=== PATIENT | male | born 1955 | race Caucasian/White ===

== ENCOUNTER 2019-03-20 10:14 | Outpatient (CLI) | payer OTHER, SELFPAY ==
--- NOTE | ~2019-03-20 | NM_ITS ---
EXAMINATION: NM tyler stress w perfusion EXAM DATE: 03/20/2019 14:59 INDICATION: Abnormal EKG. TECHNIQUE: Rest images were obtained following intravenous administration of 10.1 mCi Tc99m tetrofosm in (Myoview). The patient was infused intravenously with Lexiscan (regadenoson). Then, 28.4 mCi Tc99m tetrofosmin (Myoview) was administered intravenously, and stress images were obtained. Data was jose nstructed into short axis and horizontal and vertical long axis SPECT images. Gated SPECT images were also obtained. There is no prior study for comparison. FINDINGS: There is no definite reversible or fixed perfusion abnormality to suggest ischemia or infar ction. There is normal left ventricular wall motion. End diastolic volume: 105 mL. End-systolic volume: 19 mL. Left ventricular ejection fraction: 82%. IMPRESSION: 1. Normal myocardial perfusion at rest and during stress. 2. Left ventricular ejection fraction measuring 82%. Reviewed, dictated and finalized at location A. CTOR OF PARTNERSHIPS
--- NOTE | 2019-03-20 10:35 | EST_ITS ---
Patient Info Name: Juan Daugherty Age: 64 years : 1955 Gender: Male Ht: 75 in Wt: 230 lbs BSA: 2.37 m2 Exam Date: 03/20/2019 12:34 PM Exam Location: [facility] Stress Patient Status: Outpatient Admit Date: 03/20/2019 Staff Ordering Physician: Poncho Vital MD Attending Provider: Meredith Foreman ANP Exercise Technologist: Brett Mckay RDCS, RT Exam Type: CA stress tyler w NM Study Info A regadenoson stress test was performed. Summary 1. Normal sinus rhythm - normal ECG. 2. No abnormal ST/T wave changes with exercise. 3. Nuclear perfusion imaging to be reported by radiology. Protocol: Lexiscan Stress ECG Details Stage: REST Duration (min): 0 min : 33 sec HR (bpm): 71 SBP (mmHg): --- DBP (mmHg): --- Stage: REST Duration (min): 4 min : 52 sec HR (bpm): 70 SBP (mmHg): 124 DBP (mmHg): 81 Stage: STAGE 1 Duration (min): 1 min : 0 sec HR (bpm): 74 SBP (mmHg): 122 DBP (mmHg): 78 Stage: RECOVERY Duration (min): 1 min : 0 sec HR (bpm): 77 SBP (mmHg): 122 DBP (mmHg): 78 Stage: RECOVERY Duration (min): 2 min : 0 sec HR (bpm): 75 SBP (mmHg): 122 DBP (mmHg): 78 Stage: RECOVERY Duration (min): 3 min : 0 sec HR (bpm): 75 SBP (mmHg): 123 DBP (mmHg): 79 Stage: RECOVERY Duration (min): 4 min : 0 sec HR (bpm): 73 SBP (mmHg): 123 DBP (mmHg): 79 Stage: RECOVERY Duration (min): 5 min : 0 sec HR (bpm): 75 SBP (mmHg): 130 DBP (mmHg): 80 Stage: RECOVERY Duration (min): 5 min : 16 sec HR (bpm): 73 SBP (mmHg): 130 DBP (mmHg): 80 Rest HR: 70 bpm Peak HR: 80 bpm Rest Sys BP: 124 mmHg Peak Sys BP: 130 mmHg Max Pred HR: 154 bpm % Max Pred HR: 52 % Target HR: 131 bpm Max RPP: 10,400 bpm*mmHg BP Response: Normal blood pressure response Termination Reason: Completed protocol Cardiac Symptoms: None Total Time: 1 min : 0 sec Rest Polanco BP: 81 mmHg Peak Polanco BP: 80 mmHg Total Dose: 0.4 mg Resting ECG Normal sinus rhythm - normal ECG. Stress ECG No abnormal ST/T wave changes with exercise. Report Signatures
== END 2019-03-20 10:15 | disposition home or self-care (01) ==
PROVIDERS: PCP Internal Medicine; Visit Provider Internal Medicine
DX: R94.31 Abnormal electrocardiogram [ECG] [EKG] (principal)
CPT/HCPCS: 78452; 93017; A9502; J2785

== ENCOUNTER 2019-08-14 10:33 | Outpatient (CLI) | payer OTHER, SELFPAY ==
[2019-08-14 11:53] LABS: Alanine Aminotransferase 32 U/L (4-50); Albumin Level 4.6 g/dL (3.5-5.1); Alkaline Phosphatase 72 U/L (38-126); Aspartate Amino Transferase 36 U/L (17-59); Bilirubin,Total 0.4 mg/dL (0.2-1.3); Blood Urea Nitrogen 15 mg/dL (9-20); Calcium 9.5 mg/dL (8.4-10.2); Carbon Dioxide 25 mmol/L (22-30); Chloride 103 mmol/L (98-107); Cholesterol 162 mg/dL (0-200); Estimated Glomerular Filt Rate > 60; Glucose 118 mg/dL (75-110); HDL Direct 26 mg/dL; Potassium 4.1 mmol/L (3.4-5.0); Sodium 139 mmol/L (137-145); Triglycerides 215 mg/dL (<150)
[2019-08-14 12:04] LABS: LDL Cholesterol Direct 94 mg/dL
== END 2019-08-14 10:34 | disposition home or self-care (01) ==
PROVIDERS: PCP Internal Medicine; Visit Provider Internal Medicine
DX: E78.5 Hyperlipidemia, unspecified (principal)
CPT/HCPCS: 36415; 80053; 80061

== ENCOUNTER 2019-09-29 16:02 | Outpatient (CLI) | payer OTHER, SELFPAY ==
[2019-09-29 16:25] LABS: Basophils Absolute Auto 0.1 K/mm3 (0.0-0.1); Basophils Percent Auto 0.9 % (0.2-1.2); Eosinophils Absolute Auto 0.4 K/mm3 (0-0.3); Eosinophils Percent Auto 6.5 % (0-4.4); Hematocrit 44.6 % (42.0-52.0); Hemoglobin 15.4 g/dL (14.0-18.0); Immature Granulocyte Absolute 0.01 K/mm3 (0.00-0.031); Immature Granulocyte Percent A 0.2 % (0-0.5); Lymphocytes Absolute Auto 2.52 K/mm3 (0.9-3.2); Lymphocytes Percent Auto 38.3 % (18.3-44.2); Mean Corpuscular HGB Conc 34.5 g/dl (32-36); Mean Corpuscular Hemoglobin 29.7 pg (26-34); Mean Corpuscular Volume 86.1 fl (80-100); Mean Platelet Volume 8.6 fl (7.4-10.4); Monocytes Absolute Auto 0.5 K/mm3 (0.1-0.6); Monocytes Percent Auto 7.8 % (2.6-8.5); Neutrophils Absolute Auto 3.1 K/mm3 (1.3-6.7); Neutrophils Percent Auto 46.3 % (45.5-73.1); Platelet Count Result 169 k/mm3 (150-375); Red Blood Count 5.18 M/mm3 (4.6-6.20); Red Cell Distribution Width 12.9 % (11.5-14.5); White Blood Count 6.6 K/mm3 (4.5-10.0)
== END 2019-09-29 16:03 | disposition home or self-care (01) ==
PROVIDERS: PCP Internal Medicine; Visit Provider Internal Medicine
DX: E78.5 Hyperlipidemia, unspecified (principal)
CPT/HCPCS: 36415; 85025

== ENCOUNTER 2020-04-30 13:10 | Outpatient (CLI) | payer OTHER, SELFPAY ==
[2020-04-30 13:38] LABS: Basophils Percent Auto 0.4 % (0.2-1.2); Eosinophils Absolute Auto 0.3 K/mm3 (0-0.3); Hematocrit 39.9 % (42.0-52.0); Hemoglobin 14.1 g/dL (14.0-18.0); Immature Granulocyte Absolute 0.02 K/mm3 (0.00-0.031); Immature Granulocyte Percent A 0.3 % (0-0.5); Lymphocytes Absolute Auto 2.43 K/mm3 (0.9-3.2); Lymphocytes Percent Auto 34.5 % (18.3-44.2); Mean Corpuscular HGB Conc 35.3 g/dl (32-36); Mean Corpuscular Hemoglobin 29.7 pg (26-34); Monocytes Absolute Auto 0.7 K/mm3 (0.1-0.6); Monocytes Percent Auto 9.5 % (2.6-8.5); Neutrophils Absolute Auto 3.6 K/mm3 (1.3-6.7); Neutrophils Percent Auto 51.3 % (45.5-73.1); Platelet Count Result 178 k/mm3 (150-375); Red Blood Count 4.75 M/mm3 (4.6-6.20)
[2020-04-30 13:41] LABS: Hemoglobin A1C 5.4 % (<5.7)
[2020-04-30 13:48] LABS: Alanine Aminotransferase 42 U/L (4-50); Albumin Level 4.3 g/dL (3.5-5.1); Alkaline Phosphatase 69 U/L (38-126); Anion Gap 4 mmol/L (8-16); Aspartate Amino Transferase 39 U/L (17-59); Bilirubin,Total 0.5 mg/dL (0.2-1.3); Blood Urea Nitrogen 14 mg/dL (9-20); Calcium 9.7 mg/dL (8.4-10.2); Carbon Dioxide 30 mmol/L (22-30); Chloride 107 mmol/L (98-107); Cholesterol 141 mg/dL (0-200); Estimated Glomerular Filt Rate > 60; Glucose 134 mg/dL (75-110); HDL Direct 24 mg/dL; Potassium 4.4 mmol/L (3.4-5.0); Sodium 141 mmol/L (137-145); Triglycerides 204 mg/dL (<150)
[2020-04-30 13:59] LABS: LDL Cholesterol Direct 74 mg/dL
[2020-04-30 14:17] LABS: Prostate Specific Antigen 0.8 ng/mL (< OR = 4.0)
[2020-04-30 14:28] LABS: Creatinine Urine 101.6 mg/dL
[2020-04-30 14:59] LABS: MALB Creatinine Ratio < 5.9 mg/g (0-30); Microalbumin Urine Random < 6.0 mg/L (0-16.7)
== END 2020-04-30 13:11 | disposition home or self-care (01) ==
PROVIDERS: PCP Internal Medicine; Visit Provider Internal Medicine
DX: R73.01 Impaired fasting glucose (principal); F31.9 Bipolar disorder, unspecified; I10 Essential (primary) hypertension
CPT/HCPCS: 36415; 80053; 80061; 82043; 83036; 84153; 85025

== ENCOUNTER 2020-05-08 13:18 | Outpatient (CLI) | payer OTHER, MEDICARE, SELFPAY | END 2020-05-08 13:19 | disposition home or self-care (01) | LOC: ANHCOVIDVC 13:18 | PROVIDERS: PCP Internal Medicine | DX: Z23 Encounter for immunization (principal) | CPT/HCPCS: 0001A; 91300 ==

== ENCOUNTER 2020-05-21 13:26 | Outpatient (CLI) | payer OTHER, SELFPAY ==
--- NOTE | ~2020-05-21 | MM_ITS ---
EXAMINATION: MM diagnostic mammo BI HISTORY: Bilateral breast swelling and pain. Patient reports improvement over the last two months aft er trazodone cessation. TECHNIQUE: Full field digital craniocaudal and mediolateral oblique views of both breasts were obtain ed. CAD analysis was submitted and interpreted. COMPARISON: None BREAST PARENCHYMAL COMPOSITION: The breasts are heterogeneously dense, which may obscure small masses . FINDINGS: There is no evidence of suspicious mass, calcification, or architectural distortion to sug gest malignancy. Distribution of breast tissue is consistent with bilateral gynecomastia. IMPRESSION: 1. Mammographic findings consistent with bilateral gynecomastia. No mammographic evidence of malignan cy. Further evaluation at this time should be based on clinical assessment. Continued follow-up physi rachelle examination is recommended. BI-RADS Category 2: Benign finding(s). Reviewed, dictated and finalized at location A. IMPRESSION: 1. Mammographic findings consistent with bilateral gynecomastia. No mammographi c evidence of malignancy. Further evaluation at this time should be based on cl inical assessment. Continued follow-up physical examination is recommended. BI-RADS Category 2: Benign finding(s).
== END 2020-05-21 13:27 | disposition home or self-care (01) ==
LOC: ANHIMG 13:28
PROVIDERS: PCP Internal Medicine; Visit Provider Internal Medicine
DX: N64.4 Mastodynia (principal)
CPT/HCPCS: 77066

== ENCOUNTER 2020-05-29 13:21 | Outpatient (CLI) | payer OTHER, MEDICARE, SELFPAY | END 2020-05-29 13:22 | disposition home or self-care (01) | LOC: ANHCOVIDVC 13:21 | PROVIDERS: PCP Internal Medicine | DX: Z23 Encounter for immunization (principal) | CPT/HCPCS: 0002A; 91300 ==

== ENCOUNTER 2021-01-22 11:17 | Outpatient (CLI) | payer OTHER, SELFPAY ==
--- NOTE | ~2021-01-22 | CT_ITS ---
EXAMINATION: CT lung screening DATE: 01/22/2021 11:54 INDICATION: Personal history of nicotine dependence TECHNIQUE: Computed tomography (CT) of the chest was performed without intravenous contrast. The dose -length product was 212.13 mGy-cm. Automated exposure control and iterative reconstruction technique were employed. COMPARISON: CT dated 01/10/2019 FINDINGS: No significant pleural or pericardial effusion. The upper abdomen is unremarkable. Small hi atal hernia. No thoracic lymphadenopathy. There is mild emphysema. Stable 5 mm left lower lobe nodule , image 108. There are calcified granulomas in the left upper lobe. Stable 5 mm fissural nodule on th e left. Stable 3 mm lingular nodule. Stable groundglass opacities of the superior segment of the righ t lower lobe. No new or enlarging pulmonary nodules. Mild thoracic spondylosis with accentuated kypho sis. No acute osseous abnormality. IMPRESSION: 1. Lung-RADS category 2: Benign appearance or behavior. Continue annual screening with noncontrast lo w-dose chest CT in 12 months. Reviewed, dictated and finalized at location A. TS CENTRE MANAGER IMPRESSION: 1. Lung-RADS category 2: Benign appearance or behavior. Continue annual screeni ng with noncontrast low-dose chest CT in 12 months.
== END 2021-01-22 11:18 | disposition home or self-care (01) ==
PROVIDERS: PCP Internal Medicine; Visit Provider Internal Medicine
DX: Z87.891 Personal history of nicotine dependence (principal)
CPT/HCPCS: 71271

== ENCOUNTER 2021-08-02 10:15 | Outpatient (CLI) | payer OTHER, SELFPAY ==
[2021-08-02 11:11] LABS: Basophils Absolute Auto 0.1 K/mm3 (0.0-0.1); Basophils Percent Auto 0.7 % (0.2-1.2); Eosinophils Absolute Auto 0.4 K/mm3 (0-0.3); Eosinophils Percent Auto 5.2 % (0-4.4); Hematocrit 40.9 % (42.0-52.0); Hemoglobin 14.5 g/dL (14.0-18.0); Immature Granulocyte Absolute 0.05 K/mm3 (0.00-0.031); Immature Granulocyte Percent A 0.7 % (0-0.5); Lymphocytes Absolute Auto 2.35 K/mm3 (0.9-3.2); Lymphocytes Percent Auto 33.1 % (18.3-44.2); Mean Corpuscular HGB Conc 35.5 g/dl (32-36); Mean Corpuscular Hemoglobin 30.6 pg (26-34); Mean Corpuscular Volume 86.3 fl (80-100); Mean Platelet Volume 8.8 fl (7.4-10.4); Monocytes Absolute Auto 0.6 K/mm3 (0.1-0.6); Neutrophils Absolute Auto 3.6 K/mm3 (1.3-6.7); Neutrophils Percent Auto 51.3 % (45.5-73.1); Platelet Count Result 169 k/mm3 (150-375); Red Blood Count 4.74 M/mm3 (4.6-6.20); Red Cell Distribution Width 12.7 % (11.5-14.5); White Blood Count 7.1 K/mm3 (4.5-10.0)
[2021-08-02 11:22] LABS: Alanine Aminotransferase 34 U/L (6-50); Albumin Level 4.7 g/dL (3.5-5.1); Alkaline Phosphatase 66 U/L (38-126); Anion Gap 9 mmol/L (8-16); Aspartate Amino Transferase 40 U/L (17-59); Bilirubin,Total 0.6 mg/dL (0.2-1.3); Blood Urea Nitrogen 16 mg/dL (9-20); Calcium 9.2 mg/dL (8.4-10.2); Carbon Dioxide 24 mmol/L (22-30); Chloride 106 mmol/L (98-107); Cholesterol 167 mg/dL (0-200); Estimated Glomerular Filt Rate > 60; Glucose 117 mg/dL (65-110); HDL Direct 30 mg/dL; Potassium 4.3 mmol/L (3.4-5.0); Sodium 139 mmol/L (137-145); Triglycerides 192 mg/dL (<150)
[2021-08-02 11:29] LABS: Creatinine Urine 96.9 mg/dL
[2021-08-02 11:33] LABS: LDL Cholesterol Direct 89 mg/dL
[2021-08-02 11:34] LABS: MALB Creatinine Ratio 7.9 mg/g (0-30); Microalbumin Urine Random 7.7 mg/L (0-16.7)
[2021-08-02 11:44] LABS: Vitamin D 25 Hydroxy 44.8 ng/mL
[2021-08-02 11:53] LABS: Prostate Specific Antigen 0.7 ng/mL (< OR = 4.0)
== END 2021-08-02 10:16 | disposition home or self-care (01) ==
PROVIDERS: PCP Internal Medicine; Visit Provider Internal Medicine
DX: Z12.5 Encounter for screening for malignant neoplasm of prostate (principal); M17.0 Bilateral primary osteoarthritis of knee; I72.2 Aneurysm of renal artery; F31.9 Bipolar disorder, unspecified; E55.9 Vitamin D deficiency, unspecified; E78.2 Mixed hyperlipidemia; E78.5 Hyperlipidemia, unspecified
CPT/HCPCS: 36415; 80053; 80061; 82043; 82306; 84153; 84443; 85025; G0103

== ENCOUNTER 2021-08-04 11:51 | Outpatient (CLI) | payer OTHER, SELFPAY ==
--- NOTE | ~2021-08-04 | XR_ITS ---
XR knee RT 3V 08/04/2021 12:21 Indication: Chronic knee pain Procedure: 3 views of the right knee Comparison: 09/10/2016 Findings: There is been progression of moderate tricompartment osteoarthritis of the right knee most advanced in the patellofemoral compartment. No acute fracture. No significant joint effusion. No fore ign bodies. Impression: 1: Progression of moderate tricompartment osteoarthritis of the right knee compared with prior study. Reviewed, dictated and finalized at location B. Impression: 1: Progression of moderate tricompartment osteoarthritis of the right knee comp ared with prior study.
--- NOTE | ~2021-08-04 | XR_ITS ---
XR knee LT 3V DATE: 08/04/2021 12:21 INDICATION: Chronic bilateral anterior knee pain TECHNIQUE: Park and standing AP and lateral views COMPARISON: 09/10/2016 left knee FINDINGS: There is prepatellar and infrapatellar soft tissue thickening since 09/10/2016. Small suprapatellar knee joint effusion is suggested. There is mild periarticular spurring at the patellofemoral joint consistent with mild osteoarthritis. Medial lateral compartment joint spaces are relatively well preserved. No fracture or dislocation, radiopaque intra-articular loose body or chondrocalcinosis is detected. No periosteal reaction or bone destruction IMPRESSION: Mild patellofemoral osteoarthritis Small suprapatellar knee joint effusion Nonspecific prepatellar and infrapatellar soft tissue thickening Reviewed, dictated and finalized at location A.
== END 2021-08-04 11:52 | disposition home or self-care (01) ==
LOC: ANHIMG 11:55
PROVIDERS: PCP Internal Medicine; Visit Provider Internal Medicine
DX: M17.0 Bilateral primary osteoarthritis of knee (principal); M25.462 Effusion, left knee
CPT/HCPCS: 73562

== ENCOUNTER 2022-01-13 15:59 | Emergency (ER) | payer OTHER, SELFPAY ==
--- NOTE | ~2022-01-13 | CT_ITS ---
EXAMINATION: CT brain wo con INDICATION: Head injury COMPARISON: None TECHNIQUE: Standard unenhanced head CT. The dose-length product (DLP) was 681.00 mGy-cm. The mA was a djusted according to patient size. Iterative reconstruction technique was employed. FINDINGS: There is a left periorbital hematoma. There is acute subarachnoid hemorrhage in the left fr ontal lobe. The ventricles are normal. There is no abnormal mass effect or midline shift. The yousif-wh ite matter differentiation is normal. The basal cisterns are patent. The orbits are normal. The paran marivel sinuses, mastoids and calvarium are normal. IMPRESSION: 1. Acute subarachnoid hemorrhage in the left frontal lobe. Reviewed, dictated and finalized at location F. E FINISHER
--- NOTE | ~2022-01-13 | CT_ITS ---
EXAMINATION: CT facial & cervical spine wo DATE: 01/13/2022 18:01 INDICATION: Head injury TECHNIQUE: Computed tomography (CT) of the maxillofacial region and cervical spine was performed with out intravenous contrast. The dose-length product (DLP) was 625.85 mGy-cm. Automated exposure control and iterative reconstruction technique were employed. COMPARISON: None FINDINGS: MAXILLOFACIAL CT: There is a left periorbital hematoma. No facial fracture is identified. The paranasal sinuses are wel l aerated. The globes are intact. CERVICAL SPINE CT: There are 2 mm of retrolisthesis of C3 on C4 and C5 on C6. There is moderate to severe loss of interv ertebral disc space height at C5-6. There is moderate loss of intervertebral disc space height at C6- 7. The vertebral body heights are normal. There is no fracture. The odontoid is intact. There is mode rate facet and uncovertebral joint osteoarthritis at C5-6. The prevertebral soft tissues are normal. There are minimal airspace opacities of the visualized lung apices, consistent with atelectasis versu s pneumonia IMPRESSION: 1. Left periorbital soft tissue hematoma without acute facial fracture. 2. Moderate cervical spondylosis without acute osseous abnormality. Reviewed, dictated and finalized at location F. NG INSTRUCTOR
[2022-01-13 16:07] VITALS: BP 145/100; PULSE 83; RESP 15; TEMP 36.6; O2SAT 95
--- NOTE | 2022-01-13 17:12 | ED.FALL ---
HPI - Fall General Chief Complaint: Fall Stated Complaint: fall dizziness Time Seen by Provider: 01/13/22 16:53 History of Present Illness HPI Narrative: 66-year-old male history of anxiety, depression, dyslipidemia presents to the emergency room for evaluation of head injury status post fall. Patient states that he was at [employer], believes that he was walking too fast when he lost his footing, tripped and landed on the left side of his face. Patient denies loss of consciousness altered mental status, confusion, headache, dizziness, nausea vomiting. Patient denies being on anticoagulant therapy. Patient reports pain to his left brow and left cheek. Denies visual or hearing changes. Related Data Home Medications Medication Instructions Recorded Confirmed sertraline 100 mg tablet 100 mg PO DAILY 12/21/18 08/04/21 clobetasol 0.05 % topical ointment 1 applic topical BID PRN Itching 01/18/19 08/04/21 multivit with minerals-iron 18 1 tablet PO DAILY 01/18/19 08/04/21 mg-folic ac 400 mcg-vit K 25 mcg tablet (Adults Multivitamin) alprazolam 0.25 mg tablet 0.25 mg PO BID Anxiety 06/03/20 08/04/21 quetiapine 100 mg tablet 400 mg PO HS 06/03/20 08/04/21 haloperidol 10 mg tablet 10 mg PO HS 01/14/21 08/04/21 temazepam 15 mg capsule 10 mg PO QHS 01/14/21 08/04/21 Allergies Allergy/AdvReac Type Severity Reaction Status Date / Time pollen extracts Allergy Unknown sinus Verified 01/13/22 16:17 drainage Review of Systems Review of Systems: CONSTITUTIONAL: Denies fever, chills, or sweats. EYES: Denies visual changes, redness, or discharge. ENT: Denies rhinorrhea, congestion, sore throat, or otalgia. CARDIOVASCULAR: Denies chest pain, palpitations, or edema. RESPIRATORY: Denies cough or dyspnea. GASTROINTESTINAL: Denies abdominal pain, nausea, vomiting, or diarrhea. GENITOURINARY: Denies dysuria or hematuria. SKIN: Denies rash or itching. MUSCULOSKELETAL: Reports head injury NEUROLOGIC: Denies headache, numbness, dizziness, or weakness. PSYCHIATRIC: Denies anxiety or depression. [facility] Past Medical History Medical History Aortic aneurysm 4.4 cm Infrarenal AAA on CT scan. Dr. Elias Follows him. Bipolar 1 disorder Depression GERD (gastroesophageal reflux disease) Gonorrhea Hepatitis A in 1975 High cholesterol History of nicotine use will need low dose CT scan in Jan 2019 Hyperlipidemia Seizure Surgical History Surgical History H/O wisdom tooth extraction History of appendectomy Hx of tonsillectomy Family History Family History Father Seizure Mother Cancer Sibling COPD (chronic obstructive pulmonary disease) Cancer Social History Social History Smoking packs per day: 1 Smoking cigarettes per day: 20.0 Years smoked: 20 Smoking pack-years: 20.00 Smoking status: Former smoker Tobacco type: cigarettes Second hand tobacco smoke exposure: Yes Smoking end date: 03/01/18 Alcohol intake: never Substance use: never Substance use type: does not use Gender identity (if verbalized by the patient): Male Exam Narrative: GENERAL: Well-appearing, well-nourished, no physical limitations, and in no acute distress. HEAD: Normocephalic, +TTP and periorbital hematoma to the left brow/left zygoma EYES: Conjunctivae normal, PERRLA and EOMI. ENT: External nose normal, Nares clear, no rhinorrhea or epistaxis. Mucous membranes moist. Oropharynx without tonsillar hypertrophy exudate or other lesions. External ears normal, bilateral TMs normal bilaterally NECK: Supple. No meningeal signs. No adenopathy or masses. No carotid bruits or JVD CHEST: Clear to auscultation. No respiratory distress. No wheezes rales or rhonchi. No tenderness. HEART: Regular rate and rhythm. No murmur he
[2022-01-13 18:21] VITALS: BP 160/96; PULSE 77; RESP 14; O2SAT 97
[2022-01-13 18:23] LABS: Basophils Percent Auto 0.4 % (0.2-1.2); Eosinophils Absolute Auto 0.2 K/mm3 (0-0.3); Eosinophils Percent Auto 1.6 % (0-4.4); Hematocrit 43.6 % (42.0-52.0); Hemoglobin 15.4 g/dL (14.0-18.0); Immature Granulocyte Absolute 0.05 K/mm3 (0.00-0.031); Immature Granulocyte Percent A 0.5 % (0-0.5); Lymphocytes Absolute Auto 1.61 K/mm3 (0.9-3.2); Lymphocytes Percent Auto 15.7 % (18.3-44.2); Mean Corpuscular HGB Conc 35.3 g/dl (32-36); Mean Corpuscular Hemoglobin 30.9 pg (26-34); Mean Corpuscular Volume 87.6 fl (80-100); Mean Platelet Volume 8.4 fl (7.4-10.4); Monocytes Absolute Auto 0.7 K/mm3 (0.1-0.6); Monocytes Percent Auto 6.6 % (2.6-8.5); Neutrophils Absolute Auto 7.7 K/mm3 (1.3-6.7); Neutrophils Percent Auto 75.2 % (45.5-73.1); Platelet Count Result 186 k/mm3 (150-375); Red Blood Count 4.98 M/mm3 (4.6-6.20); Red Cell Distribution Width 13.2 % (11.5-14.5); White Blood Count 10.3 K/mm3 (4.5-10.0)
[2022-01-13 18:35] LABS: Alanine Aminotransferase 40 U/L (6-50); Alkaline Phosphatase 79 U/L (38-126); Anion Gap 14 mmol/L (8-16); Aspartate Amino Transferase 53 U/L (17-59); Bilirubin,Total 0.7 mg/dL (0.2-1.3); Blood Urea Nitrogen 12 mg/dL (9-20); Calcium 9.8 mg/dL (8.4-10.2); Carbon Dioxide 27 mmol/L (22-30); Chloride 101 mmol/L (98-107); Estimated CRCL calculation 68 ml/min; Estimated Glomerular Filt Rate > 60; Glucose 110 mg/dL (65-110); Potassium 4.5 mmol/L (3.4-5.0); Sodium 142 mmol/L (137-145)
[2022-01-13 18:53] VITALS: BP 157/98; PULSE 82; RESP 17; O2SAT 97
[2022-01-13 19:00] LABS: SARS-CoV-2 RNA PCR Negative
[2022-01-13 19:06] LABS: INR 1.1
[2022-01-13 19:07] LABS: Partial Thromboplastin Time 31.2 SECONDS (22.3-36.8)
== END 2022-01-13 18:56 | disposition short-term general hospital (02) ==
PROVIDERS: Emergency Provider Nurse Practitioner Family; PCP Internal Medicine
DX: S06.6X0A Traumatic subarachnoid hemorrhage without loss of consciousness, initial encounter (principal); Z20.822 Contact with and (suspected) exposure to COVID-19; E78.5 Hyperlipidemia, unspecified; K21.9 Gastro-esophageal reflux disease without esophagitis; F41.9 Anxiety disorder, unspecified; F31.9 Bipolar disorder, unspecified; Z87.891 Personal history of nicotine dependence; M47.812 Spondylosis without myelopathy or radiculopathy, cervical region; W01.0XXA Fall on same level from slipping, tripping and stumbling without subsequent striking against object, initial encounter
CPT/HCPCS: 36415; 70450; 70486; 72125; 80053; 85025; 85610; 85730; 99285; U0003; U0005

== ENCOUNTER 2022-02-24 12:11 | Outpatient (CLI) | payer OTHER, SELFPAY ==
[2022-02-24 12:33] LABS: Hematocrit 41.7 % (42.0-52.0); Hemoglobin 14.7 g/dL (14.0-18.0); Mean Corpuscular HGB Conc 35.3 g/dl (32-36); Mean Corpuscular Hemoglobin 30.6 pg (26-34); Mean Corpuscular Volume 86.7 fl (80-100); Mean Platelet Volume 8.2 fl (7.4-10.4); Platelet Count Result 189 k/mm3 (150-375); Red Blood Count 4.81 M/mm3 (4.6-6.20); Red Cell Distribution Width 12.7 % (11.5-14.5); White Blood Count 6.8 K/mm3 (4.5-10.0)
[2022-02-24 12:47] LABS: Cholesterol 156 mg/dL (0-200); HDL Direct 30 mg/dL; Triglycerides 190 mg/dL (<150)
[2022-02-24 12:51] LABS: Hemoglobin A1C 5.4 % (<5.7)
[2022-02-24 12:58] LABS: LDL Cholesterol Direct 83 mg/dL
[2022-02-24 13:17] LABS: Prostate Specific Antigen 0.9 ng/mL (< OR = 4.0)
[2022-02-27 12:58] LABS: Vitamin D 1,25 (OH)2 Total 27 pg/mL (18-72); Vitamin D2 1,25 (OH)2 <8 pg/mL; Vitamin D3 1,25 (OH)2 27 pg/mL
== END 2022-02-24 12:12 | disposition home or self-care (01) ==
PROVIDERS: PCP Internal Medicine; Visit Provider Internal Medicine
DX: F31.9 Bipolar disorder, unspecified (principal); R53.1 Weakness; E78.5 Hyperlipidemia, unspecified; R73.01 Impaired fasting glucose; E55.9 Vitamin D deficiency, unspecified; Z12.5 Encounter for screening for malignant neoplasm of prostate
CPT/HCPCS: 36415; 80061; 82607; 82652; 83036; 84153; 84443; 85027; G0103

== ENCOUNTER 2022-03-06 13:36 | Outpatient (CLI) | payer OTHER, SELFPAY ==
--- NOTE | ~2022-03-06 | CT_ITS ---
EXAMINATION: CT diagnostic chest wo con DATE: 03/06/2022 14:01 INDICATION: Lung nodule seen on prior CT. TECHNIQUE: Computed tomography (CT) of the chest was performed without intravenous contrast. The dose -length product was 278.77 mGy-cm. Automated exposure control and iterative reconstruction technique were employed. COMPARISON: CT dated 01/22/2021 and 01/10/2019 FINDINGS: Stable left lower lobe nodules, largest measuring 5 mm, image 100. There are calcified gran ulomas of the left upper lobe unchanged. There is emphysema. No endobronchial lesions. Groundglass op acities are identified in the superior segment of the right lower lobe which appear chronic and stabl e 4 mm lingular nodule, coronal image 32. No new pulmonary nodules. There is mild mediastinal lymphad enopathy in the precarinal location, unchanged from prior examinations, likely reactive. There is a h ealed right sixth rib fracture. Mild thoracic spondylosis. IMPRESSION: 1. Stable pulmonary nodules lying for differences of technique, likely benign. Recommend follow-up lo w dose CT chest in 12 months. Reviewed, dictated and finalized at location A. ITY ASSURANCE TEST PROGRAM MANAGER IMPRESSION: 1. Stable pulmonary nodules lying for differences of technique, likely benign. Recommend follow-up low dose CT chest in 12 months.
== END 2022-03-06 13:37 | disposition home or self-care (01) ==
PROVIDERS: PCP Internal Medicine; Visit Provider Internal Medicine
DX: R91.8 Other nonspecific abnormal finding of lung field (principal)
CPT/HCPCS: 71250

== ENCOUNTER 2022-08-19 10:25 | Emergency (ER) | payer OTHER, SELFPAY ==
--- NOTE | ~2022-08-19 | XR_ITS ---
XR lumbar spine 2-3V 08/19/2022 11:17 Indication: Low back pain after fall Procedure: 3 views lumbar spine Comparison: No prior studies for comparison. Findings: There is disc narrowing at all lumbar levels most advanced at L5-S1. There is facet hypertr ophy at L3-4 through L5-S1. No fracture or traumatic malalignment. No evidence for spondylolysis or s pondylolisthesis. Impression: 1: No acute abnormality of the lumbar spine. 2: Moderate lumbar spondylosis. Reviewed, dictated and finalized at location [] Impression: 1: No acute abnormality of the lumbar spine. 2: Moderate lumbar spondylosis.
[2022-08-19 10:22] VITALS: BP 135/91; PULSE 86; RESP 19; TEMP 36.7
[2022-08-19] MEDS: KETOROLAC 15 MG/ML VIAL (*BKC) IV PUSH (10:51)
[2022-08-19 10:54] VITALS: BP 153/95; PULSE 84; RESP 20; O2SAT 92
[2022-08-19] MEDS: HYDROcodone/acetaminophen (*CRX) 5-325 MG TABLET 1 TAB PO (11:28)
[2022-08-19 11:29] VITALS: BP 142/90; PULSE 80; RESP 14; O2SAT 96
[2022-08-19 11:31] VITALS: BP 143/89; PULSE 84; RESP 14; O2SAT 96
--- NOTE | 2022-08-19 12:39 | ED.FALL ---
HPI - Fall General Chief Complaint: Fall Stated Complaint: fell off clip on sunglasses inspector Time Seen by Provider: 08/19/22 10:29 History of Present Illness HPI Narrative: Patient is a 67-year-old male with history of subarachnoid hemorrhage with resultant balance issues who presents ER after flipping over his riding lawnmower. He actually drove it up against a fence and it rolled over. He was not crushed or entrapped. He did not strike his head or lose consciousness. He did land on his left back and has had some pain since then. He has not tried to ambulate. Related Data Home Medications Medication Instructions Recorded Confirmed multivit with minerals-iron 18 1 tablet PO DAILY 01/18/19 08/07/22 mg-folic ac 400 mcg-vit K 25 mcg tablet (Adults Multivitamin) alprazolam 0.25 mg tablet 0.25 mg PO BID Anxiety 06/03/20 08/07/22 sertraline 100 mg tablet 50 mg PO DAILY 01/20/22 08/07/22 quetiapine 100 mg tablet 300 mg PO HS 04/24/22 08/07/22 lurasidone 20 mg tablet 20 mg PO QPM 08/07/22 08/07/22 Allergies Allergy/AdvReac Type Severity Reaction Status Date / Time pollen extracts Allergy Unknown sinus Verified 08/19/22 10:35 drainage Review of Systems Review of Systems: All systems reviewed & are unremarkable except as noted in HPI and below Musculoskeletal: Musculoskeletal: Reports back pain, Denies arthralgias and Denies joint swelling Integumentary/Breasts: Skin/Breast: Denies erythema and Denies rash Neurologic: Denies syncope, Denies headache(s), Denies focal weakness and Denies numbness [facility] Past Medical History Medical History (Updated 08/19/22 @ 12:44 by Ru Romo MD) Aortic aneurysm 4.4 cm Infrarenal AAA on CT scan. Dr. Elias Follows him. Bipolar 1 disorder Depression GERD (gastroesophageal reflux disease) Gonorrhea Hepatitis A in 1975 High cholesterol History of nicotine use will need low dose CT scan in Jan 2019 Hyperlipidemia Seizure Surgical History Surgical History H/O wisdom tooth extraction History of appendectomy Hx of tonsillectomy Family History Family History Father Seizure Mother Cancer Sibling COPD (chronic obstructive pulmonary disease) Cancer Social History Social History Smoking packs per day: 1 Smoking cigarettes per day: 20.0 Years smoked: 20 Smoking pack-years: 20.00 Smoking status: Former smoker Tobacco type: cigarettes Second hand tobacco smoke exposure: Yes Smoking end date: 03/01/18 Alcohol intake: never Substance use: never Substance use type: does not use Lack of Transportation: No Lack of Food: Sometimes True Current Housing: I Have Housing Concerned About Future Housing: No Difficulty Paying Gas/Electric Bills: No Difficulty Paying for Meds: YES Currently Unemployed: No Education: Master's Degree or Higher Difficulty w/ Childcare or Family Care: No Occupation/Education: retired Gender identity (if verbalized by the patient): Male Exam Narrative: GENERAL: Well-appearing, well-nourished, and in no acute distress. HEAD: Normocephalic, atraumatic. ENT: Mucous membranes moist. CHEST: Clear to auscultation. No respiratory distress. HEART: Regular rate and rhythm. Normal peripheral pulses. ABDOMEN: Soft, nontender, nondistended. Back: No midline or paraspinal muscle point tenderness of the T/L spine. No abrasions/bruising. EXTREMITIES: Normal range of motion. No edema. SKIN: Warm, dry, no rash. NEURO: Alert and oriented x3. PSYCH: Normal mood and affect. Course Course Emergency Course: Patient resting comfortably. Informed of results. Discharge home. Vital Signs Vital signs: Vital Signs Temperature 98.1 F 08/19/22 10:22 Pulse Rate 86 08/19/22 10:22 Respiratory Rate 19 08/19/22 10:22 Blood Pressure 135/91 H
[2022-08-19 12:45] VITALS: BP 138/92; PULSE 75; RESP 16; O2SAT 98
== END 2022-08-19 12:46 | disposition home or self-care (01) ==
PROVIDERS: Emergency Provider Emergency Medicine; PCP Family Medicine
DX: S39.92XA Unspecified injury of lower back, initial encounter (principal); E78.00 Pure hypercholesterolemia, unspecified; I71.43 Infrarenal abdominal aortic aneurysm, without rupture; K21.9 Gastro-esophageal reflux disease without esophagitis; F31.9 Bipolar disorder, unspecified; Z87.891 Personal history of nicotine dependence; M47.816 Spondylosis without myelopathy or radiculopathy, lumbar region; W28.XXXA Contact with powered lawn mower, initial encounter
CPT/HCPCS: 72100; 96374; 99284; A9270; J1885

== ENCOUNTER 2022-09-29 15:00 | Outpatient (RCR) | payer OTHER, SELFPAY ==
--- NOTE | 2022-09-22 14:40 | PTOPEVAL1 ---
Assessment and note entered by Bebeto Hinojosa, PT Evaluation Information Assessment Status Evaluation Diagnosis Dorsalgia, Unsteadiness Onset 12/30/21 Subjective Information Reports that majority of his falls are from dizziness which he attributes to medication. His back has been hurting him for the last few weeks since he rolled his lawnmower over on himself. X- rays were negative for fracture so they attributed it to swelling. Feels he is weaker on his right side. He has been using a cane for the last couple of weeks and it is helping. Reported Pain Level Pain Score 4: Self Report Assessment PT Clinical Summary Patient presents with signs and symptoms consistent with lumbar stenosis and decreased R hip mobility. These findings are reflected in joint mobility measures and strength measures. His static and dynamic balance scores are adequate but his gait cycle is significantly affected at this time. Will benefit from skilled therapy to address these deficits to reduce fall risk and improve overall functional activity. Plan of Care Interventions Gait Training,Manual Therapy,Neuro Re-education, Therapeutic Activities,Therapeutic Exercise PT Services Indicated Yes These treatments will address the objective and functional deficits as defined above. The patient will be advanced safely and appropriately in order for the patient to progress towards his/her prior level of function. Additional exercises will be introduced and as well as a comprehensive home exercise program upon discharge, if needed, ?to ensure carryover of functional gains achieved in the clinic. This treatment plan has been reviewed and agreement upon by the patient.
--- NOTE | 2022-09-22 14:40 | OPREHPOC ---
Outpatient Therapy Plan of Care This is a Multidisciplinary Plan of Care that may contain components documented by all disciplines (PT, OT, and ST.) PT Problem 1 PT Problem #1 Knowledge Deficit PT Goal 1 Goal Independent with home hip mobility program Target Visit 8 PT Problem 2 PT Problem #2 Pain PT Goal 1 Goal Report pain no greater than 1/10 with supine to sit transfer Target Visit 8 PT Problem 3 PT Problem #3 Impaired Flexibility PT Goal 1 Goal Demonstrate mild restriction bilaterally in piriformis to reduce asymmetrical pelvic pull Target Visit 8 PT Goal 2 Goal Improve mary HS 90/90 ROM to -25 degrees mary for reduced posterior pelvic pull with ADLs Target Visit 8 PT Problem 4 PT Problem #4 Impaired Strength PT Goal 1 Goal Improve mary hip flexion strength to 4+/5 to improve foot clearence Target Visit 8 PT Problem 5 PT Problem #5 Impaired Gait PT Goal 1 Goal Ambulate with even stride length bilaterally with full R foot clearence Target Visit 8
--- NOTE | 2022-10-13 09:31 | PCPTNOTE ---
Patient called & cancelled scheduled appointment this date due to having surgery and not being able to complete PT at this time.
--- NOTE | 2022-10-16 11:04 | PTOPDC ---
Assessment and note entered by Bebeto Hinojosa, PT Evaluation Information Assessment Status Discharge - Pt Not Present Diagnosis Dorsalgia, Unsteadiness Onset 12/30/21 Subjective Information Patient contacted clinic reporting that he had imaging identifying a previously unidentified lumbar fracture. Requests a self discharge at this time to follow up with MD. Assessment PT Clinical Summary Patient cancelled remaining appointments. Based on subjective request patient will be discharged from current episode of therapy for MD follow up. Please refer to last treatment note for discharge status. Plan of Care PT Services Indicated Yes
== END 2022-10-16 12:47 | disposition home or self-care (01) ==
LOC: ANHGOSHPT 15:00
PROVIDERS: PCP Family Medicine; Visit Provider Family Medicine
DX: M54.9 Dorsalgia, unspecified (principal); R26.81 Unsteadiness on feet
CPT/HCPCS: 97110; 97112; 97140; 97161; 97530

== ENCOUNTER 2022-12-31 15:38 | Emergency (ER) | payer OTHER, SELFPAY ==
--- NOTE | 2022-12-31 15:41 | ED.SKABFB ---
HPI - Skin/Abscess/Foreign Bdy General Chief complaint: Skin/Abscess/Foreign Body Stated complaint: Rash all over Source: patient and RN notes reviewed Mode of arrival: ambulatory Limitations: no limitations History of Present Illness HPI narrative: Patient is a 67-year-old male who presents to the [facility] with complaints of itchy rash to his entire body. Patient states that he has had the rash for approximately 10-12 days. Patient states that the rash is itchy. He states that the rash is reddened and dry on his hands and near his right collarbone. He states that he has been applying lotion without relief of the itching. Related Data Home Medications Medication Instructions Recorded Confirmed multivit with minerals-iron 18 1 tablet PO DAILY 01/18/19 12/22/22 mg-folic ac 400 mcg-vit K 25 mcg tablet (Adults Multivitamin) alprazolam 0.25 mg tablet 0.25 mg PO BID Anxiety 06/03/20 12/22/22 sertraline 100 mg tablet 50 mg PO DAILY 01/20/22 12/22/22 quetiapine 100 mg tablet 300 mg PO HS 04/24/22 12/22/22 lurasidone 20 mg tablet 20 mg PO QPM 08/07/22 12/22/22 Allergies Allergy/AdvReac Type Severity Reaction Status Date / Time pollen extracts Allergy Unknown sinus Verified 12/22/22 16:10 drainage Review of Systems Review of Systems: CONSTITUTIONAL: Denies fever, chills, or sweats. EYES: Denies visual changes, redness, or discharge. ENT: Denies otalgia and sore throat CARDIOVASCULAR: Denies chest pain, palpitations, or edema. RESPIRATORY: Denies cough or dyspnea. GASTROINTESTINAL: Denies abdominal pain, nausea, vomiting, or diarrhea. GENITOURINARY: Denies dysuria or hematuria. SKIN: Reports generalized rash and itching. MUSCULOSKELETAL: Denies back pain, joint pain, or myalgia. NEUROLOGIC: Denies headache, numbness, or weakness. Pertinent positives per HPI. [facility] Past Medical History Medical History Aortic aneurysm 4.4 cm Infrarenal AAA on CT scan. Dr. Elias Follows him. Bipolar 1 disorder Depression GERD (gastroesophageal reflux disease) Gonorrhea Hepatitis A in 1975 High cholesterol History of nicotine use will need low dose CT scan in Jan 2019 Hyperlipidemia Seizure Surgical History Surgical History H/O wisdom tooth extraction History of appendectomy Hx of tonsillectomy Family History Family History Father Seizure Mother Cancer Sibling COPD (chronic obstructive pulmonary disease) Cancer Social History Social History Smoking packs per day: 1 Smoking cigarettes per day: 20.0 Years smoked: 20 Smoking pack-years: 20.00 Smoking status: Former smoker Tobacco type: cigarettes Second hand tobacco smoke exposure: Yes Smoking end date: 03/01/18 Alcohol intake: never Substance use: never Substance use type: does not use Lack of Transportation: No Lack of Food: Sometimes True Current Housing: I Have Housing Concerned About Future Housing: No Difficulty Paying Gas/Electric Bills: No Difficulty Paying for Meds: YES Currently Unemployed: No Education: Master's Degree or Higher Difficulty w/ Childcare or Family Care: No Occupation/Education: retired Gender identity (if verbalized by the patient): Male Comments At the time of my signature, I reviewed and agree with the nursing past medical, surgical, social, and family history. There is no relevant family history pertinent to the patient complaint. Exam Narrative: GENERAL: This is a well-nourished, well-developed patient, in no apparent distress. HEAD: normocephalic, atraumatic. EYES: Sclera clear/white. Vision is grossly intact. EARS: External ears normal. Hearing grossly intact. NOSE: External nose normal with no obvious nasal discharge, nares without red
[2022-12-31 15:49] VITALS: BP 114/85; PULSE 97; RESP 16; TEMP 36.6; O2SAT 99
== END 2022-12-31 16:14 | disposition home or self-care (01) ==
PROVIDERS: Emergency Provider Nurse Practitioner; PCP Family Medicine
DX: L30.9 Dermatitis, unspecified (principal); E78.5 Hyperlipidemia, unspecified; Z87.891 Personal history of nicotine dependence
CPT/HCPCS: 99213; G0463

== ENCOUNTER 2023-03-08 09:06 | Outpatient (CLI) | payer OTHER, SELFPAY ==
[2023-03-08 13:34] LABS: Alanine Aminotransferase 17 U/L (6-50); Albumin Level 4.1 g/dL (3.5-5.1); Alkaline Phosphatase 96 U/L (38-126); Anion Gap 10 mmol/L (8-16); Aspartate Amino Transferase 29 U/L (17-59); Bilirubin,Total 0.8 mg/dL (0.2-1.3); Blood Urea Nitrogen 15 mg/dL (9-20); Calcium 9.6 mg/dL (8.4-10.2); Carbon Dioxide 27 mmol/L (22-30); Chloride 105 mmol/L (98-107); Estimated Glomerular Filt Rate > 60; Glucose 102 mg/dL (65-110); Sodium 142 mmol/L (137-145)
[2023-03-08 13:53] LABS: Prostate Specific Antigen 1.2 ng/mL (< OR = 4.0)
== END 2023-03-08 09:07 | disposition home or self-care (01) ==
PROVIDERS: PCP Family Medicine; Visit Provider Family Medicine
DX: Z12.5 Encounter for screening for malignant neoplasm of prostate (principal); Z13.228 Encounter for screening for other metabolic disorders; Z13.220 Encounter for screening for lipoid disorders; E78.5 Hyperlipidemia, unspecified
CPT/HCPCS: 36415; 80053; 84153; G0103

== ENCOUNTER 2023-08-06 15:42 | Outpatient (CLI) | payer OTHER, SELFPAY ==
[2023-08-06 18:52] LABS: Appearance Urine Clear (Clear); Bilirubin Urine Negative (Negative); Blood Urine Negative (Negative); Color Urine Yellow (Yellow); Glucose Urine UA Negative (Negative); Ketones Urine Negative (Negative); Leukocyte Esterase Ur Negative LEU/UL (Negative); Nitrate Urine Negative (Negative); Protein Urine Negative (Negative); Specific Grav Ur 1.016 (1.001-1.035); Urobilinogen Urine 0.2 mg/dL (<2.0)
[2023-08-06 18:54] LABS: Add Urine Microscopic? NO
[2023-08-06 19:22] LABS: Alanine Aminotransferase 26 U/L (6-50); Albumin Level 4.8 g/dL (3.5-5.1); Alkaline Phosphatase 91 U/L (38-126); Anion Gap 9 mmol/L (4-12); Aspartate Amino Transferase 40 U/L (17-59); Bilirubin,Total 0.6 mg/dL (0.2-1.3); Blood Urea Nitrogen 15 mg/dL (9-20); Calcium 9.7 mg/dL (8.4-10.2); Carbon Dioxide 29 mmol/L (22-30); Chloride 99 mmol/L (98-107); Estimated Glomerular Filt Rate > 60; Glucose 111 mg/dL (65-110); Potassium 4.6 mmol/L (3.4-5.0); Sodium 137 mmol/L (137-145)
[2023-08-06 19:39] LABS: Basophils Percent Auto 0.5 % (0.2-1.2); Eosinophils Absolute Auto 0.2 K/mm3 (0-0.3); Eosinophils Percent Auto 2.8 % (0-4.4); Hematocrit 40.4 % (42.0-52.0); Hemoglobin 14.4 g/dL (14.0-18.0); Immature Granulocyte Absolute 0.03 K/mm3 (0.00-0.031); Immature Granulocyte Percent A 0.4 % (0-0.5); Lymphocytes Percent Auto 30.1 % (18.3-44.2); Mean Corpuscular HGB Conc 35.6 g/dl (32-36); Mean Corpuscular Hemoglobin 31.6 pg (26-34); Mean Corpuscular Volume 88.8 fl (80-100); Mean Platelet Volume 8.9 fl (7.4-10.4); Monocytes Absolute Auto 0.7 K/mm3 (0.1-0.6); Monocytes Percent Auto 9.3 % (2.6-8.5); Neutrophils Absolute Auto 4.3 K/mm3 (1.3-6.7); Neutrophils Percent Auto 56.9 % (45.5-73.1); Platelet Count Result 274 k/mm3 (150-375); Red Blood Count 4.55 M/mm3 (4.6-6.20); Red Cell Distribution Width 12.9 % (11.5-14.5); White Blood Count 7.6 K/mm3 (4.5-10.0)
[2023-08-06 19:54] LABS: Hemoglobin A1C 5.1 % (<5.7)
[2023-08-06 20:21] LABS: Folic Acid 16.3 ng/mL (2.76->20)
== END 2023-08-06 15:43 | disposition home or self-care (01) ==
PROVIDERS: PCP Family Medicine; Visit Provider Family Medicine
DX: R41.82 Altered mental status, unspecified (principal); Z13.228 Encounter for screening for other metabolic disorders; E11.9 Type 2 diabetes mellitus without complications; Z13.29 Encounter for screening for other suspected endocrine disorder; R53.83 Other fatigue
CPT/HCPCS: 36415; 80053; 81003; 82607; 82746; 83036; 84443; 85025

== ENCOUNTER 2023-09-11 00:38 | Observation (INO) | payer OTHER, SELFPAY ==
[2023-09-11] VITALS (12 sets, daily range): BP systolic 137–170; BP diastolic 76–90; PULSE 72–113; RESP 14–20; TEMP 36.2–37; O2SAT 95–100; BMI 25.0
--- NOTE | ~2023-09-11 | MR_ITS ---
EXAMINATION: MR brain/brain stem wo/w con DATE: 09/11/2023 10:00 INDICATION: Altered mental status. Transient ischemic attack. TECHNIQUE: Magnetic resonance imaging (MRI) of the brain and brainstem was performed without and with 17 mL Multihance intravenous contrast. Sequences included sagittal and axial T1-weighted SE, axial d iffusion-weighted FS SE, axial T2*-weighted GRE, axial T2-weighted FLAIR, and axial T2-weighted FSE. Postcontrast axial and coronal T1-weighted SE was obtained. Apparent diffusion coefficient (ADC) maps were created. COMPARISON: None. FINDINGS: There are no areas of restricted diffusion to suggest acute infarction. No intracranial hemorrhage or abnormal intracranial mass lesion. There are minimal scattered areas of nonspecific increased T2-aryan ghted signal intensity in the cerebral white matter, predominantly involving the deep and periventric ular white matter. There are no intraparenchymal signal abnormalities seen on the other pulse sequenc es. The ventricles are symmetric and normal in size. There are no abnormal extra-axial fluid collecti ons. Flow voids are seen in the cerebral arteries on the T2-weighted sequences consistent with their expected patency. Visualized orbits and soft tissues are unremarkable. There are no areas of abnormal enhancement on the post contrast images. IMPRESSION: 1. Normal for age brain MRI. No acute intracranial process. Reviewed, dictated and finalized at location A.
--- NOTE | ~2023-09-11 | CT_ITS ---
EXAMINATION: CTA BRAIN/CAROTID DATE: 09/11/2023 01:23 INDICATION: Altered mental status with slurred speech TECHNIQUE: Computed tomographic angiography (CTA) of the head and neck was performed with 100 mL Omni paque-350 intravenous contrast. Multiplanar reconstructions and maximum intensity projection 3D-recon structions of the carotid arteries and of the intracranial arteries were created by the technologist on a separate workstation. Precontrast CT of the head was also obtained. Automated exposure control and iterative reconstruction technique were employed.The dose-length product was 1234.21 mGy-cm. COMPARISON: None. FINDINGS: Carotid arteries: Visualized aortic arch ventricles arising from the arch are normal in caliber with small amount of no nhemodynamically significant atherosclerotic plaque and no dissection. There is atherosclerotic plaqu e with 0% stenosis of the right and left carotid bulbs relative to normal distal artery lumen diamete r (NASCET criteria). There is % stenosis of the left carotid bulb relative to normal distal artery cristhian men diameter. Head: No acute intracranial hemorrhage, acute infarction or abnormal extra axial fluid collection. Ventricl es are normal and symmetric. No mass/mass effect. No abnormally enhancing brain lesions on postcontra st imaging. The orbits, paranasal sinuses and mastoid air cells are normal. Intracranial arteries Left vertebral artery is mildly dominant. Small amount of atherosclerotic plaque at the left and mini mal at the right carotid bulbs without hemodynamically since and stenosis. There is no hemodynamicall y significant stenosis in the vertebral, basilar and internal carotid arteries. There are no aneurysm s identified. Both A1 and P1 segments are patent. There is a patent small anterior communicating art jose. The right A2 segment is diminutive with a larger caliber left A2 segment supplying the right per icallosal artery. Cerebral arterial arborization appears symmetric. IMPRESSION: 1. Small amount of atherosclerotic plaque with 0% stenosis of the right and left carotid bulbs relati ve to normal distal artery lumen diameter (NASCET criteria). 2. No acute intracranial process. 3. Unremarkable cerebral CT angiogram with no thrombosis, hemodynamically significant stenosis or ane urysm along the cerebral arteries. Reviewed, dictated and finalized at location A. IMPRESSION: 1. Small amount of atherosclerotic plaque with 0% stenosis of the right and lef t carotid bulbs relative to normal distal artery lumen diameter (NASCET criteri a). 2. No acute intracranial process. 3. Unremarkable cerebral CT angiogram with no thrombosis, hemodynamically signi ficant stenosis or aneurysm along the cerebral arteries.
--- NOTE | 2023-09-11 00:50 | ECG_ITS ---
Test Date: 2023-09-11 01:16:39 Measurements Intervals Douglas Rate: 99 P: 30 MI: 174 QRS: 32 QRSD: 140 T: 22 QT: 377 QTc: 486 Interpretive Statements SINUS RHYTHM RIGHT BUNDLE BRANCH BLOCK BASELINE ARTIFACT- I, II, III ABNORMAL ECG No previous ECG available for comparison Electronically Signed On 09-11-2023 07:14:39 CDT by Fantasma Marquez D.O.
[2023-09-11 00:51] LABS: Glucose Point of Care 197 mg/dl (65-105)
--- NOTE | 2023-09-11 00:54 | ED.GENADULT ---
HPI - General Adult General Chief complaint: Unspecified Stated complaint: possible overdose Time Seen by Provider: 09/11/23 00:50 History of Present Illness HPI narrative: 68-year-old male presents to the emergency department for evaluation for the sensation of ?feeling drugged . Patient did take his nighttime medications tonight. Patient states that he started having some hallucinations and felt that the house was still dirty after it was just cleaned. also states the patient did have some slurred speech but states that is currently improving. also from the patient is bipolar and has been more manic lately. Related Data Home Medications Medication Instructions Recorded Confirmed multivit with minerals-iron 18 1 tablet PO DAILY 01/18/19 08/06/23 mg-folic ac 400 mcg-vit K 25 mcg tablet (Adults Multivitamin) alprazolam 0.25 mg tablet 0.25 mg PO BID Anxiety 06/03/20 08/06/23 sertraline 100 mg tablet 50 mg PO DAILY 01/20/22 08/06/23 quetiapine 100 mg tablet 300 mg PO HS 04/24/22 08/06/23 lurasidone 40 mg tablet 40 mg PO DAILY 04/06/23 08/06/23 temazepam 30 mg capsule 30 mg PO QHS 04/06/23 08/06/23 Allergies Allergy/AdvReac Type Severity Reaction Status Date / Time pollen extracts Allergy Unknown sinus Verified 09/11/23 01:22 drainage Review of Systems Review of Systems: All systems reviewed & are unremarkable except as noted in HPI and below PMFSH Past Medical History Medical History Aortic aneurysm 4.4 cm Infrarenal AAA on CT scan. Dr. Elias Follows him. Bipolar 1 disorder Depression GERD (gastroesophageal reflux disease) Gonorrhea Hepatitis A in 1975 High cholesterol History of nicotine use will need low dose CT scan in Jan 2019 Hyperlipidemia Seizure Surgical History Surgical History H/O wisdom tooth extraction History of appendectomy Hx of tonsillectomy Family History Family History Father Seizure Mother Cancer Sibling COPD (chronic obstructive pulmonary disease) Cancer Social History Social History Smoking packs per day: 1 Smoking cigarettes per day: 20.0 Years smoked: 20 Smoking pack-years: 20.00 Smoking status: Former smoker Second hand tobacco smoke exposure: Yes Additional smoking assessment comments: pt states he quit when he was 26 Alcohol intake: never Substance use: never Substance use type: does not use Do You Feel Safe in your Home?: No Lack of Transportation: No Lack of Food: Sometimes True Current Housing: I Have Housing Concerned About Future Housing: No Difficulty Paying Gas/Electric Bills: No Difficulty Paying for Meds: YES Currently Unemployed: No Education: Master's Degree or Higher Difficulty w/ Childcare or Family Care: No Occupation/Education: retired Gender identity (if verbalized by the patient): Male Spiritual care concerns: No Exam Narrative: APPEARANCE: Well appearing, no pain, no distress, well-nourished. HEAD: normocephalic, atraumatic. EYES: PERRLA/EOMI, conjunctivae clear. NOSE: Normal no drainage EARS:TMS clear with good light reflex. THROAT: Pharynx clear, no exudate. NECK: Supple. No adenopathy, no masses. RESPIRATORY: Airway patent, respirations nonlabored. Clear to auscultation bilaterally, no rales, rhonchi, wheezing. CARDIOVASCULAR: Regular rate and rhythm without murmurs rubs or gallops. ABDOMINAL: Soft, nontender, nondistended, normal bowel sounds MUSCULOSKELETAL: Moves all extremities. Strength/ROM intact, No edema, No calf tenderness. NEURO: Alert. Cranial nerves II through XII intact. Some slurred speech but no focal deficit SKIN: Warm, dry. Normal Color PSYCHIATRIC: Normal affect/mood. Course Course Emergency Course: 5-year-old male presents emergenc
[2023-09-11 01:03] LABS: Basophils Percent Auto 0.5 % (0.2-1.2); Eosinophils Absolute Auto 0.2 K/mm3 (0-0.3); Eosinophils Percent Auto 2.7 % (0-4.4); Hematocrit 39.4 % (42.0-52.0); Hemoglobin 13.6 g/dL (14.0-18.0); Immature Granulocyte Absolute 0.02 K/mm3 (0.00-0.031); Immature Granulocyte Percent A 0.3 % (0-0.5); Lymphocytes Absolute Auto 2.46 K/mm3 (0.9-3.2); Lymphocytes Percent Auto 42.2 % (18.3-44.2); Mean Corpuscular HGB Conc 34.5 g/dl (32-36); Mean Corpuscular Hemoglobin 30.7 pg (26-34); Mean Corpuscular Volume 88.9 fl (80-100); Mean Platelet Volume 8.4 fl (7.4-10.4); Monocytes Absolute Auto 0.5 K/mm3 (0.1-0.6); Monocytes Percent Auto 9.3 % (2.6-8.5); Neutrophils Absolute Auto 2.6 K/mm3 (1.3-6.7); Platelet Count Result 159 k/mm3 (150-375); Red Blood Count 4.43 M/mm3 (4.6-6.20); Red Cell Distribution Width 12.9 % (11.5-14.5); White Blood Count 5.8 K/mm3 (4.5-10.0)
[2023-09-11 01:12] LABS: Partial Thromboplastin Time 29.2 Seconds (22.3-36.8); Prothrombin Time 13.2 Seconds (11.1-14.7)
[2023-09-11 01:16] LABS: Ethanol < 10 mg/dL (<10)
[2023-09-11 01:17] LABS: Alanine Aminotransferase 21 U/L (6-50); Albumin Level 4.5 g/dL (3.5-5.1); Alkaline Phosphatase 90 U/L (38-126); Anion Gap 10 mmol/L (4-12); Aspartate Amino Transferase 26 U/L (17-59); Bilirubin,Total 0.5 mg/dL (0.2-1.3); Blood Urea Nitrogen 21 mg/dL (9-20); Calcium 9.4 mg/dL (8.4-10.2); Carbon Dioxide 29 mmol/L (22-30); Chloride 101 mmol/L (98-107); Estimated CRCL calculation 57 ml/min; Estimated Glomerular Filt Rate 55; Glucose 151 mg/dL (65-110); Potassium 4.1 mmol/L (3.4-5.0); Sodium 140 mmol/L (137-145)
[2023-09-11 01:18] LABS: Lactic Acid Reflex 1.5 mmol/L (0.7-2.0)
[2023-09-11 01:28] LABS: Troponin I < 0.012 ng/mL (0.000-0.034)
[2023-09-11 01:29] LABS: Estimated CRCL calculation 57 ml/min; Estimated Glomerular Filt Rate 55
[2023-09-11 01:44] LABS: Appearance Urine Clear (Clear); Bilirubin Urine Negative (Negative); Blood Urine Negative (Negative); Color Urine Yellow (Yellow); Glucose Urine UA Negative (Negative); Ketones Urine Negative (Negative); Leukocyte Esterase Ur Negative LEU/UL (Negative); Nitrate Urine Negative (Negative); Protein Urine Negative (Negative); Specific Grav Ur 1.017 (1.001-1.035); Urobilinogen Urine 0.2 mg/dL (<2.0)
[2023-09-11 01:50] LABS: Add Urine Microscopic? NO
[2023-09-11 01:59] LABS: Amphetamine Screen Urine Negative (Negative); Barbiturate Screen Urine Negative (Negative); Benzodiazepines Screen Urine Negative (Negative); Cannabinoid Screen Urine Negative (Negative); Cocaine Screen Urine Negative (Negative); Methadone Screen Urine Negative (Negative); Opiate Screen Urine Negative (Negative); Phencyclidine Screen Urine Negative (Negative)
[2023-09-11 02:03] LABS: Influenza A QL RT-PCR Negative (Negative); Influenza B QL RT-PCR Negative (Negative); RSV RNA, RT-PCR Negative (Negative); SARS-CoV-2 RNA PCR Negative (Negative)
--- NOTE | 2023-09-11 07:38 | PM.IMHP ---
H&P: HPI History of Present Illness Date/Time: 09/11/23 07:38 Chief Complaint: Possible TIA vs overdose vs bipolar episode Narrative: 68 year old male with past medical history of bipolar, depression, aortic aneurysm (Dr. Elias follows), GERD, hyperlipidemia, and seizures presents to the hospital for hallucinations, confusion and slurred speech with concern for TIA vs overdose/polypharmacy vs bipolar episode. Patient states that last night he was having a normal day when his noticed a sink hole forming in their neighborhood due to a broken water pipe. The [employer] was coming to fix this pipe and turned the patients power off which lead Ameren to come to their house. Patient states he became increasingly anxious with having so many people around his house. He then wanted to take a nicotine lozenge but his and daughter would not let him. and daughter state patient has been taking multiple lozenges a day. He states this is what caused him to have the slurred speech. He denies feelings of confusion, but rather states he was only anxious. Patient then started having active hallucinations of his house being dirty. He states everywhere he looked there was a huge mess though his had just cleaned. This prompted him to come to the hospital. On arrival to the hospital the patient was no longer hallucinating and the slurred speech had resolved. Per patients PCP, Dr. Flores's note on 08/06/23 there was concern for delirium due to polypharmacy and he recommended follow up with patients psychiatrist. Patient last saw his psychiatrist, Dr. Braulio Roach approximately 3 months ago. Patient states Dr. Roach adjusted his medications at that time but he is unsure what changes were made. According to chart review patient has been having cognition issues since June. Patients daughter Tracy states that she first noticed a decline in his cognition when he started burning all of his meals and attempting to put plastic wrapped food on the grill. Patients and daughter both note that patient has had difficulty sleeping. Though the patient states he sleeps about 6 hours a night. Patients notes that he has been buying random things including multiple cell phones. Patient becomes a bit defensive at this time and states every cell phone he got was broken and she wont let him return them. Patient denies current visual/auditory hallucinations and suicidal/homicidal ideations. He denies being more elated, having more energy, and talking rapidly. ED work up: CBC and chemistry was unremarkable. LFTs WNL. Urine nonconcerning for infection. UDS negative. Covid/flu/RSV negative. Head/neck CTA small atherosclerotic plaque with 0% stenosis of bilateral carotid bulbs, no acute intracranial process. Review of Systems Review of Systems: All systems reviewed & are unremarkable except as noted in HPI and below PMFSH Past Medical History Medical History Aortic aneurysm 4.4 cm Infrarenal AAA on CT scan. Dr. Elias Follows him. Bipolar 1 disorder Depression GERD (gastroesophageal reflux disease) Gonorrhea Hepatitis A in 1975 High cholesterol History of nicotine use will need low dose CT scan in Jan 2019 Hyperlipidemia Seizure Surgical History Surgical History H/O wisdom tooth extraction History of appendectomy Hx of tonsillectomy Family History Family History Father Seizure Mother Cancer Sibling COPD (chronic obstructive pulmonary disease) Cancer Social History Social History Social History: 1 dog in the home Worked for the [employer] Smoking packs per day: 1 Smoking cigarettes per day: 20.0 Years smoked: 20 Smoking pack-years: 20.00 Smoking status: Former smoker Tobacco type: cigarettes Second hand
[2023-09-11 08:59] LABS: Cholesterol 193 mg/dL (0-200); HDL Direct 40 mg/dL; Triglycerides 87 mg/dL (<150)
[2023-09-11 09:10] LABS: LDL Cholesterol Direct 140 mg/dL
[2023-09-11] MEDS: ASPIRIN 81 MG CHEWABLE TABLET PO (09:14)
[2023-09-11] MEDS: ATORVASTATIN 40 MG TABLET PO (09:14)
[2023-09-11 09:58] LABS: Thyroid Stimulating Hormone Reflex 0.475 uIU/mL (0.465-4.68)
[2023-09-11 10:15] LABS: Hemoglobin A1C 5.5 % (<5.7)
[2023-09-11] MEDS: NICOTINE (*PBKC) 14 MG PATCH 1 PATCH TRANSDERM (15:17)
[2023-09-11] MEDS: MULTIVITAMINS /C LUTEIN (CENTRUM SILVER) TABLET *BKC 1 TAB PO (15:18)
[2023-09-11] MEDS: SERTRALINE HCL 50 MG TABLET PO (15:18)
[2023-09-11] MEDS: ALPRAZolam (*CRX) 0.25 MG TABLET PO (18:10)
[2023-09-11] MEDS: TEMAZEPAM (*CRX) 15 MG CAPSULE 30 MG PO (21:13)
[2023-09-12 05:12] VITALS: BP 150/81; PULSE 69; RESP 18; TEMP 36.3; O2SAT 97
[2023-09-12 07:04] LABS: Basophils Percent Auto 0.7 % (0.2-1.2); Eosinophils Absolute Auto 0.2 K/mm3 (0-0.3); Eosinophils Percent Auto 3.6 % (0-4.4); Hematocrit 39.8 % (42.0-52.0); Hemoglobin 13.9 g/dL (14.0-18.0); Immature Granulocyte Absolute 0.03 K/mm3 (0.00-0.031); Immature Granulocyte Percent A 0.5 % (0-0.5); Lymphocytes Absolute Auto 1.89 K/mm3 (0.9-3.2); Lymphocytes Percent Auto 34.3 % (18.3-44.2); Mean Corpuscular HGB Conc 34.9 g/dl (32-36); Mean Corpuscular Hemoglobin 31.7 pg (26-34); Mean Corpuscular Volume 90.7 fl (80-100); Mean Platelet Volume 8.7 fl (7.4-10.4); Monocytes Absolute Auto 0.6 K/mm3 (0.1-0.6); Monocytes Percent Auto 10.5 % (2.6-8.5); Neutrophils Absolute Auto 2.8 K/mm3 (1.3-6.7); Neutrophils Percent Auto 50.4 % (45.5-73.1); Platelet Count Result 184 k/mm3 (150-375); Red Blood Count 4.39 M/mm3 (4.6-6.20); Red Cell Distribution Width 12.8 % (11.5-14.5); White Blood Count 5.5 K/mm3 (4.5-10.0)
[2023-09-12 07:08] LABS: Alanine Aminotransferase 21 U/L (6-50); Albumin Level 4.2 g/dL (3.5-5.1); Alkaline Phosphatase 83 U/L (38-126); Anion Gap 10 mmol/L (4-12); Aspartate Amino Transferase 27 U/L (17-59); Bilirubin,Total 0.5 mg/dL (0.2-1.3); Blood Urea Nitrogen 13 mg/dL (9-20); Calcium 9.1 mg/dL (8.4-10.2); Carbon Dioxide 27 mmol/L (22-30); Chloride 100 mmol/L (98-107); Estimated CRCL calculation 80 ml/min; Estimated Glomerular Filt Rate > 60; Glucose 108 mg/dL (65-110); Potassium 3.9 mmol/L (3.4-5.0); Sodium 137 mmol/L (137-145)
[2023-09-12] MEDS: MULTIVITAMINS /C LUTEIN (CENTRUM SILVER) TABLET *BKC 1 TAB PO (08:17)
[2023-09-12] MEDS: ATORVASTATIN 40 MG TABLET BY MOUTH (08:17)
[2023-09-12] MEDS: NICOTINE (*PBKC) 14 MG PATCH 1 PATCH TRANSDERM (08:17)
[2023-09-12] MEDS: SERTRALINE HCL 50 MG TABLET PO (08:17)
[2023-09-12] MEDS: ALPRAZolam (*CRX) 0.25 MG TABLET PO (08:17)
[2023-09-12] MEDS: ASPIRIN 81 MG CHEWABLE TABLET PO (08:17)
[2023-09-12] MEDS: ENOXAPARIN 40 MG/0.4 ML SYRINGE SUB-Q (08:18)
[2023-09-12] MEDS: LURASIDONE 40 MG 40 EACH PO (08:50)
--- NOTE | 2023-09-12 09:57 | PM.DS ---
DS: Admitting Diagnosis Discharge Date 09/12/23 Admitting Diagnosis Brain TIA Bipolar depression DS: Discharge Diagnosis Discharge Diagnosis (1) Brain TIA: Code(s): G45.9 - Transient cerebral ischemic attack, unspecified Status: Acute (2) Bipolar depression: Code(s): F31.9 - Bipolar disorder, unspecified Status: Acute DS: Summary Hospital Course Reason for hospitalization: Brain TIA Bipolar depression Hospital Course: 68 year old male with past medical history of bipolar, depression, aortic aneurysm (Dr. Elias follows), GERD, hyperlipidemia, and seizures presents to the hospital for hallucinations, confusion and slurred speech with concern for TIA vs overdose/polypharmacy vs bipolar episode. In the ED CBC and chemistries were unremarkable. UA was nonconcerning for infection. UDS was negative. Patient was worked up for TIA/stroke. He was already on atorvastatin 40 mg daily on arrival. Aspirin 81 mg was started. His head/neck CTA showed small atherosclerotic plaque with 0% stenosis of bilateral carotid bulbs, no acute intracranial process. MRI brain revealed no acute intracranial process. Cholesterol, LDL, HDL and triglycerides WNL. Hemoglobin a1c and TSH were WNL as well. Patients psychiatrist is Dr. Braulio Roach. Last seen approximately 3 months ago when patient states medication adjustments were made. Patient is currently on Xanax, lurasidone, Seroquel, sertraline, and temazepam. All of these medications were restarted on admission. Possible that patients symptoms are related to an episode of hypomania. Prior to discharge patient was alert and oriented x4 (person, place, time, and situation). He denies suicidal/homicidal ideations and auditory/visual hallucinations. Discussed patient with Dr. Lopez prior to discharge. Patient has an appointment with his psychiatrist, Dr. Roach on 09/16. Patient discharged home with family in stable condition. He is to continue his medications as prescribed. He is to follow up with his psychiatrist Dr. Roach on 09/16 as scheduled. Status at Discharge Functional status at discharge: independent ambulation Time Spent with Patient Time attestation: Total time spent providing and/or coordinating discharge services: Time spent: Greater than 30 minutes Exam Narrative: AF HR 69 RR 18 SpO2 97 BP 150/81 General: male in no acute respiratory distress who is nontoxic appearing, sitting up in his chair Chest: Lungs are clear to auscultation bilaterally. No wheezes or crackles. CV: Heart was regular rate and rhythm. S1/S2. No murmurs, gallops, or rubs. Abd: Abdomen was soft. Nontender. Nondistended. Positive bowel sounds. No organomegaly or masses. Neuro: Patient is alert and oriented x4. Cranial nerves 2-12 are intact. Speech is clear. Psych: Normal mood and affect. DS: Data Data Completed and Pending Completed studies during hospitalization: Head/neck CTA Brain MRI Labs on day of discharge: Labs from last 24 hours 09/12/23 09/11/23 06:00 08:22 WBC 5.5 RBC 4.39 L Hgb 13.9 L Hct 39.8 L MCV 90.7 MCH 31.7 MCHC 34.9 RDW 12.8 Plt Count 184 MPV 8.7 Immature Gran % (Auto) 0.5 Neut % (Auto) 50.4 Lymph % (Auto) 34.3 Banks % (Auto) 10.5 H Eos % (Auto) 3.6 Baso % (Auto) 0.7 Lymph # (Auto) 1.89 Banks # (Auto) 0.6 Eos # (Auto) 0.2 Baso # (Auto) 0.0 Abs Immat Gran (auto) 0.03 Absolute Neuts (auto) 2.8 Absolute Nucleated RBC 0.000 Nucleated RBC % 0.0 Sodium 137 Potassium 3.9 Chloride 100 Carbon Dioxide 27 Anion Gap 10 BUN 13 D Creatinine 0.90 Estim Creat Clear Calc 80 Estimated GFR > 60 Glucose 108 Hemoglobin A1c 5.5 Calcium 9.1 Total Bilirubin 0.5 AST 27 ALT 21 Alkaline Phosphatase 83 Total Protein 7.0 Albumin 4.2 TSH (Reflex) 0.475 Discharge Plan Discharge Attending physician on discharge: Edu Lopez Discharging Clinician: Radha Santamaria
== END 2023-09-12 10:55 | disposition home or self-care (01) ==
LOC: ANHED 03:11 → ANH3MEDSUR 03:26
PROVIDERS: Admitting Provider Internal Medicine; Emergency Provider Emergency Medicine; PCP Family Medicine; Visit Provider Student in an Organized Health Care Education/Training Program
DX: G45.9 Transient cerebral ischemic attack, unspecified (principal); F31.9 Bipolar disorder, unspecified; K21.9 Gastro-esophageal reflux disease without esophagitis; E78.5 Hyperlipidemia, unspecified; Z87.891 Personal history of nicotine dependence; Z20.822 Contact with and (suspected) exposure to COVID-19
CPT/HCPCS: 36415; 70496; 70498; 70553; 80053; 80307; 81003; 82465; 82948; 83036; 83605; 83718; 83721; 84443; 84478; 84484; 85025; 85610; 85730; 87637; 93005; 96372; 99285; A9270; A9577; G0378; J1650; Q9967

== ENCOUNTER 2024-03-13 11:39 | Outpatient (CLI) | payer OTHER, SELFPAY ==
--- NOTE | ~2024-03-13 | XR_ITS ---
XR knee LT min 4V Ordering provider: VIDAL Arenas History: . M17.0 - Bilateral primary osteoarthritis of knee . Comparison: None. FINDINGS: BONES: No acute fracture or dislocation. JOINT SPACES: Narrowing of the medial compartment. Narrowing of the patellofemoral joint with margina l osteophytes. SOFT TISSUES: Normal. IMPRESSION: No acute osseous abnormality left knee. Mild osteoarthritic changes. Reviewed, dictated and finalized at location A. ER GRADER
--- NOTE | ~2024-03-13 | XR_ITS ---
XR knee RT min 4V Ordering provider: VIDAL Arenas History: . M17.0 - Bilateral primary osteoarthritis of knee . Comparison: None. FINDINGS: BONES: No acute fracture or dislocation. JOINT SPACES: Marginal osteophytes in the patella with narrowing of the patellofemoral joint. SOFT TISSUES: Normal. IMPRESSION: No acute osseous abnormality right knee. Severe osteoarthritic changes of the patellofemoral joint. Reviewed, dictated and finalized at location A. K [employer]
== END 2024-03-13 11:40 | disposition home or self-care (01) ==
LOC: GOSHIMG 11:41
PROVIDERS: PCP Orthopaedic Surgery; Visit Provider Physician Assistant Surgical
DX: M17.0 Bilateral primary osteoarthritis of knee (principal)
CPT/HCPCS: 73564

== ENCOUNTER 2024-06-19 12:30 | Outpatient (RCR) | payer OTHER, SELFPAY ==
--- NOTE | 2024-03-24 14:34 | OPREHPOC ---
Outpatient Therapy Plan of Care This is a Multidisciplinary Plan of Care that may contain components documented by all disciplines (PT, OT, and ST.) PT Problem 1 PT Problem #1 Knowledge Deficit PT Goal 1 Goal / Goal Update Clark with HEP Target Visit 4 PT Goal 2 Goal / Goal Update Report no pain greater than 2/10 for 2 consecutive weeks Target Visit 8 PT Problem 2 PT Problem #2 Impaired Range of Motion PT Goal 1 Goal / Goal Update 1. Improve mary hip abduction ROM to 40 degrees to improve hip mobility for motion and squatting 2. Demonstrate minimal piriformis restriction mary to reduce hip capsular restriction to gait and mobility Target Visit 8 PT Problem 3 PT Problem #3 Impaired Gait PT Goal 1 Goal / Goal Update Ambulate with even stride length mary with swing through gait pattern PT Problem 4 PT Problem #4 Impaired Functional Mobility PT Goal 1 Goal / Goal Update Improve Oswestry score by 20% Target Visit 8
--- NOTE | 2024-03-24 14:34 | PTOPEVAL1 ---
Assessment and note entered by Bebeto Hinojosa, PT Evaluation Information Assessment Status Evaluation Diagnosis L2 Compression frature ICD-10 Condition Codes (PT) Pain in low back M54.50 Onset 2023 Subjective Information Reports that he fractured his back about a year ago. He rolled his lawnmower over on himself which caused the initial injury. Pain is in his back but he is also getting pain in his knees. He is seeing Dr. Belle for that. Gets a lot of pain with bending over and floor retrieval. He is sleeping okay with medication. He is able to sit for a while without pain, but cannot sit for as long as he needs to and hurts when he gets up. Reported Pain Level Pain Score 1: Self Report Assessment PT Clinical Summary Patient presents with signs and symptoms consistent with lumbar stenosis, hip oa, and limited mobility secondary to bth diagnosis. Hip weakness and loss of ROM noted bilaterally and step to gait pattern with poor hip flexion and foot clearance noted. patient will benefit form skilled therapy to improve core stabilization, gait, and mobility of mary LE to improve gross quality of life. Plan of Care Interventions Gait Training,Manual Therapy,Neuro Re-education, Therapeutic Activities,Therapeutic Exercise PT Services Indicated Yes Treatment Frequency and 2x/week for 8 visits Duration These treatments will address the objective and functional deficits as defined above. The patient will be advanced safely and appropriately in order for the patient to progress towards his/her prior level of function. Additional exercises will be introduced and as well as a comprehensive home exercise program upon discharge, if needed, ?to ensure carryover of functional gains achieved in the clinic. This treatment plan has been reviewed and agreement upon by the patient.
--- NOTE | 2024-04-13 10:42 | PCPTNOTE ---
Patient was cancelled this date due to therapist out with illness.
--- NOTE | 2024-05-05 14:03 | OPREHPOC ---
Outpatient Therapy Plan of Care This is a Multidisciplinary Plan of Care that may contain components documented by all disciplines (PT, OT, and ST.) PT Problem 1 PT Problem #1 Knowledge Deficit PT Goal 1 Goal / Goal Update [place] with HEP Target Visit 4 Progress Met PT Goal 2 Goal / Goal Update Report no pain greater than 2/10 for 2 consecutive weeks Target Visit 18 Progress Partially Met PT Problem 2 PT Problem #2 Impaired Range of Motion PT Goal 1 Goal / Goal Update 1. Improve mary hip abduction ROM to 40 degrees to improve hip mobility for motion and squatting 2. Demonstrate minimal piriformis restriction mary to reduce hip capsular restriction to gait and mobility Target Visit 18 Progress Partially Met PT Problem 3 PT Problem #3 Impaired Gait PT Goal 1 Goal / Goal Update Ambulate with even stride length mary with swing through gait pattern Target Visit 18 Progress Partially Met PT Problem 4 PT Problem #4 Impaired Functional Mobility PT Goal 1 Goal / Goal Update Improve Oswestry score by 20% Target Visit 18 Progress Partially Met
--- NOTE | 2024-05-05 14:04 | PTOPPROG ---
Assessment and note entered by Bebeto Hinojosa, PT Evaluation Information Assessment Status Progress Diagnosis L2 Compression frature ICD-10 Condition Codes (PT) Pain in low back M54.50 Onset 2023 Subjective Information Reports that over the last few weeks he really thinks therapy has helped, especially with his hips. Feels he has more mobility and control of them but he still feels that they are weak, especially when lifting his foot. Sleeping well. Reports that he really been focusing on hip strengthening at home as part of HEP. He has intended to get a 4 wheeled walker and has not gotten around to it yet. Assessment PT Clinical Summary Patient has seen improvement in hip ROM. Gait is improved with reminders and intervention but does not seem to be a consistent carry over at this time and he requires constant reminders. Will continue to benefit form skilled therapy to address hip strength and stability for carry over into functional strength and conditioning. Plan of Care Interventions Gait Training,Manual Therapy,Neuro Re-education, Therapeutic Activities,Therapeutic Exercise PT Services Indicated Yes Treatment Frequency and 2x/week for 10 visits Duration These treatments will address the objective and functional deficits as defined above. The patient will be advanced safely and appropriately in order for the patient to progress towards his/her prior level of function. Additional exercises will be introduced and as well as a comprehensive home exercise program upon discharge, if needed, ?to ensure carryover of functional gains achieved in the clinic. This treatment plan has been reviewed and agreement upon by the patient.
--- NOTE | 2024-05-29 13:06 | PCPTNOTE ---
Patient thought he rescheduled his appointment therefore did not show up when scheduled. Patient was reminded about his next appointment on Wednesday as he was unable to reschedule for any other date this week.
== END 2024-06-22 23:59 | disposition home or self-care (01) ==
LOC: ANHGOSHPT 12:30
PROVIDERS: PCP Internal Medicine
DX: S32.020S Wedge compression fracture of second lumbar vertebra, sequela (principal); M54.50 Low back pain, unspecified
CPT/HCPCS: 97110; 97116; 97140; 97161; 97530

== ENCOUNTER 2024-09-05 13:15 | Outpatient (RCR) | payer OTHER, SELFPAY ==
--- NOTE | 2024-06-23 15:41 | OPREHPOC ---
Outpatient Therapy Plan of Care This is a Multidisciplinary Plan of Care that may contain components documented by all disciplines (PT, OT, and ST.) PT Problem 1 PT Problem #1 Knowledge Deficit PT Goal 1 Goal / Goal Update [place] with HEP Target Visit 4 Progress Met PT Goal 2 Goal / Goal Update Report no pain greater than 2/10 for 2 consecutive weeks Target Visit 26 Progress Partially Met PT Problem 2 PT Problem #2 Impaired Range of Motion PT Goal 1 Goal / Goal Update 1. Improve mary hip abduction ROM to 40 degrees to improve hip mobility for motion and squatting 2. Demonstrate minimal piriformis restriction mary to reduce hip capsular restriction to gait and mobility Target Visit 26 Progress Partially Met PT Problem 3 PT Problem #3 Impaired Gait PT Goal 1 Goal / Goal Update 1. Ambulate with even stride length mary with swing through gait pattern 2. Improve 2 minute walk test to 250 feet to improve gait speed and reduce fall Target Visit 26 Progress Partially Met PT Problem 4 PT Problem #4 Impaired Functional Mobility PT Goal 1 Goal / Goal Update Improve Oswestry score by 20% Target Visit 26 Progress Partially Met
--- NOTE | 2024-06-23 15:42 | PTOPPROG ---
Assessment and note entered by Bebeto Hinojosa, PT Evaluation Information Assessment Status Progress Diagnosis L2 Compression frature ICD-10 Condition Codes (PT) Pain in low back M54.50 Onset 2023 Subjective Information Patient reports that he has been struggling with continued back and knee pain.[ Reports that he feels the therapy is helping overall as he has been more mobile and capable at home. He has consistently using the walker as instructed for improved mobility and fall prevention. Would like to continue therapy to address functional strength , balance, and gait. Assessment PT Clinical Summary Patient continues to be an active participant in therapy at this time. We have seen some improvements in strength and ROM but continues to be very stiff and rigid in hips. Will continue to benefit from skilled therapy to address deficits. We assessed 2 minute walk test today and gait pattern speed is very low increasing his risk of falls. Plan of Care Interventions Gait Training,Manual Therapy,Neuro Re-education, Therapeutic Activities,Therapeutic Exercise PT Services Indicated Yes Treatment Frequency and 2x/week for 8 visits Duration These treatments will address the objective and functional deficits as defined above. The patient will be advanced safely and appropriately in order for the patient to progress towards his/her prior level of function. Additional exercises will be introduced and as well as a comprehensive home exercise program upon discharge, if needed, ?to ensure carryover of functional gains achieved in the clinic. This treatment plan has been reviewed and agreement upon by the patient.
--- NOTE | 2024-07-18 14:06 | PCPTNOTE ---
Patient no showed to appointment this date. Called and spoke with patient who states he thought his appointment was at a different time.
--- NOTE | 2024-08-04 16:31 | OPREHPOC ---
Outpatient Therapy Plan of Care This is a Multidisciplinary Plan of Care that may contain components documented by all disciplines (PT, OT, and ST.) PT Problem 1 PT Problem #1 Knowledge Deficit PT Goal 1 Goal / Goal Update [place] with HEP Target Visit 4 Progress Met PT Goal 2 Goal / Goal Update Report no pain greater than 2/10 for 2 consecutive weeks Target Visit 30 Progress Partially Met PT Problem 2 PT Problem #2 Impaired Range of Motion PT Goal 1 Goal / Goal Update 1. Improve mary hip abduction ROM to 40 degrees to improve hip mobility for motion and squatting 2. Demonstrate minimal piriformis restriction mary to reduce hip capsular restriction to gait and mobility Target Visit 30 Progress Partially Met PT Problem 3 PT Problem #3 Impaired Gait PT Goal 1 Goal / Goal Update 1. Ambulate with even stride length mary with swing through gait pattern 2. Improve 2 minute walk test to 250 feet to improve gait speed and reduce fall Target Visit 30 Progress Partially Met PT Problem 4 PT Problem #4 Impaired Functional Mobility PT Goal 1 Goal / Goal Update Improve Oswestry score by 20% Target Visit 30 Progress Partially Met
--- NOTE | 2024-08-04 16:31 | PTOPPROG ---
Assessment and note entered by Bebeto Hinojosa, PT Evaluation Information Assessment Status Progress Diagnosis L2 Compression fracture ICD-10 Condition Codes (PT) Pain in low back M54.50 Onset 2023 Subjective Information Patient reports that overall he is still really struggling with back pain and it is affecting his gait and mobility. Feels he would like to continue therapy to address his back pain and continued mobility. He has been trying to be more active at home with ambulation. Assessment PT Clinical Summary Patient continues to be an active participant in therapy at this time. We have seen some improvements in strength and ROM but continues to be very stiff and rigid in hips. Will continue to benefit from skilled therapy to address deficits. We assessed 2 minute walk test today and gait pattern speed is very low increasing his risk of falls. Plan of Care Interventions Gait Training,Manual Therapy,Neuro Re-education, Therapeutic Activities,Therapeutic Exercise PT Services Indicated Yes Treatment Frequency and 2x/week for 8 visits Duration These treatments will address the objective and functional deficits as defined above. The patient will be advanced safely and appropriately in order for the patient to progress towards his/her prior level of function. Additional exercises will be introduced and as well as a comprehensive home exercise program upon discharge, if needed, ?to ensure carryover of functional gains achieved in the clinic. This treatment plan has been reviewed and agreement upon by the patient.
--- NOTE | 2024-08-30 13:25 | PCPTNOTE ---
Pt arrived at the wrong appointment time today and requested to be rescheduled at a later date.
--- NOTE | 2024-09-05 16:34 | OPREHPOC ---
Outpatient Therapy Plan of Care This is a Multidisciplinary Plan of Care that may contain components documented by all disciplines (PT, OT, and ST.) PT Problem 1 PT Problem #1 Knowledge Deficit PT Goal 1 Goal / Goal Update [place] with HEP Target Visit 4 Progress Met PT Goal 2 Goal / Goal Update Report no pain greater than 2/10 for 2 consecutive weeks Target Visit 30 Progress Partially Met PT Problem 2 PT Problem #2 Impaired Range of Motion PT Goal 1 Goal / Goal Update 1. Improve mayr hip abduction ROM to 40 degrees to improve hip mobility for motion and squatting 2. Demonstrate minimal piriformis restriction mary to reduce hip capsular restriction to gait and mobility Target Visit 30 Progress Partially Met PT Problem 3 PT Problem #3 Impaired Gait PT Goal 1 Goal / Goal Update 1. Ambulate with even stride length mary with swing through gait pattern 2. Improve 2 minute walk test to 250 feet to improve gait speed and reduce fall Target Visit 30 Progress Not Met PT Problem 4 PT Problem #4 Impaired Functional Mobility PT Goal 1 Goal / Goal Update Improve Oswestry score by 20% Target Visit 30 Progress Not Met
--- NOTE | 2024-09-05 16:34 | PTOPDC ---
Assessment and note entered by Bebeto Hinojosa, PT Evaluation Information Assessment Status Discharge Diagnosis L2 Compression frature ICD-10 Condition Codes (PT) Pain in low back M54.50 Onset 2023 Subjective Information Patient reports that he continues to struggle with mary knee and low back pain. Pain still feels limiting and he has looked into maybe trying injections again as they have helped in the past. Patient plans to continue with HEP independently. Reported Pain Level Pain Score 4,4: Self Report Assessment PT Clinical Summary Patient has demonstrated a plateau in function. He does seem to be improved in his compliance with the wearing of the AFO at this time. Needs to maintain compliance with HEP and we discussed MD follow up to help with pain management of back and knees. Plan of Care PT Services Indicated Yes
== END 2024-09-06 15:02 | disposition home or self-care (01) ==
LOC: ANHGOSHPT 13:15
PROVIDERS: PCP Internal Medicine
DX: S32.020S Wedge compression fracture of second lumbar vertebra, sequela (principal); M54.50 Low back pain, unspecified
CPT/HCPCS: 97014; 97110; 97116; 97140; 97530; G0283

== ENCOUNTER 2024-09-17 16:05 | Inpatient (IN) | payer OTHER, SELFPAY ==
--- NOTE | ~2024-09-17 | CT_ITS ---
EXAM/PROCEDURE: CT hip LT wo con 09/18/2024 9:45 CDT HISTORY: left femoral neck fx COMPARISON: 09/17/2024 TECHNIQUE: Axial CT of the left hip was obtained. Coronal and sagittal reformats were obtained from axial data s et. FINDINGS/ IMPRESSION: Acute displaced fracture of the femoral neck with anterior angulation and posterior displacement of the distal fracture segment. Soft tissue injury overlying the greater trochanter. Joint space narrowing, subchondral sclerosis, subchondral cyst formation and osteophyte formation, co mpatible with moderate osteoarthritis. Reviewed, dictated and finalized at location A.
--- NOTE | ~2024-09-17 | XR_ITS ---
EXAM: XR hip LT 2V w AP pelvis DATE: 09/17/2024 16:40 HISTORY: fall . COMPARISON: 08/07/2016. FINDINGS: Decreased mineralization. Lumbar degenerative disc disease. Nondisplaced transcervical lef t femoral neck fracture. No other fractures detected. No dislocation. No lytic or blastic lesions. IMPRESSION: Nondisplaced transcervical left femoral neck fracture. Reviewed, dictated and finalized at location K.
--- NOTE | ~2024-09-17 | XR_ITS ---
EXAMINATION: XR hip LT min 2V DATE: 09/19/2024 18:23 INDICATION: Postoperative evaluation TECHNIQUE: 2 views of the left hip were performed FINDINGS: There is a left total hip arthroplasty in expected position. Subcutaneous gas with soft ti ssue swelling are consistent with recent surgery. No periprosthetic fracture is appreciated. IMPRESSION: Expected perioperative appearance of a left total hip arthroplasty, as detailed above. Reviewed, dictated and finalized at location A.
--- NOTE | ~2024-09-17 | XR_ITS ---
EXAMINATION: XR chest 1V Exam Date/Time: 09/17/2024 16:30 CDT HISTORY: Fall Comparison: 09/18/2015. RESULT: Lines, tubes, and devices: None. Lungs and pleura: Clear. Cardiomediastinal silhouette: Stable. Calcified nodes. Other: No acute osseous or upper abdominal finding. IMPRESSION: No acute cardiopulmonary process. Reviewed, dictated and finalized at location K.
--- NOTE | 2024-09-17 16:13 | ED_ITS ---
HPI - Fall General Chief Complaint: Fall Stated Complaint: fall-hip pain Source: patient, RN notes reviewed and other (heard EMS report) Mode of arrival: EMS Limitations: no limitations History of Present Illness HPI Narrative: 69-year-old male patient presents with acute left hip pain after falling down 1- 2 steps. He did not lose consciousness or hit his head. No previous surgical intervention or injury to this area, denies any hardware in place. He is experiencing significant pain but denies any paresthesias. Not on any anticoagulation. Last oral intake was a yogurt just before he fell. Denies any tremors at baseline, only shaking at this time due to pain. Related Data Home Medications ?Medication ?Instructions ?Recorded ?Confirmed ?Last Taken ?Type multivit with minerals-iron 18 1 tablet PO DAILY 01/18/19 09/17/24 09/17/24 History mg-folic ac 400 mcg-vit K 25 mcg tablet (Adults Multivitamin) olanzapine 5 mg disintegrating 25 mg PO QPM 01/25/24 09/17/24 09/16/24 History tablet trazodone 100 mg tablet 300 mg PO HS 01/25/24 09/17/24 09/16/24 History atorvastatin 40 mg tablet 40 mg PO HS 09/17/24 09/17/24 09/16/24 History lorazepam 1 mg tablet 1 mg PO HS 09/17/24 09/17/24 09/16/24 History ramelteon 8 mg tablet 8 mg PO HS 09/17/24 09/17/24 09/16/24 History triamcinolone acetonide 0.1 % 1 applic topical BID PRN itching 09/17/24 09/17/24 Unknown History topical cream Allergies Allergy/AdvReac Type Severity Reaction Status Date / Time pollen extracts Allergy Unknown sinus Verified 09/19/24 14:55 drainage [facility] Past Medical History Medical History Osteoarthritis Anxiety BPH associated with nocturia Aortic aneurysm 4.4 cm Infrarenal AAA on CT scan. Dr. Elias Follows him. Bipolar 1 disorder History of nicotine use Depression Seizure Hepatitis A in 1975 Gonorrhea Hyperlipidemia GERD (gastroesophageal reflux disease) Surgical History Surgical History History of AAA (abdominal aortic aneurysm) repair previously 4.4cm infrarenal and followed by Dr Elias H/O wisdom tooth extraction History of appendectomy Hx of tonsillectomy Family History Family History Father Seizure Mother Cancer Sibling COPD (chronic obstructive pulmonary disease) Cancer Social History Social History Social History: 1 dog in the home Worked for the [employer] Smoking packs per day: 1 Smoking cigarettes per day: 20.0 Years smoked: 20 Smoking pack-years: 20.00 Smoking status: Former smoker Second hand tobacco smoke exposure: Yes Additional smoking assessment comments: pt states he quit when he was 26 and again in his 50s Alcohol intake: never Substance use: never Substance use type: does not use Do You Feel Safe in your Home?: Yes Lack of Transportation: No Lack of Food: Never True Current Housing: I Have Housing Concerned About Future Housing: No Difficulty Paying Gas/Electric Bills: No Difficulty Paying for Meds: No Currently Unemployed: No Education: Associate Degree Difficulty w/ Childcare or Family Care: No Living arrangements: with family Additional living arrangements comments: lives with , daughter and his 3 grandchildren Occupation/Education: retired Gender identity (if verbalized by the patient): Male Spiritual care concerns: No Exam 2 Narrative: GENERAL: well-nourished, in mild to moderate acute distress. HEAD: Normocephalic, atraumatic. EYES: Non injected, non icteric ENT: Nares clear, no rhinorrhea or epistaxis. Gross auditory acuity intact. NECK: Supple. No meningismus. CHEST: Speaking in full sentences. No respiratory distress. HEART: Regular rate and rhythm. Strong L foot DP pulse. ABDOMEN: Soft, nondistended. No rigidity or guarding. Not peritoneal. Large well healed surgical scar midline. EXTREMITIES: Normal range of motion. No lower extremity edema. No shortening of either leg but they both appear externally rotated at the time of exam. 5/5 L ankle dorsiflexion/plantarflexion. SKIN: Warm, dry, no rash. NEURO: No focal deficits. Alert and oriented. Answering questions. Following commands. Normal speech without aphasia or dysarthria. Intermittently tremulous. Sensation intact throughout. PSYCH: Normal mood and affect. Course Vital Signs Vital signs: Vital Signs Temperature 97.2 F L 09/17/24 16:17 Pulse Rate 75 09/17/24 16:17 Respiratory Rate 16 09/17/24 16:17 Blood Pressure 165/97 H 09/17/24 16:17 Pulse Oximetry 99 09/17/24 16:17 Temperature 98.2 F 09/22/24 14:00 Pulse Rate 78 09/22/24 14:00 Respiratory Rate 18 09/22/24 14:00 Blood Pressure 122/70 09/22/24 14:00 Pulse Oximetry 99 09/22/24 14:00 Oxygen Delivery Room Air 09/22/24 08:30 Oxygen Flow Rate 2 09/20/24 09:26 MDM - Fall MDM Narrative Medical decision making narrative: 69-year-old male presents with acute left hip pain after he fell/tripped down 1- 2 steps/stairs. In the emergency department he is afebrile vital signs notable for hypertension. Notified patient and his of his fracture. Spoke with on-call general surgeon Dr. Belle (whom patient's knows/sees) who advises admit to medicine, NPO at midnight in anticipation of adding him on for hip to knee surgery tomorrow, 09/18/24. Patient's normocytic anemia stable from previous. Differential Diagnosis Differential diagnosis: Likely other (hip fracture/dislocation/strain/sprain/hematoma) Lab Data Attestation: I reviewed the patient's lab results. 09/22/24 06:20 09/22/24 06:20 Labs: Lab Results 09/17/24 09/17/24 09/18/24 Range/Units 17:45 17:50 05:25 WBC 5.5 8.7 (4.5-10.0) K/mm3 RBC 4.40 L 4.56 L (4.6-6.20) M/mm3 Hgb 13.4 L 14.0 (14.0-18.0) g/dL Hct 38.2 L 40.2 L (42.0-52.0) % MCV 86.8 88.2 (80-100) fl MCH 30.5 30.7 (26-34) pg MCHC 35.1 34.8 (32-36) g/dl RDW 13.1 13.0 (11.5-14.5) % Plt Count 192 178 (150-375) k/mm3 MPV 8.7 8.6 (7.4-10.4) fl Immature Gran % (Auto) 0.7 H 0.3 (0-0.5) % Neut % (Auto) 57.3 67.2 (45.5-73.1) % Lymph % (Auto) 25.3 16.6 L (18.3-44.2) % [place] % (Auto) 10.6 H 11.4 H (2.6-8.5) % Eos % (Auto) 5.4 H 4.0 (0-4.4) % Baso % (Auto) 0.7 0.5 (0.2-1.2) % Lymph # (Auto) 1.40 1.45 (0.9-3.2) K/mm3 [place] # (Auto) 0.6 1.0 H (0.1-0.6) K/mm3 Eos # (Auto) 0.3 0.4 H (0-0.3) K/mm3 Baso # (Auto) 0.0 0.0 (0.0-0.1) K/mm3 Abs Immat Gran (auto) 0.04 H 0.03 (0.00-0.031) K/mm3 Absolute Neuts (auto) 3.2 5.9 (1.3-6.7) K/mm3 Absolute Nucleated RBC 0.000 0.000 (0.0-0.012) K/mm3 Nucleated RBC % 0.0 0.0 (0.0-0.2) % PT 13.6 (11.1-14.7) Seconds INR 1.0 APTT 31.1 (22.3-36.8) Seconds Sodium 134 L 136 L (137-145) mmol/L Potassium 3.8 4.4 (3.4-5.0) mmol/L Chloride 99 100 (98-107) mmol/L Carbon Dioxide 27 28 (22-30) mmol/L Anion Gap 8 8 (4-12) mmol/L BUN 9 7 L (9-20) mg/dL Creatinine 0.81 0.93 (0.7-1.3) mg/dL Estim Creat Clear Calc 87 77 ml/min Estimated GFR > 60 > 60 (59 - ) Glucose 105 128 H (65-110) mg/dL Calcium 9.2 9.2 (8.4-10.2) mg/dL Urine Color Yellow (Yellow) Urine Appearance Clear (Clear) Urine pH 8.0 (5.0-9.0) Ur Specific [place] 1.013 (1.001-1.035) Urine Protein Negative (Negative) mg/dL Urine Glucose (UA) Negative (Negative) mg/dL Urine Ketones Negative (Negative) mg/dL Ur Blood (Man) Negative (Negative) Urine Nitrate Negative (Negative) Urine Bilirubin Negative (Negative) Urine Urobilinogen 1.0 (<2.0) mg/dL Leukocyte Esterase Rfl Negative (Negative) TITO/UL Imaging Data Radiologist's impression: IMPRESSION: No acute cardiopulmonary process. IMPRESSION: Nondisplaced transcervical left femoral neck fracture. ECG Data EKG #1: Attestation: I personally reviewed and interpreted this ECG as follows: ECG completion date: 09/17/24 ECG completion time: 17:35 Interpretation: Normal sinus rhythm at a rate of 79 beats per minute. [place] interval 166. QRS 165. QT/QTC 433/468. R-wave progression across the precordial leads. T-wave inversion in lead V3 which may be due to lead placement. There is also T-wave inversions verses biphasic T-wave in V4. RBBB given QRS greater [id number]; RSR' M-shaped pattern in V1-V3; wide, slurred S wave in lateral leads (I, aVL, V5- 6). Discharge Plan Discharge Clinical Impression: Normocytic anemia Fall Qualifiers: Encounter type: initial encounter Qualified Code(s): W19.XXXA - Unspecified fall, initial encounter Closed fracture of neck of left femur Qualifiers: Encounter type: initial encounter Qualified Code(s): S72.002A - Fracture of unspecified part of neck of left femur, initial encounter for closed fracture Patient Disposition: Still a Patient Condition: Stable
[2024-09-17 16:17] VITALS: BP 165/97; PULSE 75; RESP 16; TEMP 36.2; O2SAT 99
[2024-09-17] MEDS: HYDROmorphone HCL INJ (*CRX) 2 MG/ML VIAL 0.5 MG IV PUSH ×3 (16:23→22:14)
--- OUTSIDE RECORDS SUMMARY | 2024-09-17 16:31 | XMS_ITS | Clinical Summary ---
Author Organization [facility] [employer] Address [address] [place] [address] Care Team Providers Care Dermatologist And Dermatopathologist Name Role Phone Brett Flores Primary Care Provider [phone] Source Comments [facility] [employer],non-owned Affiliates and Associated Physician Practices is amultiple site organization consisting of ambulatory clinics and hospital sitesin [place], [place], [place] and [place]. This disclosure is being madepursuant to the Care Everywhere program and may not contain all information available regarding this patient. Last updated 17.[facility] [employer] Allergies Active Allergy Reactions Criticality Noted Date Comments Pollen Extract Other 05/06/2022 Stuffy nose Medications * This document contains information received from the source organization and may not represent a complete record from that organization. * Be aware that medications may not be up to date on this document. Alwaysverify current medications with the patient. acetaminophen (Tylenol) 325 MG tablet Take 2 (two) tablets by mouth every 6 hours Maximum allowable Acetaminophen amount = 4 Grams (4000 mg) / 24 hours. 2 Active sertraline (Zoloft) 100 MG tablet Take 1 (one) tablet by mouth once daily 2 Active QUEtiapine (SEROquel) 400 MG tablet Take 1 (one) tablet by mouth at bedtime 2 Active haloperidol (Haldol) 10 MG tablet Take 1 (one) tablet by mouth at bedtime 2 Active ALPRAZolam (Xanax) 0.25 MG tablet Take 1 (one) tablet by mouth 2 times daily 2 Active temazepam (Restoril) 7.5 MG capsule Take 1 (one) capsule by mouth at bedtime 2 Active atorvastatin (Lipitor) 40 MG tablet Take 1 (one) tablet by mouth once daily 2 Active Vascepa 1 g capsule Take 2 (two) capsules by mouth 2 times daily 2 Active axdjp-5-wgdm ethyl esters (Lovaza) 1 g capsule Take 1 (one) capsule by mouth 2 times daily 3 Active zaleplon (Sonata) 10 MG capsule TAKE 1 CAPSULE BY MOUTH ONCE DAILY AT NIGHT AT BEDTIME 3 Active Active Problems Problem Noted Date Diagnosed Date Fall, initial encounter 01/13/2022 Facial laceration, initial encounter 01/13/2022 Essential hypertension 01/13/2022 Closed fracture of left orbital floor, initial e ncounter 01/13/2022 Focal hemorrhagic contusion of cerebrum 01/14/20 Infrarenal abdominal aortic aneurysm (AAA) witho ut rupture 01/13/2022 Social History Tobacco Use Types Packs/Day Years Used Date Smoking Tobacco: Never Smokeless Tobacco: Never Tobacco Cessation:Counseling Given: Not Answered Sex and Gender Information Value Date Recorded Sex Assigned at Not on file Legal Sex Male 4:47 PM KNOWLEDGE ANALYST Gender Identity Not on file Sexual Orientation Not on file Last Filed Vital Signs Vital Sign Reading Time Taken Comments Blood Pressure 122/71 05/06/2022 8:25 AM KNOWLEDGE ANALYST Pulse 93 05/06/2022 8:25 AM KNOWLEDGE ANALYST Temperature 36.7 C (98.1 F) 05/06/2022 8:25 AM KNOWLEDGE ANALYST Respiratory Rate 20 01/14/2022 4:38 PM KNOWLEDGE ANALYST Oxygen Saturation 96% 05/06/2022 8:25 AM KNOWLEDGE ANALYST Inhaled Oxygen Concentration - - Weight 105.7 kg (233 lb) 05/06/2022 8:25 AM KNOWLEDGE ANALYST Height 190.5 cm (6' 3) 05/06/2022 8:25 AM KNOWLEDGE ANALYST Body Mass Index 29.12 05/06/2022 8:25 AM KNOWLEDGE ANALYST Plan of Treatment Health Maintenance Due Date Last Done Comments COLOGUARD (AGES 45-75) - COLON CA SCREENING 1953 COLON MONITORING 1953 COLONOSCOPY - COLON CA SCREENING 1953 CT COLONOGRAPHY - COLON CA SCREENING 1953 Colorectal Cancer Screening 1953 FIT - COLON CA SCREENING 1953 FLEX SIG - COLON CA SCREENING 1953 MEDICARE AWV 12 MONTHS 1953 HEPATITIS C SCREENING 01/20/1971 DTAP/TDAP/TD VACCINES (1 - Tdap) 01/25/1972 PNEUMOCOCCAL VACCINE 50+ (1 of 1 - PCV) 2003 ZOSTER VACCINE (1 of 2) 2003 Respiratory Syncytial Virus (RSV) Vaccine Pt: or over 60 yrs (1 - Risk 60-74 years 1-dose series) 2013 COVID-19 VACCINE ( season) 2023 01/20/2021, 05/29/2020, 05/08/2020 DEPRESSION SCREENING 03/01/2024 INFLUENZA VACCINE (#1) 2024 2, 12/16/2020, 12/03/2019, Additional history exists SCREENING FOR DIABETES 01/14/2025 01/14/2022, 2021 HEPATITIS B VACCINE Aged Out No longe r eligible based on patient's age to complete this topic HIB VACCINE Aged Out No longer eligi ble based on patient's age to complete this topic HPV VACCINE Aged Out No longer eligi ble based on patient's age to complete this topic MENINGOCOCCAL (Group B) VACCINE SHARED DECISION-MAKING Aged Out No longer eligible based on patient's age to complete this topic MENINGOCOCCAL GROUPS A/C/Y/W VACCINE Aged Out No longer eligible based on patient's age to complete this topic Procedures Procedure Name Priority Date/Time Associated Diagnosis Comments BASIC METABOLIC PANEL (CALCIUM TOTAL) STAT 01/14/2022 5:38 AM KNOWLEDGE ANALYST from Last 3 Months or Most Recently Relevant to Health Maintenance Results * (ABNORMAL) BASIC METABOLIC PANEL (CALCIUM TOTAL) (01/14/2022 5:38 AM KNOWLEDGE ANALYST) Pathologist [facility] BUN 11 mg/dL 01/14/2022 6:11 AM [facility] Creatinine 0.97 0.71 - 1.16 mg/dL 01/14/2022 6:11 AM [facility] Sodium 140 136 - 145 mmol/L 01/14/2022 6:11 AM [facility] Potassium 3.7 3.5 - 4.5 mmol/L 01/14/2022 6:11 AM [facility] Chloride 107 98 - 107 mmol/L 01/14/2022 6:11 AM [facility] CO2 23 22 - 29 mmol/L 01/14/2022 6:11 AM [facility] Glucose 101 70 - 115 mg/dL 01/14/2022 6:11 AM [facility] Calcium 9.2 8.4 - 10.2 mg/dL 01/14/2022 6:11 AM [facility] Anion Gap 14 8 - 18 01/14/2022 6:11 AM [facility] BUN/Creatinine Ratio 11 7 - 23 01/14/2022 6:11 AM [facility] Osmolality Calculated 290 270 - 300 mOsm/kg 01/14/2022 6:11 AM [facility] eGFR by CKD-EPI 85(L) >=90 mL/min/1.7 3 m2 01/14/2022 6:11 AM [facility] Blood BLOOD SPECIMEN / Unknown Venipuncture / Unknown 01/14/2022 5:38 AM KNOWLEDGE ANALYST 01/14/2022 5:43 AM [facility] us Shahbaz Dumont MD LAB - CHEMISTRY ORDERABLES Fin al Result [facility] [address] [place] [address], [facility] [phone] from Last 3 Months or Most Recently Relevant to Health Maintenance Insurance [facility] MEDICARE [facility] MEDICARE [facility] Care Address: [address] [place] [address] Advance Directives * Full Code (Latest Code Status on File) Date Activated Date Inactivated Comments 01/13/2022 10:08 PM 01/14/2022 8:59 PM Care Teams Dermatologist And Dermatopathologist Relationship Specialty Start Date End Date Brett Flores DO [address] [place] [id number] PCP - General 04/23/22
--- OUTSIDE RECORDS SUMMARY | 2024-09-17 16:32 | XMS_ITS | Clinical Summary ---
Author Organization [facility] Address [address] [place] [address] Care Team Providers Care Mailing Machine Assistant Name Role Phone Pocnho Vital MD Unavailable Mello Lau MD Unavailable [phone] Brett Flores DO Primary Care Provider [phone] Iam June MD Unavailable + [phone] Nadine Kennedy MD Unavailable Allergies Active Allergy Reactions Criticality Noted Date Comments Bee Pollen Unknown 05/06/2022 Stuffy nose Hay Fever And Allergy Relief Rhinitis Low 11/06/2022 Hydrocodone Mental status changes Low 10/08/2022 Medications calcium carbonate (TUMS) 500 mg (200 mg elemental calcium) chewable tabletIndications: Dyspepsia,Heartbur n Take 1 tablet/chew tab (500 mg total) by mouth as needed for indigestion or heartburn Active OLANZapine (ZyPREXA ZYDIS) 5 mg disintegrating tabletIndications: Bipolar Disorder Take 5 tablets (25 mg total) by mouth nightly 150 tablet 11/05/19 24 Active atorvastatin (LIPITOR) 40 mg tabletIndications: hyperlipidemia Take 1 tablet (40 mg total) by mouth nightly 30 tablet 11/05/19 24 Active ramelteon (ROZEREM) 8 mg tabletIndications: Sleep-Onset Insomnia Take 1 tablet (8 mg total) by mouth nightly 30 tablet 11/05/19 Active lurasidone (LATUDA) 80 mg tablet Take 1 tablet (80 mg total) by mouth nightly 01/25/20 Active LORazepam (ATIVAN) 1 mg tablet 02/14/20 Active Active Problems Problem Noted Date Diagnosed Date Dementia with agitation, uns pecified dementia severity, unspecified dementia type 11/14/2023 Assessment & Plan (11/15/2023 6:14 AM CDT): Suspicion for major cognitive impairment based on serial MoCA during recent psychiatric admissions ( on 09/15/23, on 11/05/23.) Brain MRI and CT head with ventriculomegaly which could be seen with NPH, though etiology of dementia remains undifferentiated. Previously evaluated by neurology inpatient with findings of gait instability and possible parkinsonism, with recommendation for outpatient movement disorders clinic evaluation. - delirium precautions - sleep hygiene and medications as for bipolar 1 disorder - keep on elopement precautions - defer 1:1 sitter for now given patient appears to be calm and not agitated - outpatient movement disorders clinic appointment scheduled 11/23/2024 - PT/OT evaluation - ongoing discussion with family and case management regarding need for placement, as anticipate this may be difficult in context of patient's psychiatric history Bipolar 1 disorder 10/30/2023 Assessment & Plan (11/15/2023 5:58 AM CDT): Recent inpatient psychiatric admissions in August 2023 and most recently 5 week stay from 10/04/23 - 11/05/23 for manic symptoms in context of longstanding history of bipolar 1 disorder. Follows with outpatient psychiatrist Dr. Roach. No significant manic symptoms since discharge and currently, no overt psychotic symptoms, or HI/SI. - evaluated by ED psychiatry, no indication for psychiatric admission at this time - continue olanzapine 25 mg QHS, ramelteon 8 mg QHS, trazodone 100 mg QHS - consider inpatient psych eval if symptoms change Dementia 10/06/2023 Assessment & Plan (11/05/2023 8:32 AM CDT): Patient was documented to sleep 5.2 hours last night, and was noted to have had a late evening phone call with his daughter who reported to nursing that he was asking her if his was cheating on him, daughter reflected to nurse that this seemed consistent with sundowning. Clinical staff agree as there is nothing of the sort present on interview this morning and has not been for several days. Neurology previously did not have recommendations for inpatient evaluation or changes in management, and referred the patient to outpatient clinic. PT evaluated the patient and recommends home health PT. Home health order placed and SW is managing the referral process. The pain regimen as recommended by pain management will be continued in the outpatient setting. Plan for discharge today - Trazodone 100mg QHS - Rozerem 8mg QHS - Patient can talke OTC melatonin in the outpatient setting - PT recommends home health PT - Home health order placed, SW working to send referrals to other agencies because the first agency is too busy to be able to - Concern for normal pressure hydrocephalus, neurology consulted - Referred patient to NPH / movement disorder clinic for the outpatient setting - No inpatient intervention or change in management recommended - Refer to memory diagnostic center at [facility] at discharge Assessment & Plan (10/29/2023 2:20 PM CDT): Patient reported sleeping roughly 6 hours but was charted to sleep only 2.8. Will continue to monitor. Neurology previously did not have recommendations for inpatient evaluation or changes in management, referred patients to outpatient clinic. PT evaluated the patient and recommends home health PT. SW confirmed that PT home health services can go where the patient goes, even if it not back to house with and daughter Tracy. We will maintain the current pain medication regimen and continue to monitor. - Trazodone 100mg QHS (10/18/23) - Rozerem 8mg QHS - PT recommends home health PT (10/14/23) - Concern for normal pressure hydrocephalus, neurology consulted - Referred patient to NPH / movement disorder clinic for the outpatient setting - No inpatient intervention or change in management recommended - Refer to memory diagnostic center at [facility] at discharge Bipolar disorder, most recent episode manic 07/2023 Assessment & Plan (11/05/2023 8:28 AM CDT): Patient again slept well over night, over 5 hours. He had no complaints this morning, and there was no evidence of any delusional thought content regarding his or microwave radiation. He reflected on how he is ready to go home. Denied hallucinations, SI / HI and there was no evidence of any on exam. No lability, grandiosity, increased activity, impulsivity, flight of ideas, or increased talkativeness. Plan for discharge today - Zydis 25mg QHS - Olanzapine serum level ordered (drawn on 10/26 at 20:15 before nighttime dose) -- does not appear to have returned yet --> 22, suggesting patient was not adherent to the tablet medication previously Assessment & Plan (10/31/2023 12:08 PM CDT): Patient was charted sleeping 1.7 hours, and refused his night time rozerem and zyprexa. Patient was significantly more agitated on exam today, stating that he would like to leave, that microwave radiation is affecting his thoughts, that his wie should be in here instead. Continued evidence of maniform symptoms including lability, increased talkativeness, being distractible, irritated, and grandiose. We will convert the patient's admission from voluntary to involuntary and file a 96 hour hold. Olanzapine serum dose still pending. [place] level and BMP ordered for Wednesday evening before night time dose. Will continue to evaluate patient for clinical response and side effects - Olanzapine serum level ordered (drawn on 10/26 at 20:15 before nighttime dose) -- does not appear to have returned yet - [place] 300mg BID - Cardiology confirmed no contraindication to starting [place] with this patient in the setting of their EKG findings from 10/24 - Need a serum level and BMP after sufficient number of half lives (roughly 4 days from today, Wednesday evening before night time dose) - Zydis 20mg QHS - File 96 hour hold today 10/30 -- only change is consolidating [place] in HS Dementia 09/20/2023 Assessment & Plan (09/20/2023 2:42 PM CDT): Patient remains confused on the inpatient psychiatric unit with poor memory and cognitive ability. The family reports that he has worsening cognitive status over the past year. PCP reports that patient has scored poorly on previous cognitive assessments. Patient is not currently exhibiting a manic episode. Patients most likely diagnosis is multi-infarct dementia or alzheimer's disease. - MoCA assessment (09/19): 18 - Continue follow-up with primary care physician Tobacco use disorder 09/16/2023 Assessment & Plan (11/15/2023 5:40 AM CDT): Continue nicotine patch/gum while inpatient. Assessment & Plan (11/01/2023 10:15 AM CDT): Patient has a history of tobacco use disorder, will provide nicotine replacement therapy while inpatient. Patient continued to complain, switched to Q1H PRN and to 21mg patch. - Nicoderm patch 21mg every day - Nicorette gum 4mg Q1H PRN as supplement Assessment & Plan (10/26/2023 5:31 PM CDT): Patient has a history of tobacco use disorder, will provide nicotine replacement therapy while inpatient. Patient continued to complain, switched to Q1H PRN and to 21mg patch. - Nicoderm patch 21mg every day - Nicorette gum 4mg Q1H PRN as supplement Assessment & Plan (09/16/2023 3:28 AM CDT): Pt quit smoking. Using NRT at home. - Continue home NRT Hyperlipidemia 09/16/2023 Assessment & Plan (09/16/2023 3:31 AM CDT): - Atorvastatin 40 mg daily Benign prostatic hyperplasia 09/16/2023 Assessment & Plan (11/15/2023 5:37 AM CDT): Continue Flomax Assessment & Plan (11/04/2023 2:04 PM CDT): Patient has a history of BPH, will continue home medication regimen. Cr recheck improved to 1.04 from 1.38 with GFR 77 from 55. Patient had post void residual scan that showed no evidence of urinary retention, patient had no complaints of urinary retention today and none has been noted by staff. Will continue holding as patient has repeatedly refused when offered. - Tamsulosin 0.4mg every day (holding medication due to patient no longer reporting symptoms and consistently refusing medication) - Post void bladder scan yesterday no evidence of retention - If symptomatic can resume medication and can bladder scan - Straight catheter if > 500 mL on bladder scan Assessment & Plan (10/28/2023 2:49 PM CDT): Patient has a history of BPH, will continue home medication regimen. There are no concerns of urinary retention on 10/11. Continues to be no concern as of 10/27, holding the medication per patient continue refusal - Tamsulosin 0.4mg every day (holding medication due to patient no longer reporting symptoms and consistently refusing medication) - If symptomatic can resume medication and can bladder scan - Straight catheter if > 500 mL on bladder scan Assessment & Plan (09/20/2023 2:40 PM CDT): Patient urinating and does not report suprapubic pain. - Continue home tamsulosin 0.4 mg Preoperative cardiovascular examination 03/28/19 24 Closed compression fracture of L2 lumbar vertebr a, sequela 03/26/2023 Assessment & Plan (11/15/2023 5:40 AM CDT): Associated with chronic low back pain. Evaluated by pain management during last psychiatric admission and pain regimen was adjusted. - continue Tylenol 1 g q6h PRN 1st line, methocarbamol 500 mg TID PRN 2nd line, celebrex 100 mg QHS PRN 3rd line - continue lidocaine patch daily Assessment & Plan (11/04/2023 2:05 PM CDT): Patient has history of closed compression fracture of L2 lumbar vertebra, and pain as a result. Patient had no complaint of back pain today. - Pain management consult - Added: - Methocarbamol 500mg TID PRN - Celebrex 100mg QHS PRN - Tylenol 1g TID - Lidocaine patch PRN - Naproxen 250mg BID - discontinued - Diclofenac PRN - discontinued Assessment & Plan (10/30/2023 11:05 AM CDT): Patient has history of closed compression fracture of L2 lumbar vertebra, and pain as a result. Patient complained of back pain this morning but was reassured and had his medication regimen explained again, patient will adhere and feels it is managed well by his tylenol in particular. Will continue to monitor and discuss with patient. - Naproxen 250mg BID - Benefits outweigh the risks in the setting of minimal sleep potentially related to pain - Tylenol 1g TID - Discontinued Ibuprofen 400mg Q4H PRN on 10/29/23 (last required PRN was one dose 10/27, takes much less when adheres to scheduled tylenol) - Secondary to having begun [place] therapy, added diclofenac PRN q6H as it is less systemically absorbed Assessment & Plan (09/16/2023 3:35 AM CDT): - Naproxen 250 mg BID Moderate malnutrition 11/23/2022 Abdominal aortic aneurysm (AAA) without rupture 11/16/2022 Hemorrhagic stroke 10/28/2022 Closed wedge compression fracture of second lumb ar vertebra 10/07/2022 Essential hypertension 01/13/2022 Assessment & Plan (11/15/2023 5:39 AM CDT): Not chronically on any medications. Per patient, previously was on BP medications but led to orthostatic hypotension. CTM. Facial bones, closed fracture 01/13/2022 Facial laceration 01/13/2022 Fall 01/13/2022 Focal hemorrhagic contusion of cerebrum 01/14/20 22 Pure hypercholesterolemia 08/08/2019 Assessment & Plan (11/15/2023 5:39 AM CDT): Continue home atorvastatin Assessment & Plan (11/01/2023 10:15 AM CDT): Patient has a history of hypercholesterolemia, will continue home medication regimen. - Atorvastatin 40mg QHS Assessment & Plan (10/06/2023 12:56 AM CDT): Patient has a history of hypercholesterolemia, will continue home medication regimen. - Atorvastatin 40mg QHS Assessment & Plan (10/22/2022 1:26 PM CDT): Impression: Chronic and stable. Plan: Continue Lipitor. Assessment & Plan (08/08/2019 4:51 PM CDT): Per patient his cholesterol lipid levels are controlled he is tolerating statin therapy. 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 Patient continues to do well. Is walking with a cane or walker at baseline denying any issues. Lower extremities are warm well perfused. Current duplex shows the graft is patent the aneurysms sac has decreased to 4.1 cm from 5.4 initially. Plan: Follow up in 6 months with abdominal pelvic CTA. Assessment & Plan (12/14/2022 3:08 PM CDT): Patient is following up today postoperatively status post an open tube graft repair of a juxtarenal abdominal aortic aneurysm. Incision is healed. [place] removed today. Bilateral femoral pulses are palpable distal pulses are palpable. Patient denies any current concerns. Plan: Follow-up in 1 month with a postoperative baseline abdominal pelvis CTA. Assessment & Plan (10/22/2022 1:26 PM CDT): Impression: Patient has an increasing juxtarenal abdominal aortic aneurysms now measuring 5.3 cm seen on CTA of abdomen pelvis. Patient is not a candidate for endovascular repair. Plan: Recommend aortobifemoral bypass graft for treatment of an enlarging AAA. Risks of the procedure communicate with the patient to include bleeding, infection, injury, further surgery, limb loss, and . Patient voices concern about his back as he is suppose to undergo back surgery for a lumbar fracture. Discussed again with the patient during this visit, he is at high risk of aneurysm rupture. Patient questions on approximate timeframe to undergo back surgery. Discussed with patient minimum recovery time from this procedure and advised patient to wait to undergo back surgery until cleared from the vascular surgeon. Patient voices understanding of these risk and wishes to proceed. - we will send patient to cardiology for cardiac clearance. Assessment & Plan (10/21/2022 3:55 PM CDT): Impression: Telephone visit today discussed patient's CTA of abdomen and pelvis performed on 10/05/2022. Patient has a 5.3 cm juxtarenal abdominal aortic aneurysm that has increased in size since his last visit which measured 5.0cm. He remains asymptomatic. Plan: Advised patient that he would need to follow up in the office to discuss surgical repair options with Dr. Alfonzo Lau. Patient reports that he has low back pain and asked if this visit could wait until he has undergone his surgery for his back that is not scheduled yet. Advised patient his risk of rupture of his aneurysm and do not recommend waiting until his back surgery. Patient voices understanding and will follow up tomorrow. Assessment & Plan (04/17/2022 12:13 PM BOAT HAND): Known juxtarenal aortic aneurysm previously measuring 4.6 cm per CTA on 02/12/2021 now measuring 5 cm x 4.8 cm per CTA on 02/27/2022. He remains asymptomatic. Discussed the patient with Dr. Jackeline Lau. Plan: Return in 6 months with CTA. Assessment & Plan (08/08/2019 4:51 PM CDT): CT angiogram shows stable 4.4 cm infrarenal abdominal aortic aneurysm. No significant growth and at this size does not require surgical intervention. Will follow-up [address] scan. Assessment & Plan (11/30/2018 3:28 PM CDT): Impression: Infrarenal abdominal aortic aneurysm measuring 4.2 cm on recent noncontrast CT performed at outside facility. Our vascular lab recently measured his AAA at 3.8 cm in July of 2018 on duplex surveillance. Plan: No surgical intervention currently needed. Patient follow-up in 6 months for re-evaluation with CTA abdomen and pelvis. Continue current risk factor modifications. Resolved Problems Problem Noted Date Diagnosed Date Resolved Date Psychosis 10/11/2023 10/31/2023 Bipolar affective disorder, current episode hypomanic 10/09/2023 10/31/2023 Bipolar I disorder, current or most recent episode manic, with psychotic features 09/16/2023 0 10/06/2023 Assessment & Plan (09/20/2023 2:41 PM CDT): Patient not exhibiting symptoms associated with a manic episode in bipolar disorder. The patient does report poor sleep that is currently being treated with Tamazepam 30mg qhs. Patient does not exhibit distractibility, irritability, grandiosity, flight of ideas, increased activity, or increased talkativeness. - Continue lurasidone 80mg qhs - Continue Tamazepam 30mg qhs - Acute Agitation - For mild agitation attempt patient redirection - PRNs for severe, non redirectable agitation: - Olanzapine mg PO q6h PRN for severe agitation OR - Olanzapine mg IM q6h PRN for severe agitation not redirectable when patient refuses PO Hallucinations 09/15/2023 10/31/2023 Immunizations Immunization Administration Dates Next Due Influenza, Quadrivalent, Split, Intramuscular Influenza, Quadrivalent, Spl it, Preservative Free, Intramuscular 12/15/2017,12/12/2016 Influenza, Trivalent, IM (MDV) 11/30/2018,2014 Influenza, Trivalent, Preservative Free, Intramu scular 11/25/2015 Pneumococcal Conjugate PCV 13 01/28/2018 Pneumococcal Polysaccharide PPV23 03/09/2019 TD Preservative Free 08/26/2021 Surgical History Surgery Date Site/Laterality Comments TONSILLECTOMY as child APPENDECTOMY COLONOSCOPY AORTIC ANEURYSM REPAIR 11/16/2022 Open tube graft repair of juxtarenal abdominal aqortic aneurysm Medical History Medical History Date Comments Nervous disorder Arthritis Abdominal aortic aneurysm (AAA) Bipolar disorder (HCC) Brain bleed (HCC) from fall Hyperlipidemia GERD (gastroesophageal reflux disease) Headache sometimes Itching finger History of fall 12/2021 had bleeding in his brain, stayed in hospital for observation. Ambulates with cane Uses walker Wears glasses Dental crown present Foot drop, left after fall Fracture back after fall History of COVID-19 Family History Medical History Relation Name Comments No Known Problems Father Bladder Cancer Mother Hypotension Mother Relation Name Status Comments Father Mother Social History Tobacco Use Types Packs/Day Years Used Date Smoking Tobacco: Former Cigarettes Q uit: 2019 Smokeless Tobacco: Never Tobacco Cessation:Counseling Given: Not Answered Comments:quit vaping/ nicotine lozynges used last 11/15/2022 @2200 Alcohol Use Standard Drinks/Week Comments Never 0 (1 standard drink = 0.6 oz pur e alcohol) [facility] Utilities Answer Date Recorded In the past 12 months has [employer] gas, oil, or water [place] threatened to shut off services in your home? No 10/06/2023 Humiliation, Afraid, Rape, and Kick questionnair e Answer Date Recorded Within the last year, have y ou been afraid of your partner or ex-partner? No 10/06/2023 Within the last year, have y ou been humiliated or emotionally abused in other ways by your partner or ex-partner? No Within the last year, have y ou been kicked, hit, slapped, or otherwise physically hurt by your partner or ex-partner? No 10/06/2023 Within the last year, have y ou been raped or forced to have any kind of sexual activity by your partner or ex-partner? No 10/06/2023 Social Connection and Isolat ion Panel [NHANES] Answer Date Recorded In a typical week, how many times do you talk on the phone with family, friends, or neighbors? More than three times a week 10/06/2023 How often do you get togethe r with friends or relatives? More than three times a week 10/06/2023 How often do you attend chur or latter day services? Never 10/06/2023 Do you belong to any clubs o r organizations such as anabaptist groups, unions, fraternal or athletic groups, or school groups? No 10/06/2023 How often do you attend meet ings of the clubs or organizations you belong to? Never 10/06/2023 Are you , , di vorced, , never , or living with a partner? 10/06/2023 AUDIT-C Answer Date Recorded Q1: How often do you have a drink containing alcohol? Never 10/06/2023 Q2: How many drinks containi ng alcohol do you have on a typical day when you are drinking? Patient does not drink Q3: How often do you have si x or more drinks on one occasion? Never 10/06/2023 Overall Financial Resource Strain (CARDIA) Answe r Date Recorded How hard is it for you to pa y for the very basics like food, housing, medical care, and heating? Not hard at all 10/06/2023 PHQ-2 Answer Date Recorded PHQ-2 Total Score 0 09/15/2023 [facility] - Occupational Stress Questionnaire Answer Date Recorded Do you feel stress - tense, restless, nervous, or anxious, or unable to sleep at night because your mind is troubled all the time - these days? Very much 10/06/2023 Exercise Vital Sign Answer Date Recorde d On average, how many days pe r week do you engage in moderate to strenuous exercise (like a brisk walk)? 0 days 10/06/2023 On average, how many minutes do you engage in exercise at this level? 0 min 10/06/2023 Hunger Vital Sign Answer Date Recorded Within the past 12 months, y ou worried that your food would run out before you got the money to buy more. Never true 10/06/19 24 Within the past 12 months, t he food you bought just didn't last and you didn't have money to get more. Never true 10/06/2023 PRAPARE - Transportation Answer Date Re corded In the past 12 months, has l ack of transportation kept you from medical appointments or from getting medications? No 08/2023 In the past 12 months, has l ack of transportation kept you from meetings, work, or from getting things needed for daily living? No 10/06/2023 Housing Stability Vital Sign Answer Jose e Recorded In the last 12 months, was t here a time when you were not able to pay the mortgage or rent on time? No 11/17/2022 In the last 12 months, how many places have you lived? 1 11/17/2022 In the last 12 months, was t here a time when you did not have a steady place to sleep or slept in a longterm (including now)? No 11/17/2022 PHQ-9 Answer Date Recorded PHQ-9 Total Score 3 09/15/2023 Housing Stability Vital Sign Answer Jose e Recorded In the last 12 months, was t here a time when you were not able to pay the mortgage or rent on time? No 10/06/2023 In the past 12 months, how m any times have you moved where you were living? 0 10/06/2023 At any time in the past 12 m [facility], were you homeless or living in a longterm (including now)? No 10/06/2023 Personal Safety Answer Date Recorded Have you ever been in or are you currently in a harmful physical or emotional relationship or is someone making you feel afraid or unsafe? Yes 11/14/2023 Education Answer Date Recorded What is the highest level of school you have completed or the highest degree you have received? Associate degree: occupational, technical, or vocational program 09/16/2023 Sex and Gender Information Value Date Recorded Sex Assigned at Not on file Legal Sex Male 3:07 PM BOAT HAND Gender Identity Male 02/17/2021 4:16 PM BOAT HAND Sexual Orientation Straight 02/17/2021 4: 16 PM BOAT HAND Occupation Industry Job Start Date Job End Date Retired - used to work for the [employer] Not on fi le Not on file Not on file Obstetrics History Last Filed Vital Signs Vital Sign Reading Time Taken Comments Blood Pressure 166/99 11/15/2023 4:40 PM CDT Pulse 82 11/15/2023 4:40 PM CDT Temperature 36.9 C (98.5 F) 11/15/2023 12:14 PM CDT Respiratory Rate 18 11/15/2023 4:40 PM CDT Oxygen Saturation 98% 11/15/2023 4:40 PM CDT Inhaled Oxygen Concentration - - Weight 108.9 kg (240 lb) 02/16/2024 1:51 PM BOAT HAND Height 184.9 cm (6' 0.8) 02/16/2024 1:51 PM BOAT HAND Body Mass Index 31.84 02/16/2024 1:51 PM BOAT HAND Plan of Treatment Health Maintenance Due Date Last Done Comments Colon Cancer Screening-Colonoscopy 1955 Hepatitis C Screening 1955 Hepatitis B Screening 1971 Zoster Vaccine (1 of 2) 2003 Well Visit 65+ 2018 DTaP/Tdap/Td Vaccine (1 - Tdap) 08/27/2021 2 Depression Screening 09/14/2024 09/15/2023, 09/15/19 24 Influenza Vaccine (Season Ended) 2024 11/30/2018, 11/30/2018, 12/15/2017, Additional history exists Fall Risk Assessment 11/04/2024 11/05/2023 Pneumococcal vaccine 65+ Completed 03/09/2019, 01/01 Abdominal Aortic Aneurysm (A AA) Screen Completed 02/03/2023, 02/03/2023, 02/01/2023, Additional history exists Medical Devices Implanted Type Area Chief Guard Device Identifier Shelf Expiration Date Model / Serial / Lot [employer] [id number] Sohan Gordillo 24mm 30cm 2 Velour Straight Tube Knit Thorax - [id number] - [id number] Implanted:Qty: 1 on 11/16/2022 by Mello Lau MD at [facility] Graft N/A: Aorta [employer] 02/28/2027 [id number] / [id number] Procedures Procedure Name Priority Date/Time Associated Diagnosis Comments CTA ABDOMEN PELVIS W WO CONTRAST Schedule Routine, Read Routine (OP Routine) 01/11/2023 1:33 PM BOAT HAND Abdominal aortic aneurysm (AAA) without rupture, unspecified part Aftercare following surgery of the circulatory system from Last 3 Months or Most Recently Relevant to Health Maintenance Results * CTA Abdomen Pelvis (01/11/2023 1:33 PM BOAT HAND) Anatomical Region Laterality Modality Body N/A Computed Tomogra phy 01/11/2023 1:55 PM BOAT HAND Narrative 01/11/2023 2:08 PM BOAT HAND EXAM DESCRIPTION: CTA ABDOMEN PELVIS REASON FOR STUDY: AAA, post repair AAA, s/p repair Oct 2022, now reassessing Surg Hx of appy TECHNIQUE: CTA scan of the abdomen and pelvis performed without and with intravenous and without oral contrast using helical scanning technique with dynamic intravenous contrast injection. Precontrast, arterial, and portal venous phase images of the abdomen and pelvis were acquired. Images reviewed with lung, soft tissue and bone windows. Reconstructed coronal and sagittal MPR images reviewed. All images stored on PACS. 3D MIP images rendered on scanning unit and reviewed at time of interpretation. Automated exposure control was used as a dose optimization technique for this examination. CONTRAST TYPE/DOSE: 100mL of IOVERSOL 350 MG IODINE/ML INTRAVENOUS SYRINGE injected via intravenous COMPARISON: 11/25/2022 REFERENCE: Unless otherwise specified, no follow-up imaging is recommended for incidental renal and adrenal lesions per consensus recommendations based on imaging criteria. Further lab evaluation could be pursued based on clinical findings. Management of the Incidental Renal Mass on CT: A White Paper of the ACR Incidental Findings Committee. J Am Yissel Radiol. 2018 Feb;15(2):264-273. Management of Incidental Adrenal Masses: A White Paper of the ACR Incidental Findings Committee. J Am Yissel Radiol. 2017 Sep;14(8):4462-9668. FINDINGS: VASCULATURE: On the noncontrast sequence, there are scattered atherosclerotic changes of the aorta. On the post-contrast sequence, there is no definite evidence of acute aortic injury or dissection. There is redemonstration of postsurgical changes of abdominal aortic aneurysm repair with mild residual fusiform aneurysmal dilatation of the infrarenal abdominal aorta measuring 3.9 cm in the AP dimension by 4.0 cm in the transverse dimension, which previously measured up to 4.1 cm (axial image 131, coronal image 45, sagittal image 68). There is interval decreased fat stranding and fluid surrounding the abdominal aorta with mild fat stranding and fluid remaining, which is most significant along the proximal and distal aspects of the aneurysm repair. CELIAC TRUNK: There are atherosclerotic changes noted involving the origin of the celiac artery without evidence of hemodynamically significant stenosis or occlusion. 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 SUPERIOR MESENTERIC ARTERY: There are atherosclerotic changes noted involving the proximal superior mesenteric artery without evidence of hemodynamically significant stenosis, occlusion, or aneurysmal dilatation. RIGHT RENAL ARTERY: There is a single right renal artery noted without evidence of hemodynamically significant stenosis, occlusion, or aneurysmal dilatation. LEFT RENAL ARTERY: There is a single left renal artery noted without evidence of hemodynamically significant stenosis, occlusion, or aneurysmal dilatation. INFERIOR MESENTERIC ARTERY: The inferior mesenteric artery is not visualized, and may be occluded. ILIAC ARTERIES: There are scattered atherosclerotic changes bilateral common iliac arteries, bilateral internal iliac arteries, bilateral external iliac arteries, and bilateral common femoral arteries without evidence of hemodynamically significant stenosis, occlusion, or aneurysmal dilatation. LOWER CHEST: The heart size is stable. There is no definite evidence of a pericardial effusion. There is minimal to mild bibasilar subsegmental atelectasis and scarring. There is mild mucosal thickening of the visualized distal esophagus. There is a small hiatal hernia. LIVER: The liver is grossly stable in size and contour without definite evidence of focal hepatic lesion. The hepatic and portal veins are grossly patent. GALLBLADDER: Grossly unremarkable. BILE DUCTS: No intrahepatic or extrahepatic ductal dilatation. SPLEEN: The spleen is grossly stable in size and unremarkable. There are calcified granulomas noted in the spleen. PANCREAS: The pancreas appears grossly stable without definite of pancreatic ductal dilatation, peripancreatic inflammatory changes, or peripancreatic fluid collection. ADRENALS: There is stable mild nodularity of the right adrenal gland. The left adrenal gland is grossly stable and unremarkable. KIDNEYS/URINARY TRACT: The noncontrast sequence, there is no definite evidence of nephrolithiasis. The bilateral kidneys enhance symmetrically. There is a stable cyst in the upper pole of the left kidney measuring 4.5 cm, which does not require follow-up imaging. There is no definite evidence of hydronephrosis or hydroureter. There is mild mucosal thickening of the urinary bladder. The prostate gland measures 5.5 cm. GI: There is no definite evidence of a bowel obstruction. There is a duodenal diverticulum noted. The appendix is surgically absent. There are scattered colonic diverticula without definite evidence of diverticulitis. There is mild mucosal thickening of the sigmoid colon. There are postsurgical changes noted involving the anterior abdominal wall. There is no definite evidence of free air in the abdomen and pelvis. There is no definite evidence of lymphadenopathy in the abdomen and pelvis. PERITONEUM: No ascites or free air. RETROPERITONEUM: No mass or adenopathy. REPRODUCTIVE: No significant abnormality. MUSCULOSKELETAL: There is mild osteopenia. There is a minimal levoscoliotic curvature of the spine with degenerative changes. There is a stable severe compression deformity involving L2. OTHER: No other abnormality. IMPRESSION: Redemonstration of postsurgical changes of abdominal aortic aneurysm repair with mild residual fusiform aneurysmal dilatation of the infrarenal abdominal aorta measuring up to 4.0 cm, which previously measured up to 4.1 cm. No definite evidence of acute aortic injury or dissection. Interval decreased fat stranding and fluid surrounding the abdominal aorta with mild fat stranding and fluid remaining, which is most significant along the proximal and distal aspects of the aneurysm repair, and findings likely represent resolving postsurgical changes. No definite evidence of bowel obstruction. Mild mucosal thickening of the sigmoid colon, which is likely related to underdistention or chronic diverticulosis and less likely mild colitis of infectious or inflammatory etiology. Mild mucosal thickening of the visualized distal esophagus, which may be related to to the small hiatal hernia, underdistention, or esophagitis. The necessity for further evaluation with endoscopy can be determined clinically. Mild mucosal thickening of the urinary bladder, which may be related to underdistention, chronic urinary bladder outlet obstruction secondary to enlarged prostate gland, or cystitis. Clinical correlation with urinary analysis is recommended as clinically indicated. Scattered colonic diverticula without definite evidence of diverticulitis. Enlarged prostate gland. Clinical correlation with physical exam findings and PSA values is recommended as clinically indicated. THIS IS AN ELECTRONICALLY VERIFIED FINAL REPORT 01/11/2023 2:08 PM - Electronically signed by Angel Matt D.O. PS T: Report ID: [id number] Reading Location: [place] [id number] Procedure Note Angel Matt, DO - 01/11/2023 EXAM DESCRIPTION: CTA ABDOMEN PELVIS REASON FOR STUDY: AAA, post repair AAA, s/p repair Oct 2022, now reassessing Surg Hx of appy TECHNIQUE: CTA scan of the abdomen and pelvis performed without and with intravenous and without oral contrast using helical scanning techniquewith dynamic intravenous contrast injection. Precontrast, arterial, and portal venous phase images of the abdomen and pelvis were acquired. Images reviewed with lung, soft tissue and bone windows. Reconstructed coronaland sagittal MPR images reviewed. All images stored on PACS. 3D MIP images rendered on scanning unit and reviewed at time of interpretation.Automated exposure control was used as a dose optimization technique for this examination. CONTRAST TYPE/DOSE: 100mL of IOVERSOL 350 MG IODINE/ML INTRAVENOUSSYRINGE injected via intravenous COMPARISON: 11/25/2022 REFERENCE: Unless otherwise specified, no follow-up imaging is recommendedfor incidental renal and adrenal lesions per consensus recommendations basedon imaging criteria. Further lab evaluation could be pursued based onclinical findings. Management of the Incidental Renal Mass on CT: A White Paper of the ACR Incidental Findings Committee. J Am Yissel Radiol. 2018 Apr;15(2):264-273. Management of Incidental Adrenal Masses: A White Paper of the ACRIncidental Findings Committee. J Am Yissel Radiol. 2017 Sep;14(8):2043-1056. FINDINGS: VASCULATURE: On the noncontrast sequence, there are scattered atherosclerotic changes of the aorta. On the post-contrast sequence,there is no definite evidence of acute aortic injury or dissection. There is redemonstration of postsurgical changes of abdominal aorticaneurysm repair with mild residual fusiform aneurysmal dilatation of the infrarenal abdominal aorta measuring 3.9 cm in the AP dimension by 4.0 cm in the transverse dimension, which previously measured up to 4.1 cm (axial [id number], coronal image 45, sagittal image 68). There is interval decreased fat stranding and fluid surrounding the abdominal aorta with mild fatstranding and fluid remaining, which is most significant along the proximal anddistal aspects of the aneurysm repair. CELIAC TRUNK: There are atherosclerotic changes noted involving theorigin of the celiac artery without evidence of hemodynamically significantstenosis or occlusion. There is redemonstration of fusiform aneurysmal dilatationof the distal celiac artery measuring up to 1.3 cm containing a smalldissection flap, similar to the prior study. SUPERIOR MESENTERIC ARTERY: There are atherosclerotic changes noted involving the proximal superior mesenteric artery without evidence of hemodynamically significant stenosis, occlusion, or aneurysmal dilatation. RIGHT RENAL ARTERY: There is a single right renal artery noted without evidence of hemodynamically significant stenosis, occlusion, or aneurysmal dilatation. LEFT RENAL ARTERY: There is a single left renal artery noted without evidence of hemodynamically significant stenosis, occlusion, or aneurysmal dilatation. INFERIOR MESENTERIC ARTERY: The inferior mesenteric artery is not visualized, and may be occluded. ILIAC ARTERIES: There are scattered atherosclerotic changes bilateralcommon iliac arteries, bilateral internal iliac arteries, bilateral externaliliac arteries, and bilateral common femoral arteries without evidence of hemodynamically significant stenosis, occlusion, or aneurysmal dilatation. LOWER CHEST: The heart size is stable. There is no definite evidence ofa pericardial effusion. There is minimal to mild bibasilar subsegmental atelectasis and scarring. There is mild mucosal thickening of thevisualized distal esophagus. There is a small hiatal hernia. LIVER: The liver is grossly stable in size and contour without definite evidence of focal hepatic lesion. The hepatic and portal veins aregrossly patent. GALLBLADDER: Grossly unremarkable. BILE DUCTS: No intrahepatic or extrahepatic ductal dilatation. SPLEEN: The spleen is grossly stable in size and unremarkable. Thereare calcified granulomas noted in the spleen. PANCREAS: The pancreas appears grossly stable without definite ofpancreatic ductal dilatation, peripancreatic inflammatory changes, or peripancreatic fluid collection. ADRENALS: There is stable mild nodularity of the right adrenal gland.The left adrenal gland is grossly stable and unremarkable. KIDNEYS/URINARY TRACT: The noncontrast sequence, there is no definite evidence of nephrolithiasis. The bilateral kidneys enhance symmetrically. There is a stable cyst in the upper pole of the left kidney measuring 4.5cm, which does not require follow-up imaging. There is no definite evidenceof hydronephrosis or hydroureter. There is mild mucosal thickening of the urinary bladder. The prostate gland measures 5.5 cm. GI: There is no definite evidence of a bowel obstruction. There is a duodenal diverticulum noted. The appendix is surgically absent. Thereare scattered colonic diverticula without definite evidence of diverticulitis. There is mild mucosal thickening of the sigmoid colon. There arepostsurgical changes noted involving the anterior abdominal wall. There is no definite evidence of free air in the abdomen and pelvis. There is no definiteevidence of lymphadenopathy in the abdomen and pelvis. PERITONEUM: No ascites or free air. RETROPERITONEUM: No mass or adenopathy. REPRODUCTIVE: No significant abnormality. MUSCULOSKELETAL: There is mild osteopenia. There is a minimallevoscoliotic curvature of the spine with degenerative changes. There is a stablesevere compression deformity involving L2. OTHER: No other abnormality. IMPRESSION: Redemonstration of postsurgical changes of abdominal aortic aneurysmrepair with mild residual fusiform aneurysmal dilatation of the infrarenalabdominal aorta measuring up to 4.0 cm, which previously measured up to 4.1 cm. No definite evidence of acute aortic injury or dissection. Interval decreased fat stranding and fluid surrounding the abdominalaorta with mild fat stranding and fluid remaining, which is most significantalong the proximal and distal aspects of the aneurysm repair, and findingslikely represent resolving postsurgical changes. No definite evidence of bowel obstruction. Mild mucosal thickening of the sigmoid colon, which is likely related to underdistention or chronic diverticulosis and less likely mild colitis of infectious or inflammatory etiology. Mild mucosal thickening of the visualized distal esophagus, which may be related to to the small hiatal hernia, underdistention, or esophagitis.The necessity for further evaluation with endoscopy can be determinedclinically. Mild mucosal thickening of the urinary bladder, which may be related to underdistention, chronic urinary bladder outlet obstruction secondary to enlarged prostate gland, or cystitis. Clinical correlation with urinary analysis is recommended as clinically indicated. Scattered colonic diverticula without definite evidence ofdiverticulitis. Enlarged prostate gland. Clinical correlation with physical exam findingsand PSA values is recommended as clinically indicated. THIS IS AN ELECTRONICALLY VERIFIED FINAL REPORT 01/11/2023 2:08 PM - Electronically signed by Angel BOSTON T: Report ID: [id number] Reading Location: [id number] Mello Lau MD IMG CT PROCEDURES Final Re sult from Last 3 Months or Most Recently Relevant to Health Maintenance Insurance [facility] Member Subscriber Plan / Payer (Ef fective 2017-Present) Name:Juan Daugherty Relation to Subscriber:Self Name:Juan Daugherty Payer ID:[id number] (NAIC) Type:MEDICARE RISK OTHER Address: [address] [facility] Advance Directives For more information, please contact: [phone] * Full Code (Latest Code Status on File) Date Activated Date Inactivated Comments 11/15/2023 5:06 AM 11/15/2023 8:50 PM * Full Code Date Activated Date Inactivated Comments 10/05/2023 6:22 PM 11/05/2023 8:48 PM * Full Code Date Activated Date Inactivated Comments 09/15/2023 10:16 PM 09/20/2023 9:01 PM * Full Code Date Activated Date Inactivated Comments 11/16/2022 3:11 PM 11/24/2022 6:26 PM Care Teams Mailing Machine Assistant Relationship Specialty Start Date End Date Brett Flores DO [address] [place] [address] PCP - General Family Medicine 04/09/22 Poncho Vital MD [address] [facility] [address] [address] Internal Medicine 08/02/18 Mello Lau MD [address] [facility] [place] [address] [place] [address] Surgeon Vascular Surgery 03/13/22 Iam June MD [address] [place] [address] [address] Consulting Physician Cardiology 11/06/22 Nadine Kennedy MD [address] [facility] [address] Consulting Physician Pain Management 08/23/23
--- OUTSIDE RECORDS SUMMARY | 2024-09-17 16:32 | XMS_ITS | Patient Health Record ---
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 Name Role Phone Vania Arthur Unavailable [phone] Reason For Referral No Information Medications Medication SIG (Take, Route, Frequency, Duration) Notes Start Date End Date Status Haloperidol 10 MG Oral Ac tive QUEtiapine Fumarate 100 MG Oral Active [id number] Ethyl Esters 1 GM Oral Active Erythromycin 5 MG/GM Ophthalmic Active QUEtiapine Fumarate 300 MG Oral Active Cephalexin 500 MG Oral Ac tive Clobetasol Propionate 0.05 % External Active ALPRAZolam 0.25 MG Oral A ctive HYDROcodone-Acetamino phen 5-300 MG Oral Active BinaxNOW COVID-19 Ag Card In Vitro *Reorder from [facility] for eRx and Interaction Alerts* Active QUEtiapine Fumarate 200 MG Oral Active Atorvastatin Calcium 40 MG Oral Active Temazepam 30 MG Oral Acti ve Lurasidone HCl 20 MG Oral Active Sertraline HCl 50 MG Oral Active Haloperidol 5 MG Oral Act lul Sertraline HCl 25 MG Oral Active Zaleplon 10 mg Oral Activ e Vascepa 1 GM Oral Active Myrbetriq 25 MG Oral Acti ve Plan Of Treatment No Information Insurance Providers Payer Name Payer Address Payer Phone Subscriber Number Group Number Insured Name Patient Relationship to Insured Coverage Start Date Coverage End Date [employer] Medicare Replacement/ Advantage - Hmo [address] [place] [phone] [id number] QUAN BRIGHT Self - patient is the insured
--- OUTSIDE RECORDS SUMMARY | 2024-09-17 16:32 | XMS_ITS | Referral Summary ---
Author Organization [facility] Office Center Address [address] [place] [address] Care Team Providers Care Drop Forge Hand Name Role Phone Poncho Vital MD Unavailable Mello Lau MD Unavailable [phone] Brett Flores DO Primary Care Provider [phone] Iam June MD Unavailable [phone] Nadine Kennedy MD Unavailable Allergies Active Allergy [...] - Refer to memory diagnostic center at [facility] at discharge Assessment & Plan (10/29/2023 [...] - Refer to memory diagnostic center at [facility] at discharge Bipolar disorder, most recent [...] hour hold. Olanzapine serum dose still pending. [place] level and BMP ordered for Wednesday evening before night time dose. Will continue to evaluate patient for clinical response and side effects - Olanzapine serum level ordered (drawn on 10/26 at 20:15 before nighttime dose) -- does not appear to have returned yet - Elkmont 300mg BID - Cardiology confirmed no contraindication to starting El[place]ont with this patient in the setting of their EKG findings from 10/24 - Need a serum level and BMP after sufficient number of half lives (roughly 4 days from today, Wednesday evening before night time dose) - Zydis 20mg QHS - File 96 hour hold today 10/30 -- only change is consolidating Elkmont in HS Dementia 09/20/2023 Assessment & Plan [...] scheduled tylenol) - Secondary to having begun [place]ont therapy, added diclofenac PRN q6H as it [...] 05/11/2018 Assessment & Plan (02/03/2023 1:59 PM CORRESPONDENCE SECTION SUPERVISOR): 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 Incision is healed. [place] removed today. Bilateral femoral pulses are palpable [...] tomorrow. Assessment & Plan (04/17/2022 12:13 PM CORRESPONDENCE SECTION SUPERVISOR): Known juxtarenal aortic aneurysm previously measuring 4.6 [...] Polysaccharide PPV23 03/09/2019 TD Preservative Free 08/26/2021 Social History Tobacco Use Types Packs/Day Years Used Date Smoking Tobacco: Former Cigarettes Q uit: 2019 Smokeless Tobacco: Never Tobacco Cessation:Counseling Given: Not Answered Comments:quit vaping/ nicotine lozynges used last 11/15/2022 @2200 Alcohol Use Standard Drinks/Week Comments Never 0 (1 standard drink = 0.6 oz pur e alcohol) [facility] Utilities Answer Date Recorded In the past 12 months has [facility] [employer], oil, or water [employer] threatened to shut off services in your [...] 10/06/2023 How often do you attend chur ch or scientology services? Never 10/06/2023 Do you belong to any clubs o r organizations such as methodist groups, unions, fraternal or athletic groups, or [...] Date Recorded PHQ-2 Total Score 0 09/15/2023 [facility] Questionnaire Answer Date Recorded [...] place to sleep or slept in a mcc (including now)? No 11/17/2022 PHQ-9 Answer Date [...] any time in the past 12 [facility], were you homeless or living in a mcc (including now)? No 10/06/2023 Personal Safety Answer [...] on file Legal Sex Male 3:07 PM CORRESPONDENCE SECTION SUPERVISOR Gender Identity Male 02/17/2021 4:16 PM CORRESPONDENCE SECTION SUPERVISOR Sexual Orientation Straight 02/17/2021 4: 16 PM CORRESPONDENCE SECTION SUPERVISOR Occupation Industry Job Start Date Job End Date Retired - used to work for the [employer] Not on fi le Not on file Not on file Last Filed Vital Signs Vital Sign Reading Time Taken Comments Blood Pressure 166/99 11/15/2023 4:40 PM CDT Pulse 82 11/15/2023 4:40 PM CDT Temperature 36.9 C (98.5 F) 11/15/2023 12:14 PM CDT Respiratory Rate 18 11/15/2023 4:40 PM CDT Oxygen Saturation 98% 11/15/2023 4:40 PM CDT Inhaled Oxygen Concentration - - Weight 108.9 kg (240 lb) 02/16/2024 1:51 PM CORRESPONDENCE SECTION SUPERVISOR Height 184.9 cm (6' 0.8) 02/16/2024 1:51 PM CORRESPONDENCE SECTION SUPERVISOR Body Mass Index 31.84 02/16/2024 1:51 PM CORRESPONDENCE SECTION SUPERVISOR Functional Status * Are you deaf or do you have serious difficulty hearing? Answer Date of Assessment Author No 10/06/2023 4:42 PM CDT Brigida Connell LCSW * Are you blind or do you have serious difficulty seeing, even when wearing glasses? Answer Date of Assessment Author No 10/06/2023 4:42 PM Brigida Real LCSW * Do you have serious difficulty walking or climbing stairs? Answer Date of Assessment Author Yes 10/06/2023 4:42 PM CDT Brigida Connell LCSW * Do you have serious difficulty dressing or bathing? Answer Date of Assessment Author No 10/06/2023 4:42 PM Brigida Real LCSW * Because of a physical, mental, or emotional condition, do you have serious difficulty doing errandsalone such as visiting the doctor? Answer Date of Assessment Author Yes 10/06/2023 4:42 PM CDT Brigida Connell LCSW Mental Status * Because of a physical, mental, or emotional condition, do you have serious difficulty concentrating, remembering, or making decisions? (5 years old or older) Answer Entry Date Author Yes 10/06/2023 4:42 PM Brigida Real LCSW Plan of Treatment Not on file Medical Devices Implanted Type Area Big Data Lead Device Identifier Shelf Expiration Date Model / Serial / Lot [facility]um [facility] [id number] Hemashield Gold 24mm 30cm 2 Velour Straight Tube Knit Thorax - [id number] - [id number] Implanted:Qty: 1 on 11/16/2022 by Mello Lau MD at [facility] Graft N/A: Aorta [employer] 02/28/2027 [id number] / [id number] Procedures Procedure Name Priority Date/Time Associated Diagnosis Comments CTA ABDOMEN PELVIS W WO CONTRAST Schedule Routine, Read Routine (OP Routine) 01/11/2023 1:33 PM CORRESPONDENCE SECTION SUPERVISOR Abdominal aortic aneurysm (AAA) without rupture, unspecified part Aftercare following surgery of the circulatory system from Last 3 Months or Most Recently Relevant to Health Maintenance Results * CTA Abdomen Pelvis (01/11/2023 1:33 PM CORRESPONDENCE SECTION SUPERVISOR) Anatomical Region Laterality Modality Body N/A Computed Tomogra phy 01/11/2023 1:55 PM CORRESPONDENCE SECTION SUPERVISOR Narrative 01/11/2023 2:08 PM CORRESPONDENCE SECTION SUPERVISOR EXAM DESCRIPTION: CTA ABDOMEN PELVIS REASON FOR [...] Findings Committee. J Am Yissel Radiol. 2017 Sep;14(8):4187-7497. FINDINGS: VASCULATURE: On the noncontrast sequence, there [...] signed by Angel BOSTON T: Report ID: [id number] Reading Location: [id number] Procedure Note Vernell Angel Jefry, DO - 01/11/2023 EXAM DESCRIPTION: CTA ABDOMEN [...] Findings Committee. J Am Yissel Radiol. 2017 Sep;14(8):5295-8579. FINDINGS: VASCULATURE: On the noncontrast sequence, there [...] previously measured up to 4.1 cm (axial , coronal image 45, sagittal image 68). There [...] signed by Angel BOSTON T: Report ID: [id number] Reading Location: [place] [address] Mello Lau MD IMG CT PROCEDURES Final Re sult from Last 3 Months or Most Recently Relevant to Health Maintenance Insurance [facility] Member Subscriber Plan / Payer (Ef fective 2017-) Name:Juan Daugherty Relation to Subscriber:Self Name:Juan Daugherty Payer ID:[id number] (NAIC) Type:MEDICARE RISK OTHER Address: [address] [facility] Member Subscriber Plan / Payer (Ef fective 2017-Present) Name:Juan Daugherty Relation to Subscriber:Self Name:Juan Daugherty Payer ID:[id number] (NAIC) Type:MEDICARE RISK OTHER Address: [address] Advance Directives For more information, please contact: [phone] * Full Code (Latest Code Status on File) Date Activated Date Inactivated Comments 11/15/2023 5:06 AM 11/15/2023 8:50 PM * Full Code Date Activated Date Inactivated Comments 10/05/2023 6:22 PM 11/05/2023 8:48 PM * Full Code Date Activated Date Inactivated Comments 09/15/2023 10:16 PM 09/20/2023 9:01 PM * Full Code Date Activated Date Inactivated Comments 11/16/2022 3:11 PM 11/24/2022 6:26 PM Care Teams Drop Forge Hand Relationship Specialty Start Date End Date Brett Flores DO [address] [place] [address] PCP - General Family Medicine 04/09/22 Poncho Vital MD [address] [place] [address] Internal Medicine 08/02/18 Mello Lau MD [address] [facility] [place] [address] [place] [address] [place] [address] Surgeon Vascular Surgery 03/13/22 Iam June MD [address] [address] Consulting Physician Cardiology 11/06/22 Nadine Kennedy MD [address] [facility] [address] Consulting Physician Pain Management 08/23/23
--- OUTSIDE RECORDS SUMMARY | 2024-09-17 16:32 | XMS_ITS | Encounter Summary ---
Author Organization [facility] Address [address] [place] [address] Care Team Providers Care Community Service Representative Name Role Phone Dutch Deluca DO Primary Care Provider [phone] Natalee Paris MD Primary Care Provider [phone] Brett Flores DO Primary Care Provider [phone] Encounter Details Date Type Department Care Team (Late st Contact Info) Description 01/13/2022 Ophth Exam [facility] [address] [place] [address] Abdias Mccarthy MD [address] [facility] [place] [id number] Social History Tobacco Use Types Packs/Day Years Used Date Smoking Tobacco: Never Assessed Sex and Gender Information Value Date Recorded Sex Assigned at Not on file Legal Sex Male 4:47 PM GOLF INSTRUCTOR Gender Identity Not on file Sexual Orientation Not on file documented as of this encounter Plan of Treatment Not on file documented as of this encounter Visit Diagnoses Not on filedocumented in this encounter Care Teams Community Service Representative Relationship Specialty Start Date End Date Dutch Deluca DO [address] [place] [address] PCP - General 11/29/22 1/4/23 Natalee Paris MD [address] [place] [phone] PCP - General 03/05/22 04/22/22 Brett Flores DO [address] [place] [phone] PCP - General 04/23/22 documented as of this encounter
--- OUTSIDE RECORDS SUMMARY | 2024-09-17 16:32 | XMS_ITS | Clinical Summary ---
Author Organization [facility] Address [address] [place] [address] Care Team Providers Care Supervisor Cellars Name Role Phone None, Provider MD Primary Care Provider Unavaila ble Allergies Active Allergy Reactions Criticality Noted Date Comments Bee Pollen Unknown 05/06/2022 Stuffy nose Hydrocodone Other (see comment) Low 10/08/2022 Pollen Extract Other (see comment) 05/06/2022 Stuffy nose Medications cetirizine (ZYRTEC) 10 MG tablet Take 1 tablet (10 mg total) by mouth daily. Active fenofibrate (TRICOR) 145 MG tablet Take 1 tablet (145 mg total) by mouth daily. Active lidocaine 4 % patch Place 1 patch onto the skin. 4 Active OLANZapine (ZYPREXA ZYDIS) 5 MG TABLET DISPERSIBLE disintegrating tablet Take 5 tablets (25 mg total) by mouth. Active methocarbamol (ROBAXIN) 500 MG tablet 4 Active traZODone (DESYREL) 100 MG tablet TAKE 1 TABLET BY MOUTH ONCE DAILY AT NIGHT AT BEDTIME Active triamcinolone (KENALOG) 0.1 % cream APPLY CREAM TOPICALLY TO AFFECTED AREA TWICE DAILY 4 Active ramelteon (ROZEREM) 8 MG tablet Take 1 tablet (8 mg total) by mouth daily. 4 Active atorvastatin (LIPITOR) 40 MG tablet Take 1 tablet (40 mg total) by mouth daily. Active Active Problems Problem Noted Date Diagnosed Date Bipolar disorder, most recen t episode manic ([facility]) 10/05/2023 Dementia 09/20/2023 Benign prostatic hyperplasia 09/16/2023 Hyperlipidemia 09/16/2023 Tobacco use disorder 09/16/2023 Closed compression fracture of L2 lumbar vertebr a, sequela 03/26/2023 Moderate malnutrition ([facility]) 11/23/2022 Hemorrhagic stroke ([facility]) 10/28/2022 Closed wedge compression fra cture of second lumbar vertebra ([facility]) 10/07/2022 Closed fracture of left orbital floor, initial e ncounter 01/13/2022 Essential hypertension 01/13/2022 Facial bones, closed fracture 01/13/2022 Facial laceration 01/13/2022 Fall 01/13/2022 Focal hemorrhagic contusion of cerebrum 01/14/20 Infrarenal abdominal aortic aneurysm (AAA) witho ut rupture 01/13/2022 Pure hypercholesterolemia 08/08/2019 Resolved Problems Problem Noted Date Diagnosed Date Resolved Date Preoperative cardiovascular examination 03/28/2023 04/10/2024 Social History Tobacco Use Types Packs/Day Years Used Date Smoking Tobacco: Never Passive Smoke Exposure: Never Smokeless Tobacco: Never Tobacco Cessation:Counseling Given: No Alcohol Use Standard Drinks/Week Comments Not Currently 0 (1 standard drink = 0.6 oz pur e alcohol) PHQ-2 Answer Date Recorded Patient Health Questionnaire-2 Score 0 04/07/2024 Sex and Gender Information Value Date Recorded Sex Assigned at Not on file Legal Sex Male 1:21 PM CDT Gender Identity Not on file Sexual Orientation Not on file Last Filed Vital Signs Vital Sign Reading Time Taken Comments Blood Pressure 127/79 04/07/2024 12:52 PM CONTROL DIRECTOR Pulse 80 04/07/2024 12:52 PM CONTROL DIRECTOR Temperature 36.3 C (97.4 F) 04/07/2024 12:52 PM CONTROL DIRECTOR Respiratory Rate - - Oxygen Saturation 96% 04/07/2024 12: 52 PM CONTROL DIRECTOR Inhaled Oxygen Concentration - - Weight 109.5 kg (241 lb 6.4 oz) 025 12:52 PM CONTROL DIRECTOR Height 190.5 cm (6' 3) 04/07/2024 12:5 2 PM CONTROL DIRECTOR Body Mass Index 30.17 04/07/2024 12:52 PM CONTROL DIRECTOR Plan of Treatment Health Maintenance Due Date Last Done Comments Colorectal Cancer Screening Colonoscopy (10 Years) 1955 Hepatitis C 1971 Annual Medicare Wellness Visit 2018 DTaP, Tdap and Td Vaccines ( 1 - Tdap) 08/27/2021 08/26/2021 COVID-19 Vaccine (4 - 2023-2 5 season) 2023 01/20/2021, 05/29/2020, 05/08/2020 Pneumococcal Vaccine: 50+ Years Completed 03/09/2019, 01/28/2018 Zoster Vaccines Completed 06/20/2021, 12/16/2020 RSV Immunization or 60+ Years Completed 03/10/2023 PHQ-2 (Physician Ruby) Completed 04/07/2024 Meningococcal B Vaccine Aged Out No l onger eligible based on patient's age to complete this topic Meningococcal Vaccine Aged Out No ashley raheel eligible based on patient's age to complete this topic RSV Immunizations Under 20 Months Aged Out No longer eligible b ased on patient's age to complete this topic Insurance [employer] Care Teams Supervisor Cellars Relationship Specialty Start Date End Date None, Provider, MD PCP - General UNKNOWN PHYSICIAN SPECIALTY 01/05/24
--- OUTSIDE RECORDS SUMMARY | 2024-09-17 16:32 | XMS_ITS | Clinical Summary ---
Author Organization [facility] Address [address], [address] [address] Phone Care Team Providers Care Solar Photovoltaic Systems Engineer Name Role Phone Jc Cazares MD Primary Care Provider [phone] Allergies No known active allergies Medications polyethylene glycol (MIRALAX) Powder Please use entire 255 gram for colonoscopy prep as directed by office. 1 Bottle 8 Active atorvastatin (LIPITOR) 40 MG Tablet Take 40 mg by mouth daily. Active fenofibrate (TRICOR) 145 MG Tablet Take 145 mg by mouth daily. Active sertraline (ZOLOFT) 100 MG Tablet Take 100 mg by mouth daily. Active zolpidem (AMBIEN) 5 MG Tablet Take 5 mg by mouth nightly as needed. Active ALPRAZolam (XANAX) 0.25 MG Tablet Take 0.25 mg by mouth 3 times daily as needed. Active cetirizine (ZYRTEC ALLERGY) 10 MG Tablet Take 10 mg by mouth daily. Active busPIRone (BUSPAR) 10 MG Tablet Take 10 mg by mouth 3 times daily. 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 Gender Identity Not on file Sexual Orientation Not on file Plan of Treatment Health Maintenance Due Date Last Done Comments Hepatitis C Virus (HCV) Screening 1955 TdaP Immunization 1955 Cologuard 2003 Immunochemical Fecal Occult Blood 2003 Pneumococcal Immunization (5 0+ years) (1 of 1 - PCV) 2003 Zoster Immunization (1 of 2) 2003 Colonoscopy 07/22/2022 07/22/2017 Colorectal Cancer Screening 07/22/2022 Influenza Immunization (#1) 2023 SARS-COV-2 Immunization (1 - season) 2023 Respiratory Syncytial Virus (RSV) Immunization (Adult) (1 - 1-dose 75+ series) 01/25/2028 Hepatitis B Immunization Aged Out No longer eligible based on patient's age to complete this topic Meningococcal Immunization (ACWY) Aged Out No longer eligible based on patient's age to complete this topic Rotavirus Immunization Aged Out No lo nger eligible based on patient's age to complete this topic Procedures Procedure Name Priority Date/Time Associated Diagnosis Comments COLONOSCOPY Routine 07/22/2017 from Last 3 Months or Most Recently Relevant to Health Maintenance Results * COLONOSCOPY (07/22/2017) Braulio Barrios DO PROCEDURE/MINOR SURGICAL ORDERA BLES Final Result from Last 3 Months or Most Recently Relevant to Health Maintenance Care Teams Solar Photovoltaic Systems Engineer Relationship Specialty Start Date End Date Jc Cazares MD [address] [place], [place] [id number] PCP - General Family Medicine 04/12/17
[2024-09-17 16:43] VITALS: BP 158/87; PULSE 71; RESP 20; O2SAT 98
--- NOTE | 2024-09-17 17:29 | ECG_ITS ---
Test Date: 2024-09-17 17:35:53 Measurements Intervals [place] Rate: 79 P: 21 NV: 166 QRS: 32 QRSD: 165 T: 42 QT: 433 QTc: 498 Interpretive Statements SINUS RHYTHM RIGHT BUNDLE BRANCH BLOCK [120+ ms QRS DURATION, UPRIGHT V1, 40+ ms S IN I/aVL/V4/V5/V6] Compared to ECG 09/11/2023 01:16:39 No significant changes Electronically Signed On 09-18-2024 10:50:00 CDT by Jack Wiggins M.D.
[2024-09-17 17:50] LABS: Hematocrit 38.2 % (42.0-52.0); Hemoglobin 13.4 g/dL (14.0-18.0); Immature Granulocyte Percent A 0.7 % (0-0.5); Lymphocytes Absolute Auto 1.40 K/mm3 (0.9-3.2); Mean Corpuscular HGB Conc 35.1 g/dl (32-36); Mean Corpuscular Hemoglobin 30.5 pg (26-34); Mean Corpuscular Volume 86.8 fl (80-100); Nucleated Red Blood Cells Absolute Auto 0.000 K/mm3 (0.0-0.012); Nucleated Red Blood Cells Perc 0.0 % (0.0-0.2); Platelet Count Result 192 k/mm3 (150-375); Red Blood Count 4.40 M/mm3 (4.6-6.20); White Blood Count 5.5 K/mm3 (4.5-10.0)
[2024-09-17 17:59] LABS: Add Urine Microscopic? NO; Appearance Urine Clear (Clear); Glucose Urine UA Negative (Negative); Leukocyte Esterase Ur Negative LEU/UL (Negative); Nitrate Urine Negative (Negative); Specific Grav Ur 1.013 (1.001-1.035)
[2024-09-17 18:06] LABS: Anion Gap 8 mmol/L (4-12); Blood Urea Nitrogen 9 mg/dL (9-20); Calcium 9.2 mg/dL (8.4-10.2); Carbon Dioxide 27 mmol/L (22-30); Chloride 99 mmol/L (98-107); Estimated CRCL calculation 87 ml/min; Estimated Glomerular Filt Rate > 60; Glucose 105 mg/dL (65-110); INR 1.0; Potassium 3.8 mmol/L (3.4-5.0); Prothrombin Time 13.6 Seconds (11.1-14.7); Sodium 134 mmol/L (137-145)
[2024-09-17 18:07] LABS: Partial Thromboplastin Time 31.1 Seconds (22.3-36.8)
[2024-09-17 18:14] VITALS: BP 150/81; PULSE 74; RESP 16; O2SAT 96
--- NOTE | 2024-09-17 18:24 | PM.IMHP ---
H&P: HPI History of Present Illness Date/Time: 09/17/24 18:24 Chief Complaint: Fall Narrative: 69 y/o M with PMH of depression, seizures, hepatitis A (1975), bipolar, hyperlipidemia, and GERD presents here with fall and hip pain. The patient presents here from home via EMS for further evaluation of a ground level fall and left hip pain. He reports he fell down 1-2 steps while going outside to check on his who was painting flower pots. He reports he missed a step. He denies head strike or loss of consciousness. Post fall he reports pain to his left hip area. Post fall the patient was nonambulatory due to the pain. He denies anticoagulation. He denies associated numbness or tingling in his lower extremities. Initial VS at presentation: 97.2? F, HR 75, R 16, 165/97, and 99% on RA. ED workup showed: No leukocytosis, hemoglobin 13.4, normal coags, sodium 134, no significant electrolyte derangements, renal function within normal limits, UA unremarkable. CXR showed no acute cardiopulmonary process. Hip/pelvic XR showed a nondisplaced transcervical left femoral neck fracture. Review of Systems Review of Systems: All systems reviewed & are unremarkable except as noted in HPI and below PMFSH Past Medical History Medical History Osteoarthritis Anxiety BPH associated with nocturia Aortic aneurysm 4.4 cm Infrarenal AAA on CT scan. Dr. Elias Follows him. Bipolar 1 disorder History of nicotine use Depression Seizure Hepatitis A in 1975 Gonorrhea Hyperlipidemia GERD (gastroesophageal reflux disease) Surgical History Surgical History History of AAA (abdominal aortic aneurysm) repair previously 4.4cm infrarenal and followed by Dr Elias H/O wisdom tooth extraction History of appendectomy Hx of tonsillectomy Family History Family History Father Seizure Mother Cancer Sibling COPD (chronic obstructive pulmonary disease) Cancer Social History Social History Social History: 1 dog in the home Worked for the [employer] Smoking packs per day: 1 Smoking cigarettes per day: 20.0 Years smoked: 20 Smoking pack-years: 20.00 Smoking status: Former smoker Second hand tobacco smoke exposure: Yes Additional smoking assessment comments: pt states he quit when he was 26 and again in his 50s Alcohol intake: never Substance use: never Substance use type: does not use Do You Feel Safe in your Home?: Yes Lack of Transportation: No Lack of Food: Never True Current Housing: I Have Housing Concerned About Future Housing: No Difficulty Paying Gas/Electric Bills: No Difficulty Paying for Meds: No Currently Unemployed: No Education: Associate Degree Difficulty w/ Childcare or Family Care: No Living arrangements: with family Additional living arrangements comments: lives with , daughter and his 3 grandchildren Occupation/Education: retired Gender identity (if verbalized by the patient): Male Spiritual care concerns: No Meds Home Medications and Allergies Home Medications ?Medication ?Instructions ?Recorded ?Confirmed ?Type multivit with minerals-iron 18 1 tablet PO DAILY 01/18/19 09/17/24 History mg-folic ac 400 mcg-vit K 25 mcg tablet (Adults Multivitamin) olanzapine 5 mg disintegrating 25 mg PO QPM 01/25/24 09/17/24 History tablet trazodone 100 mg tablet 300 mg PO HS 01/25/24 09/17/24 History methocarbamol 500 mg tablet 500 mg PO TID #90 tabs 08/21/24 09/17/24 Rx atorvastatin 40 mg tablet 40 mg PO HS 09/17/24 09/17/24 History lorazepam 1 mg tablet 1 mg PO HS 09/17/24 09/17/24 History ramelteon 8 mg tablet 8 mg PO HS 09/17/24 09/17/24 History triamcinolone acetonide 0.1 % 1 applic topical BID PRN itching 09/17/24 09/17/24 History topical cream Allergies Allergy/AdvReac Type Severity Reaction Status Date / Time pollen extracts Allergy Unknown sinus Verified 09/17/24 16:41 drainage Vital Signs Vital Signs - 24 hr 09/17/24 16:17 09/17/24 16:43 09/17/24 18:14 Temperature 97.2 F L Pulse Rate 75 71 74 Respiratory Rate 16 20 16 Blood Pressure 165/97 H 158/87 H 150/81 H Pulse Oximetry 99 98 96 Exam Const: General: comfortable and no acute distress Other: , male, nontoxic appearance HENMT: Face/Nose/Sinus: Normal nares present Mouth: Yes moist mucous membranes Eyes: General: appearance normal, both eyes and all related structures Sclera: sclerae normal Pupils: Equal, round and reactive pupils present EOM: EOMs intact bilaterally Resp: Effort & Inspection: normal respiratory effort Auscultation: clear to auscultation bilaterally Cardio: Rate: regular rate Rhythm: regular rhythm Other: S1-S2 present without murmur, rub, ectopy GI: Other: Abdomen soft, nondistended, nontender. Normoactive bowel sounds in all quadrants. Skin: General skin exam: normal color and no rashes or lesions noted Wounds: no wounds Neuro: Speech: normal speech Motor exam (neuro): 5/5 motor strength present throughout Sensory Exam: normal sensation Other: A&O x4 Extrem: Other: Tenderness over the left hip. DP pulses intact and 2+ bilaterally. No peripheral edema. Psych: Mental Status: mental status grossly normal Affect: normal affect Other: Good insight and judgment, pleasant H&P: Results Labs Labs: Short CBC 09/17/24 Range/Units 17:45 WBC 5.5 (4.5-10.0) K/mm3 Hgb 13.4 L (14.0-18.0) g/dL Hct 38.2 L (42.0-52.0) % Plt Count 192 (150-375) k/mm3 BMP 09/17/24 17:45 Sodium 134 L Potassium 3.8 Chloride 99 Carbon Dioxide 27 BUN 9 Creatinine 0.81 Glucose 105 Calcium 9.2 Urine 09/17/24 Range/Units 17:50 Urine Color Yellow (Yellow) Urine Appearance Clear (Clear) Urine pH 8.0 (5.0-9.0) Ur Specific [place] 1.013 (1.001-1.035) Urine Protein Negative (Negative) mg/dL Urine Glucose (UA) Negative (Negative) mg/dL Assessment and Plan Assessment and plan (1) Closed fracture of neck of left femur: Qualifiers: Encounter type: initial encounter Qualified Code(s): S72.002A - Fracture of unspecified part of neck of left femur, initial encounter for closed fracture Code(s): S72.002A - Fracture of unspecified part of neck of left femur, initial encounter for closed fracture Status: Acute Assessment and Plan: - CXR: No acute cardiopulmonary process. - hip/pelvic XR: Nondisplaced transcervical left femoral neck fracture. - orthopedist consulted - analgesics prn: Tylenol, [place], Dilaudid - NPO at midnight - bed rest - will need PT/OT eval post-op Plan Diet: Heart healthy, NPO midnight GI Prophylaxis: N/a DVT Prophylaxis: SCDs IV fluids: None Lines/Tubes: Peripheral IV, Vasquez Code Status: Full code Quality VTE Prophylaxis VTE prophylaxis: mechanical ordered Hospitalist [facility] Advance Care Plan I have confirmed that the patient's Advanced Care Plan is present, code status is documented, or surrogate decision maker is listed in patient medical record.: Yes Medication Reconciliation I have utilized all available resources to obtain, update and review the patients current medications (includes all prescriptions, OTC, herbals, cannabis, and nutritional supplements).: Yes
[2024-09-17 19:52] VITALS: BMI 28.8
[2024-09-17 21:19] VITALS: BP 166/92; PULSE 74; RESP 16; TEMP 37.2; O2SAT 95
[2024-09-17] MEDS: LORazepam (*CRX) 1 MG TABLET PO (22:13)
[2024-09-17] MEDS: OLANZapine DISPERTAB 5 MG 25 MG PO (22:13)
[2024-09-18 05:59] VITALS: BP 127/77; PULSE 86; RESP 16; TEMP 36.1; O2SAT 96
[2024-09-18 05:59] LABS: Hematocrit 40.2 % (42.0-52.0); Hemoglobin 14.0 g/dL (14.0-18.0); Immature Granulocyte Percent A 0.3 % (0-0.5); Lymphocytes Absolute Auto 1.45 K/mm3 (0.9-3.2); Mean Corpuscular HGB Conc 34.8 g/dl (32-36); Mean Corpuscular Hemoglobin 30.7 pg (26-34); Mean Corpuscular Volume 88.2 fl (80-100); Nucleated Red Blood Cells Absolute Auto 0.000 K/mm3 (0.0-0.012); Nucleated Red Blood Cells Perc 0.0 % (0.0-0.2); Platelet Count Result 178 k/mm3 (150-375); Red Blood Count 4.56 M/mm3 (4.6-6.20); White Blood Count 8.7 K/mm3 (4.5-10.0)
[2024-09-18 06:11] LABS: Anion Gap 8 mmol/L (4-12); Blood Urea Nitrogen 7 mg/dL (9-20); Calcium 9.2 mg/dL (8.4-10.2); Carbon Dioxide 28 mmol/L (22-30); Chloride 100 mmol/L (98-107); Estimated CRCL calculation 77 ml/min; Estimated Glomerular Filt Rate > 60; Glucose 128 mg/dL (65-110); Potassium 4.4 mmol/L (3.4-5.0); Sodium 136 mmol/L (137-145)
--- NOTE | 2024-09-18 09:43 | PC.NURSE ---
Patient off of unit to CT
[2024-09-18] MEDS: HYDROmorphone HCL INJ (*CRX) 2 MG/ML VIAL 0.5 MG IV PUSH ×3 (10:47→21:02)
[2024-09-18 14:00] VITALS: BP 119/70; PULSE 85; RESP 18; TEMP 36.7; O2SAT 93
--- NOTE | 2024-09-18 16:34 | P.CONOP_ITS ---
Assessment and Plan Assessment and plan (1) Closed fracture of neck of left femur: Qualifiers: Encounter type: initial encounter Qualified Code(s): S72.002A - Fracture of unspecified part of neck of left femur, initial encounter for closed fracture Code(s): S72.002A - Fracture of unspecified part of neck of left femur, initial encounter for closed fracture Status: Acute Plan Displaced femoral neck fracture left hip. Benefit from bipolar hemiarthroplasty. Increased risk due to medical status and frequent falls. Risks, benefits, and alternatives reviewed. Proceed with left hip bipolar hemiarthroplasty. History of Present Illness HPI Consult date: 09/18/24 Chief complaint: L femoral neck fx after fall Narrative: Patient complains of acute hip pain. Fell from standing height. Admitted through the emergency room for definitive management. No previous hip pain. Comfortable at rest. No numbness, tingling, or other associated symptoms. Typically uses a cane. He has have a history of falling. History of bilateral knee arthritis. Review of Systems 2 Review of Systems: Denies loss of consciousness. All systems reviewed & are unremarkable except as noted in HPI and below PMFSH Past Medical History Medical History Osteoarthritis Anxiety BPH associated with nocturia Aortic aneurysm 4.4 cm Infrarenal AAA on CT scan. Dr. Elias Follows him. Bipolar 1 disorder History of nicotine use Depression Seizure Hepatitis A in 1975 Gonorrhea Hyperlipidemia GERD (gastroesophageal reflux disease) Surgical History Surgical History History of AAA (abdominal aortic aneurysm) repair previously 4.4cm infrarenal and followed by Dr Elias H/O wisdom tooth extraction History of appendectomy Hx of tonsillectomy Family History Family History Father Seizure Mother Cancer Sibling COPD (chronic obstructive pulmonary disease) Cancer Social History Social History Social History: 1 dog in the home Worked for the [employer] Smoking packs per day: 1 Smoking cigarettes per day: 20.0 Years smoked: 20 Smoking pack-years: 20.00 Smoking status: Former smoker Second hand tobacco smoke exposure: Yes Additional smoking assessment comments: pt states he quit when he was 26 and again in his 50s Alcohol intake: never Substance use: never Substance use type: does not use Do You Feel Safe in your Home?: Yes Lack of Transportation: No Lack of Food: Never True Current Housing: I Have Housing Concerned About Future Housing: No Difficulty Paying Gas/Electric Bills: No Difficulty Paying for Meds: No Currently Unemployed: No Education: Associate Degree Difficulty w/ Childcare or Family Care: No Living arrangements: with family Additional living arrangements comments: lives with , daughter and his 3 grandchildren Occupation/Education: retired Gender identity (if verbalized by the patient): Male Spiritual care concerns: No Meds Home Medications and Allergies Home Medications ?Medication ?Instructions ?Recorded ?Confirmed ?Type multivit with minerals-iron 18 1 tablet PO DAILY 01/18/19 09/17/24 History mg-folic ac 400 mcg-vit K 25 mcg tablet (Adults Multivitamin) olanzapine 5 mg disintegrating 25 mg PO QPM 01/25/24 09/17/24 History tablet trazodone 100 mg tablet 300 mg PO HS 01/25/24 09/17/24 History methocarbamol 500 mg tablet 500 mg PO TID #90 tabs 08/21/24 09/17/24 Rx atorvastatin 40 mg tablet 40 mg PO HS 09/17/24 09/17/24 History lorazepam 1 mg tablet 1 mg PO HS 09/17/24 09/17/24 History ramelteon 8 mg tablet 8 mg PO HS 09/17/24 09/17/24 History triamcinolone acetonide 0.1 % 1 applic topical BID PRN itching 09/17/24 09/17/24 History topical cream Allergies Allergy/AdvReac Type Severity Reaction Status Date / Time pollen extracts Allergy Unknown sinus Verified 09/17/24 16:41 drainage Vital Signs Vital Signs - 24 hr 09/17/24 16:43 09/17/24 18:14 09/17/24 20:00 Temperature Pulse Rate 71 74 Respiratory Rate 20 16 Blood Pressure 158/87 H 150/81 H Pulse Oximetry 98 96 Oxygen Delivery Room Air 09/17/24 21:19 09/18/24 05:59 09/18/24 10:40 Temperature 37.2 C 36.1 C L Pulse Rate 74 86 Respiratory Rate 16 16 Blood Pressure 166/92 H 127/77 Pulse Oximetry 95 96 Oxygen Delivery Room Air 09/18/24 14:00 Temperature 36.7 C Pulse Rate 85 Respiratory Rate 18 Blood Pressure 119/70 Pulse Oximetry 93 Oxygen Delivery Exam 2 Narrative: Lower extremity shortened and externally rotated. Const: General: no acute distress Eyes: General: appearance normal, both eyes and all related structures Resp: Effort & Inspection: normal respiratory effort GI: GI Palp: Yes Soft to palpation and No Guarding due to palpation present (GI) Urinary Catheter: Urinary Catheter: patent and draining and urine clear Skin: General skin exam: no rashes or lesions noted Neuro: Speech: normal speech Other: Wiggles toes well. Capillary refill brisk. Distal light touch sensation intact. Dorsalis pedis pulse palpable. Extrem: Other: No edema. Psych: Mental Status: mental status grossly normal Results Labs 09/18/24 05:25 09/18/24 05:25 Labs: Abnormal lab results 09/17/24 09/18/24 Range/Units 17:45 05:25 RBC 4.40 L 4.56 L (4.6-6.20) M/mm3 Hgb 13.4 L (14.0-18.0) g/dL Hct 38.2 L 40.2 L (42.0-52.0) % Immature Gran % (Auto) 0.7 H (0-0.5) % Lymph % (Auto) 16.6 L (18.3-44.2) % [place] % (Auto) 10.6 H 11.4 H (2.6-8.5) % Eos % (Auto) 5.4 H (0-4.4) % [place] # (Auto) 1.0 H (0.1-0.6) K/mm3 Eos # (Auto) 0.4 H (0-0.3) K/mm3 Abs Immat Gran (auto) 0.04 H (0.00-0.031) K/mm3 Sodium 134 L 136 L (137-145) mmol/L BUN 7 L (9-20) mg/dL Glucose 128 H (65-110) mg/dL H & H 09/17/24 09/18/24 Range/Units 17:45 05:25 Hgb 13.4 L 14.0 (14.0-18.0) g/dL Hct 38.2 L 40.2 L (42.0-52.0) % Coagulation // Range/Units 17:45 INR 1.0 All other labs normal. Quality VTE Prophylaxis VTE prophylaxis: mechanical ordered
--- NOTE | 2024-09-18 19:53 | PM.IMPN ---
Progress Note: A&P Assessment and Plan (1) Closed fracture of neck of left femur: Qualifiers: Encounter type: initial encounter Qualified Code(s): S72.002A - Fracture of unspecified part of neck of left femur, initial encounter for closed fracture Code(s): S72.002A - Fracture of unspecified part of neck of left femur, initial encounter for closed fracture Status: Acute Assessment and Plan: 09/17 CXR: No acute cardiopulmonary process. 09/17 hip/pelvic XR: Nondisplaced transcervical left femoral neck fracture. - orthopedist consulted - analgesics prn: Tylenol, [place], Dilaudid - S/P - bed rest - will need PT/OT eval post-op Plan Diet: Heart healthy, NPO midnight GI Prophylaxis: PPI on NSAIDs DVT Prophylaxis: SCDs, Lovenox when ok with surgery IV fluids: None Lines/Tubes: Peripheral IV, Vasquez Code Status: Full code Time Spent With Patient Time: 35 minutes Subjective Date/time seen: 09/18/24 19:53 Interval history: Pending OR today. Labs normal Pain moderately controlled with IV & PO meds Review of Systems Review of Systems: All systems reviewed & are unremarkable except as noted in HPI and below Exam Narrative: General - Awake and alert. No acute distress Eyes - PERRLA, EOM intact ENT - No thrush, No erythema Neck - No noticeable or palpable swelling Lymph Nodes - No lymphadenopathy Cardiovascular - RRR no m/r/g, no JVD Lungs: Clear to auscultation, No wheezing, use of accessory muscles Skin - Skin warm and dry, no wounds or rashes Abdomen - Normal bowel sounds, abdomen soft and nontender Extremities - No edema, cyanosis or clubbing Musculoskeletal - 5/5 strength, normal range of motion, no swollen or erythematous joints. Neurological ? Alert and oriented x 3, CN 2-12 grossly intact. Psych: Normal mood and affect Objective Data Vital Signs Vital Signs: Vital Signs - 24 hr 09/17/24 20:00 09/17/24 21:19 09/18/24 05:59 Temperature 99.0 F 97.0 F L Pulse Rate 74 86 Respiratory Rate 16 16 Blood Pressure 166/92 H 127/77 Pulse Oximetry 95 96 Oxygen Delivery Room Air 09/18/24 10:40 09/18/24 14:00 Temperature 98.0 F Pulse Rate 85 Respiratory Rate 18 Blood Pressure 119/70 Pulse Oximetry 93 Oxygen Delivery Room Air Intake/Output Intake/Output: Intake & Output 09/15/24 09/16/24 09/17/24 09/18/24 23:59 23:59 23:59 23:59 Intake Total 1220 Output Total 4100 Balance -2880 Meds/Results Medications: Active Medications Generic Name Dose Route Start Last Admin Trade Name Freq PRN Reason Stop Dose Admin Acetaminophen 650 mg 09/17/24 18:23 Acetaminophen 325 Mg Tablet PO Q4H PRN Mild Pain (1-3) or Fever Hydrocodone Bitart/Acetaminophen 1 tab 09/17/24 18:49 Hydrocodone/Acetaminophen (*Crx) 5-325 Mg Tablet PO Q6H PRN Pain Rated 4-6 Sodium Chloride 37.7 ml/ 0 ml 09/19/24 06:00 Morphine Sulfate 2 mg/ INFILTRATE 09/19/24 06:01 Ropivacaine 200 mg/ Ketorolac ONCE ONE Tromethamine 15 mg/ Epinephrine HCl 0.3 mg Docusate Sodium 100 mg 09/17/24 18:49 Docusate Sodium 100 Mg Capsule PO Q12H PRN Constipation Hydromorphone HCl 0.5 mg 09/17/24 18:23 09/18/24 17:16 Hydromorphone Hcl Inj (*Crx) 2 Mg/Ml Vial IV PUSH 0.5 mg Q4H PRN Administration Pain Rated 7-10 Lorazepam 1 mg 09/17/24 21:30 09/17/24 22:13 Lorazepam (*Crx) 1 Mg Tablet PO 1 mg HS KRIS Administration Olanzapine 25 mg 09/17/24 21:45 09/17/24 22:13 Olanzapine Dispertab 5 Mg PO 25 mg QHS KRIS Administration Ondansetron HCl 4 mg 09/17/24 18:23 Ondansetron Inj 4 Mg/2 Ml Vial IV PUSH Q4H PRN Nausea Trazodone HCl 300 mg 09/17/24 21:45 09/17/24 22:12 Trazodone Hcl 50 Mg Tablet PO 300 mg HS KRIS Administration Triamcinolone Acetonide 1 applic 09/17/24 21:20 Triamcinolone Acet 0.1% Cream 15 Gm Tube TOPICAL BID PRN itching Radiology Results: ITS Impressions Chest X-Ray 09/17/24 16:42 IMPRESSION: No acute cardiopulmonary process. Hip/Pelvis X-Ray 09/17/24 16:48 IMPRESSION: Nondisplaced transcervical left femoral neck fracture. Labs Labs: Laboratory Results - last 24 hr 09/18/24 05:25 WBC 8.7 RBC 4.56 L Hgb 14.0 Hct 40.2 L MCV 88.2 MCH 30.7 MCHC 34.8 RDW 13.0 Plt Count 178 MPV 8.6 Immature Gran % (Auto) 0.3 Neut % (Auto) 67.2 Lymph % (Auto) 16.6 L [place] % (Auto) 11.4 H Eos % (Auto) 4.0 Baso % (Auto) 0.5 Lymph # (Auto) 1.45 [place] # (Auto) 1.0 H Eos # (Auto) 0.4 H Baso # (Auto) 0.0 Abs Immat Gran (auto) 0.03 Absolute Neuts (auto) 5.9 Absolute Nucleated RBC 0.000 Nucleated RBC % 0.0 Sodium 136 L Potassium 4.4 Chloride 100 Carbon Dioxide 28 Anion Gap 8 BUN 7 L Creatinine 0.93 Estim Creat Clear Calc 77 Estimated GFR > 60 Glucose 128 H Calcium 9.2 Quality VTE Prophylaxis VTE prophylaxis: mechanical ordered Hospitalist [facility] Advance Care Plan I have confirmed that the patient's Advanced Care Plan is present, code status is documented, or surrogate decision maker is listed in patient medical record.: Yes Medication Reconciliation I have utilized all available resources to obtain, update and review the patients current medications (includes all prescriptions, OTC, herbals, cannabis, and nutritional supplements).: Yes
[2024-09-18 20:15] VITALS: BP 138/80; PULSE 90; RESP 20; TEMP 36; O2SAT 95
[2024-09-18] MEDS: KETOROLAC 15 MG/ML VIAL (*BKC) IV PUSH (21:02)
[2024-09-18] MEDS: OLANZapine DISPERTAB 5 MG 25 MG PO (21:03)
[2024-09-18] MEDS: LORazepam (*CRX) 1 MG TABLET PO (21:04)
[2024-09-19] VITALS (16 sets, daily range): BP systolic 119–162; BP diastolic 44–120; PULSE 87–111; RESP 12–18; TEMP 35.8–37.1; O2SAT 90–100
[2024-09-19] MEDS: KETOROLAC 15 MG/ML VIAL (*BKC) IV PUSH (01:46)
[2024-09-19 05:51] LABS: Hematocrit 40.0 % (42.0-52.0); Hemoglobin 13.8 g/dL (14.0-18.0); Immature Granulocyte Percent A 0.6 % (0-0.5); Lymphocytes Absolute Auto 1.24 K/mm3 (0.9-3.2); Mean Corpuscular HGB Conc 34.5 g/dl (32-36); Mean Corpuscular Hemoglobin 30.3 pg (26-34); Mean Corpuscular Volume 87.9 fl (80-100); Nucleated Red Blood Cells Absolute Auto 0.000 K/mm3 (0.0-0.012); Nucleated Red Blood Cells Perc 0.0 % (0.0-0.2); Platelet Count Result 158 k/mm3 (150-375); Red Blood Count 4.55 M/mm3 (4.6-6.20); White Blood Count 7.1 K/mm3 (4.5-10.0)
--- NOTE | 2024-09-19 09:50 | WPDHPUPDATE1 ---
History and Physical Update Update Date/Time: 09/19/24 09:50 History and Physical has been reviewed, including an updated exam of the patient. There are NO changes in the patient's condition. Risks, benefits, and alternatives have been discussed and questions answered. Patient agrees to proceed with procedure.
[2024-09-19 11:48] LABS: Hematocrit 39.1 % (42.0-52.0); Hemoglobin 13.6 g/dL (14.0-18.0); Immature Granulocyte Percent A 0.4 % (0-0.5); Lymphocytes Absolute Auto 1.32 K/mm3 (0.9-3.2); Mean Corpuscular HGB Conc 34.8 g/dl (32-36); Mean Corpuscular Hemoglobin 30.1 pg (26-34); Mean Corpuscular Volume 86.5 fl (80-100); Nucleated Red Blood Cells Absolute Auto 0.000 K/mm3 (0.0-0.012); Nucleated Red Blood Cells Perc 0.0 % (0.0-0.2); Platelet Count Result 153 k/mm3 (150-375); Red Blood Count 4.52 M/mm3 (4.6-6.20); White Blood Count 7.8 K/mm3 (4.5-10.0)
[2024-09-19 12:13] LABS: Anion Gap 8 mmol/L (4-12); Blood Urea Nitrogen 15 mg/dL (9-20); Calcium 9.2 mg/dL (8.4-10.2); Carbon Dioxide 27 mmol/L (22-30); Chloride 99 mmol/L (98-107); Estimated CRCL calculation 66 ml/min; Estimated Glomerular Filt Rate > 60; Glucose 132 mg/dL (65-110); Magnesium 2.2 mg/dL (1.6-2.3); Potassium 3.9 mmol/L (3.4-5.0); Sodium 134 mmol/L (137-145)
[2024-09-19] MEDS: HYDROmorphone HCL INJ (*CRX) 2 MG/ML VIAL 0.5 MG IV PUSH ×2 (12:58→21:44)
--- NOTE | 2024-09-19 14:49 | PC.NURSE ---
Patient off of unit to surgery
--- NOTE | 2024-09-19 14:59 | P.PNAN_ITS ---
Anes - Initial Pre Proc Eval Procedure: Operation Date: 09/19/24 15:30 Proposed Procedures p Left Bipolar - Beau Belle MD Date/Time: 09/19/24 14:59 Surgeon: Austin Mi MD Pre Op Diagnosis: L femoral neck fx after fall Patient Data Age: 69 Gender: M Height: 1.91 m Weight: 104.5 kg Last Vital Signs Temp 97.6 F 09/19/24 14:57 Pulse 91 09/19/24 14:57 Resp 14 09/19/24 05:11 BP 124/75 09/19/24 14:57 Pulse Ox 95 09/19/24 14:57 O2 Del Method Room Air 09/19/24 12:40 Allergies Allergy/AdvReac Type Severity Reaction Status Date / Time pollen extracts Allergy Unknown sinus Verified 09/19/24 14:55 drainage Home Medications ?Medication ?Instructions ?Recorded ?Confirmed ?Type multivit with minerals-iron 18 1 tablet PO DAILY 01/18/19 09/17/24 History mg-folic ac 400 mcg-vit K 25 mcg tablet (Adults Multivitamin) olanzapine 5 mg disintegrating 25 mg PO QPM 01/25/24 09/17/24 History tablet trazodone 100 mg tablet 300 mg PO HS 01/25/24 09/17/24 History methocarbamol 500 mg tablet 500 mg PO TID #90 tabs 08/21/24 09/17/24 Rx atorvastatin 40 mg tablet 40 mg PO HS 09/17/24 09/17/24 History lorazepam 1 mg tablet 1 mg PO HS 09/17/24 09/17/24 History ramelteon 8 mg tablet 8 mg PO HS 09/17/24 09/17/24 History triamcinolone acetonide 0.1 % 1 applic topical BID PRN itching 09/17/24 09/17/24 History topical cream Laboratory Tests 09/19/24 09/19/24 09/19/24 05:33 09:59 09:59 WBC 7.1 K/mm3 (4.5-10.0) RBC 4.55 L M/mm3 (4.6-6.20) Hgb 13.8 L g/dL (14.0-18.0) Hct 40.0 L % (42.0-52.0) MCV 87.9 fl (80-100) MCH 30.3 pg (26-34) MCHC 34.5 g/dl (32-36) RDW 13.2 % (11.5-14.5) Plt Count 158 k/mm3 (150-375) MPV 8.7 fl (7.4-10.4) Immature Gran % (Auto) 0.6 H % (0-0.5) Neut % (Auto) 63.1 % (45.5-73.1) Lymph % (Auto) 17.5 L % (18.3-44.2) [place]ley % (Auto) 12.4 H % (2.6-8.5) Eos % (Auto) 6.1 H % (0-4.4) Baso % (Auto) 0.3 % (0.2-1.2) Lymph # (Auto) 1.24 K/mm3 (0.9-3.2) [place]ley # (Auto) 0.9 H K/mm3 (0.1-0.6) Eos # (Auto) 0.4 H K/mm3 (0-0.3) Baso # (Auto) 0.0 K/mm3 (0.0-0.1) Abs Immat Gran (auto) 0.04 H K/mm3 (0.00-0.031) Absolute Neuts (auto) 4.5 K/mm3 (1.3-6.7) Absolute Nucleated RBC 0.000 K/mm3 (0.0-0.012) Nucleated RBC % 0.0 % (0.0-0.2) Sodium 134 L mmol/L (137-145) Potassium 3.9 mmol/L (3.4-5.0) Chloride 99 mmol/L (98-107) Carbon Dioxide 27 mmol/L (22-30) Anion Gap 8 mmol/L (4-12) BUN 15 D mg/dL (9-20) Creatinine 1.09 mg/dL (0.7-1.3) Estim Creat Clear Calc 66 ml/min Estimated GFR > 60 (59 - ) Glucose 132 H mg/dL (65-110) Calcium 9.2 mg/dL (8.4-10.2) Magnesium 2.2 mg/dL Cancelled (1.6-2.3) Blood Type A Positive Antibody Screen Negative 09/19/24 11:43 WBC 7.8 K/mm3 (4.5-10.0) RBC 4.52 L M/mm3 (4.6-6.20) Hgb 13.6 L g/dL (14.0-18.0) Hct 39.1 L % (42.0-52.0) MCV 86.5 fl (80-100) MCH 30.1 pg (26-34) MCHC 34.8 g/dl (32-36) RDW 13.2 % (11.5-14.5) Plt Count 153 k/mm3 (150-375) MPV 8.4 fl (7.4-10.4) Immature Gran % (Auto) 0.4 % (0-0.5) Neut % (Auto) 66.2 % (45.5-73.1) Lymph % (Auto) 17.0 L % (18.3-44.2) Greeley % (Auto) 10.3 H % (2.6-8.5) Eos % (Auto) 5.7 H % (0-4.4) Baso % (Auto) 0.4 % (0.2-1.2) Lymph # (Auto) 1.32 K/mm3 (0.9-3.2) Greeley # (Auto) 0.8 H K/mm3 (0.1-0.6) Eos # (Auto) 0.4 H K/mm3 (0-0.3) Baso # (Auto) 0.0 K/mm3 (0.0-0.1) Abs Immat Gran (auto) 0.03 K/mm3 (0.00-0.031) Absolute Neuts (auto) 5.1 K/mm3 (1.3-6.7) Absolute Nucleated RBC 0.000 K/mm3 (0.0-0.012) Nucleated RBC % 0.0 % (0.0-0.2) Sodium Potassium Chloride Carbon Dioxide Anion Gap BUN Creatinine Estim Creat Clear Calc Estimated GFR Glucose Calcium Magnesium Blood Type Antibody Screen Patient hx anesthesia problems: none Family hx anesthesia problems: none Results Review: All pre-operative results and documents have been reviewed as part of the pre- operative evaluation. [facility] Past Medical History Medical History Osteoarthritis Anxiety BPH associated with nocturia Aortic aneurysm 4.4 cm Infrarenal AAA on CT scan. Dr. Elias Follows him. Bipolar 1 disorder History of nicotine use Depression Seizure Hepatitis A in 1975 Gonorrhea Hyperlipidemia GERD (gastroesophageal reflux disease) Surgical History Surgical History History of AAA (abdominal aortic aneurysm) repair previously 4.4cm infrarenal and followed by Dr Elias H/O wisdom tooth extraction History of appendectomy Hx of tonsillectomy Family History Family History Father Seizure Mother Cancer Sibling COPD (chronic obstructive pulmonary disease) Cancer Social History Social History Social History: 1 dog in the home Worked for the [employer] Smoking packs per day: 1 Smoking cigarettes per day: 20.0 Years smoked: 20 Smoking pack-years: 20.00 Smoking status: Former smoker Second hand tobacco smoke exposure: Yes Additional smoking assessment comments: pt states he quit when he was 26 and again in his 50s Alcohol intake: never Substance use: never Substance use type: does not use Do You Feel Safe in your Home?: Yes Lack of Transportation: No Lack of Food: Never True Current Housing: I Have Housing Concerned About Future Housing: No Difficulty Paying Gas/Electric Bills: No Difficulty Paying for Meds: No Currently Unemployed: No Education: Associate Degree Difficulty w/ Childcare or Family Care: No Living arrangements: with family Additional living arrangements comments: lives with , daughter and his 3 grandchildren Occupation/Education: retired Gender identity (if verbalized by the patient): Male Spiritual care concerns: No Anes - Eval Final PreProcedure Day of Procedure 09/19/24 14:59 Patient weight: overweight Lungs: normal air movement Airway: Mallampati scale class II Neurological: alert and oriented Last oral intake: 6 hours (light breakfast at 8 am.) ASA classification: III Emergent: no Anesthetic plan: proceed Anesthesia type and monitoring: general ETT and standard monitoring Results Review: All pre-operative results and documents have been reviewed as part of the pre- operative evaluation. HTN, hyperlipidemia, AAA repair approx 2019, ex smoker. Pt had cardiac w/u prior to AAA surgery, family unaware of results but think the testing was nml. Informed Consent: The patient's anesthetic plan and its attendant risks and benefits were discussed with the patient/family/POA. Questions were solicited and answers provided to the satisfaction of the patient/family/POA.
[2024-09-19] MEDS: ceFAZolin 2 GM in SODIUM CHLORIDE 0.9% IV 50 ML 100 ML IVPB (16:46)
[2024-09-19] MEDS: SODIUM CHLORIDE 0.9% IV 37.7 ML, MORPHINE SULFATE INJ (*CRX) 2 MG, ROPivacaine HCL 1% 2... INFILTRATE (16:46)
[2024-09-19] MEDS: TRANEXAMIC ACID 1,000 MG/10 ML AMPUL 1000 MG IV PUSH (17:06)
[2024-09-19] MEDS: LACTATED RINGERS 1,000 ML 30 ML IV CONT ×2 (17:52→17:53)
--- NOTE | 2024-09-19 18:09 | P.OP_ITS ---
Procedure Note - Detailed Date of Procedure 09/19/24 Pre-op Diagnosis L femoral neck fx after fall Post-op Diagnosis Same Procedure Performed Bipolar hemiarthroplasty left hip. Surgeon Beau Belle MD Anesthesia General Description of Procedure A general anesthetic was administered. The patient was carefully placed in the lateral decubitus position on the peg board positioner. An axillary roll was placed. The hip was prepped and draped in the usual sterile fashion. A minimally invasive optimized posterior approach to the hip was performed. An L shaped capsulotomy was created along the upper border of the piriformis. The short external rotators were tagged with number 2 high strength suture for later repair. The labrum was preserved. The femoral neck cut was performed. The femoral head was removed and sized. The acetabular floor was cleared of debris and loose tissue. The femur was sequentially broached. Trial was assessed for leg length and stability. The real component was impacted into position, trialed again, and the final head and bipolar component were assembled. The hip was reduced after copious irrigation. The short external rotators and capsule were repaired through drill holes in the posterior trochanter. The wound was closed in layers with 1 vicryl, 2,0, and 2-0 running barbed suture. Adhesive tapes were placed on the skin, followed by a sterile gauze dressing. The patient was extubated and brought to the recovery room. Implants [place] insignia hip stem standard offset, size 7, UHR bipolar component outer diameter size 56, inner metal ball size 28 mm Estimated Blood Loss 300 Drains No Pathology None sent Complications No immediate complications Condition Stable Disposition PACU [facility] Billing Surgery - Charge Forward: Surgery Billing
[2024-09-19] MEDS: fentaNYL CITRATE INJ (*CRX) 100 MCG/2 ML VIAL 25 MCG IV PUSH ×2 (18:18→18:20)
[2024-09-19] MEDS: MEPERIDINE HCL INJ (*CRX) 100 MG/ML AMPUL 12.5 MG IV PUSH (19:12)
[2024-09-19] MEDS: OLANZapine DISPERTAB 5 MG 25 MG PO (21:00)
[2024-09-19] MEDS: LORazepam (*CRX) 1 MG TABLET PO (21:00)
[2024-09-19] MEDS: ceFAZolin 2 GM/D5W 50 ML 2 GM/50 ML BAG IVPB (23:28)
[2024-09-20 01:33] VITALS: BP 153/76; PULSE 100; RESP 18; TEMP 36.7; O2SAT 97
[2024-09-20 05:01] VITALS: BP 145/63; PULSE 100; RESP 17; TEMP 36.6; O2SAT 94
[2024-09-20 05:35] VITALS: BP 145/63; PULSE 100; RESP 17; TEMP 36.6; O2SAT 94
[2024-09-20 05:59] LABS: Hematocrit 36.0 % (42.0-52.0); Hemoglobin 12.3 g/dL (14.0-18.0); Immature Granulocyte Percent A 0.3 % (0-0.5); Lymphocytes Absolute Auto 0.90 K/mm3 (0.9-3.2); Mean Corpuscular HGB Conc 34.2 g/dl (32-36); Mean Corpuscular Hemoglobin 30.7 pg (26-34); Mean Corpuscular Volume 89.8 fl (80-100); Nucleated Red Blood Cells Absolute Auto 0.000 K/mm3 (0.0-0.012); Nucleated Red Blood Cells Perc 0.0 % (0.0-0.2); Platelet Count Result 169 k/mm3 (150-375); Red Blood Count 4.01 M/mm3 (4.6-6.20); White Blood Count 9.1 K/mm3 (4.5-10.0)
[2024-09-20] MEDS: ceFAZolin 2 GM/D5W 50 ML 2 GM/50 ML BAG IVPB ×2 (06:08→15:14)
[2024-09-20 06:30] LABS: Anion Gap 9 mmol/L (4-12); Blood Urea Nitrogen 20 mg/dL (9-20); Calcium 8.6 mg/dL (8.4-10.2); Carbon Dioxide 25 mmol/L (22-30); Chloride 100 mmol/L (98-107); Estimated CRCL calculation 69 ml/min; Estimated Glomerular Filt Rate > 60; Glucose 128 mg/dL (65-110); Potassium 4.7 mmol/L (3.4-5.0); Sodium 134 mmol/L (137-145)
--- OUTSIDE RECORDS SUMMARY | 2024-09-20 09:11 | XMS_ITS | Patient Health Record ---
Author Organization [facility] Address [address] [place] [address] Care Team Providers Care Clinical Education Specialist Name Role Phone Vania Arthur Unavailable [phone] Reason For Referral No Information Medications Medication SIG (Take, Route, Frequency, Duration) Notes Start Date End Date Status Haloperidol 10 MG Oral Ac tive QUEtiapine Fumarate 100 MG Oral Active Jcalx-6-weap Ethyl Esters 1 GM Oral Active Erythromycin 5 MG/GM Ophthalmic Active QUEtiapine Fumarate 300 MG Oral Active Cephalexin 500 MG Oral Ac tive Clobetasol Propionate 0.05 % External Active ALPRAZolam 0.25 MG Oral A ctive HYDROcodone-Acetamino phen 5-300 MG Oral Active BinaxNOW COVID-19 Ag Card In Vitro *Reorder from [employer] for eRx and Interaction Alerts* Active QUEtiapine [...] Medicare Replacement/ Advantage - Hmo [address] [place] [address] [id number] 1 QUAN BRIGHT Self - patient is the insured
--- OUTSIDE RECORDS SUMMARY | 2024-09-20 09:11 | XMS_ITS | Clinical Summary ---
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 Gender Identity Not on file Sexual Orientation Not on file Plan of Treatment Health Maintenance Due Date Last Done Comments Hepatitis C Virus (HCV) Screening 1955 TdaP Immunization 1955 Cologuard 1998 Immunochemical Fecal Occult Blood 1998 Pneumococcal Immunization (5 0+ years) (1 of 1 - PCV) 2003 Zoster Immunization (1 of 2) 2003 Colonoscopy 07/22/2022 07/22/2017 Colorectal Cancer Screening 07/22/2022 SARS-COV-2 Immunization (1 - season) 2023 Influenza Immunization (#1) 2024 Respiratory Syncytial Virus (RSV) Immunization (Adult) (1 - 1-dose 75+ series) 01/25/2028 Hepatitis B Immunization Aged Out No longer eligible based on patient's age to complete this topic Human Papillomavirus (HPV) Immunization Aged Out No longer eligible b ased [...] Recently Relevant to Health Maintenance Care Teams Licensed Marriage And Family Therapist Relationship Specialty Start Date End Date Jc Cazares MD [address] [place] [address] PCP - General Family Medicine 04/12/17
--- OUTSIDE RECORDS SUMMARY | 2024-09-20 09:11 | XMS_ITS | Clinical Summary ---
Author Organization [facility] Address [address] [place] [address] Care Team Providers Care Fishing Worker Name Role Phone Brett Flores Primary Care Provider [phone] Source Comments [facility],non-owned Affiliates and Associated Physician Practices is amultiple site organization consisting of ambulatory clinics and hospital sitesin [place], [place]. This disclosure is being madepursuant to the Care Everywhere program and may not contain all information available regarding this patient. Last updated 17.[facility] Allergies Active Allergy Reactions Criticality Noted Date [...] by mouth 2 times daily 2 Active epejr-5-ejpq ethyl esters (Lovaza) 1 g capsule Take [...] on file Legal Sex Male 4:47 PM SUPERVISOR GLUING Gender Identity Not on file Sexual Orientation Not on file Last Filed Vital Signs Vital Sign Reading Time Taken Comments Blood Pressure 122/71 05/06/2022 8:25 AM SUPERVISOR GLUING Pulse 93 05/06/2022 8:25 AM SUPERVISOR GLUING Temperature 36.7 C (98.1 F) 05/06/2022 8:25 AM SUPERVISOR GLUING Respiratory Rate 20 01/14/2022 4:38 PM SUPERVISOR GLUING Oxygen Saturation 96% 05/06/2022 8:25 AM SUPERVISOR GLUING Inhaled Oxygen Concentration - - Weight 105.7 kg (233 lb) 05/06/2022 8:25 AM SUPERVISOR GLUING Height 190.5 cm (6' 3) 05/06/2022 8:25 AM SUPERVISOR GLUING Body Mass Index 29.12 05/06/2022 8:25 AM SUPERVISOR GLUING Plan of Treatment Health Maintenance Due Date [...] PANEL (CALCIUM TOTAL) STAT 01/14/2022 5:38 AM SUPERVISOR GLUING from Last 3 Months or Most Recently Relevant to Health Maintenance Results * (ABNORMAL) BASIC METABOLIC PANEL (CALCIUM TOTAL) (01/14/2022 5:38 AM SUPERVISOR GLUING) Pathologist [facility] BUN 11 mg/dL 01/14/2022 6:11 AM [facility] Creatinine 0.97 0.71 - 1.16 mg/dL 01/14/2022 6:11 AM [facility] Sodium 140 136 - 145 mmol/L 01/14/2022 6:11 AM [facility] Potassium 3.7 3.5 - 4.5 mmol/L 01/14/2022 6:11 AM [facility] Chloride 107 98 - 107 mmol/L 01/14/2022 6:11 AM [facility] CO2 23 22 - 29 mmol/L 01/14/2022 6:11 AM [facility] Glucose 101 70 - 115 mg/dL 01/14/2022 6:11 AM [facility] Calcium 9.2 8.4 - 10.2 mg/dL 01/14/2022 6:11 AM [facility] Anion Gap 14 8 - 18 01/14/2022 6:11 AM [facility] BUN/Creatinine Ratio 11 7 - 23 01/14/2022 6:11 AM [facility] Osmolality Calculated 290 270 - 300 mOsm/kg 01/14/2022 6:11 AM [facility] eGFR by CKD-EPI 85(L) >=90 mL/min/1.7 3 m2 01/14/2022 6:11 AM [facility] Blood BLOOD SPECIMEN / Unknown Venipuncture / Unknown 01/14/2022 5:38 AM SUPERVISOR GLUING 01/14/2022 5:43 AM [facility] us Shahbaz Dumont MD LAB - CHEMISTRY ORDERABLES Fin al Result [facility] [address] [place] [address], [facility] [phone] from Last 3 Months or Most Recently Relevant to Health Maintenance Insurance [facility] MEDICARE [facility] MEDICARE [facility] Care Address: [address] [place] [address] Advance Directives * Full Code (Latest Code Status on File) Date Activated Date Inactivated Comments 01/13/2022 10:08 PM 01/14/2022 8:59 PM Care Teams Fishing Worker Relationship Specialty Start Date End Date Brett Flores DO [address] [place] [id number] PCP - General 04/23/22
--- OUTSIDE RECORDS SUMMARY | 2024-09-20 09:11 | XMS_ITS | Clinical Summary ---
Author Organization [facility] Address [address] [place] [address] Care Team Providers Care Automation Qa Analyst Name Role Phone Poncho Vital MD Unavailable Mello Lau MD Unavailable [phone] Brett Flores DO Primary Care Provider [phone] Iam June MD Unavailable [phone] Nadine Kennedy MD Unavailable Allergies Active Allergy [...] - Refer to memory diagnostic center at [facility] at discharge Assessment & Plan (10/29/2023 2:20 [...] - Refer to memory diagnostic center at [facility] at discharge Bipolar disorder, most recent episode [...] hour hold. Olanzapine serum dose still pending. [place] level and BMP ordered for Wednesday evening before night time dose. Will continue to evaluate patient for clinical response and side effects - Olanzapine serum level ordered (drawn on 10/26 at 20:15 before nighttime dose) -- does not appear to have returned yet - [place] 300mg BID - Cardiology confirmed no contraindication to starting [place] with this patient in the setting of their EKG findings from 10/24 - Need a serum level and BMP after sufficient number of half lives (roughly 4 days from today, Wednesday evening before night time dose) - Zydis 20mg QHS - File 96 hour hold today 10/30 -- only change is consolidating [place] in HS Dementia 09/20/2023 Assessment & Plan [...] scheduled tylenol) - Secondary to having begun [place] therapy, added diclofenac PRN q6H as it [...] 05/11/2018 Assessment & Plan (02/03/2023 1:59 PM CLOCK SMITH): 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 Incision is healed. [place] removed today. Bilateral femoral pulses are palpable [...] tomorrow. 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 Never 10/06/2023 Do you belong to any clubs o r organizations such as oriental orthodox groups, unions, fraternal or athletic groups, or [...] Date Recorded PHQ-2 Total Score 0 09/15/2023 [facility] - Occupational Stress [...] place to sleep or slept in a half-way (including now)? No 11/17/2022 PHQ-9 Answer Date [...] any time in the past 12 m [facility], were you homeless or living in a half-way (including now)? No 10/06/2023 Personal Safety Answer [...] on file Legal Sex Male 3:07 PM CLOCK SMITH Gender Identity Male 02/17/2021 4:16 PM CLOCK SMITH Sexual Orientation Straight 02/17/2021 4: 16 PM CLOCK SMITH Occupation Industry Job Start Date Job End Date Retired - used to work for the [employer] Not on fi le Not on file [...] 108.9 kg (240 lb) 02/16/2024 1:51 PM CLOCK SMITH Height 184.9 cm (6' 0.8) 02/16/2024 1:51 PM CLOCK SMITH Body Mass Index 31.84 02/16/2024 1:51 PM CLOCK SMITH Plan of Treatment Health Maintenance Due Date Last Done Comments Colon Cancer Screening-Colonoscopy 1955 Hepatitis C Screening 1955 Hepatitis B Screening 1971 Zoster Vaccine (1 of 2) 2003 Well Visit 65+ 2018 DTaP/Tdap/Td Vaccine (1 - Tdap) 08/27/2021 2 Depression Screening 09/14/2024 09/15/2023, 09/15/19 24 Influenza Vaccine (#1) 2024 9, 11/30/2018, 12/15/2017, Additional history exists Fall Risk Assessment 11/04/2024 11/05/2023 Pneumococcal vaccine 65+ Completed 03/09/2019, 01/01 Abdominal Aortic Aneurysm (A AA) Screen Completed 02/03/2023, 02/03/2023, 02/01/2023, Additional history exists Medical Devices Implanted Type Area Floor Layer Helper Device Identifier Shelf Expiration Date Model / Serial / Lot [employer]ink display technologies [id number] Sohan Gordillo 24mm 30cm 2 Velour Straight Tube Knit Thorax - [id number] - [id number] Implanted:Qty: 1 on 11/16/2022 by Mello Lau MD at [facility] Graft N/A: Aorta [employer] 02/28/2027 [id number] / [id number] Procedures Procedure Name Priority Date/Time Associated Diagnosis Comments CTA ABDOMEN PELVIS W WO CONTRAST Schedule Routine, Read Routine (OP Routine) 01/11/2023 1:33 PM CLOCK SMITH Abdominal aortic aneurysm (AAA) without rupture, unspecified part Aftercare following surgery of the circulatory system from Last 3 Months or Most Recently Relevant to Health Maintenance Results * CTA Abdomen Pelvis (01/11/2023 1:33 PM CLOCK SMITH) Anatomical Region Laterality Modality Body N/A Computed Tomogra phy 01/11/2023 1:55 PM CLOCK SMITH Narrative 01/11/2023 2:08 PM CLOCK SMITH EXAM DESCRIPTION: CTA ABDOMEN PELVIS REASON FOR [...] Findings Committee. J Am Yissel Radiol. 2017 Sep;14(8):2085-3521. FINDINGS: VASCULATURE: On the noncontrast sequence, there [...] Angel Matt D.O. PS T: Report ID: [id number] Reading Location: [place] [address] Procedure Note Angel Matt, DO - 01/11/2023 [...] Findings Committee. J Am Yissel Radiol. 2017 Sep;14(8):3199-5315. FINDINGS: VASCULATURE: On the noncontrast sequence, there [...] previously measured up to 4.1 cm (axial [id number], coronal image 45, sagittal image 68). There [...] signed by Angel BOSTON T: Report ID: [id number] Reading Location: [id number] Mello Lau MD IMG CT PROCEDURES Final Re sult from Last 3 Months or Most Recently Relevant to Health Maintenance Insurance [facility] Member Subscriber Plan / Payer (Ef fective 2017-Present) Name:Juan Daugherty Relation to Subscriber:Self Name:Juan Daugherty Payer ID:[id number] (NAIC) Type:MEDICARE RISK OTHER Address: [place] [id number] [address] [facility] Member Subscriber Plan / Payer ( fective 2017-Present) Name:Juan Daugherty Relation to Subscriber:Self Name:Juan Daugherty Payer ID:[id number] (NAIC) Type:MEDICARE RISK OTHER Address: [address] [place] [id number] [facility] Advance Directives For more information, please contact: [phone] * Full Code (Latest Code Status on File) Date Activated Date Inactivated Comments 11/15/2023 5:06 AM 11/15/2023 8:50 PM * Full Code Date Activated Date Inactivated Comments 10/05/2023 6:22 PM 11/05/2023 8:48 PM * Full Code Date Activated Date Inactivated Comments 09/15/2023 10:16 PM 09/20/2023 9:01 PM * Full Code Date Activated Date Inactivated Comments 11/16/2022 3:11 PM 11/24/2022 6:26 PM Care Teams Automation Qa Analyst Relationship Specialty Start Date End Date Brett Flores DO [address] [facility] [address] [facility] [address] [address] [place] [address] PCP - General Family Medicine 04/09/22 Poncho Vital MD [address] [facility] [address] [address] Internal Medicine 08/02/18 Mello Lau MD [address] [facility] [address] [facility] [address] [address] Surgeon Vascular Surgery 03/13/22 Iam June MD [address] [facility] [address] [address] [address] Consulting Physician Cardiology 11/06/22 Nadine Kennedy MD [address] [facility] [address] Consulting Physician Pain Management 08/23/23
--- OUTSIDE RECORDS SUMMARY | 2024-09-20 09:11 | XMS_ITS | Referral Summary ---
Author Organization [facility] Office Center Address [address] [place] [address] Care Team Providers Care Bottom Filler Name Role Phone Poncho Vital MD Unavailable Mello Lau MD Unavailable [phone] Brett Flores DO Primary Care Provider [phone] Iam June MD Unavailable [phone] Nadine Kennedy MD Unavailable Allergies Active Allergy [...] - Refer to [facility] at [facility] at discharge Assessment & Plan (10/29/2023 2:20 [...] - Refer to [facility] center at [facility] at discharge Bipolar disorder, most recent episode [...] hour hold. Olanzapine serum dose still pending. [place] level and BMP ordered for Wednesday evening before night time dose. Will continue to evaluate patient for clinical response and side effects - Olanzapine serum level ordered (drawn on 10/26 at 20:15 before nighttime dose) -- does not appear to have returned yet - [place] 300mg BID - Cardiology confirmed no contraindication to starting [place] with this patient in the setting of their EKG findings from 10/24 - Need a serum level and BMP after sufficient number of half lives (roughly 4 days from today, Wednesday evening before night time dose) - Zydis 20mg QHS - File 96 hour hold today 10/30 -- only change is consolidating [place] in HS Dementia 09/20/2023 Assessment & Plan [...] scheduled tylenol) - Secondary to having begun [place] therapy, added diclofenac PRN q6H as it [...] 05/11/2018 Assessment & Plan (02/03/2023 1:59 PM ENTERPRISE APPLICATIONS MANAGER): 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 Incision is healed. [place] removed today. Bilateral femoral pulses are palpable [...] tomorrow. 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 Never 10/06/2023 Do you belong to any clubs o r organizations such as hinduism groups, unions, fraternal or athletic groups, or [...] Date Recorded PHQ-2 Total Score 0 09/15/2023 [facility] Questionnaire Answer Date [...] place to sleep or slept in a long term (including now)? No 11/17/2022 PHQ-9 Answer Date [...] any time in the past 12 m [facility], were you homeless or living in a long term (including now)? No 10/06/2023 Personal Safety Answer [...] on file Legal Sex Male 3:07 PM ENTERPRISE APPLICATIONS MANAGER Gender Identity Male 02/17/2021 4:16 PM ENTERPRISE APPLICATIONS MANAGER Sexual Orientation Straight 02/17/2021 4: 16 PM ENTERPRISE APPLICATIONS MANAGER Occupation Industry Job Start Date Job End Date Retired - used to work for the [employer] Not on fi le Not on file [...] 108.9 kg (240 lb) 02/16/2024 1:51 PM ENTERPRISE APPLICATIONS MANAGER Height 184.9 cm (6' 0.8) 02/16/2024 1:51 PM ENTERPRISE APPLICATIONS MANAGER Body Mass Index 31.84 02/16/2024 1:51 PM ENTERPRISE APPLICATIONS MANAGER Functional Status * Are you deaf or [...] on file Medical Devices Implanted Type Area Head Of Commission Department Device Identifier Shelf Expiration Date Model / Serial / Lot [employer] [facility] [id number] Hemashield Gold 24mm 30cm 2 Velour Straight Tube Knit Thorax - [id number] - [id number] Implanted:Qty: 1 on 11/16/2022 by Mello Lau MD at [facility] Graft N/A: Aorta [employer] 02/28/2027 [id number] / [id number] Procedures Procedure Name Priority Date/Time Associated Diagnosis Comments CTA ABDOMEN PELVIS W WO CONTRAST Schedule Routine, Read Routine (OP Routine) 01/11/2023 1:33 PM ENTERPRISE APPLICATIONS MANAGER Abdominal aortic aneurysm (AAA) without rupture, unspecified part Aftercare following surgery of the circulatory system from Last 3 Months or Most Recently Relevant to Health Maintenance Results * CTA Abdomen Pelvis (01/11/2023 1:33 PM ENTERPRISE APPLICATIONS MANAGER) Anatomical Region Laterality Modality Body N/A Computed Tomogra phy 01/11/2023 1:55 PM ENTERPRISE APPLICATIONS MANAGER Narrative 01/11/2023 2:08 PM ENTERPRISE APPLICATIONS MANAGER EXAM DESCRIPTION: CTA ABDOMEN PELVIS REASON FOR [...] Findings Committee. J Am Yissel Radiol. 2017 Sep;14(8):1086-7380. FINDINGS: VASCULATURE: On the noncontrast sequence, there [...] signed by Angel BOSTON T: Report ID: [id number] Reading Location: [id number] Procedure Note Vernell Angel Jefry, DO - [...] Findings Committee. J Am Yissel Radiol. 2017 Sep;14(8):0252-1938. FINDINGS: VASCULATURE: On the noncontrast sequence, there [...] previously measured up to 4.1 cm (axial [id number], coronal image 45, sagittal image 68). There [...] signed by Angel BOSTON T: Report ID: [id number] Reading Location: [place] [address] Mello Lau MD IMG CT PROCEDURES Final Re sult from Last 3 Months or Most Recently Relevant to Health Maintenance Insurance [facility] Member Subscriber Plan / Payer (Ef fective 2017-) Name:Juan Daugherty Relation to Subscriber:Self Name:Juan Daugherty Payer ID:[id number] (NAIC) Type:MEDICARE RISK OTHER Address: [address] [facility] Member Subscriber Plan / Payer (Ef fective 2017-Present) Name:Juan Daugherty Relation to Subscriber:Self Name:Juan Daugherty Payer ID:[id number] (NAIC) Type:MEDICARE RISK OTHER Address: [address] Advance Directives For more information, please contact: [phone] * Full Code (Latest Code Status on File) Date Activated Date Inactivated Comments 11/15/2023 5:06 AM 11/15/2023 8:50 PM * Full Code Date Activated Date Inactivated Comments 10/05/2023 6:22 PM 11/05/2023 8:48 PM * Full Code Date Activated Date Inactivated Comments 09/15/2023 10:16 PM 09/20/2023 9:01 PM * Full Code Date Activated Date Inactivated Comments 11/16/2022 3:11 PM 11/24/2022 6:26 PM Care Teams Bottom Filler Relationship Specialty Start Date End Date Brett Flores DO [address] [facility] [address] [place] [address] PCP - General Family Medicine 04/09/22 Poncho Vital MD [address] [place] [address] Internal Medicine 08/02/18 Mello Lau MD [address] [facility] [place] [address] [place] [address] [place] [address] Surgeon Vascular Surgery 03/13/22 Iam June MD [address] [facility] [address] [address] Consulting Physician Cardiology 11/06/22 Nadine Kennedy MD [address] [facility] [address] Consulting Physician Pain Management 08/23/23
--- OUTSIDE RECORDS SUMMARY | 2024-09-20 09:11 | XMS_ITS | Encounter Summary ---
Author Organization [facility] Address [address] [place] [address] Care Team Providers Care Prosthetics Assistant Name Role Phone Dutch Deluca DO Primary Care Provider [phone] Natalee Paris MD Primary Care Provider [phone] Brett Flores DO Primary Care Provider Encounter Details Date Type Department Care Team (Late st Contact Info) Description 01/13/2022 Ophth Exam [facility] [address] [place] [address] Abdias Mccarthy MD [address] [facility] [place] [id number] Social History Tobacco Use Types Packs/Day Years Used Date Smoking Tobacco: Never Assessed Sex and Gender Information Value Date Recorded Sex Assigned at Not on file Legal Sex Male 4:47 PM CLIENT REPRESENTATIVE Gender Identity Not on file Sexual Orientation Not on file documented as of this encounter Plan of Treatment Not on file documented as of this encounter Visit Diagnoses Not on filedocumented in this encounter Care Teams Prosthetics Assistant Relationship Specialty Start Date End Date Dutch Deluca DO [address] [place] [address] PCP - General 11/29/22 1/4/23 Natalee Paris MD [address] [place] [id number] PCP - General 03/05/22 04/22/22 Brett Flores DO [address] [place] [id number] PCP - General 04/23/22 documented as of this encounter
[2024-09-20] MEDS: ACETAMINOPHEN 500 MG TABLET 1000 MG PO ×3 (09:18→20:51)
[2024-09-20] MEDS: PANTOPRAZOLE 40 MG TABLET PO (09:18)
[2024-09-20] MEDS: SENNA/DOCUSATE SODIUM TABLET 2 TAB PO ×2 (09:18→16:41)
[2024-09-20 09:26] VITALS: O2SAT 94
[2024-09-20 14:00] VITALS: BP 97/58; PULSE 91; RESP 16; TEMP 35.9; O2SAT 94
--- NOTE | 2024-09-20 17:01 | PM.IMPN ---
Progress Note: A&P Assessment and Plan (1) Closed fracture of neck of left femur: Qualifiers: Encounter type: initial encounter Qualified Code(s): S72.002A - Fracture of unspecified part of neck of left femur, initial encounter for closed fracture Code(s): S72.002A - Fracture of unspecified part of neck of left femur, initial encounter for closed fracture Status: Acute Assessment and Plan: POD1 S/P Bipolar hemiarthroplasty left hip 09/17 CXR: No acute cardiopulmonary process. 09/17 hip/pelvic XR: Nondisplaced transcervical left femoral neck fracture. - orthopedist consulted - analgesics prn: Tylenol, Oxy, Dilaudid, add toradol --Bowel regimen - up with assist - PT/OT eval Plan Diet: Heart healthy, NPO midnight GI Prophylaxis: PPI on NSAIDs DVT Prophylaxis: SCDs, Lovenox when ok with surgery IV fluids: None Lines/Tubes: Peripheral IV, Vasquez Code Status: Full code Time Spent With Patient Time: 55 minutes Subjective Date/time seen: 09/20/24 11:15 Interval history: s/p Bipolar hemiarthroplasty left femur yesterday. Labs normal Pain moderately controlled with IV & PO meds, mild confusion with opiates. Nursing has to redirect him so he follows hip precautions. Held methocarbamol this morning for confusion Reduced opiate doses, added toradol 15 x3 days Start lovenox for DVT prophylaxis if ok with orthopedic surgery Review of Systems Review of Systems: All systems reviewed & are unremarkable except as noted in HPI and below Exam Narrative: General - Awake and alert. No acute distress Eyes - PERRLA, EOM intact ENT - No thrush, No erythema Neck - No noticeable or palpable swelling Lymph Nodes - No lymphadenopathy Cardiovascular - RRR no m/r/g, no JVD Lungs: Clear to auscultation, No wheezing, use of accessory muscles Skin - Skin warm and dry, no wounds or rashes Abdomen - Normal bowel sounds, abdomen soft and nontender Extremities - No edema, cyanosis or clubbing Musculoskeletal - 5/5 strength, Left hip dressing intact, no bleeding or swelling Neurological ? Alert and oriented x 2, CN 2-12 grossly intact. Mild disorientation Psych: Normal mood and affect Objective Data Vital Signs Vital Signs: Vital Signs - 24 hr 09/19/24 17:52 09/19/24 18:05 09/19/24 18:20 Temperature 98.3 F Pulse Rate 111 H 104 H 96 Respiratory Rate 12 18 18 Blood Pressure 161/99 H 152/77 H 162/86 H Pulse Oximetry 98 100 99 Oxygen Delivery Simple Face Mask Simple Face Mask Simple Face Mask Oxygen Flow Rate 10 10 10 09/19/24 18:35 09/19/24 18:50 09/19/24 19:05 Temperature Pulse Rate 101 H 99 97 Respiratory Rate 16 16 16 Blood Pressure 160/120 H 140/70 129/72 Pulse Oximetry 99 97 96 Oxygen Delivery Simple Face Mask Nasal Cannula Nasal Cannula Oxygen Flow Rate 10 2 2 09/19/24 19:20 09/19/24 19:35 09/19/24 20:00 Temperature Pulse Rate 93 94 Respiratory Rate 18 18 Blood Pressure 125/74 127/72 Pulse Oximetry 97 98 Oxygen Delivery Nasal Cannula Nasal Cannula Room Air Oxygen Flow Rate 2 2 09/19/24 20:15 09/19/24 20:35 09/19/24 21:29 Temperature 97.6 F 98.2 F 98.7 F Pulse Rate 100 102 H 100 Respiratory Rate 17 17 18 Blood Pressure 125/62 124/62 121/44 L Pulse Oximetry 92 90 94 Oxygen Delivery Oxygen Flow Rate 09/19/24 21:50 09/20/24 01:33 09/20/24 05:01 Temperature 98.7 F 98.1 F 97.9 F Pulse Rate 100 100 100 Respiratory Rate 18 18 17 Blood Pressure 121/44 L 153/76 H 145/63 H Pulse Oximetry 94 97 94 Oxygen Delivery Oxygen Flow Rate 09/20/24 05:35 09/20/24 09:26 09/20/24 10:34 Temperature 97.9 F Pulse Rate 100 Respiratory Rate 17 Blood Pressure 145/63 H Pulse Oximetry 94 94 Oxygen Delivery Nasal Cannula Room Air Oxygen Flow Rate 2 09/20/24 10:49 09/20/24 14:00 Temperature 96.7 F L Pulse Rate 91 Respiratory Rate 16 Blood Pressure 97/58 L Pulse Oximetry 94 Oxygen Delivery Room Air Oxygen Flow Rate Intake/Output Intake/Output: Intake & Output 09/17/24 09/18/24 09/19/24 09/20/24 23:59 23:59 23:59 23:59 Intake Total 1220 2350 370 Output Total 4100 1290 50 Balance -2880 1060 320 Meds/Results Medications: Active Medications Generic Name Dose Route Start Last Admin Trade Name Vamshiq PRN Reason Stop Dose Admin Acetaminophen 1,000 mg 09/19/24 09:00 09/20/24 12:27 Acetaminophen 500 Mg Tablet PO 1,000 mg TID KRIS Administration Hydrocodone Bitart/Acetaminophen 1 tab 09/17/24 18:49 Hydrocodone/Acetaminophen (*Crx) 5-325 Mg Tablet PO Q6H PRN Pain Rated 4-6 Docusate Sodium 100 mg 09/17/24 18:49 Docusate Sodium 100 Mg Capsule PO Q12H PRN Constipation Hydromorphone HCl 0.5 mg 09/17/24 18:23 09/19/24 21:44 Hydromorphone Hcl Inj (*Crx) 2 Mg/Ml Vial IV PUSH 0.5 mg Q4H PRN Administration Pain Rated 7-10 Lactated Ringer's 1,000 mls @ 30 mls/hr 09/19/24 09:50 09/19/24 20:58 Lr - Lactated Ringers Iv IV CONT Not Given .Q24H KRIS Lorazepam 1 mg 09/17/24 21:30 09/19/24 21:00 Lorazepam (*Crx) 1 Mg Tablet PO 1 mg HS KRIS Administration Methocarbamol 500 mg 09/18/24 20:05 09/20/24 16:41 Methocarbamol 500 Mg Tablet PO 500 mg TID KRIS Administration Naloxone HCl 0.1 mg 09/19/24 19:50 Naloxone Hcl 0.4 Mg/Ml Vial IV PUSH Q2M PRN Opiate Reversal Olanzapine 25 mg 09/17/24 21:45 09/19/24 21:00 Olanzapine Dispertab 5 Mg PO 25 mg QHS RKIS Administration Ondansetron HCl 4 mg 09/17/24 18:23 Ondansetron Inj 4 Mg/2 Ml Vial IV PUSH Q4H PRN Nausea Ondansetron HCl 4 mg 09/19/24 19:50 Ondansetron Inj 4 Mg/2 Ml Vial IV PUSH Q4H PRN Nausea And Vomiting Oxycodone/Acetaminophen 1 tablet 09/19/24 19:50 Oxycodone/Acetaminophen (*Crx) 5-325 Mg Tablet PO Q4H PRN Pain Rated 4-6 Oxycodone/Acetaminophen 1 tab 09/19/24 19:50 Oxycodone/Acetaminophen (*Crx) 10-325 Mg Tablet PO Q6H PRN Pain Rated 7-10 Pantoprazole Sodium 40 mg 09/20/24 09:00 09/20/24 09:18 Pantoprazole 40 Mg Tablet PO 40 mg QAM KRIS Administration Polyethylene Glycol 17 gm 09/20/24 09:00 09/20/24 09:19 Polyethylene Glycol 3350 17 Gm Powd.Pack PO 17 gm QAM KRIS Administration Senna/Docusate Sodium 2 tab 09/20/24 09:00 09/20/24 16:41 Senna/Docusate Sodium Tablet PO 2 tab BID KRIS Administration Tramadol HCl 50 mg 09/19/24 19:50 Tramadol Hcl (*Crx) 50 Mg Tablet PO Q4H PRN Pain Rated 1-3 Trazodone HCl 300 mg 09/17/24 21:45 09/19/24 20:59 Trazodone Hcl 50 Mg Tablet PO 300 mg HS KRIS Administration Triamcinolone Acetonide 1 applic 09/17/24 21:20 Triamcinolone Acet 0.1% Cream 15 Gm Tube TOPICAL BID PRN itching Radiology Results: ITS Impressions Chest X-Ray 09/17/24 16:42 IMPRESSION: No acute cardiopulmonary process. Hip/Pelvis X-Ray 09/17/24 16:48 IMPRESSION: Nondisplaced transcervical left femoral neck fracture. Hip X-Ray 09/19/24 18:41 IMPRESSION: Expected perioperative appearance of a left total hip arthroplasty, as detailed above. Labs Labs: Laboratory Results - last 24 hr 09/20/24 05:18 WBC 9.1 RBC 4.01 L Hgb 12.3 L Hct 36.0 L MCV 89.8 MCH 30.7 MCHC 34.2 RDW 13.2 Plt Count 169 MPV 9.0 Immature Gran % (Auto) 0.3 Neut % (Auto) 77.1 H Lymph % (Auto) 9.8 L [place] % (Auto) 11.7 H Eos % (Auto) 0.9 Baso % (Auto) 0.2 Lymph # (Auto) 0.90 [place] # (Auto) 1.1 H Eos # (Auto) 0.1 Baso # (Auto) 0.0 Abs Immat Gran (auto) 0.03 Absolute Neuts (auto) 7.0 H Absolute Nucleated RBC 0.000 Nucleated RBC % 0.0 Sodium 134 L Potassium 4.7 Chloride 100 Carbon Dioxide 25 Anion Gap 9 BUN 20 Creatinine 1.04 Estim Creat Clear Calc 69 Estimated GFR > 60 Glucose 128 H Calcium 8.6 Quality VTE Prophylaxis VTE prophylaxis: mechanical ordered Hospitalist [facility] Advance Care Plan I have confirmed that the patient's Advanced Care Plan is present, code status is documented, or surrogate decision maker is listed in patient medical record.: Yes Medication Reconciliation I have utilized all available resources to obtain, update and review the patients current medications (includes all prescriptions, OTC, herbals, cannabis, and nutritional supplements).: Yes
[2024-09-20] MEDS: LORazepam (*CRX) 1 MG TABLET PO (20:49)
[2024-09-20] MEDS: OLANZapine DISPERTAB 5 MG 25 MG PO (20:49)
[2024-09-20 21:35] VITALS: BP 133/72; PULSE 98; RESP 20; TEMP 36.6; O2SAT 94
[2024-09-21] MEDS: KETOROLAC 15 MG/ML VIAL (*BKC) IV PUSH (01:12)
--- NOTE | 2024-09-21 01:42 | PC.NURSE ---
Pt has been getting very confused at night. When I went to round on him he had removed his hip island dressing and was chewing on it.
[2024-09-21 05:32] VITALS: BP 151/83; PULSE 99; RESP 20; TEMP 36.6; O2SAT 97
[2024-09-21] MEDS: ACETAMINOPHEN 500 MG TABLET 1000 MG PO ×3 (06:16→18:01)
[2024-09-21 06:30] LABS: Hematocrit 35.2 % (42.0-52.0); Hemoglobin 12.1 g/dL (14.0-18.0); Immature Granulocyte Percent A 0.5 % (0-0.5); Lymphocytes Absolute Auto 1.12 K/mm3 (0.9-3.2); Mean Corpuscular HGB Conc 34.4 g/dl (32-36); Mean Corpuscular Hemoglobin 30.3 pg (26-34); Mean Corpuscular Volume 88.0 fl (80-100); Nucleated Red Blood Cells Absolute Auto 0.000 K/mm3 (0.0-0.012); Nucleated Red Blood Cells Perc 0.0 % (0.0-0.2); Platelet Count Result 164 k/mm3 (150-375); Red Blood Count 4.00 M/mm3 (4.6-6.20); White Blood Count 7.9 K/mm3 (4.5-10.0)
[2024-09-21 06:58] LABS: Anion Gap 7 mmol/L (4-12); Blood Urea Nitrogen 16 mg/dL (9-20); Calcium 8.5 mg/dL (8.4-10.2); Carbon Dioxide 26 mmol/L (22-30); Chloride 102 mmol/L (98-107); Estimated CRCL calculation 81 ml/min; Estimated Glomerular Filt Rate > 60; Glucose 129 mg/dL (65-110); Potassium 3.7 mmol/L (3.4-5.0); Sodium 135 mmol/L (137-145)
[2024-09-21] MEDS: PANTOPRAZOLE 40 MG TABLET PO (09:01)
[2024-09-21] MEDS: SENNA/DOCUSATE SODIUM TABLET 2 TAB PO ×2 (09:01→18:00)
--- NOTE | 2024-09-21 09:09 | PM.IMPN ---
Progress Note: A&P Assessment and Plan (1) Closed fracture of neck of left femur: Qualifiers: Encounter type: initial encounter Qualified Code(s): S72.002A - Fracture of unspecified part of neck of left femur, initial encounter for closed fracture Code(s): S72.002A - Fracture of unspecified part of neck of left femur, initial encounter for closed fracture Status: Acute Assessment and Plan: POD1 S/P Bipolar hemiarthroplasty left hip 09/17 CXR: No acute cardiopulmonary process. 09/17 hip/pelvic XR: Nondisplaced transcervical left femoral neck fracture. - orthopedic surgery consulted, appreciate assistance - analgesics prn: Tylenol, Oxy, Dilaudid, change toradol to naproxen --Bowel regimen: Add miralax - up with assist, hip precautions. weight bear with a walker - PT/OT eval Plan Diet: Heart healthy, NPO midnight GI Prophylaxis: PPI on NSAIDs DVT Prophylaxis: SCDs, Lovenox IV fluids: None Lines/Tubes: Peripheral IV, Vasquez Code Status: Full code Time Spent With Patient Time: 56 minutes Subjective Date/time seen: 09/21/24 09:09 Interval history: s/p Bipolar hemiarthroplasty left femur yesterday. Labs normal Pain moderately controlled with IV & PO meds, mild confusion with opiates. Nursing has to redirect him so he follows hip precautions. Held methocarbamol this morning for confusion Reduced opiate doses, added toradol but lost IV access so changed to IM prn Started lovenox for DVT prophylaxis since blood count stable Review of Systems Review of Systems: All systems reviewed & are unremarkable except as noted in HPI and below Exam Narrative: General - Awake and alert. No acute distress Eyes - PERRLA, EOM intact ENT - No thrush, No erythema Neck - No noticeable or palpable swelling Lymph Nodes - No lymphadenopathy Cardiovascular - RRR no m/r/g, no JVD Lungs: Clear to auscultation, No wheezing, use of accessory muscles Skin - Skin warm and dry, or rashes, dressing left hip clean and dry, no hematoma Abdomen - Normal bowel sounds, abdomen soft and nontender Extremities - No edema, cyanosis or clubbing Musculoskeletal - 5/5 strength, Left hip dressing intact, no bleeding or swelling Neurological ? Alert and oriented x 2, CN 2-12 grossly intact. Mild disorientation Psych: Normal mood and affect Objective Data Vital Signs Vital Signs: Vital Signs - 24 hr 09/20/24 09:26 09/20/24 10:34 09/20/24 10:49 Temperature Pulse Rate Respiratory Rate Blood Pressure Pulse Oximetry 94 Oxygen Delivery Nasal Cannula Room Air Room Air Oxygen Flow Rate 2 09/20/24 14:00 09/20/24 20:00 09/20/24 21:35 Temperature 96.7 F L 98 F Pulse Rate 91 98 Respiratory Rate 16 20 Blood Pressure 97/58 L 133/72 Pulse Oximetry 94 94 Oxygen Delivery Room Air Oxygen Flow Rate 09/21/24 05:32 Temperature 97.9 F Pulse Rate 99 Respiratory Rate 20 Blood Pressure 151/83 H Pulse Oximetry 97 Oxygen Delivery Oxygen Flow Rate Intake/Output Intake/Output: Intake & Output 09/18/24 09/19/24 09/20/24 09/21/24 23:59 23:59 23:59 23:59 Intake Total 1220 2350 1516 200 Output Total 4100 1290 425 500 Balance -2880 1060 1091 -300 Meds/Results Medications: Active Medications Generic Name Dose Route Start Last Admin Trade Name Freq PRN Reason Stop Dose Admin Acetaminophen 1,000 mg 09/20/24 18:00 09/21/24 06:16 Acetaminophen 500 Mg Tablet PO 1,000 mg [facility] Administration Hydrocodone Bitart/Acetaminophen 1 tab 09/17/24 18:49 Hydrocodone/Acetaminophen (*Crx) 5-325 Mg Tablet PO Q6H PRN Pain Rated 4-6 Docusate Sodium 100 mg 09/17/24 18:49 Docusate Sodium 100 Mg Capsule PO Q12H PRN Constipation Hydromorphone HCl 0.2 mg 09/20/24 17:06 Hydromorphone Hcl Inj (*Crx) 2 Mg/Ml Vial IV PUSH Q4H PRN Pain Rated 7-10 Lactated Ringer's 1,000 mls @ 30 mls/hr 09/19/24 09:50 09/19/24 20:58 Lr - Lactated Ringers Iv IV CONT Not Given .Q24H [facility] Ketorolac Tromethamine 15 mg 09/20/24 17:10 09/21/24 09:05 Ketorolac 15 Mg/Ml Vial (*Bkc) IV PUSH 09/23/24 17:09 Not Given Q8H KRIS Lorazepam 1 mg 09/17/24 21:30 09/20/24 20:49 Lorazepam (*Crx) 1 Mg Tablet PO 1 mg HS KRIS Administration Methocarbamol 500 mg 09/18/24 20:05 09/21/24 09:05 Methocarbamol 500 Mg Tablet PO Not Given TID KRIS Naloxone HCl 0.1 mg 09/19/24 19:50 Naloxone Hcl 0.4 Mg/Ml Vial IV PUSH Q2M PRN Opiate Reversal Olanzapine 25 mg 09/17/24 21:45 09/20/24 20:49 Olanzapine Dispertab 5 Mg PO 25 mg QHS KRIS Administration Ondansetron HCl 4 mg 09/17/24 18:23 Ondansetron Inj 4 Mg/2 Ml Vial IV PUSH Q4H PRN Nausea Ondansetron HCl 4 mg 09/19/24 19:50 Ondansetron Inj 4 Mg/2 Ml Vial IV PUSH Q4H PRN Nausea And Vomiting Oxycodone HCl 2.5 mg 09/20/24 17:07 Oxycodone Hcl (*Crx) 2.5 Mg Tab Ir PO Q4H PRN Pain Rated 4-6 Oxycodone HCl 5 mg 09/20/24 17:07 Oxycodone Hcl (*Crx) 5 Mg Tab Ir PO Q4H PRN Pain Rated 7-10 Oxycodone/Acetaminophen 1 tab 09/19/24 19:50 Oxycodone/Acetaminophen (*Crx) 10-325 Mg Tablet PO Q6H PRN Pain Rated 7-10 Pantoprazole Sodium 40 mg 09/20/24 09:00 09/21/24 09:01 Pantoprazole 40 Mg Tablet PO 40 mg QAM KRIS Administration Polyethylene Glycol 17 gm 09/20/24 09:00 09/21/24 09:01 Polyethylene Glycol 3350 17 Gm Powd.Pack PO 17 gm QAM KRIS Administration Senna/Docusate Sodium 2 tab 09/20/24 09:00 09/21/24 09:01 Senna/Docusate Sodium Tablet PO 2 tab BID KRIS Administration Tramadol HCl 50 mg 09/19/24 19:50 Tramadol Hcl (*Crx) 50 Mg Tablet PO Q4H PRN Pain Rated 1-3 Trazodone HCl 300 mg 09/17/24 21:45 09/20/24 20:49 Trazodone Hcl 50 Mg Tablet PO 300 mg HS KRIS Administration Triamcinolone Acetonide 1 applic 09/17/24 21:20 Triamcinolone Acet 0.1% Cream 15 Gm Tube TOPICAL BID PRN itching Radiology Results: ITS Impressions Chest X-Ray 09/17/24 16:42 IMPRESSION: No acute cardiopulmonary process. Hip/Pelvis X-Ray 09/17/24 16:48 IMPRESSION: Nondisplaced transcervical left femoral neck fracture. Hip X-Ray 09/19/24 18:41 IMPRESSION: Expected perioperative appearance of a left total hip arthroplasty, as detailed above. Labs Labs: Laboratory Results - last 24 hr 09/21/24 06:03 WBC 7.9 RBC 4.00 L Hgb 12.1 L Hct 35.2 L MCV 88.0 MCH 30.3 MCHC 34.4 RDW 13.1 Plt Count 164 MPV 9.2 Immature Gran % (Auto) 0.5 Neut % (Auto) 71.2 Lymph % (Auto) 14.1 L [place] % (Auto) 10.6 H Eos % (Auto) 3.2 Baso % (Auto) 0.4 Lymph # (Auto) 1.12 [place] # (Auto) 0.8 H Eos # (Auto) 0.3 Baso # (Auto) 0.0 Abs Immat Gran (auto) 0.04 H Absolute Neuts (auto) 5.6 Absolute Nucleated RBC 0.000 Nucleated RBC % 0.0 Sodium 135 L Potassium 3.7 Chloride 102 Carbon Dioxide 26 Anion Gap 7 BUN 16 Creatinine 0.88 Estim Creat Clear Calc 81 Estimated GFR > 60 Glucose 129 H Calcium 8.5 Quality VTE Prophylaxis VTE prophylaxis: mechanical ordered Hospitalist [facility] Advance Care Plan I have confirmed that the patient's Advanced Care Plan is present, code status is documented, or surrogate decision maker is listed in patient medical record.: Yes Medication Reconciliation I have utilized all available resources to obtain, update and review the patients current medications (includes all prescriptions, OTC, herbals, cannabis, and nutritional supplements).: Yes
[2024-09-21 14:00] VITALS: BP 127/77; PULSE 91; RESP 18; O2SAT 96
--- NOTE | 2024-09-21 16:38 | PM.PNORT ---
Progress Note: A&P Assessment and Plan (1) Closed fracture of neck of left femur: Qualifiers: Encounter type: initial encounter Qualified Code(s): S72.002A - Fracture of unspecified part of neck of left femur, initial encounter for closed fracture Code(s): S72.002A - Fracture of unspecified part of neck of left femur, initial encounter for closed fracture Status: Acute Plan Pain well controlled. Sundowning. Has been moving rather spontaneously. Wound healing well. Dressing changed. Ecchymosis from the fracture at the trochanter. No significant distal edema. Neurovascular status intact. Postoperative x-rays satisfactory Press-Fit bipolar hemiarthroplasty. Increase. Okay to discharge to rehab. May weight bear as tolerated with a walker. Routine follow-up. Subjective Subjective Date/Time Seen: 09/21/24 16:38 Objective Data Vital Signs Vital Signs: Vital Signs - 24 hr 09/20/24 20:00 09/20/24 21:35 09/21/24 05:32 Temperature 36.6 C 36.6 C Pulse Rate 98 99 Respiratory Rate 20 20 Blood Pressure 133/72 151/83 H Pulse Oximetry 94 97 Oxygen Delivery Room Air 09/21/24 09:30 09/21/24 14:00 Temperature Pulse Rate 91 Respiratory Rate 18 Blood Pressure 127/77 Pulse Oximetry 96 Oxygen Delivery Room Air Intake/Output Intake/Output: Intake & Output 09/18/24 09/19/24 09/20/24 09/21/24 23:59 23:59 23:59 23:59 Intake Total 1220 2350 1516 644 Output Total 4100 1290 425 500 Balance -2880 1060 1091 144 Meds/Results Medications: Active Medications Generic Name Dose Route Start Last Admin Trade Name Freq PRN Reason Stop Dose Admin Acetaminophen 1,000 mg 09/20/24 18:00 09/21/24 12:31 Acetaminophen 500 Mg Tablet PO 1,000 mg 06,12,18 KRIS Administration Hydrocodone Bitart/Acetaminophen 1 tab 09/17/24 18:49 Hydrocodone/Acetaminophen (*Crx) 5-325 Mg Tablet PO Q6H PRN Pain Rated 4-6 Docusate Sodium 100 mg 09/17/24 18:49 Docusate Sodium 100 Mg Capsule PO Q12H PRN Constipation Enoxaparin Sodium 40 mg 09/22/24 09:00 Enoxaparin 40 Mg/0.4 Ml Syringe SUB-Q DAILY KRIS Lactated Ringer's 1,000 mls @ 30 mls/hr 09/19/24 09:50 09/19/24 20:58 Lr - Lactated Ringers Iv IV CONT Not Given .Q24H KRIS Lorazepam 1 mg 09/17/24 21:30 09/20/24 20:49 Lorazepam (*Crx) 1 Mg Tablet PO 1 mg HS KRIS Administration Methocarbamol 500 mg 09/18/24 20:05 09/21/24 12:31 Methocarbamol 500 Mg Tablet PO 500 mg TID KRIS Administration Naloxone HCl 0.1 mg 09/19/24 19:50 Naloxone Hcl 0.4 Mg/Ml Vial IV PUSH Q2M PRN Opiate Reversal Olanzapine 25 mg 09/17/24 21:45 09/20/24 20:49 Olanzapine Dispertab 5 Mg PO 25 mg QHS KRIS Administration Ondansetron HCl 4 mg 09/17/24 18:23 Ondansetron Inj 4 Mg/2 Ml Vial IV PUSH Q4H PRN Nausea Oxycodone HCl 2.5 mg 09/20/24 17:07 Oxycodone Hcl (*Crx) 2.5 Mg Tab Ir PO Q4H PRN Pain Rated 4-6 Oxycodone HCl 5 mg 09/20/24 17:07 Oxycodone Hcl (*Crx) 5 Mg Tab Ir PO Q4H PRN Pain Rated 7-10 Oxycodone/Acetaminophen 1 tab 09/19/24 19:50 Oxycodone/Acetaminophen (*Crx) 10-325 Mg Tablet PO Q6H PRN Pain Rated 7-10 Pantoprazole Sodium 40 mg 09/20/24 09:00 09/21/24 09:01 Pantoprazole 40 Mg Tablet PO 40 mg QAM KRIS Administration Polyethylene Glycol 17 gm 09/20/24 09:00 09/21/24 09:01 Polyethylene Glycol 3350 17 Gm Powd.Pack PO 17 gm QAM KRIS Administration Senna/Docusate Sodium 2 tab 09/20/24 09:00 09/21/24 09:01 Senna/Docusate Sodium Tablet PO 2 tab BID KRIS Administration Tramadol HCl 50 mg 09/19/24 19:50 Tramadol Hcl (*Crx) 50 Mg Tablet PO Q4H PRN Pain Rated 1-3 Trazodone HCl 300 mg 09/17/24 21:45 09/20/24 20:49 Trazodone Hcl 50 Mg Tablet PO 300 mg HS KRIS Administration Triamcinolone Acetonide 1 applic 09/17/24 21:20 Triamcinolone Acet 0.1% Cream 15 Gm Tube TOPICAL BID PRN itching Radiology Results: ITS Impressions Chest X-Ray 09/17/24 16:42 IMPRESSION: No acute cardiopulmonary process. Hip/Pelvis X-Ray 09/17/24 16:48 IMPRESSION: Nondisplaced transcervical left femoral neck fracture. Hip X-Ray 09/19/24 18:41 IMPRESSION: Expected perioperative appearance of a left total hip arthroplasty, as detailed above. Labs Labs: Laboratory Results - last 24 hr 09/21/24 06:03 WBC 7.9 RBC 4.00 L Hgb 12.1 L Hct 35.2 L MCV 88.0 MCH 30.3 MCHC 34.4 RDW 13.1 Plt Count 164 MPV 9.2 Immature Gran % (Auto) 0.5 Neut % (Auto) 71.2 Lymph % (Auto) 14.1 L [place] % (Auto) 10.6 H Eos % (Auto) 3.2 Baso % (Auto) 0.4 Lymph # (Auto) 1.12 [place] # (Auto) 0.8 H Eos # (Auto) 0.3 Baso # (Auto) 0.0 Abs Immat Gran (auto) 0.04 H Absolute Neuts (auto) 5.6 Absolute Nucleated RBC 0.000 Nucleated RBC % 0.0 Sodium 135 L Potassium 3.7 Chloride 102 Carbon Dioxide 26 Anion Gap 7 BUN 16 Creatinine 0.88 Estim Creat Clear Calc 81 Estimated GFR > 60 Glucose 129 H Calcium 8.5
[2024-09-21] MEDS: OLANZapine DISPERTAB 5 MG 25 MG PO (21:19)
[2024-09-21] MEDS: LORazepam (*CRX) 1 MG TABLET PO (21:20)
[2024-09-21 21:51] VITALS: BP 135/78; PULSE 78; RESP 18; TEMP 36.6; O2SAT 95
[2024-09-22] MEDS: oxyCODONE HCL (*CRX) 2.5 MG TAB IR PO (00:55)
[2024-09-22 04:25] VITALS: BP 123/63; PULSE 97; RESP 18; TEMP 36.6; O2SAT 96
[2024-09-22 06:36] LABS: Hematocrit 34.8 % (42.0-52.0); Hemoglobin 12.0 g/dL (14.0-18.0); Immature Granulocyte Percent A 0.6 % (0-0.5); Lymphocytes Absolute Auto 1.37 K/mm3 (0.9-3.2); Mean Corpuscular HGB Conc 34.5 g/dl (32-36); Mean Corpuscular Hemoglobin 30.1 pg (26-34); Mean Corpuscular Volume 87.2 fl (80-100); Nucleated Red Blood Cells Absolute Auto 0.000 K/mm3 (0.0-0.012); Nucleated Red Blood Cells Perc 0.0 % (0.0-0.2); Platelet Count Result 207 k/mm3 (150-375); Red Blood Count 3.99 M/mm3 (4.6-6.20); White Blood Count 8.4 K/mm3 (4.5-10.0)
[2024-09-22 07:17] LABS: Anion Gap 8 mmol/L (4-12); Blood Urea Nitrogen 14 mg/dL (9-20); Calcium 8.6 mg/dL (8.4-10.2); Carbon Dioxide 24 mmol/L (22-30); Chloride 103 mmol/L (98-107); Estimated CRCL calculation 94 ml/min; Estimated Glomerular Filt Rate > 60; Glucose 138 mg/dL (65-110); Potassium 3.5 mmol/L (3.4-5.0); Sodium 135 mmol/L (137-145)
--- NOTE | 2024-09-22 08:27 | P.PNIM_ITS ---
Progress Note: A&P Assessment and Plan (1) Closed fracture of neck of left femur: Qualifiers: Encounter type: initial encounter Qualified Code(s): S72.002A - Fracture of unspecified part of neck of left femur, initial encounter for closed fracture Code(s): S72.002A - Fracture of unspecified part of neck of left femur, initial encounter for closed fracture Status: Acute Assessment and Plan: POD1 S/P Bipolar hemiarthroplasty left hip 09/17 CXR: No acute cardiopulmonary process. 09/17 hip/pelvic XR: Nondisplaced transcervical left femoral neck fracture. - orthopedic surgery consulted, appreciate assistance - analgesics prn: Tylenol, Oxy, Dilaudid, change toradol to naproxen --Bowel regimen: Add miralax - up with assist, hip precautions. weight bear with a walker - PT/OT eval (2) Delirium: Code(s): R41.0 - Disorientation, unspecified Status: Acute Assessment and Plan: Sleepy with pain medicine. Wakes up but confused about date. Exam nonfocal --Minimize opiates --Schedule tylneol, naproxen, oxy prn Plan Diet: Heart healthy, NPO midnight GI Prophylaxis: PPI on NSAIDs DVT Prophylaxis: SCDs, Lovenox IV fluids: None Lines/Tubes: Peripheral IV, Vasquez Code Status: Full code Time Spent With Patient Time: 57 minutes Subjective Date/time seen: 09/22/24 12:45 Interval history: POD2 Bipolar hemiarthroplasty left femur yesterday. Labs normal Mild confusion potassium 3.5, give 20meq today Pending placement Review of Systems Review of Systems: All systems reviewed & are unremarkable except as noted in HPI and below Exam Narrative: General - Awake and alert. No acute distress Eyes - PERRLA, EOM intact ENT - No thrush, No erythema Neck - No noticeable or palpable swelling Lymph Nodes - No lymphadenopathy Cardiovascular - RRR no m/r/g, no JVD Lungs: Clear to auscultation, No wheezing, use of accessory muscles Skin - Skin warm and dry, or rashes, dressing left hip clean and dry, no hematoma Abdomen - Normal bowel sounds, abdomen soft and nontender Extremities - No edema, cyanosis or clubbing Musculoskeletal - 5/5 strength, Left hip dressing intact, no bleeding or swelling Neurological ? Alert and oriented x 2, CN 2-12 grossly intact. Mild disorientation Psych: Normal mood and affect Objective Data Vital Signs Vital Signs: Vital Signs - 24 hr 09/21/24 09:30 09/21/24 14:00 09/21/24 20:00 Temperature Pulse Rate 91 Respiratory Rate 18 Blood Pressure 127/77 Pulse Oximetry 96 Oxygen Delivery Room Air Room Air 09/21/24 21:51 09/22/24 04:25 Temperature 98 F 98 F Pulse Rate 78 97 Respiratory Rate 18 18 Blood Pressure 135/78 123/63 Pulse Oximetry 95 96 Oxygen Delivery Intake/Output Intake/Output: Intake & Output 09/19/24 09/20/24 09/21/24 09/22/24 23:59 23:59 23:59 23:59 Intake Total 2350 1516 1484 450 Output Total 1290 425 500 Balance 1060 1091 984 450 Meds/Results Medications: Active Medications Generic Name Dose Route Start Last Admin Trade Name Freq PRN Reason Stop Dose Admin Acetaminophen 1,000 mg 09/20/24 18:00 09/21/24 18:01 Acetaminophen 500 Mg Tablet PO 1,000 mg ,, [facility] Administration Hydrocodone Bitart/Acetaminophen 1 tab 09/17/24 18:49 Hydrocodone/Acetaminophen (*Crx) 5-325 Mg Tablet PO Q6H PRN Pain Rated 4-6 Docusate Sodium 100 mg 09/17/24 18:49 Docusate Sodium 100 Mg Capsule PO Q12H PRN Constipation Enoxaparin Sodium 40 mg 09/22/24 09:00 Enoxaparin 40 Mg/0.4 Ml Syringe SUB-Q DAILY KRIS Lactated Ringer's 1,000 mls @ 30 mls/hr 09/19/24 09:50 09/21/24 21:29 Lr - Lactated Ringers Iv IV CONT Not Given .Q24H KRIS Lorazepam 1 mg 09/17/24 21:30 09/21/24 21:20 Lorazepam (*Crx) 1 Mg Tablet PO 1 mg HS KRIS Administration Methocarbamol 500 mg 09/18/24 20:05 09/21/24 18:00 Methocarbamol 500 Mg Tablet PO 500 mg TID KRIS Administration Naloxone HCl 0.1 mg 09/19/24 19:50 Naloxone Hcl 0.4 Mg/Ml Vial IV PUSH Q2M PRN Opiate Reversal Olanzapine 25 mg 09/17/24 21:45 09/21/24 21:19 Olanzapine Dispertab 5 Mg PO 25 mg QHS KRIS Administration Ondansetron HCl 4 mg 09/17/24 18:23 Ondansetron Inj 4 Mg/2 Ml Vial IV PUSH Q4H PRN Nausea Oxycodone HCl 2.5 mg 09/20/24 17:07 09/22/24 00:55 Oxycodone Hcl (*Crx) 2.5 Mg Tab Ir PO 2.5 mg Q4H PRN Administration Pain Rated 4-6 Oxycodone HCl 5 mg 09/20/24 17:07 Oxycodone Hcl (*Crx) 5 Mg Tab Ir PO Q4H PRN Pain Rated 7-10 Oxycodone/Acetaminophen 1 tab 09/19/24 19:50 Oxycodone/Acetaminophen (*Crx) 10-325 Mg Tablet PO Q6H PRN Pain Rated 7-10 Pantoprazole Sodium 40 mg 09/20/24 09:00 09/21/24 09:01 Pantoprazole 40 Mg Tablet PO 40 mg QAM KRIS Administration Polyethylene Glycol 17 gm 09/20/24 09:00 09/21/24 09:01 Polyethylene Glycol 3350 17 Gm Powd.Pack PO 17 gm QAM KRIS Administration Senna/Docusate Sodium 2 tab 09/20/24 09:00 09/21/24 18:00 Senna/Docusate Sodium Tablet PO 2 tab BID KRIS Administration Tramadol HCl 50 mg 09/19/24 19:50 Tramadol Hcl (*Crx) 50 Mg Tablet PO Q4H PRN Pain Rated 1-3 Trazodone HCl 300 mg 09/17/24 21:45 09/21/24 21:20 Trazodone Hcl 50 Mg Tablet PO 300 mg HS KRIS Administration Triamcinolone Acetonide 1 applic 09/17/24 21:20 Triamcinolone Acet 0.1% Cream 15 Gm Tube TOPICAL BID PRN itching Radiology Results: ITS Impressions Chest X-Ray 09/17/24 16:42 IMPRESSION: No acute cardiopulmonary process. Hip/Pelvis X-Ray 09/17/24 16:48 IMPRESSION: Nondisplaced transcervical left femoral neck fracture. Hip X-Ray 09/19/24 18:41 IMPRESSION: Expected perioperative appearance of a left total hip arthroplasty, as detailed above. Labs Labs: Laboratory Results - last 24 hr 09/22/24 06:20 WBC 8.4 RBC 3.99 L Hgb 12.0 L Hct 34.8 L MCV 87.2 MCH 30.1 MCHC 34.5 RDW 13.0 Plt Count 207 MPV 8.9 Immature Gran % (Auto) 0.6 H Neut % (Auto) 67.1 Lymph % (Auto) 16.3 L [place] % (Auto) 10.5 H Eos % (Auto) 5.1 H Baso % (Auto) 0.4 Lymph # (Auto) 1.37 [place] # (Auto) 0.9 H Eos # (Auto) 0.4 H Baso # (Auto) 0.0 Abs Immat Gran (auto) 0.05 H Absolute Neuts (auto) 5.7 Absolute Nucleated RBC 0.000 Nucleated RBC % 0.0 Sodium 135 L Potassium 3.5 Chloride 103 Carbon Dioxide 24 Anion Gap 8 BUN 14 Creatinine 0.75 Estim Creat Clear Calc 94 Estimated GFR > 60 Glucose 138 H Calcium 8.6 Quality VTE Prophylaxis VTE prophylaxis: mechanical ordered Hospitalist [facility] Advance Care Plan I have confirmed that the patient's Advanced Care Plan is present, code status is documented, or surrogate decision maker is listed in patient medical record.: Yes Medication Reconciliation I have utilized all available resources to obtain, update and review the patients current medications (includes all prescriptions, OTC, herbals, cannabis, and nutritional supplements).: Yes
[2024-09-22] MEDS: PANTOPRAZOLE 40 MG TABLET PO (08:34)
[2024-09-22] MEDS: ENOXAPARIN 40 MG/0.4 ML SYRINGE SUB-Q (08:35)
[2024-09-22] MEDS: ACETAMINOPHEN 500 MG TABLET 1000 MG PO (13:24)
[2024-09-22 14:00] VITALS: BP 122/70; PULSE 78; RESP 18; TEMP 36.8; O2SAT 99
--- NOTE | 2024-09-22 15:42 | P.DS_ITS ---
DS: Admitting Diagnosis Discharge Date 09/22/24 Admitting Diagnosis Closed fracture of neck of left femur DS: Discharge Diagnosis Discharge Diagnosis (1) Closed fracture of neck of left femur: Qualifiers: Encounter type: initial encounter Qualified Code(s): S72.002A - Fracture of unspecified part of neck of left femur, initial encounter for closed fracture Code(s): S72.002A - Fracture of unspecified part of neck of left femur, initial encounter for closed fracture Status: Acute DS: Summary Hospital Course Reason for hospitalization: Copied from [facility] 09/17: 69 y/o M with PMH of depression, seizures, hepatitis A (1975), bipolar, hyperlipidemia, and GERD presents here with fall and hip pain. The patient presents here from home via EMS for further evaluation of a ground level fall and left hip pain. He reports he fell down 1-2 steps while going outside to check on his who was painting flower pots. He reports he missed a step. He denies head strike or loss of consciousness. Post fall he reports pain to his left hip area. Post fall the patient was nonambulatory due to the pain. He denies anticoagulation. He denies associated numbness or tingling in his lower extremities. Initial VS at presentation: 97.2? F, HR 75, R 16, 165/97, and 99% on RA. ED workup showed: No leukocytosis, hemoglobin 13.4, normal coags, sodium 134, no significant electrolyte derangements, renal function within normal limits, UA unremarkable. CXR showed no acute cardiopulmonary process. Hip/pelvic XR showed a nondisplaced transcervical left femoral neck fracture. Hospital Course: Closed fracture of neck of left femur: S/P Bipolar hemiarthroplasty left hip 09/19 09/17 CXR: No acute cardiopulmonary process. 09/17 hip/pelvic XR: Nondisplaced transcervical left femoral neck fracture. - orthopedic surgery consulted, appreciate assistance - analgesics prn: Tylenol, Oxy, Dilaudid, changed toradol to naproxen for discharge --Bowel regimen: miralax - up with assist, hip precautions. weight bear with a walker --Aspirin 81mg BID for 1 month Delirium: Sleepy and disoriented with opiates so minimizing. Wakes up but confused about date. Exam nonfocal --Minimize opiates --Delirium precautions Status at Discharge Cognitive/behavioral status at discharge: A&Ox2 Time Spent with Patient Time attestation: Total time spent providing and/or coordinating discharge services: Exam Narrative: General - Awake and alert. No acute distress Eyes - PERRLA, EOM intact ENT - No thrush, No erythema Neck - No noticeable or palpable swelling Lymph Nodes - No lymphadenopathy Cardiovascular - RRR no m/r/g, no JVD Lungs: Clear to auscultation, No wheezing, use of accessory muscles Skin - Skin warm and dry, or rashes, dressing left hip clean and dry, no hematoma Abdomen - Normal bowel sounds, abdomen soft and nontender Extremities - No edema, cyanosis or clubbing Musculoskeletal - 5/5 strength, Left hip dressing intact, no bleeding or swelling Neurological ? Alert and oriented x 2, CN 2-12 grossly intact. Mild disorientation Psych: Normal mood and affect DS: Data Data Completed and Pending Labs on day of discharge: Labs from last 24 hours 09/22/24 06:20 WBC 8.4 RBC 3.99 L Hgb 12.0 L Hct 34.8 L MCV 87.2 MCH 30.1 MCHC 34.5 RDW 13.0 Plt Count 207 MPV 8.9 Immature Gran % (Auto) 0.6 H Neut % (Auto) 67.1 Lymph % (Auto) 16.3 L [place] % (Auto) 10.5 H Eos % (Auto) 5.1 H Baso % (Auto) 0.4 Lymph # (Auto) 1.37 [place] # (Auto) 0.9 H Eos # (Auto) 0.4 H Baso # (Auto) 0.0 Abs Immat Gran (auto) 0.05 H Absolute Neuts (auto) 5.7 Absolute Nucleated RBC 0.000 Nucleated RBC % 0.0 Sodium 135 L Potassium 3.5 Chloride 103 Carbon Dioxide 24 Anion Gap 8 BUN 14 Creatinine 0.75 Estim Creat Clear Calc 94 Estimated GFR > 60 Glucose 138 H Calcium 8.6 Discharge Plan Discharge Attending physician on discharge: Beau Belle Consulting providers: Beau Belle; Eric Torres; Kesha Brock; Jack Wiggins; Tony Street; Nithin Roach; Francie Brown Discharging Clinician: Beau Belle Anticipated Discharge Date/Time: 09/22/24 15:27 Patient Disposition: SNF Activity: may shower Diet: as tolerated Wound Care Instructions: other - see discharge instructions Discharge Instructions: Remove dressing in 7 days. No further dressing required. May weight bear as tolerated with a walker. Follow dislocation precautions. Follow up in 6 weeks (Obtain x-rays at facility prior to appointment.) Patient Language: Chilean Stand Alone Forms: General Discharge Information Discharge Medications: New sennosides-docusate sodium [Senokot-S] 8.6-50 mg Tablet 2 tab-cap PO BID Qty: 60 0RF acetaminophen 500 mg Tablet 1,000 mg PO 06,12,18 Qty: 60 0RF pantoprazole 40 mg Tablet,Delayed Release (Dr/Ec) 40 mg PO QAM Qty: 30 0RF docusate sodium 100 mg Capsule 100 mg PO Q12H PRN (Reason: Constipation) Qty: 30 0RF methocarbamol 500 mg Tablet 500 mg PO Q12HR 60 Days Qty: 120 0RF aspirin [Adult Aspirin Regimen] 81 mg tablet,delayed release (DR/EC) 81 mg PO BID Qty: 60 0RF oxycodone 5 mg tablet 5 mg PO Q6H PRN (Reason: pain) Qty: 10 0RF Continued trazodone 100 mg tablet 300 mg PO HS olanzapine 5 mg tablet,disintegrating 25 mg PO QPM lorazepam 1 mg tablet 1 mg PO HS ramelteon 8 mg tablet 8 mg PO HS atorvastatin 40 mg tablet 40 mg PO HS triamcinolone acetonide 0.1 % cream 1 applic topical BID PRN (Reason: itching) Rx Instructions: on feet Adults Multivitamin 18 mg iron-400 mcg-25 mcg Tablet 1 tablet PO DAILY Discontinued methocarbamol 500 mg tablet 500 mg PO TID Qty: 90 0RF Date of admission: 09/18/24 14:36 Primary Care Provider: Dutch Deluca Admitting Provider: Austin Mi Attending physician on admission: Shima Castro Condition: Stable Hospitalist MIPS Heart Failure (Exclusion) Patient has history of Heart Transplant or Left Ventricular Assistive Device?: No IF YES, STOP HERE Heart Failure (Qualifier) Patient has current or prior documentation of LVEF less than or equal to 40%, or mod/servere depressed LVSF?: No IF NO, STOP HERE
--- NOTE | 2024-09-23 08:21 | PCPTNOTE ---
Attempted to see pt this morning 8:20 am, pt has been discharged per RN. AKS
== END 2024-09-22 15:45 | DRG 522 ==
LOC: ANHED 16:33 → ANH3MED 09-18 07:18
PROVIDERS: Orthopaedic Surgery; Student in an Organized Health Care Education/Training Program; Admitting Provider Family Medicine; Emergency Provider Student in an Organized Health Care Education/Training Program; PCP Internal Medicine; Visit Provider Nurse Practitioner Acute Care
PROC: 0SRS019 Replacement of Left Hip Joint, Femoral Surface with Metal Synthetic Substitute, Cemented, Open Approach (ICD-10-PCS; CPT 27125; principal; 2024-09-19 15:30)
DX: S72.002A Fracture of unspecified part of neck of left femur, initial encounter for closed fracture (principal); W10.9XXA Fall (on) (from) unspecified stairs and steps, initial encounter; M19.90 Unspecified osteoarthritis, unspecified site; F41.9 Anxiety disorder, unspecified; N40.1 Benign prostatic hyperplasia with lower urinary tract symptoms; R35.1 Nocturia; I71.9 Aortic aneurysm of unspecified site, without rupture; F31.9 Bipolar disorder, unspecified; K21.9 Gastro-esophageal reflux disease without esophagitis; E78.5 Hyperlipidemia, unspecified; R41.0 Disorientation, unspecified; T40.605A Adverse effect of unspecified narcotics, initial encounter; Z90.49 Acquired absence of other specified parts of digestive tract; Z87.891 Personal history of nicotine dependence
CPT/HCPCS: 36415; 71045; 73502; 73700; 80048; 81003; 83735; 85025; 85610; 85730; 86850; 86900; 86901; 93005; 96374; 96376; 97110; 97116; 97162; 97166; 97530; 97535; 99285; J0690; A9270; C1713; C1776; G0378; J0166; J1100; J1171; J1650; J1885; J2003; J2175; J2270; J2371; J2405; J2704; J2795; J3010; J7120

== ENCOUNTER 2024-10-25 04:05 | Emergency (ER) | payer OTHER, SELFPAY ==
--- NOTE | ~2024-10-25 | CT_ITS ---
EXAMINATION: CT lumbar spine wo con DATE: 10/25/2024 04:44 INDICATION: Status post fall. Low back pain. TECHNIQUE: Computed tomography (CT) of the lumbar spine was performed without intravenous contrast. The dose-length product was 1149.11 mGy-cm. Automated exposure control and iterative reconstruction technique were employed. COMPARISON: Lumbar spine series dated 08/19/2022 FINDINGS: There is a burst fracture of L2 with retropulsion into the canal approximately 4 mm. There is moderate spinal stenosis at L3-4. No focal lytic or blastic lesions. There is disc narrowing at L4-5 and L5-S1. There is mild age indeterminate superior endplate compression fracture of T11 and T12. These fractures are age-indeterminate, although new compared with prior lumbar spine series dated 08/19/2022. There is a 3.7 cm abdominal aortic aneurysm. IMPRESSION: 1. L2 burst fracture with posterior retropulsion 4 mm into the spinal canal creating moderate spinal stenosis. 2: Age-indeterminate mild superior endplate compression fractures of T11 and T12. Consider correlation with MRI. 3: Infrarenal abdominal aortic aneurysm measuring 3.7 cm. Reviewed, dictated and finalized at location O. IMPRESSION: 1. L2 burst fracture with posterior retropulsion 4 mm into the spinal canal cre ating moderate spinal stenosis. 2: Age-indeterminate mild superior endplate compression fractures of T11 and T1 2. Consider correlation with MRI. 3: Infrarenal abdominal aortic aneurysm measuring 3.7 cm.
[2024-10-25 04:13] VITALS: BP 119/59; PULSE 94; RESP 22; TEMP 36.8; O2SAT 94
--- NOTE | 2024-10-25 04:19 | ED_ITS ---
HPI - Back Pain/Injury General Chief Complaint: Fall Stated Complaint: FELL BACKWARDS, LOW BACK PAIN Time Seen by Provider: 10/25/24 04:12 History of Present Illness HPI Narrative: Patient is a 69-year-old male who presents emergency department this morning from [facility] post a ground level fall. Patient was trying to transfer himself last his balance and fell backwards hitting his lumbar spine on the ground. Patient denies hitting his head and denies any loss of cons ciousness. No blood thinner use. Denies any additional symptoms or concerns at this time. Related Data Home Medications ?Medication ?Instructions ?Recorded ?Confirmed ?Last Taken ?Type multivit with minerals-iron 18 1 tablet PO DAILY 01/1809/17/24 09/17/24 History mg-folic ac 400 mcg-vit K 25 mcg tablet (Adults Multivitamin) olanzapine 5 mg disintegrating 25 mg PO QPM 01/25/24 0 09/17/24 09/16/24 History tablet trazodone 100 mg tablet 300 mg PO HS 01/25/2409/16/24 History atorvastatin 40 mg tablet 40 mg PO HS 09/17/24 5 09/16/24 History lorazepam 1 mg tablet 1 mg PO HS 09/17/24 09/17/24 09/16/24 History ramelteon 8 mg tablet 8 mg PO HS 09/17/24 09/17/24 09/16/24 History triamcinolone acetonide 0.1 % 1 applic topical BID PRN itching 09/17/24 09/17/24 Unknown History topical cream Allergies Allergy/AdvReac Type Severity Reaction Status Date / Time pollen extracts Allergy Unknown sinus Verified 10/25/24 04:48 drainage Review of Systems Review of Systems: All systems are reviewed and are negative unless stated otherwise in the HPI. [facility] Past Medical History Medical History Osteoarthritis Anxiety BPH associated with nocturia Aortic aneurysm 4.4 cm Infrarenal AAA on CT scan. Dr. Elias Follows him. Bipolar 1 disorder History of nicotine use Depression Seizure Hepatitis A in 1975 Gonorrhea Hyperlipidemia GERD (gastroesophageal reflux disease) Surgical History Surgical History History of AAA (abdominal aortic aneurysm) repair previously 4.4cm infrarenal and followed by Dr Elias H/O wisdom tooth extraction History of appendectomy Hx of tonsillectomy Family History Family History Father Seizure Mother Cancer Sibling COPD (chronic obstructive pulmonary disease) Cancer Social History Social History Social History: 1 dog in the home Worked for the [employer] Smoking packs per day: 1 Smoking cigarettes per day: 20.0 Years smoked: 20 Smoking pack-years: 20.00 Smoking status: Former smoker Second hand tobacco smoke exposure: Yes Additional smoking assessment comments: pt states he quit when he was 26 and again in his 50s Alcohol intake: never Substance use: never Substance use type: does not use Do You Feel Safe in your Home?: Yes Lack of Transportation: No Lack of Food: Never True Current Housing: I Have Housing Concerned About Future Housing: No Difficulty Paying Gas/Electric Bills: No Difficulty Paying for Meds: No Currently Unemployed: No Education: Associate Degree Difficulty w/ Childcare or Family Care: No Living arrangements: with family Additional living arrangements comments: lives with , daughter and his 3 grandchildren Occupation/Education: retired Gender identity (if verbalized by the patient): Male Spiritual care concerns: No Exam Narrative: General: Alert, awake, afebrile, in no acute distress. HEENT: PERRL, no rhinorrhea, no post nasal drip, oropharynx clear. Neck: Trachea midline, no JVD, no lymphadenopathy. Cardiovascular: Regular rate and rhythm, no murmurs, rubs or gallops, no peripheral edema. Respiratory: Clear to auscultation bilaterally, no tachypnea, no wheezing, no rhonchi, no rubs, no respiratory distress. Abdomen: Soft, nontender, nondistended, no rebound, no guarding, no peritoneal signs. Musculoskeletal: No joint swelling or deformity, normal muscle tone, intact bilateral hip flexions and knee extension. Back: No midline tenderness to palpation over the cervical or thoracic spine, tenderness palpation over the lumbar spine, no step-offs or deformities. Skin: No rashes or petechia, no signs of infection. Psychiatric: Alert and oriented, normal behavior and judgment for situation. Neurological: Alert and oriented to person, place, and time. Follows all commands. No focal deficits, speech is clear and fluent. Course Vital Signs Vital signs: Vital Signs Temperature 98.3 F 10/25/24 04:13 Pulse Rate 94 10/25/24 04:13 Respiratory Rate 22 H 10/25/24 04:13 Blood Pressure 119/59 L 10/25/24 04:13 Pulse Oximetry 94 10/25/24 04:13 Oxygen Delivery Room Air 10/25/24 04:13 Temperature 98.3 F 10/25/24 04:13 Pulse Rate 94 10/25/24 04:13 Respiratory Rate 22 H 10/25/24 04:13 Blood Pressure 119/59 L 10/25/24 04:13 Pulse Oximetry 94 10/25/24 04:13 Oxygen Delivery Room Air 10/25/24 04:13 MDM - Back Pain/Injury MDM Narrative Medical decision making narrative: The patient was evaluated by myself in the emergency department. History is obtained from patient who is an independent historian and physical exam was performed. External medical records were reviewed at this time. IV was established and pertinent tests were ordered. Patient was administered 2 mg of IV morphine, 4 mg IV Zofran and a Lidoderm patch. Imaging studies obtained included CT lumbar spine without IV contrast which was independently interpreted by me revealing and L2 vertebral body fracture involving the right pedicle, no significant canals narrowing at this level, questionable subtle superior endplate fracture of T 11 without involvement of the pedicle which is pending final radiology interpretation. Differential diagnosis considerations include fracture, herniated disc, musculoskeletal strain. Comorbidities impacting this visit include none. I have evaluated and discussed social determinants of health with the patient that could potentially impact subsequent diagnosis and treatment plans. On repeat assessment of the patient, reevaluation revealed that the patient is doing well and is in no acute distress. Patient symptoms have improved since he arrived to our emergency department. Repeat vital signs were all reviewed and noted to be stable. Differential diagnosis and treatment plan were discussed with the patient at bedside. Patient agrees with discussion and after shared medical decision making agrees with discharge. All questions were answered to the patient's satisfaction. Patient will follow up with Neurosurgery in 3-5 days. [employer] form for TLSO brace was filled out at this time and faxed to [employer]. Patient was informed that he will be notified by them regarding getting fitted for a TLSO brace. Script for Qu[place]aw sent to patient's pharmacy to use as needed for pain. Patient was provided with strict return precautions and instructed to return to the emergency department if any new or worsening symptoms develop. The patient was discharged in stable condition. Discharge Plan Discharge Clinical Impression: Closed L2 vertebral fracture, Closed T12 fracture, Fall from ground level Patient Disposition: SNF Condition: Improved Instructions: Vertebral Compression Fracture (ED) Additional Instructions: Please follow-up with neurosurgeon you were provided with today within the next 3-5 days. You will be contacted by [employer] regarding feeding you for a TLSO brace. Take prescribed pain medication as needed for pain. Return to the ED if any new or worsening symptoms develop. Patient Language: Czech Prescriptions: New hydrocodone-acetaminophen 5-325 mg tablet 1 tablet PO Q8H PRN (Reason: pain) Qty: 10 0RF lidocaine [Lidoderm] 5 % adhesive patch,medicated 1 patch topical DAILY PRN (Reason: pain) Qty: 15 0RF Rx Instructions: leave on most painful area for up to 12 hrs No Action trazodone 100 mg tablet 300 mg PO HS olanzapine 5 mg tablet,disintegrating 25 mg PO QPM lorazepam 1 mg tablet 1 mg PO HS ramelteon 8 mg tablet 8 mg PO HS atorvastatin 40 mg tablet 40 mg PO HS triamcinolone acetonide 0.1 % cream 1 applic topical BID PRN (Reason: itching) Rx Instructions: on feet sennosides-docusate sodium [Senokot-S] 8.6-50 mg Tablet 2 tab-cap PO BID Qty: 60 0RF acetaminophen 500 mg Tablet 1,000 mg PO 06,12,18 Qty: 60 0RF pantoprazole 40 mg Tablet,Delayed Release (Dr/Ec) 40 mg PO QAM Qty: 30 0RF docusate sodium 100 mg Capsule 100 mg PO Q12H PRN (Reason: Constipation) Qty: 30 0RF methocarbamol 500 mg Tablet 500 mg PO Q12HR 60 Days Qty: 120 0RF aspirin [Adult Aspirin Regimen] 81 mg tablet,delayed release (DR/EC) 81 mg PO BID Qty: 60 0RF oxycodone 5 mg tablet 5 mg PO Q6H PRN (Reason: pain) Qty: 10 0RF Adults Multivitamin 18 mg iron-400 mcg-25 mcg Tablet 1 tablet PO DAILY Follow-up/Referrals: Karen Goodwin MD [Physician, Neurosurgery] - 3 Days Time of Disposition: 05:27
[2024-10-25] MEDS: MORPHINE SULFATE (*CRX) 2 MG/ML INJ IV PUSH (04:48)
[2024-10-25] MEDS: ONDANSETRON INJ 4 MG/2 ML VIAL IV PUSH (04:48)
[2024-10-25] MEDS: LIDOCAINE 5% PATCH 1 PATCH TRANSDERM (04:49)
--- OUTSIDE RECORDS SUMMARY | 2024-10-25 04:50 | XMS_ITS | Patient Health Record ---
Author Organization [facility] [employer] Address [address] [facility] [address] [place] [address] Care Team Providers Care Psychiatric Clinical Nurse Specialist Name Role Phone Vania Arthur Unavailable [phone] Reason For Referral No Information Medications Medication SIG (Take, Route, Frequency, Duration) Notes Start Date End Date Status Haloperidol 10 MG Tablet Oral Active QUEtiapine Fumarate 100 MG Tablet Oral Active Qvyhd-0-zuff Ethyl Esters 1 GM Capsule Oral Active Erythromycin 5 MG/GM Ointment Ophthalmic Active QUEtiapine Fumarate 300 MG Tablet Oral Active Cephalexin 500 MG Capsule Oral Active Clobetasol Propionate 0.05 % Ointment External Active ALPRAZolam 0.25 MG Tablet Oral Active HYDROcodone-Acetamino phen 5-300 MG Tablet Oral Active BinaxNOW COVID-19 Ag Card Kit In Vitro *Reorder from [employer] for eRx and Interaction Alerts* Active QUEtiapine Fumarate 200 MG Tablet Oral Active Atorvastatin Calcium 40 MG Tablet Oral Active Temazepam 30 MG Capsule Oral Active Lurasidone HCl 20 MG Tablet Oral Active Sertraline HCl 50 MG Tablet Oral Active Haloperidol 5 MG Tablet Oral Active Sertraline HCl 25 MG Tablet Oral Active Zaleplon 10 mg Capsule Oral Active Vascepa 1 GM Capsule Oral Active Myrbetriq 25 MG Tablet Extended Release 24 Hour Oral Active Plan Of Treatment No Information Insurance Providers Payer Name Payer Address Payer Phone Subscriber Number Group Number Insured Name Patient Relationship to Insured Coverage Start Date Coverage End Date [employer] Medicare Replacement/ Advantage - Hmo [address] [place] [phone] [id number] QUAN BRIGHT Self - patient is the insured
--- OUTSIDE RECORDS SUMMARY | 2024-10-25 04:50 | XMS_ITS | Clinical Summary ---
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
--- OUTSIDE RECORDS SUMMARY | 2024-10-25 04:50 | XMS_ITS | Clinical Summary ---
Author Organization [facility] Address [address] [place] [address] Care Team Providers Care Electrician Third Name Role Phone Poncho Vital MD Unavailable Mello Lau MD Unavailable [phone] Brett Flores DO Primary Care Provider [phone] Iam June MD Unavailable [phone] Nadine Kennedy MD Unavailable Allergies Active Allergy [...] - Refer to memory diagnostic center at [facility] at discharge Assessment & Plan (10/29/2023 [...] - Refer to memory diagnostic center at [facility] at discharge Bipolar disorder, most recent [...] hour hold. Olanzapine serum dose still pending. Brightwaters level and BMP ordered for Wednesday evening before night time dose. Will continue to evaluate patient for clinical response and side effects - Olanzapine serum level ordered (drawn on 10/26 at 20:15 before nighttime dose) -- does not appear to have returned yet - Brightwaters 300mg BID - Cardiology confirmed no contraindication to starting Brightwaters with this patient in the setting of their EKG findings from 10/24 - Need a serum level and BMP after sufficient number of half lives (roughly 4 days from today, Wednesday evening before night time dose) - Zydis 20mg QHS - File 96 hour hold today 10/30 -- only change is consolidating Brightwaters in HS Dementia 09/20/2023 Assessment & Plan [...] scheduled tylenol) - Secondary to having begun Brightwaters therapy, added diclofenac PRN q6H as it [...] 05/11/2018 Assessment & Plan (02/03/2023 1:59 PM PERSONNEL SECURITY SPECIALIST): 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 Incision is healed. Ruba removed today. Bilateral femoral pulses are palpable [...] tomorrow. 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 [...] when patient refuses PO Hallucinations 09/15/2023 10/31/2023 Encounters Date Type Department Care Team Description 10/23/2024 Telephone [facility] Medicine Scheduling [id number] [phone] Pedro Reardon MD Scheduling Appointments from Last 3 Months Immunizations Immunization Administration Dates Next Due Influenza, [...] Arthritis Abdominal aortic aneurysm (AAA) Bipolar disorder Brain bleed from fall Hyperlipidemia GERD (gastroesophageal reflux disease) [...] drink = 0.6 oz pur e alcohol) [facility] Utilities Answer Date Recorded In the past 12 months has e electric, gas, oil, or water company threatened to shut off services in your [...] or ex-partner? No 10/06/2023 Social Connection and Isolation Panel Answer Date Recorded In a typical week, how many times do you talk on the phone with family, friends, or neighbors? More than three times a week 10/06/2023 How often do you get togethe r with friends or relatives? More than three times a week 10/06/2023 How often do you attend chur ch or moravian services? Never 10/06/2023 Do you belong to any clubs o r organizations such as holiness groups, unions, fraternal or athletic groups, or [...] Date Recorded PHQ-2 Total Score 0 09/15/2023 [facility] [place] of Occupat ional Health - Occupational Stress [...] place to sleep or slept in a chcf (including now)? No 11/17/2022 PHQ-9 Answer Date [...] any time in the past 12 m [facility], were you homeless or living in a chcf (including now)? No 10/06/2023 Personal Safety Answer [...] on file Legal Sex Male 3:07 PM PERSONNEL SECURITY SPECIALIST Gender Identity Male 02/17/2021 4:16 PM PERSONNEL SECURITY SPECIALIST Sexual Orientation Straight 02/17/2021 4: 16 PM PERSONNEL SECURITY SPECIALIST Occupation Industry Job Start Date Job End Date Retired - used to work for the [employer] Not on fi le Not on file [...] 108.9 kg (240 lb) 02/16/2024 1:51 PM PERSONNEL SECURITY SPECIALIST Height 184.9 cm (6' 0.8) 02/16/2024 1:51 PM PERSONNEL SECURITY SPECIALIST Body Mass Index 31.84 02/16/2024 1:51 PM PERSONNEL SECURITY SPECIALIST Plan of Treatment Health Maintenance Due Date [...] history exists Medical Devices Implanted Type Area Store Operations Associate Device Identifier Shelf Expiration Date Model / Serial / Lot [employer]Darg [id number] Hemashield Gold 24mm 30cm 2 Velour Straight Tube Knit Thorax - [id number] - [id number] Implanted:Qty: 1 on 11/16/2022 by Mello Lau MD at [facility] Graft N/A: Aorta [employer] 02/28/2027 [id number] / [id number] Procedures Procedure Name Priority Date/Time Associated Diagnosis Comments CTA ABDOMEN PELVIS W WO CONTRAST Schedule Routine, Read Routine (OP Routine) 01/11/2023 1:33 PM PERSONNEL SECURITY SPECIALIST Abdominal aortic aneurysm (AAA) without rupture, unspecified part Aftercare following surgery of the circulatory system from Last 3 Months or Most Recently Relevant to Health Maintenance Results * CTA Abdomen Pelvis (01/11/2023 1:33 PM PERSONNEL SECURITY SPECIALIST) Anatomical Region Laterality Modality Body N/A Computed Tomogra phy 01/11/2023 1:55 PM PERSONNEL SECURITY SPECIALIST Narrative 01/11/2023 2:08 PM PERSONNEL SECURITY SPECIALIST EXAM DESCRIPTION: CTA ABDOMEN PELVIS REASON FOR [...] Findings Committee. J Am Yissel Radiol. 2017 Sep;14(8):6486-7110. FINDINGS: VASCULATURE: On the noncontrast sequence, there [...] Angel Matt D.O. PS T: Report ID: [id number] Reading Location: [id number] Procedure Note Angel Matt, DO - 01/11/2023 [...] Findings Committee. J Am Yissel Radiol. 2017 Sep;14(8):2476-7780. FINDINGS: VASCULATURE: On the noncontrast sequence, there [...] previously measured up to 4.1 cm (axial [id number], coronal image 45, sagittal image 68). There [...] Angel Matt D.O. PS T: Report ID: [id number] Reading Location: [place] [address] Mello Lau MD IMG CT PROCEDURES Final Re sult from Last 3 Months or Most Recently Relevant to Health Maintenance Insurance [facility] Member Subscriber Plan / Payer ( fective 2017-Present) Name:Juan Daugherty Relation to Subscriber:Self Name:Juan Daugherty Payer ID:[id number] ([facility]) Type:MEDICARE RISK OTHER Address: [address] Advance Directives For more information, please contact: [phone] * Full Code (Latest Code Status on File) Date Activated Date Inactivated Comments 11/15/2023 5:06 AM 11/15/2023 8:50 PM * Full Code Date Activated Date Inactivated Comments 10/05/2023 6:22 PM 11/05/2023 8:48 PM * Full Code Date Activated Date Inactivated Comments 09/15/2023 10:16 PM 09/20/2023 9:01 PM * Full Code Date Activated Date Inactivated Comments 11/16/2022 3:11 PM 11/24/2022 6:26 PM Care Teams Electrician Third Relationship Specialty Start Date End Date Brett Flores DO [address] [facility] [address] [place] [address] PCP - General Family Medicine 04/09/22 Poncho Vital MD [address] [place] [address] Internal Medicine 08/02/18 Mello Lau MD [address] [facility] [address] [facility] [address] [place] [address] Surgeon Vascular Surgery 03/13/22 Iam June MD [address] [facility] [address] [place] [address] Consulting Physician Cardiology 11/06/22 Nadine Kennedy MD [address] [facility] [address] [place] [address] Consulting Physician Pain Management 08/23/23
--- OUTSIDE RECORDS SUMMARY | 2024-10-25 04:50 | XMS_ITS | Encounter Summary ---
Author Organization [facility] Address [address] [place] [address] Care Team Providers Care Consumer Marketing Analyst Name Role Phone Dutch Deluca DO Primary Care Provider [phone] Natalee Paris MD Primary Care Provider [phone] Brett Flores DO Primary Care Provider [phone] Encounter Details Date Type Department Care Team (Late st Contact Info) Description 01/13/2022 Ophth Exam [facility] [address] [place] [address] Abdias Mccarthy MD [address] [facility] [place] [place] [address] Social History Tobacco Use Types Packs/Day Years Used Date Smoking Tobacco: Never Assessed Sex and Gender Information Value Date Recorded Sex Assigned at Not on file Legal Sex Male 4:47 PM FINISHER [employer] Gender Identity Not on file Sexual Orientation Not on file documented as of this encounter Plan of Treatment Not on file documented as of this encounter Visit Diagnoses Not on filedocumented in this encounter Care Teams Consumer Marketing Analyst Relationship Specialty Start Date End Date Dutch Deluca DO [address] [place] [address] PCP - General 11/29/22 1/4/23 Ntaalee Paris MD [address] [place] [address] PCP - General 03/05/22 04/22/22 Brett Flores DO [address] [place] [phone] PCP - General 04/23/22 documented as of this encounter
[2024-10-25 06:32] VITALS: BP 115/70; PULSE 83; RESP 20; O2SAT 93
[2024-10-25 06:33] VITALS: PULSE 82; RESP 20; O2SAT 92
== END 2024-10-25 06:59 ==
PROVIDERS: Emergency Provider Emergency Medicine; PCP Internal Medicine
DX: S32.029A Unspecified fracture of second lumbar vertebra, initial encounter for closed fracture (principal); S22.089A Unspecified fracture of T11-T12 vertebra, initial encounter for closed fracture; M19.90 Unspecified osteoarthritis, unspecified site; F41.9 Anxiety disorder, unspecified; F32.A Depression, unspecified; K21.9 Gastro-esophageal reflux disease without esophagitis; E78.5 Hyperlipidemia, unspecified; W01.0XXA Fall on same level from slipping, tripping and stumbling without subsequent striking against object, initial encounter
CPT/HCPCS: 72131; 96374; 96375; 99284; A9270; J2270; J2405

== ENCOUNTER 2024-10-27 19:35 | Emergency (ER) | payer OTHER, MEDICAID, SELFPAY ==
[2024-10-27 19:36] VITALS: BP 154/76; PULSE 87; RESP 16; TEMP 36.9; O2SAT 93
--- OUTSIDE RECORDS SUMMARY | 2024-10-27 19:36 | XMS_ITS | Clinical Summary ---
Author Organization [facility] Address [address] [place] [address] Care Team Providers Care Satellite Tv Installer Name Role Phone Poncho Vital MD Unavailable Mello Lau MD Unavailable [phone] Brett Flores DO Primary Care Provider [phone] Iam June MD Unavailable + [phone] Nadine Kennedy MD Unavailable Allergies Active Allergy [...] Refer to memory diagnostic center at [facility] at discharge Assessment & Plan [...] Refer to memory diagnostic center at [facility] at discharge Bipolar disorder, most [...] hour hold. Olanzapine serum dose still pending. [place] level and BMP ordered for Wednesday evening before night time dose. Will continue to evaluate patient for clinical response and side effects - Olanzapine serum level ordered (drawn on 10/26 at 20:15 before nighttime dose) -- does not appear to have returned yet - [place] 300mg BID - Cardiology confirmed no contraindication to starting [place] with this patient in the setting of their EKG findings from 10/24 - Need a serum level and BMP after sufficient number of half lives (roughly 4 days from today, Wednesday evening before night time dose) - Zydis 20mg QHS - File 96 hour hold today 10/30 -- only change is consolidating [place] in HS Dementia 09/20/2023 Assessment & Plan [...] scheduled tylenol) - Secondary to having begun [place] therapy, added diclofenac PRN q6H as it [...] 05/11/2018 Assessment & Plan (02/03/2023 1:59 PM INFORMATION SECURITY RISK ANALYST): juxtarenal abdominal aortic aneurism status post open [...] tomorrow. 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 Never 10/06/2023 Do you belong to any clubs o r organizations such as samaritan groups, unions, fraternal or athletic groups, or [...] Date Recorded PHQ-2 Total Score 0 09/15/2023 [facility] [place] of Occupat ional Health - Occupational Stress [...] place to sleep or slept in a snf (including now)? No 11/17/2022 PHQ-9 Answer Date [...] any time in the past 12 m [facility], were you homeless or living in a snf (including now)? No 10/06/2023 Personal Safety Answer [...] on file Legal Sex Male 3:07 PM INFORMATION SECURITY RISK ANALYST Gender Identity Male 02/17/2021 4:16 PM INFORMATION SECURITY RISK ANALYST Sexual Orientation Straight 02/17/2021 4: 16 PM INFORMATION SECURITY RISK ANALYST Occupation Industry Job Start Date Job End Date Retired - used to work for the [employer] Not on fi le Not on file [...] 108.9 kg (240 lb) 02/16/2024 1:51 PM INFORMATION SECURITY RISK ANALYST Height 184.9 cm (6' 0.8) 02/16/2024 1:51 PM INFORMATION SECURITY RISK ANALYST Body Mass Index 31.84 02/16/2024 1:51 PM INFORMATION SECURITY RISK ANALYST Plan of Treatment Health Maintenance Due [...] history exists Medical Devices Implanted Type Area Radiosonde Specialist Device Identifier Shelf Expiration Date Model / Serial / Lot Aloompa [id number] Hemashield Gold 24mm 30cm 2 Velour Straight Tube Knit Thorax - [id number] - [id number] Implanted:Qty: 1 on 11/16/2022 by Mello Lau MD at [facility] Graft N/A: Aorta [employer] 02/28/2027 [id number] / [id number] Procedures Procedure Name Priority Date/Time Associated Diagnosis Comments CTA ABDOMEN PELVIS W WO CONTRAST Schedule Routine, Read Routine (OP Routine) 01/11/2023 1:33 PM INFORMATION SECURITY RISK ANALYST Abdominal aortic aneurysm (AAA) without rupture, unspecified part Aftercare following surgery of the circulatory system from Last 3 Months or Most Recently Relevant to Health Maintenance Results * CTA Abdomen Pelvis (01/11/2023 1:33 PM INFORMATION SECURITY RISK ANALYST) Anatomical Region Laterality Modality Body N/A Computed Tomogra phy 01/11/2023 1:55 PM INFORMATION SECURITY RISK ANALYST Narrative 01/11/2023 2:08 PM INFORMATION SECURITY RISK ANALYST EXAM DESCRIPTION: CTA ABDOMEN PELVIS REASON FOR [...] Findings Committee. J Am Yissel Radiol. 2017 Sep;14(8):6320-6896. FINDINGS: VASCULATURE: On the noncontrast sequence, there [...] Angel Matt D.O. PS T: Report ID: [id number] Reading Location: [id number] Procedure Note Angel Matt, DO - 01/11/2023 [...] Findings Committee. J Am Yissel Radiol. 2017 Sep;14(8):2594-5091. FINDINGS: VASCULATURE: On the noncontrast sequence, there [...] previously measured up to 4.1 cm (axial ribam510, coronal image 45, sagittal image 68). There [...] Angel Matt D.O. PS T: Report ID: [id number] Reading Location: [place] [address] Mello Lau MD IMG CT PROCEDURES Final Re sult from Last 3 Months or Most Recently Relevant to Health Maintenance Insurance [facility] Member Subscriber Plan / Payer ( fective 2017-Present) Name:Juan Daugherty Relation to Subscriber:Self Name:Juan Daugherty Payer ID:[id number] ([employer]) Type:MEDICARE RISK OTHER Address: [address] Advance Directives For more information, please contact: [phone] * Full Code (Latest Code Status on File) Date Activated Date Inactivated Comments 11/15/2023 5:06 AM 11/15/2023 8:50 PM * Full Code Date Activated Date Inactivated Comments 10/05/2023 6:22 PM 11/05/2023 8:48 PM * Full Code Date Activated Date Inactivated Comments 09/15/2023 10:16 PM 09/20/2023 9:01 PM * Full Code Date Activated Date Inactivated Comments 11/16/2022 3:11 PM 11/24/2022 6:26 PM Care Teams Satellite Tv Installer Relationship Specialty Start Date End Date Brett Flores DO [address] [place] [address] PCP - General Family Medicine 04/09/22 Poncho Vital MD [address] [place] [address] Internal Medicine 08/02/18 Mello Lau MD [address] [facility] [address] [place] [address] Surgeon Vascular Surgery 03/13/22 Iam June MD [address] [place] [address] Consulting Physician Cardiology 11/06/22 Nadine Kennedy MD [address] [facility], [facility] [address] [place] [address] Consulting Physician Pain Management 08/23/23
--- OUTSIDE RECORDS SUMMARY | 2024-10-27 19:36 | XMS_ITS | Clinical Summary ---
Author Organization [facility] Address [address] [place] [address] Care Team Providers Care Cosmetology Instructor Name Role Phone None, Provider MD Primary [...] Bipolar disorder, most recen t episode manic ([facility]HCC [facility]) 10/05/2023 Dementia 09/20/2023 Benign prostatic hyperplasia 09/16/2023 Hyperlipidemia 09/16/2023 Tobacco use disorder 09/16/2023 Closed compression fracture of L2 lumbar vertebr a, sequela 03/26/2023 Moderate malnutrition ([facility]/HCC) 11/23/2022 Hemorrhagic stroke ([facility]) 10/28/2022 Closed wedge compression fra cture of second lumbar vertebra ([facility]) 10/07/2022 Closed fracture of left orbital floor, [...] Comments Blood Pressure 127/79 04/07/2024 12:52 PM HEALTH POLICY MANAGER Pulse 80 04/07/2024 12:52 PM HEALTH POLICY MANAGER Temperature 36.3 C (97.4 F) 04/07/2024 12:52 PM HEALTH POLICY MANAGER Respiratory Rate - - Oxygen Saturation 96% 04/07/2024 12: 52 PM HEALTH POLICY MANAGER Inhaled Oxygen Concentration - - Weight 109.5 kg (241 lb 6.4 oz) 025 12:52 PM HEALTH POLICY MANAGER Height 190.5 cm (6' 3) 04/07/2024 12:5 2 PM HEALTH POLICY MANAGER Body Mass Index 30.17 04/07/2024 12:52 PM HEALTH POLICY MANAGER Plan of Treatment Health Maintenance Due Date [...] or 60+ Years Completed 03/10/2023 PHQ-2 (Physician [place]) Completed 04/07/2024 Meningococcal B Vaccine Aged Out No l onger eligible based on patient's age to complete this topic Meningococcal Vaccine Aged Out No ashley raheel eligible based on patient's age to complete this topic RSV Immunizations Under 20 Months Aged Out No longer eligible b ased on patient's age to complete this topic Insurance [employer] Care Teams Cosmetology Instructor Relationship Specialty Start Date End Date None, Provider, MD PCP - General UNKNOWN PHYSICIAN SPECIALTY 01/05/24
--- OUTSIDE RECORDS SUMMARY | 2024-10-27 19:36 | XMS_ITS | Encounter Summary ---
Author Organization [facility] Address [address] [place] [address] Care Team Providers Care Sewing Trimmer Name Role Phone Dutch Deluca DO Primary Care Provider [phone] Natalee Paris MD Primary Care Provider [phone] Brett Flores DO Primary Care Provider Encounter Details Date Type Department Care Team (Late st Contact Info) Description 01/13/2022 Ophth Exam [facility] [address] [place] [address] Abdias Mccarthy MD [address] [facility] [place] [id number] Social History Tobacco Use Types Packs/Day Years Used Date Smoking Tobacco: Never Assessed Sex and Gender Information Value Date Recorded Sex Assigned at Not on file Legal Sex Male 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
--- OUTSIDE RECORDS SUMMARY | 2024-10-27 19:36 | XMS_ITS | Patient Health Record ---
Author Organization [facility] Address [address] [facility] [address] [place] [address] Care Team Providers Care Pharmacist Apprentice Name Role Phone Vania Arthur Unavailable [phone] Reason For Referral No Information Medications Medication SIG (Take, Route, Frequency, Duration) Notes Start Date End Date Status Haloperidol 10 MG Tablet Oral Active QUEtiapine Fumarate 100 MG Tablet Oral Active Gbuxa-4-mqny Ethyl Esters 1 GM Capsule Oral Active Erythromycin 5 MG/GM Ointment Ophthalmic Active QUEtiapine Fumarate 300 MG Tablet Oral Active Cephalexin 500 MG Capsule Oral Active Clobetasol Propionate 0.05 % Ointment External Active ALPRAZolam 0.25 MG Tablet Oral Active HYDROcodone-Acetamino phen 5-300 MG Tablet Oral Active BinaxNOW COVID-19 Ag Card Kit In Vitro *Reorder from emaze for eRx and Interaction Alerts* Active QUEtiapine [...] Advantage - Hmo [address] [place] [address] [id number] 1 QUAN BRIGHT Self - patient is the insured
--- OUTSIDE RECORDS SUMMARY | 2024-10-27 19:36 | XMS_ITS | Clinical Summary ---
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
[2024-10-27 22:38] VITALS: BP 140/77; PULSE 92; RESP 18; O2SAT 94
[2024-10-28 00:44] VITALS: BP 130/84; PULSE 96; RESP 17; TEMP 36.7; O2SAT 97
--- OUTSIDE RECORDS SUMMARY | 2024-10-28 01:07 | XMS_ITS | Clinical Summary ---
Author Organization [facility] Address [address] [facility] [place] [address] Care Team Providers Care Head Usher Name Role Phone Brett Flores Primary Care Provider [phone] Source Comments [facility],non-owned Affiliates and Associated Physician Practices is amultiple site organization consisting of ambulatory clinics and hospital sitesin [place], [place], [place] and [place]. This disclosure is being madepursuant to the Care Everywhere program and may not contain all information available regarding this patient. Last updated 17.[facility] Allergies Active Allergy Reactions Criticality Noted Date [...] by mouth 2 times daily 2 Active byleo-3-xxii ethyl esters (Lovaza) 1 g capsule Take [...] on file Legal Sex Male 4:47 PM DROP WIRE BUILDER Gender Identity Not on file Sexual Orientation Not on file Last Filed Vital Signs Vital Sign Reading Time Taken Comments Blood Pressure 122/71 05/06/2022 8:25 AM DROP WIRE BUILDER Pulse 93 05/06/2022 8:25 AM DROP WIRE BUILDER Temperature 36.7 C (98.1 F) 05/06/2022 8:25 AM DROP WIRE BUILDER Respiratory Rate 20 01/14/2022 4:38 PM DROP WIRE BUILDER Oxygen Saturation 96% 05/06/2022 8:25 AM DROP WIRE BUILDER Inhaled Oxygen Concentration - - Weight 105.7 kg (233 lb) 05/06/2022 8:25 AM DROP WIRE BUILDER Height 190.5 cm (6' 3) 05/06/2022 8:25 AM DROP WIRE BUILDER Body Mass Index 29.12 05/06/2022 8:25 AM DROP WIRE BUILDER Plan of Treatment Health Maintenance Due Date [...] PANEL (CALCIUM TOTAL) STAT 01/14/2022 5:38 AM DROP WIRE BUILDER from Last 3 Months or Most Recently Relevant to Health Maintenance Results * (ABNORMAL) BASIC METABOLIC PANEL (CALCIUM TOTAL) (01/14/2022 5:38 AM DROP WIRE BUILDER) Pathologist [facility] BUN 11 mg/dL 01/14/2022 6:11 AM [facility] Creatinine 0.97 0.71 - 1.16 mg/dL 01/14/2022 6:11 AM [facility] Sodium 140 136 - 145 mmol/L 01/14/2022 6:11 AM [facility] Potassium 3.7 3.5 - 4.5 mmol/L 01/14/2022 6:11 AM [facility] Chloride 107 98 - 107 mmol/L 01/14/2022 6:11 AM [facility] CO2 23 22 - 29 mmol/L 01/14/2022 6:11 AM [facility] Glucose 101 70 - 115 mg/dL 01/14/2022 6:11 AM [facility] Calcium 9.2 8.4 - 10.2 mg/dL 01/14/2022 6:11 AM [facility] Anion Gap 14 8 - 18 01/14/2022 6:11 AM [facility] BUN/Creatinine Ratio 11 7 - 23 01/14/2022 6:11 AM [facility] Osmolality Calculated 290 270 - 300 mOsm/kg 01/14/2022 6:11 AM [facility] eGFR by CKD-EPI 85(L) >=90 mL/min/1.7 3 m2 01/14/2022 6:11 AM [facility] Blood BLOOD SPECIMEN / Unknown Venipuncture / Unknown 01/14/2022 5:38 AM DROP WIRE BUILDER 01/14/2022 5:43 AM [facility] us Shahbaz Dumont MD LAB - CHEMISTRY ORDERABLES Fin al Result [facility] [address] [place] [address], [facility] [phone] from Last 3 Months or Most Recently Relevant to Health Maintenance Insurance [facility] MEDICARE [facility] MEDICARE Advance Directives * Full Code (Latest Code Status on File) Date Activated Date Inactivated Comments 01/13/2022 10:08 PM 01/14/2022 8:59 PM Care Teams Head Usher Relationship Specialty Start Date End Date Brett Flores DO [address] [place] [phone] PCP - General 04/23/22
--- OUTSIDE RECORDS SUMMARY | 2024-10-28 01:07 | XMS_ITS | Clinical Summary ---
Author Organization [facility] Address [address] [place] [address] Care Team Providers Care Head Control Clerk Name Role Phone Poncho Vital MD Unavailable Mello Lau MD Unavailable [phone] Brett Flores DO Primary Care Provider [phone] Iam June MD Unavailable [phone] Nadine Kennedy MD Unavailable Allergies Active Allergy [...] - Refer to memory diagnostic center at [facility] at discharge Assessment & Plan (10/29/2023 [...] - Refer to memory diagnostic center at [facility] at discharge Bipolar disorder, most recent [...] hour hold. Olanzapine serum dose still pending. [place] level and BMP ordered for Wednesday evening before night time dose. Will continue to evaluate patient for clinical response and side effects - Olanzapine serum level ordered (drawn on 10/26 at 20:15 before nighttime dose) -- does not appear to have returned yet - [place] 300mg BID - Cardiology confirmed no contraindication to starting [place] with this patient in the setting of their EKG findings from 10/24 - Need a serum level and BMP after sufficient number of half lives (roughly 4 days from today, Wednesday evening before night time dose) - Zydis 20mg QHS - File 96 hour hold today 10/30 -- only change is consolidating [place] in HS Dementia 09/20/2023 Assessment & Plan [...] scheduled tylenol) - Secondary to having begun [place] therapy, added diclofenac PRN q6H as it [...] 05/11/2018 Assessment & Plan (02/03/2023 1:59 PM COMMAND AND CONTROL SYSTEMS INTEGRATOR): juxtarenal abdominal aortic aneurism status post open [...] tomorrow. 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 Never 10/06/2023 Do you belong to any clubs o r organizations such as jew groups, unions, fraternal or athletic groups, or [...] Date Recorded PHQ-2 Total Score 0 09/15/2023 [facility] of Occupat ional Health - Occupational Stress [...] place to sleep or slept in a care home (including now)? No 11/17/2022 PHQ-9 Answer Date [...] any time in the past 12 m [facility], were you homeless or living in a care home (including now)? No 10/06/2023 Personal Safety Answer [...] on file Legal Sex Male 3:07 PM COMMAND AND CONTROL SYSTEMS INTEGRATOR Gender Identity Male 02/17/2021 4:16 PM COMMAND AND CONTROL SYSTEMS INTEGRATOR Sexual Orientation Straight 02/17/2021 4: 16 PM COMMAND AND CONTROL SYSTEMS INTEGRATOR Occupation Industry Job Start Date Job End Date Retired - used to work for the [employer] Not on fi le Not on file [...] 108.9 kg (240 lb) 02/16/2024 1:51 PM COMMAND AND CONTROL SYSTEMS INTEGRATOR Height 184.9 cm (6' 0.8) 02/16/2024 1:51 PM COMMAND AND CONTROL SYSTEMS INTEGRATOR Body Mass Index 31.84 02/16/2024 1:51 PM COMMAND AND CONTROL SYSTEMS INTEGRATOR Plan of Treatment Health Maintenance Due Date [...] history exists Medical Devices Implanted Type Area Turf Grower Device Identifier Shelf Expiration Date Model / Serial / Lot [place] [id number] Hemashield Gold 24mm 30cm 2 Velour Straight Tube Knit Thorax - [id number] - [id number] Implanted:Qty: 1 on 11/16/2022 by Mello Lau MD at [facility] Graft N/A: Aorta [employer] 02/28/2027 [id number] / [id number] Procedures Procedure Name Priority Date/Time Associated Diagnosis Comments CTA ABDOMEN PELVIS W WO CONTRAST Schedule Routine, Read Routine (OP Routine) 01/11/2023 1:33 PM COMMAND AND CONTROL SYSTEMS INTEGRATOR Abdominal aortic aneurysm (AAA) without rupture, unspecified part Aftercare following surgery of the circulatory system from Last 3 Months or Most Recently Relevant to Health Maintenance Results * CTA Abdomen Pelvis (01/11/2023 1:33 PM COMMAND AND CONTROL SYSTEMS INTEGRATOR) Anatomical Region Laterality Modality Body N/A Computed Tomogra phy 01/11/2023 1:55 PM COMMAND AND CONTROL SYSTEMS INTEGRATOR Narrative 01/11/2023 2:08 PM COMMAND AND CONTROL SYSTEMS INTEGRATOR EXAM DESCRIPTION: CTA ABDOMEN PELVIS REASON FOR [...] Findings Committee. J Am Yissel Radiol. 2017 Sep;14(8):[id number]. FINDINGS: VASCULATURE: On the noncontrast sequence, there [...] Angel Matt D.O. PS T: Report ID: [id number] Reading Location: [id number] Procedure Note Angel Matt, DO - 01/11/2023 [...] Findings Committee. J Am Yissel Radiol. 2017 Sep;14(8):3335-4686. FINDINGS: VASCULATURE: On the noncontrast sequence, there [...] previously measured up to 4.1 cm (axial [id number], coronal image 45, sagittal image 68). There [...] Angel Matt D.O. PS T: Report ID: [id number] Reading Location: [place] [address] Mello Lau MD IMG CT PROCEDURES Final Re sult from Last 3 Months or Most Recently Relevant to Health Maintenance Insurance [facility] Member Subscriber Plan / Payer ( fective 2017-Present) Name:Juan Daugherty Relation to Subscriber:Self Name:Juan Daugherty Payer ID:[id number] ([facility]) Type:MEDICARE RISK OTHER Address: [address] Advance Directives For more information, please contact: [phone] * Full Code (Latest Code Status on File) Date Activated Date Inactivated Comments 11/15/2023 5:06 AM 11/15/2023 8:50 PM * Full Code Date Activated Date Inactivated Comments 10/05/2023 6:22 PM 11/05/2023 8:48 PM * Full Code Date Activated Date Inactivated Comments 09/15/2023 10:16 PM 09/20/2023 9:01 PM * Full Code Date Activated Date Inactivated Comments 11/16/2022 3:11 PM 11/24/2022 6:26 PM Care Teams Head Control Clerk Relationship Specialty Start Date End Date Brett Flores DO [address] [facility] [address] [place] [address] PCP - General Family Medicine 04/09/22 Poncho Vital MD [address] [place] [address] Internal Medicine 08/02/18 Mello Lau MD [address] [facility] [address] [facility] [address] [place] [address] Surgeon Vascular Surgery 03/13/22 Iam June MD [address] [facility] [address] [place] [address] Consulting Physician Cardiology 11/06/22 Nadine Kennedy MD [address] [facility], [facility] [address] [place] [address] Consulting Physician Pain Management 08/23/23
--- OUTSIDE RECORDS SUMMARY | 2024-10-28 01:07 | XMS_ITS | Encounter Summary ---
Author Organization [facility] Address [address] [facility] [place] [address] Care Team Providers Care Boarding Specialist Name Role Phone Dutch Deluca DO Primary Care Provider [phone] Natalee Paris MD Primary Care Provider [phone] Brett Flores DO Primary Care Provider [phone] Encounter Details Date Type Department Care Team (Late st Contact Info) Description 01/13/2022 Ophth Exam [facility] [address] [place] [address] Abdias Mccarthy MD [address] [facility] [place] [address] Social History Tobacco Use Types Packs/Day Years Used Date Smoking Tobacco: Never Assessed Sex and Gender Information Value Date Recorded Sex Assigned at Not on file Legal Sex Male 4:47 PM FORM TAMPER Gender Identity Not on file Sexual Orientation Not on file documented as of this encounter Plan of Treatment Not on file documented as of this encounter Visit Diagnoses Not on filedocumented in this encounter Care Teams Boarding Specialist Relationship Specialty Start Date End Date Dutch Deluca DO [address] [place] [address] PCP - General 11/29/22 1/4/23 Natalee Paris MD [address] [place] [phone] PCP - General 03/05/22 04/22/22 Brett Flores DO [address] [place] [address] PCP - General 04/23/22 documented as of this encounter
--- OUTSIDE RECORDS SUMMARY | 2024-10-28 01:07 | XMS_ITS | Clinical Summary ---
Author Organization [facility] Address [address], [address] [address] Phone Care Team Providers Care Lime Sludge Mixer Name Role Phone Jc Cazares MD Primary Care Provider [phone] Allergies No known active allergies Medications polyethylene [...] on file Legal Sex Male 1:28 PM PRODUCT EXPERT Gender Identity Not on file Sexual Orientation [...] Recently Relevant to Health Maintenance Care Teams Lime Sludge Mixer Relationship Specialty Start Date End Date Jc Cazares MD [address] [place] [address] PCP - General Family Medicine 04/12/17
--- OUTSIDE RECORDS SUMMARY | 2024-10-28 01:07 | XMS_ITS | Clinical Summary ---
Author Organization [facility] Address [address] [place] [address] Care Team Providers Care Script Reader Name Role Phone None, Provider MD Primary [...] Bipolar disorder, most recen t episode manic ([facility]/HCC [facility]) 10/05/2023 Dementia 09/20/2023 Benign prostatic hyperplasia 09/16/2023 Hyperlipidemia 09/16/2023 Tobacco use disorder 09/16/2023 Closed compression fracture of L2 lumbar vertebr a, sequela 03/26/2023 Moderate malnutrition ([facility]/HCC) 11/23/2022 Hemorrhagic stroke ([facility]) 10/28/2022 Closed wedge compression fra cture of second lumbar vertebra ([facility]) 10/07/2022 Closed fracture of left [...] Comments Blood Pressure 127/79 04/07/2024 12:52 PM INCLUSION SPECIALIST Pulse 80 04/07/2024 12:52 PM INCLUSION SPECIALIST Temperature 36.3 C (97.4 F) 04/07/2024 12:52 PM INCLUSION SPECIALIST Respiratory Rate - - Oxygen Saturation 96% 04/07/2024 12: 52 PM INCLUSION SPECIALIST Inhaled Oxygen Concentration - - Weight 109.5 kg (241 lb 6.4 oz) 025 12:52 PM INCLUSION SPECIALIST Height 190.5 cm (6' 3) 04/07/2024 12:5 2 PM INCLUSION SPECIALIST Body Mass Index 30.17 04/07/2024 12:52 PM INCLUSION SPECIALIST Plan of Treatment Health Maintenance Due [...] or 60+ Years Completed 03/10/2023 PHQ-2 (Physician Sanborn) Completed 04/07/2024 Meningococcal B Vaccine Aged Out No l onger eligible based on patient's age to complete this topic Meningococcal Vaccine Aged Out No ashley raheel eligible based on patient's age to complete this topic RSV Immunizations Under 20 Months Aged Out No longer eligible b ased on patient's age to complete this topic Insurance [employer] Care Teams Script Reader Relationship Specialty Start Date End Date None, Provider, MD PCP - General UNKNOWN PHYSICIAN SPECIALTY 01/05/24
--- OUTSIDE RECORDS SUMMARY | 2024-10-28 01:07 | XMS_ITS | Patient Health Record ---
Author Organization [facility] Address [address] [facility] [address] [place] [address] Care Team Providers Care Resaw Carriage Operator Name Role Phone Vania Arthur Unavailable [phone] Reason For Referral No Information Medications Medication SIG (Take, Route, Frequency, Duration) Notes Start Date End Date Status Haloperidol 10 MG Tablet Oral Active QUEtiapine Fumarate 100 MG Tablet Oral Active Llyfw-0-ccad Ethyl Esters 1 GM Capsule Oral Active Erythromycin 5 MG/GM Ointment Ophthalmic Active QUEtiapine Fumarate 300 MG Tablet Oral Active Cephalexin 500 MG Capsule Oral Active Clobetasol Propionate 0.05 % Ointment External Active ALPRAZolam 0.25 MG Tablet Oral Active HYDROcodone-Acetamino phen 5-300 MG Tablet Oral Active BinaxNOW COVID-19 Ag Card Kit In Vitro *Reorder from [employer] for eRx and Interaction Alerts* Active QUEtiapine [...] Replacement/ Advantage - [place] [address] [place] [phone] [id number] 1 QUAN BRIGHT Self - patient is the insured
[2024-10-28 01:08] VITALS: BP 130/84; PULSE 93; RESP 17; TEMP 36.7; O2SAT 97
--- NOTE | 2024-10-28 01:38 | ED.GENADULT ---
HPI - General Adult General Chief complaint: Back Pain/Injury Stated complaint: back pain Time Seen by Provider: 10/28/24 00:32 History of Present Illness HPI narrative: This is a 69-year-old male presenting ED with lower back pain. Patient was seen here a couple days ago and diagnosed with an L2 fracture. He is currently in rehab for a hip fracture. He is coming in case he has increased pain in his back. Patient says he has been using oxycodone with some relief. Patient does not have any lower extremity weakness bowel incontinence urinary retention. No numbness to his genitals. Patient appears have some dementia as he told me that he fell 1 month ago and has not seen a doctor for this yet. He also told me that he lives at home even though he is in rehab right now. Related Data Home Medications ?Medication ?Instructions ?Recorded ?Confirmed ?Last Taken ?Type multivit with minerals-iron 18 1 tablet PO DAILY 01/18/19 09/17/24 09/17/24 History mg-folic ac 400 mcg-vit K 25 mcg tablet (Adults Multivitamin) olanzapine 5 mg disintegrating 25 mg PO QPM 01/25/24 09/17/24 09/16/24 History tablet trazodone 100 mg tablet 300 mg PO HS 01/25/24 09/17/24 09/16/24 History atorvastatin 40 mg tablet 40 mg PO HS 09/17/24 09/17/24 09/16/24 History lorazepam 1 mg tablet 1 mg PO HS 09/17/24 09/17/24 09/16/24 History ramelteon 8 mg tablet 8 mg PO HS 09/17/24 09/17/24 09/16/24 History triamcinolone acetonide 0.1 % 1 applic topical BID PRN itching 09/17/24 09/17/24 Unknown History topical cream Allergies Allergy/AdvReac Type Severity Reaction Status Date / Time pollen extracts Allergy Unknown sinus Verified 10/28/24 00:44 drainage PMFSH Past Medical History Medical History Osteoarthritis Anxiety BPH associated with nocturia Aortic aneurysm 4.4 cm Infrarenal AAA on CT scan. Dr. Elias Follows him. Bipolar 1 disorder History of nicotine use Depression Seizure Hepatitis A in 1975 Gonorrhea Hyperlipidemia GERD (gastroesophageal reflux disease) Surgical History Surgical History History of AAA (abdominal aortic aneurysm) repair previously 4.4cm infrarenal and followed by Dr Elias H/O wisdom tooth extraction History of appendectomy Hx of tonsillectomy Family History Family History Father Seizure Mother Cancer Sibling COPD (chronic obstructive pulmonary disease) Cancer Social History Social History Social History: 1 dog in the home Worked for the [employer] Smoking packs per day: 1 Smoking cigarettes per day: 20.0 Years smoked: 20 Smoking pack-years: 20.00 Smoking status: Former smoker Second hand tobacco smoke exposure: Yes Additional smoking assessment comments: pt states he quit when he was 26 and again in his 50s Alcohol intake: never Substance use: never Substance use type: does not use Do You Feel Safe in your Home?: Yes Lack of Transportation: No Lack of Food: Never True Current Housing: I Have Housing Concerned About Future Housing: No Difficulty Paying Gas/Electric Bills: No Difficulty Paying for Meds: No Currently Unemployed: No Education: Associate Degree Difficulty w/ Childcare or Family Care: No Living arrangements: with family Additional living arrangements comments: lives with , daughter and his 3 grandchildren Occupation/Education: retired Gender identity (if verbalized by the patient): Male Spiritual care concerns: No Exam Narrative: APPEARANCE: No apparent distress. Head: atraumatic. EYES: EOMI, NOSE: Atraumatic NECK: Trachea midline RESPIRATORY: No increased rate of breathing clear to auscultation CARDIOVASCULAR: RRR, no peripheral edema ABDOMINAL: Non-distended soft nontender MUSCULOSKELETAl: No obvious deformities NEURO: Alert. Lower extremity strength and sensation intact. No saddle anesthesia. Patient is nonambulatory and rehab. SKIN:: Warm, dry. Normal color PSYCHIATRIC: Normal affect Course Vital Signs Vital signs: Vital Signs Temperature 98.4 F 10/27/24 19:36 Pulse Rate 87 10/27/24 19:36 Respiratory Rate 16 10/27/24 19:36 Blood Pressure 154/76 H 10/27/24 19:36 Pulse Oximetry 93 10/27/24 19:36 Oxygen Delivery Room Air 10/27/24 19:36 Temperature 98.0 F 10/28/24 01:08 Pulse Rate 93 10/28/24 01:08 Respiratory Rate 17 10/28/24 01:08 Blood Pressure 130/84 10/28/24 01:08 Pulse Oximetry 97 10/28/24 01:08 Oxygen Delivery Room Air 10/28/24 01:08 Medical Decision Making MDM Narrative Medical decision making narrative: -Course: 69-year-old male with a known L2 fracture presenting for pain. Patient has dementia and is not a good historian. He is resting comfortably in bed with no complaints on my evaluation. He has no lower extremity neurologic deficits, urinary retention Excedrin. No saddle anesthesia. He did have a bowel movement his pants but that is not uncommon for him as he is bedbound. Low concern for spinal cord compression. Patient's pain was treated and he was discharged back to rehab. Return precautions. -DDX includes but is not limited to: Pain due to L2 fracture, muscle spasms, this chronic requiring a Vital Signs Vital Signs: Vital Signs Temperature 98.4 F 10/27/24 19:36 Pulse Rate 87 10/27/24 19:36 Respiratory Rate 16 10/27/24 19:36 Blood Pressure 154/76 H 10/27/24 19:36 Pulse Oximetry 93 10/27/24 19:36 Oxygen Delivery Room Air 10/27/24 19:36 Temperature 98.0 F 10/28/24 01:08 Pulse Rate 93 10/28/24 01:08 Respiratory Rate 17 10/28/24 01:08 Blood Pressure 130/84 10/28/24 01:08 Pulse Oximetry 97 10/28/24 01:08 Oxygen Delivery Room Air 10/28/24 01:08 Discharge Plan Discharge Clinical Impression: Lower back pain Patient Disposition: Home Condition: Stable Instructions: Antibiotic Form, Back Pain (ED) Additional Instructions: Dat was seen emergency department for lower back pain. He has a new L2 fracture. Please adjust his pain medications as needed to control his pain. If he develops any lower extremity weakness urinary retention other signs of spinal cord involvement please return to the ED re-evaluation. Can follow-up with the neurosurgeon listed below in 5-7 days. Patient Language: Polish Prescriptions: New acetaminophen 500 mg tablet 1,000 mg PO TID PRN (Reason: riddhi) 7 Days Qty: 42 0RF methocarbamol 750 mg tablet 1,500 mg PO TID Qty: 45 0RF lidocaine 5 % adhesive patch,medicated 1 patch topical DAILY Qty: 15 0RF Rx Instructions: leave on most painful area for up to 12 hrs oxycodone 5 mg tablet 5 mg PO Q4H PRN (Reason: pain) Qty: 14 0RF No Action trazodone 100 mg tablet 300 mg PO HS olanzapine 5 mg tablet,disintegrating 25 mg PO QPM hydrocodone-acetaminophen 5-325 mg tablet 1 tablet PO Q8H PRN (Reason: pain) Qty: 10 0RF lidocaine [Lidoderm] 5 % adhesive patch,medicated 1 patch topical DAILY PRN (Reason: pain) Qty: 15 0RF Rx Instructions: leave on most painful area for up to 12 hrs lorazepam 1 mg tablet 1 mg PO HS ramelteon 8 mg tablet 8 mg PO HS atorvastatin 40 mg tablet 40 mg PO HS triamcinolone acetonide 0.1 % cream 1 applic topical BID PRN (Reason: itching) Rx Instructions: on feet sennosides-docusate sodium [Senokot-S] 8.6-50 mg Tablet 2 tab-cap PO BID Qty: 60 0RF acetaminophen 500 mg Tablet 1,000 mg PO 06,12,18 Qty: 60 0RF pantoprazole 40 mg Tablet,Delayed Release (Dr/Ec) 40 mg PO QAM Qty: 30 0RF docusate sodium 100 mg Capsule 100 mg PO Q12H PRN (Reason: Constipation) Qty: 30 0RF methocarbamol 500 mg Tablet 500 mg PO Q12HR 60 Days Qty: 120 0RF aspirin [Adult Aspirin Regimen] 81 mg tablet,delayed release (DR/EC) 81 mg PO BID Qty: 60 0RF oxycodone 5 mg tablet 5 mg PO Q6H PRN (Reason: pain) Qty: 10 0RF Adults Multivitamin 18 mg iron-400 mcg-25 mcg Tablet 1 tablet PO DAILY Follow-up/Referrals: Dakota Smith MD [Physician, Neurosurgery] - 1 Week Referral Note: L2 fracture Dutch Deluca DO [Primary Care Provider, Internal Medicine]
[2024-10-28] MEDS: KETOROLAC 15 MG/ML VIAL (*BKC) IV PUSH (02:01)
[2024-10-28] MEDS: ACETAMINOPHEN 500 MG TABLET 1000 MG PO (02:02)
[2024-10-28] MEDS: oxyCODONE HCL (*CRX) 5 MG TAB IR PO (02:02)
[2024-10-28 02:20] VITALS: BP 124/86; PULSE 84; RESP 17; O2SAT 97
== END 2024-10-28 02:59 ==
PROVIDERS: Emergency Provider Emergency Medicine; PCP Internal Medicine
DX: S32.029D Unspecified fracture of second lumbar vertebra, subsequent encounter for fracture with routine healing (principal); F03.90 Unspecified dementia, unspecified severity, without behavioral disturbance, psychotic disturbance, mood disturbance, and anxiety; E78.5 Hyperlipidemia, unspecified; N40.1 Benign prostatic hyperplasia with lower urinary tract symptoms; R35.1 Nocturia; M19.90 Unspecified osteoarthritis, unspecified site; K21.9 Gastro-esophageal reflux disease without esophagitis; F31.9 Bipolar disorder, unspecified; F41.9 Anxiety disorder, unspecified; Z87.891 Personal history of nicotine dependence; W18.30XD Fall on same level, unspecified, subsequent encounter
CPT/HCPCS: 96374; 99284; A9270; J1885

== ENCOUNTER 2024-12-11 10:12 | Outpatient (CLI) | payer OTHER, SELFPAY ==
--- NOTE | ~2024-12-11 | XR_ITS ---
XR lumbar spine 2-3V Indication: S32.029A - Unspecified fracture of second lumbar vertebra... Comparison: None Findings: There is a remote compression fracture of L2 with loss of height 90%, there is a remote superior endplate fracture of L3 with loss of height 50%. There is a remote compression fracture of T11 with loss of height 50%. Moderate to severe loss of disc height throughout Soft tissues unremarkable Impression: No acute abnormality. Reviewed, dictated and finalized at location P. Impression: No acute abnormality.
--- OUTSIDE RECORDS SUMMARY | 2024-12-11 11:08 | XMS_ITS | Encounter Summary ---
Author Organization [facility] Address [address] [place] [address] Care Team Providers Care Manager Of Digital Name Role Phone Dutch Deluca DO Primary Care Provider [phone] Natalee Paris MD Primary Care Provider [phone] Brett Flores DO Primary Care Provider [phone] Encounter Details Date Type Department Care Team (Late st Contact Info) Description 01/13/2022 Ophth Exam [facility] [address] [place] [address] Abdias Mccarthy MD [address] [facility] [place] [id number] Social History Tobacco Use Types Packs/Day Years Used Date Smoking Tobacco: Never Assessed Sex and Gender Information Value Date Recorded Sex Assigned at Not on file Legal Sex Male 4:47 PM 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 Gender Identity Not on file Sexual Orientation Not on file documented as of this encounter Functional Status documented as of this encounter Plan of Treatment Not on file documented as of this encounter Visit Diagnoses Not on filedocumented in this encounter Care Teams Manager Of Digital Relationship Specialty Start Date End Date Dutch Deluca DO [address] [place] [address] PCP - General 01/27/22 03/04/22 Natalee Paris MD [address] [place] [id number] PCP - General 03/05/22 04/22/22 Brett Flores DO [address] [place] [id number] PCP - General 04/23/22 documented as of this encounter
--- OUTSIDE RECORDS SUMMARY | 2024-12-11 11:08 | XMS_ITS | Clinical Summary ---
Author Organization [facility] Address [address] [place] [address] Care Team Providers Care Security Operations Engineer Name Role Phone Poncho Vital MD Unavailable Mello Lau MD Unavailable [phone] Brett Flores DO Primary Care Provider [phone] Iam June MD Unavailable [phone] Nadine Kennedy MD Unavailable Allergies Active Allergy [...] Refer to memory diagnostic center at [facility] at discharge Assessment & Plan (10/29/2023 [...] Refer to memory diagnostic center at [facility] at discharge Bipolar disorder, most recent [...] hour hold. Olanzapine serum dose still pending. [place] level and BMP ordered for Wednesday evening before night time dose. Will continue to evaluate patient for clinical response and side effects - Olanzapine serum level ordered (drawn on 10/26 at 20:15 before nighttime dose) -- does not appear to have returned yet - [place] 300mg BID - Cardiology confirmed no contraindication to starting [place] with this patient in the setting of their EKG findings from 10/24 - Need a serum level and BMP after sufficient number of half lives (roughly 4 days from today, Wednesday evening before night time dose) - Zydis 20mg QHS - File 96 hour hold today 10/30 -- only change is consolidating [place] in HS Dementia 09/20/2023 Assessment & Plan [...] scheduled tylenol) - Secondary to having begun [place] therapy, added diclofenac PRN q6H as it [...] 05/11/2018 Assessment & Plan (02/03/2023 1:59 PM FASHION DESIGNER): 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 Incision is healed. Flora removed today. Bilateral femoral pulses are palpable [...] tomorrow. 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 Never 10/06/2023 Do you belong to any clubs o r organizations such as latter day groups, unions, fraternal or athletic groups, or [...] Date Recorded PHQ-2 Total Score 0 09/15/2023 [facility] [place] of Occupat ional Health - Occupational Stress [...] place to sleep or slept in a senior living (including now)? No 11/17/2022 PHQ-9 Answer Date [...] any time in the past 12 m [facility], were you homeless or living in a senior living (including now)? No 10/06/2023 Personal Safety Answer [...] on file Legal Sex Male 3:07 PM FASHION DESIGNER Gender Identity Male 02/17/2021 4:16 PM FASHION DESIGNER Sexual Orientation Straight 02/17/2021 4: 16 PM FASHION DESIGNER Occupation Industry Job Start Date Job End Date Retired - used to work for the [employer] Not on fi le Not on file [...] 108.9 kg (240 lb) 02/16/2024 1:51 PM FASHION DESIGNER Height 184.9 cm (6' 0.8) 02/16/2024 1:51 PM FASHION DESIGNER Body Mass Index 31.84 02/16/2024 1:51 PM FASHION DESIGNER Plan of Treatment Health Maintenance Due Date [...] history exists Medical Devices Implanted Type Area Assistant Front Office Manager Device Identifier Shelf Expiration Date Model / Serial / Lot [id number] [id number] Hemashield Gold 24mm 30cm 2 Velour Straight Tube Knit Thorax - [id number] - [id number] Implanted:Qty: 1 on 11/16/2022 by Mello Lau MD at [facility] Graft N/A: Aorta [employer] 02/28/2027 [id number] / [id number] Procedures Procedure Name Priority Date/Time Associated Diagnosis Comments CTA ABDOMEN PELVIS W WO CONTRAST Schedule Routine, Read Routine (OP Routine) 01/11/2023 1:33 PM FASHION DESIGNER Abdominal aortic aneurysm (AAA) without rupture, unspecified part Aftercare following surgery of the circulatory system from Last 3 Months or Most Recently Relevant to Health Maintenance Results * CTA Abdomen Pelvis (01/11/2023 1:33 PM FASHION DESIGNER) Anatomical Region Laterality Modality Body N/A Computed Tomogra phy 01/11/2023 1:55 PM FASHION DESIGNER Narrative 01/11/2023 2:08 PM FASHION DESIGNER EXAM DESCRIPTION: CTA ABDOMEN PELVIS REASON FOR [...] Findings Committee. J Am Yissel Radiol. 2017 Sep;14(8):6804-6263. FINDINGS: VASCULATURE: On the noncontrast sequence, there [...] Angel Matt D.O. PS T: Report ID: [id number] Reading Location: [id number] Procedure Note Angel Matt, DO - 01/11/2023 [...] Findings Committee. J Am Yissel Radiol. 2017 Sep;14(8):5738-4270. FINDINGS: VASCULATURE: On the noncontrast sequence, there [...] Angel Matt D.O. PS T: Report ID: [id number] Reading Location: [place] [address] Mello Lau MD IMG CT PROCEDURES Final Re sult from Last 3 Months or Most Recently Relevant to Health Maintenance Insurance [facility] Member Subscriber Plan / Payer ( fective 2017-Present) Name:Juan Daugherty Relation to Subscriber:Self Name:Juan Daugherty Payer ID:[id number] ([facility]) Type:MEDICARE RISK OTHER Address: [address] Advance Directives For more information, please contact: [phone] * Full Code (Latest Code Status on File) Date Activated Date Inactivated Comments 11/15/2023 5:06 AM 11/15/2023 8:50 PM * Full Code Date Activated Date Inactivated Comments 10/05/2023 6:22 PM 11/05/2023 8:48 PM * Full Code Date Activated Date Inactivated Comments 09/15/2023 10:16 PM 09/20/2023 9:01 PM * Full Code Date Activated Date Inactivated Comments 11/16/2022 3:11 PM 11/24/2022 6:26 PM Care Teams Security Operations Engineer Relationship Specialty Start Date End Date Brett Flores DO [address] [facility] [address] [place] [address] PCP - General Family Medicine 04/09/22 Poncho Vital MD [address] [place] [address] Internal Medicine 08/02/18 Mello Lau MD [address] [facility] [address] [facility] [address] [place] [address] Surgeon Vascular Surgery 03/13/22 Iam June MD [address] [facility] [address] [place] [address] Consulting Physician Cardiology 11/06/22 Nadine Kennedy MD [address] [facility], [facility] [address] [place] [address] Consulting Physician Pain Management 08/23/23
--- OUTSIDE RECORDS SUMMARY | 2024-12-11 11:08 | XMS_ITS | Clinical Summary ---
Author Organization [facility] Address [address] [facility] [place] [address] Care Team Providers Care Issuer Name Role Phone Brett Flores Primary Care Provider [phone] Source Comments [facility],non-owned Affiliates and Associated Physician Practices is amultiple site organization consisting of ambulatory clinics and hospital sitesin [place], [place], [place] and [place]. This disclosure is being madepursuant to the Care Everywhere program and may not contain all information available regarding this patient. Last updated 17.[facility] Allergies Active Allergy Reactions Criticality Noted Date [...] by mouth 2 times daily 2 Active mgnmc-6-fkfq ethyl esters (Lovaza) 1 g capsule Take [...] on file Legal Sex Male 4:47 PM WIDE AREA NETWORK ADMINISTRATOR Gender Identity Not on file Sexual Orientation Not on file Last Filed Vital Signs Vital Sign Reading Time Taken Comments Blood Pressure 122/71 05/06/2022 8:25 AM WIDE AREA NETWORK ADMINISTRATOR Pulse 93 05/06/2022 8:25 AM WIDE AREA NETWORK ADMINISTRATOR Temperature 36.7 C (98.1 F) 05/06/2022 8:25 AM WIDE AREA NETWORK ADMINISTRATOR Respiratory Rate 20 01/14/2022 4:38 PM WIDE AREA NETWORK ADMINISTRATOR Oxygen Saturation 96% 05/06/2022 8:25 AM WIDE AREA NETWORK ADMINISTRATOR Inhaled Oxygen Concentration - - Weight 105.7 kg (233 lb) 05/06/2022 8:25 AM WIDE AREA NETWORK ADMINISTRATOR Height 190.5 cm (6' 3) 05/06/2022 8:25 AM WIDE AREA NETWORK ADMINISTRATOR Body Mass Index 29.12 05/06/2022 8:25 AM WIDE AREA NETWORK ADMINISTRATOR Plan of Treatment Health Maintenance Due Date [...] - Risk 60-74 years 1-dose series) 2013 DEPRESSION SCREENING 03/01/2024 COVID-19 VACCINE ( season) 2024 01/20/2021, 05/29/2020, 05/08/2020 INFLUENZA VACCINE (#1) 2024 2, 12/16/2020, 12/03/2019, [...] PANEL (CALCIUM TOTAL) STAT 01/14/2022 5:38 AM WIDE AREA NETWORK ADMINISTRATOR from Last 3 Months or Most Recently Relevant to Health Maintenance Results * (ABNORMAL) BASIC METABOLIC PANEL (CALCIUM TOTAL) (01/14/2022 5:38 AM WIDE AREA NETWORK ADMINISTRATOR) Pathologist [facility] 11 mg/dL 01/14/2022 6:11 AM [facility] Creatinine 0.97 0.71 - 1.16 mg/dL 01/14/2022 6:11 AM [facility] Sodium 140 136 - 145 mmol/L 01/14/2022 6:11 AM [facility] Potassium 3.7 3.5 - 4.5 mmol/L 01/14/2022 6:11 AM [facility] Chloride 107 98 - 107 mmol/L 01/14/2022 6:11 AM [facility] CO2 23 22 - 29 mmol/L 01/14/2022 6:11 AM [facility] Glucose 101 70 - 115 mg/dL 01/14/2022 6:11 AM [facility] Calcium 9.2 8.4 - 10.2 mg/dL 01/14/2022 6:11 AM [facility] Anion Gap 14 8 - 18 01/14/2022 6:11 AM [facility] BUN/Creatinine Ratio 11 7 - 23 01/14/2022 6:11 AM [facility] Osmolality Calculated 290 270 - 300 mOsm/kg 01/14/2022 6:11 AM [facility] eGFR by CKD-EPI 85(L) >=90 mL/min/1.7 3 m2 01/14/2022 6:11 AM [facility] Blood BLOOD SPECIMEN / Unknown Venipuncture / Unknown 01/14/2022 5:38 AM WIDE AREA NETWORK ADMINISTRATOR 01/14/2022 5:43 AM [facility] us Shahbaz Dumont MD LAB - CHEMISTRY ORDERABLES Fin al Result [facility] [address] [place] [address], [facility] [phone] from Last 3 Months or Most Recently Relevant to Health Maintenance Insurance [facility] MEDICARE [facility] MEDICARE Advance Directives * Full Code (Latest Code Status on File) Date Activated Date Inactivated Comments 01/13/2022 10:08 PM 01/14/2022 8:59 PM Care Teams Issuer Relationship Specialty Start Date End Date Brett Flores DO [address] [place] [id number] PCP - General 04/23/22
--- OUTSIDE RECORDS SUMMARY | 2024-12-11 11:08 | XMS_ITS | Clinical Summary ---
Author Organization [facility] Address [address], [address] [address] Phone Care Team Providers Care Insurance Follow Up Rep Name Role Phone Jc Cazares MD Primary Care Provider [phone] Allergies No known active allergies Medications polyethylene [...] on file Legal Sex Male 1:28 PM PULL UP HAND Gender Identity Not on file Sexual Orientation Not on file Plan of Treatment Health Maintenance Due Date Last Done Comments Hepatitis C Virus (HCV) Screening 1955 TdaP Immunization 1955 Cologuard 1998 Immunochemical Fecal Occult Blood 1998 Pneumococcal Immunization (5 0+ years) (1 of 1 - PCV) 2003 Zoster Immunization (1 of 2) 2003 Colonoscopy 07/22/2022 07/22/2017 Colorectal Cancer Screening 07/22/2022 Influenza Immunization (#1) 2024 SARS-COV-2 Immunization (1 - season) 2024 Respiratory Syncytial Virus (RSV) Immunization (Adult) [...] Recently Relevant to Health Maintenance Care Teams Insurance Follow Up Rep Relationship Specialty Start Date End Date Jc Cazares MD [address] [place] [address] PCP - General Family Medicine 04/12/17
== END 2024-12-11 10:13 | disposition home or self-care (01) ==
PROVIDERS: PCP Internal Medicine; Visit Provider Nurse Practitioner Adult Health
DX: S32.029A Unspecified fracture of second lumbar vertebra, initial encounter for closed fracture (principal); X58.XXXA Exposure to other specified factors, initial encounter
CPT/HCPCS: 72100

== ENCOUNTER 2025-02-16 13:45 | Outpatient (CLI) | payer OTHER, SELFPAY ==
--- OUTSIDE RECORDS SUMMARY | 2025-02-14 03:45 | XMS_ITS ---
Author Organization [facility] Address [address] [place] [phone] Care Team Providers Care Assistant Plant Manager Name Role Phone DR. VLADIMIR FUENTES Primary Care Provider REASON FOR VISIT LV, routine Encounters Encounter Location Date Provider Diagnosis [address] [place] [id number] 02/14/2025 VLADIMIR FUENTES Plan Of Treatment No Information Progress Notes * Juan DAUGHERTYDOB:1955 (70 yo M)Acc No.[id number]:02/14/2025 Patient: Juan Frausto Provider: Brigida Fuentes DO :1955 A ge:70 Y S ex:Male Date:02/14/2025 Address:[address] [facility] Subjective: * Chief Complaints: * L V, routine * Electronic signature of DR. VLADIMIR FUENTES , D.OJocelin on 02/16/2025 at 01:49 PM POLITICAL REPORTER Sign off status: Pending * Provider: Brigida Fuentes DO Date: 04/17/2024 Generated for Printi ng/Faxing/eTransmitting on: 04/19/2024 01:49 PM POLITICAL REPORTER
--- OUTSIDE RECORDS SUMMARY | 2025-02-14 20:27 | XMS_ITS ---
Author Organization [facility] Address [address] [place] [phone] Care Team Providers Care Trade Promotion Analyst Name Role Phone DR. VLADIMIR SIMS Primary Care Provider REASON FOR VISIT chart prep Medications Medication SIG (Take, Route, Frequency, Duration) Notes Start Date End Date Status LORazepam 1 MG Tablet 1 tablet at bedtim e Orally Once a day 12/12/2024 Active oxyCODONE HCl 5 MG Tablet 1 tablet as ne eded Orally every 6 hrs 11/11/2024 Active Aspirin 81 MG Tablet Chewable 1 tablet Orally twice a day Active Acetaminophen 500 MG Tablet 2 tablets Or ally 3 times a day Active Atorvastatin Calcium 40 MG Tablet 1 tablet Orally Once a day Active Pantoprazole Sodium 40 MG Tablet Delayed Release 1 tablet Orally Once a day Active OLANZapine 20 MG Tablet 1 tablet Orally Once a day Active Docusate Sodium 100 MG Tablet 1 tablet as needed Orally twice a day Active Multiple Vitamins - Tablet 1 tablet Oral ly Once a day Active Methocarbamol 500 MG Tablet 1 tablet Ora lly twice a day Active Ramelteon 8 MG Tablet 1 tablet at bedtim e as needed Orally Once a day Active traZODone HCl 100 MG Tablet 3 tablets Or ally Once a day Active Senna Plus 8.6-50 MG Tablet 2 tablets Or ally Twice a day Active Imodium A-D 2 MG Tablet 1 tablet as need ed Orally Four times a day Active Triamcinolone Acetonide 0.1 % Cream 1 application Externally Two times a Week PRN 1, PRN 2 Active Zoloft 50 MG Tablet 1 tablet Orally Once a day; Duration: 30 days 01/27/2025 Active Vitamin D3 50 MCG (2000 UT) Tablet 1 tablet Orally Once a day Active Social History Tobacco Use: Social History Observation Description Date Details (start date - stop date) Former Smoker NA - NA Social History Tobacco Use: Social Info Question Answer Notes Tobacco Control (Standard) Tobacco use: Former smoker Encounters Encounter Location Date Provider Diagnosis [facility] [address] [place] [address] 02/15/2025 VLADIMIR SIMS Plan Of Treatment No Information Progress Notes * Juan DAUGHERTYDOB:1955 (70 yo M)Acc No.[id number]:02/15/2025 Patient: Juan NGUYỄN :1955 A ge:70 Y S ex:Male Address: [facility] [place], [address] Subjective: * Chief Complaints: * C townsend prep * Surgical History: AAA repair wisdom tooth extraction appendectomy tonsillectomy Surgical History verified. * Family History: F ather: seizure disorder. M other: cancer. F amily History Verified.. * Social History: T obacco Use: T obacco Control (Standard) T obacco use: F ormer smoker. Social History Verified. * Medications: T akingVitamin D3 50 MCG (1999) Tablet 1 tablet Orally Once a day Zoloft 50 MG Tablet 1 tablet Orally Once a day Imodium A-D 2 MG Tablet 1 tablet as needed Orally Four times a day Triamcinolone Acetonide 0.1 % Cream 1 application Externally Two times a Week PRN 1, PRN 2traZODone HCl 100 MG Tablet 3 tablets Orally Once a day Senna Plus 8.6-50 MG Tablet 2 tablets Orally Twice a day Ramelteon 8 MG Tablet 1 tablet at bedtime as needed Orally Once a day Pantoprazole Sodium 40 MG Tablet Delayed Release 1 tablet Orally Once a day OLANZapine 20 MG Tablet 1 tablet Orally Once a day Multiple Vitamins - Tablet 1 tablet Orally Once a day Methocarbamol 500 MG Tablet 1 tablet Orally twice a day Docusate Sodium 100 MG Tablet 1 tablet as needed Orally twice a day Atorvastatin Calcium 40 MG Tablet 1 tablet Orally Once a day Aspirin 81 MG Tablet Chewable 1 tablet Orally twice a day Acetaminophen 500 MG Tablet 2 tablets Orally 3 times a day oxyCODONE HCl 5 MG Tablet 1 tablet as needed Orally every 6 hrs LORazepam 1 MG Tablet 1 tablet at bedtime Orally Once a day Taking Vitamin D3 50 MCG (1999 UT) Tablet 1 tablet Orally Once a day Taking Zoloft 50 MG Tablet 1 tablet Orally Once a day Taking Imodium A-D 2 MG Tablet 1 tablet as needed Orally Four times a day Taking Triamcinolone Acetonide 0.1 % Cream 1 application Externally Two times a Week PRN 1, PRN 2Taking traZODone HCl 100 MG Tablet 3 tablets Orally Once a day Taking Senna Plus 8.6-50 MG Tablet 2 tablets Orally Twice a day Taking Ramelteon 8 MG Tablet 1 tablet at bedtime as needed Orally Once a day Taking Pantoprazole Sodium 40 MG Tablet Delayed Release 1 tablet Orally Once a day Taking OLANZapine 20 MG Tablet 1 tablet Orally Once a day Taking Multiple Vitamins - Tablet 1 tablet Orally Once a day Taking Methocarbamol 500 MG Tablet 1 tablet Orally twice a day Taking Docusate Sodium 100 MG Tablet 1 tablet as needed Orally twice a day Taking Atorvastatin Calcium 40 MG Tablet 1 tablet Orally Once a day Taking Aspirin 81 MG Tablet Chewable 1 tablet Orally twice a day Taking Acetaminophen 500 MG Tablet 2 tablets Orally 3 times a day Taking oxyCODONE HCl 5 MG Tablet 1 tablet as needed Orally every 6 hrs Taking LORazepam 1 MG Tablet 1 tablet at bedtime Orally Once a day DiscontinuedLidocaine 5 % Patch 1 patch remove after 12 hours Externally Once a day Discontinued Lidocaine 5 % Patch 1 patch remove after 12 hours Externally Once a day * true * Date: Generated for Loretta kelly/Brenda/Chapito on: 04/19/2024 01:49 PM CONE TREATER
--- NOTE | ~2025-02-16 | XR_ITS ---
XR lumbar spine 2-3V Indication: S32.029A - Unspecified fracture of second lumbar vertebra... Comparison: None Findings: Moderate loss of vertebral height throughout, no subluxation. Severe remote compression fracture of L2 with loss of height 90%, remote superior endplate fracture of L3 with loss of hydration percent. No acute fracture. Moderate loss of disc at L4-5 and L5-S1 with severe loss of disc height at L1-2. Soft tissues unremarkable Impression: No acute abnormality. Reviewed, dictated and finalized at location P. AL SERVICE CLERK Impression: No acute abnormality.
--- OUTSIDE RECORDS SUMMARY | 2025-02-16 13:49 | XMS_ITS | Patient Health Record ---
Author Organization [facility] Address [address] [place] [id number] Care Team Providers Care [place] Department Operator Name Role Phone DR. VLADIMIR SIMS Primary Care Provider [phone] Zahira Foreman Unavailable [phone] Allergies Allergen (clinical drug ingredient) Drug/Non Drug Allergy documented on EMR Reaction Allergy Type Onset Date Status Pollen (e.g. tree, grass) Unknown Allergy Active Results Component Value Reference Range Notes Comp. Metabolic Panel (14) Reviewed date:02/01/2025 08:34:35 AM Interpretation: Performing Lab: Notes/Report: CBC Reviewed date:02/01/2025 08:34:42 AM Interpretation: Performing Lab: Notes/Report: Lipid Panel Reviewed date:02/01/2025 08:34:47 AM Interpretation: Performing Lab: Notes/Report: Vitamin B12 Reviewed date:02/01/2025 08:34:52 AM Interpretation: Performing Lab: Notes/Report: Vitamin D, 25-Hydroxy Reviewed date:02/01/2025 08:34:58 AM Interpretation: Performing Lab: Notes/Report: X ray : Clavicle, left Reviewed date:01/04/2025 02:58:03 PM Interpretation: Performing Lab: Notes/Report: X ray : Shoulder, left Reviewed date:01/04/2025 02:58:24 PM Interpretation: Performing Lab: Notes/Report: Reason For Referral No Information Medications Medication SIG (Take, Route, Frequency, Duration) Notes Start Date End Date Status Pantoprazole Sodium 40 MG Tablet Delayed Release 1 tablet Orally Once a day Active OLANZapine 20 MG Tablet 1 tablet Orally Once a day Active LORazepam 1 MG Tablet 1 tablet at bedtim e Orally Once a day 12/12/2024 Active Ramelteon 8 MG Tablet 1 tablet at bedtim e as needed Orally Once a day Active traZODone HCl 100 MG Tablet 3 tablets Or ally Once a day Active oxyCODONE HCl 5 MG Tablet 1 tablet as ne eded Orally every 6 hrs 11/11/2024 Active Senna Plus 8.6-50 MG Tablet 2 tablets Or ally Twice a day Active Imodium A-D 2 MG Tablet 1 tablet as need ed Orally Four times a day Active Aspirin 81 MG Tablet Chewable 1 tablet Orally twice a day Active Triamcinolone Acetonide 0.1 % Cream 1 application Externally Two times a Week PRN 1, PRN 2 Active Acetaminophen 500 MG Tablet 2 tablets Or ally 3 times a day Active Zoloft 50 MG Tablet 1 tablet Orally Once a day; Duration: 30 days 01/27/2025 Active Docusate Sodium 100 MG Tablet 1 tablet as needed Orally twice a day Active Atorvastatin Calcium 40 MG Tablet 1 tablet Orally Once a day Active Multiple Vitamins - Tablet 1 tablet Oral ly Once a day Active Vitamin D3 50 MCG (1999 UT) Tablet 1 tablet Orally Once a day Active Methocarbamol 500 MG Tablet 1 tablet Ora lly twice a day Active Social History Tobacco Use: Social History Observation Description Date Details (start date - stop date) Former Smoker NA - NA Social History Tobacco Use: Social Info Question Answer Notes Tobacco Control (Standard) Tobacco use: Former smoker Problems Problem Type SNOMED Code ICD Code Onset Dates Problem Status W/U Status Risk Notes Problem Anemia (360345563) Anemia, unspecified (D64.9) Active confirmed Problem Vitamin D deficiency (54918225) Vitamin D deficiency, unspecified (E55.9) Active confirmed Problem Vitamin deficiency (12420193) Vitamin deficiency, unspecified (E56.9) Active confirmed Problem Hyperlipidemia (48392806) Hyperlipidemia, unspecified (E78.5) Active confirmed Problem Bipolar disorder (99252540) Bipolar disorder, unspecified (F31.9) Active confirmed Problem Anxiety disorder (117552023) Anxiety disorder, unspecified (F41.9) Active confirmed Problem Insomnia (471544850) Insomnia, unspecified (G47.00) Active confirmed Problem Gastro-esophageal reflux disease without esophagitis (128421562) Gastro-esophagea l reflux disease without esophagitis (K21.9) Active confirmed Problem Constipation (64494992) Constipation, unspecified (K59.00) Active confirmed Problem Osteoarthritis (406051136) Unspecified osteoarthritis, unspecified site (M19.90) Active confirmed Problem Lack of coordination (599789957) Other lack of coordination (R27.8) Active confirmed Problem Benign prostatic hypertrophy without outflow obstruction (164909551) Benign prostatic hyperplasia without lower urinary tract symptoms (N40.0) Active confirmed Vital Signs Heart Rate 77 /min 01/23/2025 Temperature 97.7 degrees Fahrenheit 01/23/2025 Respiratory Rate 18 /min 01/23/2025 Oximetry 95 % 01/23/2025 Blood pressure diastolic 64 mm Hg 01/23/2025 Weight-kg 100.52 kg 09/29/2024 Blood pressure systolic 110 mm Hg 01/23/2025 Weight 221.6 lbs 09/29/2024 Encounters Encounter Location Date Provider Diagnosis [address] [address] 02/14/[address] [address] 09/29/[address] [address] 10/03/2024 Zahira Foreman Closed fracture of proximal end of left femur with routine healing, subsequent encounter S72.002D ; Pain in left shoulder M25.512 ; Physical deconditioning R53.81 ; Anxiety disorder, unspecified F41.9 and Bipolar disorder, unspecified F31.[address] [address] 10/05/2024 Zahira Ahsan Closed fracture of proximal end of left femur with routine healing, subsequent encounter S72.002D ; Pain in left shoulder M25.512 ; Physical deconditioning R53.81 ; Anxiety disorder, unspecified F41.9 and Bipolar disorder, unspecified F31.[address] [address] 10/10/2024 Zahira Ahsan Closed fracture of proximal end of left femur with routine healing, subsequent encounter S72.002D ; Pain in left shoulder M25.512 ; Physical deconditioning R53.81 ; Anxiety disorder, unspecified F41.9 and Bipolar disorder, unspecified F31.[address] [address] 10/12/2024 Zahira Foreman Closed fracture of proximal end of left femur with routine healing, subsequent encounter S72.002D ; Pain in left shoulder M25.512 ; Physical deconditioning R53.81 ; Anxiety disorder, unspecified F41.9 and Bipolar disorder, unspecified F31.[address] [address] 10/17/2024 Zahira Foreman Closed fracture of proximal end of left femur with routine healing, subsequent encounter S72.002D ; Pain in left shoulder M25.512 ; Physical deconditioning R53.81 ; Anxiety disorder, unspecified F41.9 and Bipolar disorder, unspecified F31.[address] [address] 10/19/2024 Zahira Foreman Closed fracture of proximal end of left femur with routine healing, subsequent encounter S72.002D ; Pain in left shoulder M25.512 ; Physical deconditioning R53.81 ; Anxiety disorder, unspecified F41.9 and Bipolar disorder, unspecified F31.[address] [address] 10/24/2024 Zahira Foreman Closed fracture of proximal end of left femur with routine healing, subsequent encounter S72.002D ; Pain in left shoulder M25.512 ; Physical deconditioning R53.81 ; Anxiety disorder, unspecified F41.9 and Bipolar disorder, unspecified F31.[address] [address] 10/26/2024 Zahira Foreman Closed wedge compression fracture of L2 vertebra with routine healing, subsequent encounter S32.020D and Wedge compression fracture of T11-T12 vertebra, subsequent encounter for fracture with routine healing S22.080D [address] [address] 11/03/2024 Zahira Foreman Closed wedge compression fracture of L2 vertebra with routine healing, subsequent encounter S32.020D ; Low back pain, unspecified M54.50 and Wedge compression fracture of T11-T12 vertebra, subsequent encounter for fracture with routine healing S22.080D [address] [address] 11/14/2024 Zahira Foreman Closed fracture of proximal end of left femur with routine healing, subsequent encounter S72.002D ; Physical deconditioning R53.81 ; Anxiety disorder, unspecified F41.9 ; Bipolar disorder, unspecified F31.9 ; Gastro-esophageal reflux disease without esophagitis K21.9 ; Closed wedge compression fracture of L2 vertebra with routine healing, subsequent encounter S32.020D and Compression fracture of T11 vertebra with routine healing, subsequent encounter S22.080D [address] [address] 12/21/[address] [address] 01/23/2025 Zahira Foreman Anxiety disorder, unspecified F41.9 ; Bipolar disorder, unspecified F31.9 ; Physical deconditioning R53.81 ; Gastro-esophageal reflux disease without esophagitis K21.9 ; Vitamin deficiency, unspecified E56.9 ; Hyperlipidemia, unspecified E78.5 and Depression, unspecified F32.A [address] [address] 09/26/[address] [address] 09/26/[address] [address] 09/29/[address] [address] 10/02/[address] [address] 10/05/2024 [place] [address] [address] 10/10/[address] [address] 10/12/[address] [address] 10/16/2024 Zahira Foreman [address] [address] 10/17/2024 [place] [address] [address] 10/19/2024 [place] [address] [address] 10/24/2024 VLADIMIR Schroeder [place] [address] [place] [address] 10/25/2024 VLADIMIR Schroeder [place] [address] [place] [address] 10/25/2024 [place] [address] [place] [address] 10/28/2024 Zahira Foreman [place] [address] [place] [address] 11/01/2024 [place] [address] [place] [address] 11/03/2024 VLADIMIR Schroeder [place] [address] [place] [address] 11/03/2024 VLADIMIR Schroeder [place] [address] [address] 11/10/2024 [place] [address] [place] [address] 11/14/2024 [place] [address] [place] [address] 11/21/2024 Zahira Foreman [place] [address] [place] [address] 12/11/2024 Zahira Foreman [place] [address] [place] [address] 12/19/2024 [place] [address] [place] [address] 01/23/2025 VLADIMIR Schroeder [place] [address] [place] [address] 02/08/2025 VLADIMIR Schroeder [place] [address] [address] 02/15/2025 VLADIMIR SIMS Assessments Encounter Date Diagnosis (ICD Code) Assessment Notes Treatment Notes Treatment Clinical Notes Section Notes 10/03/2024 Pain in left shoulder (ICD-10 - M25.512) Patient reports he is having left clavicle pain. Unsure if it was x-rayed at the hospital. Order given to x-ray left shoulder and left clavicle. 10/03/2024 Closed fracture of proximal end of left femur with routine healing, subsequent encounter (ICD-10 - S72.002D) Patient fell at home resulted in a left hip fracture. On 09/19/2024, he underwent a bipolar hemiarthroplasty of the left hip. He has an ortho follow-up on 11/03/2024 and he has to get x-rays at the facility two days prior to his appointment. 10/05/2024 Closed fracture of proximal end of left femur with routine healing, subsequent encounter (ICD-10 - S72.002D) Patient fell at home resulted in a left hip fracture. On 09/19/2024, he underwent a bipolar hemiarthroplasty of the left hip. He has an ortho follow-up on 11/03/2024 and he has to get x-rays at the facility two days prior to his appointment. 10/10/2024 Closed fracture of proximal end of left femur with routine healing, subsequent encounter (ICD-10 - S72.002D) Patient fell at home resulted in a left hip fracture. On 09/19/2024, he underwent a bipolar hemiarthroplasty of the left hip. He has an ortho follow-up on 11/03/2024 and he has to get x-rays at the facility two days prior to his appointment. 10/12/2024 Closed fracture of proximal end of left femur with routine healing, subsequent encounter (ICD-10 - S72.002D) Patient fell at home resulted in a left hip fracture. On 09/19/2024, he underwent a bipolar hemiarthroplasty of the left hip. He has an ortho follow-up on 11/03/2024 and he has to get x-rays at the facility two days prior to his appointment. 10/17/2024 Closed fracture of proximal end of left femur with routine healing, subsequent encounter (ICD-10 - S72.002D) Patient fell at home resulted in a left hip fracture. On 09/19/2024, he underwent a bipolar hemiarthroplasty of the left hip. He has an ortho follow-up on 11/03/2024 and he has to get x-rays at the facility two days prior to his appointment. 10/19/2024 Closed fracture of proximal end of left femur with routine healing, subsequent encounter (ICD-10 - S72.002D) Patient fell at home resulted in a left hip fracture. On 09/19/2024, he underwent a bipolar hemiarthroplasty of the left hip. He has an ortho follow-up on 11/03/2024 and he has to get x-rays at the facility two days prior to his appointment. 10/24/2024 Closed fracture of proximal end of left femur with routine healing, subsequent encounter (ICD-10 - S72.002D) Patient fell at home resulted in a left hip fracture. On 09/19/2024, he underwent a bipolar hemiarthroplasty of the left hip. He has an ortho follow-up on 11/03/2024 and he has to get x-rays at the facility two days prior to his appointment. 10/26/2024 Wedge compression fracture of T11-T12 vertebra, subsequent encounter for fracture with routine healing (ICD-10 - S22.080D) Patient was found on the floor in the bathroom at 3:30 AM on 10/25/2024. Patient was transferring himself when he fell backwards and landed on his spine. He reports he did not hit his head. He was sent to the emergency room and was found to have an L2 fracture along with T11 and T12 fracture. Patient is to wear TLSO brace while out of bed. He is to follow-up with his neurosurgeon in 3-5 days after discharge. 10/26/2024 Closed wedge compression fracture of L2 vertebra with routine healing, subsequent encounter (ICD-10 - S32.020D) Patient was found on the floor in the bathroom at 3:30 AM on 10/25/2024. Patient was transferring himself when he fell backwards and landed on his spine. He reports he did not hit his head. He was sent to the emergency room and was found to have an L2 fracture along with T11 and T12 fracture. Patient is to wear TLSO brace while out of bed. He is to follow-up with his neurosurgeon in 3-5 days after discharge. 11/03/2024 Low back pain, unspecified (ICD-10 - M54.50) Patient was seen in the emergency room on 10/27/2024 due to an increase in back pain. He received new orders for Tylenol 1000 mg t.i.d. p.r.n., methocarbamol 750 mg t.i.d., lidocaine patch, and oxycodone 5 mg q4 hours p.r.n. Patient reports pain is under control at this time. _update with any changes. 11/03/2024 Closed wedge compression fracture of L2 vertebra with routine healing, subsequent encounter (ICD-10 - S32.020D) Patient was found on the floor in the bathroom at 3:30 AM on 10/25/2024. Patient was transferring himself when he fell backwards and landed on his spine. He reports he did not hit his head. He was sent to the emergency room and was found to have an L2 fracture along with T11 and T12 fracture. Patient is to wear TLSO brace while out of bed. He is to follow-up with his neurosurgeon in 3-5 days after discharge. 11/14/2024 Physical deconditioning (ICD-10 - R53.81) Patient is working with PT and OT for strengthening and mobility. He reports therapy is going good. He is utilizing a wheelchair for ambulation. Patient is staying private pay to get more therapy due to having the second fall and the compression fractures in his T11 and T12, and L2 vertebrae. 11/14/2024 Closed fracture of proximal end of left femur with routine healing, subsequent encounter (ICD-10 - S72.002D) Patient fell at home resulted in a left hip fracture. On 09/19/2024, he underwent a bipolar hemiarthroplasty of the left hip. He has an ortho follow-up on 11/15/2024, had x-rays done on 11/13/2024, which appeared normal. _update with any changes. 01/23/2025 Bipolar disorder, unspecified (ICD-10 - F31.9) Patient denies any problems. No outburst or behaviors noted by staff. Managed well on current medications. Continue current treatment plan and monitoring. 01/23/2025 Anxiety disorder, unspecified (ICD-10 - F41.9) Patient denies having any anxiety at this time. Managed well on his current medications.Continu e current treatment plan and monitoring. 11/14/2024 Anxiety disorder, unspecified (ICD-10 - F41.9) Patient denies having any anxiety at this time. Managed well on his current medications.Continu e current treatment plan and monitoring. 10/24/2024 Pain in left shoulder (ICD-10 - M25.512) Patient denies having any more pain in his left clavicle. Continue to monitor and update with any changes. 11/03/2024 Wedge compression fracture of T11-T12 vertebra, subsequent encounter for fracture with routine healing (ICD-10 - S22.080D) Patient was found on the floor in the bathroom at 3:30 AM on 10/25/2024. Patient was transferring himself when he fell backwards and landed on his spine. He reports he did not hit his head. He was sent to the emergency room and was found to have an L2 fracture along with T11 and T12 fracture. Patient is to wear TLSO brace while out of bed. He is to follow-up with his neurosurgeon in 3-5 days after discharge. 01/23/2025 Physical deconditioning (ICD-10 - R53.81) Patient is working with PT and OT for strengthening and mobility. He reports therapy is going good. He is utilizing a wheelchair for ambulation. Patient is staying private pay to get more therapy due to having the second fall and the compression fractures in his T11 and T12, and L2 vertebrae. 10/19/2024 Pain in left shoulder (ICD-10 - M25.512) Patient reports he continues to have left clavicle pain. The shoulder x-ray was negative, but the clavicle x-ray did show that he had a fracture. Upon getting the results of the x-ray, order was given to send the results to his orthopedic doctor. Unsure if that has been done at this time. Spoke with physical therapy and made them aware of the fracture and we are awaiting any instructions on how they can proceed with therapy. X-ray was faxed to the orthopedic doctor, no response at this time. 10/12/2024 Pain in left shoulder (ICD-10 - M25.512) Patient reports he continues to have left clavicle pain. The shoulder x-ray was negative, but the clavicle x-ray did show that he had a fracture. Upon getting the results of the x-ray, order was given to send the results to his orthopedic doctor. Unsure if that has been done at this time. Spoke with physical therapy and made them aware of the fracture and we are awaiting any instructions on how they can proceed with therapy. X-ray was faxed to the orthopedic doctor, no response at this time. Instructed nurse to call the orthopedic office to get further instructions. 10/17/2024 Pain in left shoulder (ICD-10 - M25.512) Patient reports he continues to have left clavicle pain. The shoulder x-ray was negative, but the clavicle x-ray did show that he had a fracture. Upon getting the results of the x-ray, order was given to send the results to his orthopedic doctor. Unsure if that has been done at this time. Spoke with physical therapy and made them aware of the fracture and we are awaiting any instructions on how they can proceed with therapy. X-ray was faxed to the orthopedic doctor, no response at this time. 10/10/2024 Pain in left shoulder (ICD-10 - M25.512) Patient reports he continues to have left clavicle pain. The shoulder x-ray was negative, but the clavicle x-ray did show that he had a fracture. Upon getting the results of the x-ray, order was given to send the results to his orthopedic doctor. Unsure if that has been done at this time. Spoke with physical therapy and made them aware of the fracture and we are awaiting any instructions on how they can proceed with therapy. X-ray was faxed to the orthopedic doctor, no response at this time. Instructed nurse to call the orthopedic office to get further instructions. 10/05/2024 Pain in left shoulder (ICD-10 - M25.512) Patient reports he continues to have left clavicle pain. The shoulder x-ray was negative, but the clavicle x-ray did show that he had a fracture. Upon getting the results of the x-ray, order was given to send the results to his orthopedic doctor. Unsure if that has been done at this time. Spoke with physical therapy and made them aware of the fracture and we are awaiting any instructions on how they can proceed with therapy. 10/03/2024 Physical deconditioning (ICD-10 - R53.81) Patient is working with PT and OT for strengthening and mobility. He reports therapy is going good. He is utilizing a wheelchair for ambulation. 10/03/2024 Anxiety disorder, unspecified (ICD-10 - F41.9) Patient denies having any anxiety at this time. Managed well on his current medications.Continu e current treatment plan and monitoring. 10/05/2024 Physical deconditioning (ICD-10 - R53.81) Patient is working with PT and OT for strengthening and mobility. He reports therapy is going good. He is utilizing a wheelchair for ambulation. 10/10/2024 Physical deconditioning (ICD-10 - R53.81) Patient is working with PT and OT for strengthening and mobility. He reports therapy is going good. He is utilizing a wheelchair for ambulation. 10/17/2024 Physical deconditioning (ICD-10 - R53.81) Patient is working with PT and OT for strengthening and mobility. He reports therapy is going good. He is utilizing a wheelchair for ambulation. Patient reports that he is ready to go home, awaiting his to either call the facility or visit to talk about his discharge plan. 10/12/2024 Physical deconditioning (ICD-10 - R53.81) Patient is working with PT and OT for strengthening and mobility. He reports therapy is going good. He is utilizing a wheelchair for ambulation. Patient reports that he is ready to go home, awaiting his to either call the facility or visit to talk about his discharge plan. 10/19/2024 Physical deconditioning (ICD-10 - R53.81) Patient is working with PT and OT for strengthening and mobility. He reports therapy is going good. He is utilizing a wheelchair for ambulation. Patient reports that he is ready to go home, awaiting his to either call the facility or visit to talk about his discharge plan. 10/24/2024 Physical deconditioning (ICD-10 - R53.81) Patient is working with PT and OT for strengthening and mobility. He reports therapy is going good. He is utilizing a wheelchair for ambulation. Patient reports that he will be leaving on Wednesday. 11/14/2024 Bipolar disorder, unspecified (ICD-10 - F31.9) Patient denies any problems. No outburst or behaviors noted by staff. Managed well on current medications. Continue current treatment plan and monitoring. 01/23/2025 Gastro-esophageal reflux disease without esophagitis (ICD-10 - K21.9) Denies any issues. Well managed on current medication regimen. Continue with current treatment plan and monitoring. 11/14/2024 Gastro-esophageal reflux disease without esophagitis (ICD-10 - K21.9) Denies any issues. Well managed on current medication regimen. Continue with current treatment plan and monitoring. 01/23/2025 Vitamin deficiency, unspecified (ICD-10 - E56.9) No labs on file. Order given to draw vitamin D and vitamin B12 on next lab day. 10/19/2024 Anxiety disorder, unspecified (ICD-10 - F41.9) Patient denies having any anxiety at this time. Managed well on his current medications.Continu e current treatment plan and monitoring. 10/24/2024 Anxiety disorder, unspecified (ICD-10 - F41.9) Patient denies having any anxiety at this time. Managed well on his current medications.Continu e current treatment plan and monitoring. 10/12/2024 Anxiety disorder, unspecified (ICD-10 - F41.9) Patient denies having any anxiety at this time. Managed well on his current medications.Continu e current treatment plan and monitoring. 10/17/2024 Anxiety disorder, unspecified (ICD-10 - F41.9) Patient denies having any anxiety at this time. Managed well on his current medications.Continu e current treatment plan and monitoring. 10/05/2024 Anxiety disorder, unspecified (ICD-10 - F41.9) Patient denies having any anxiety at this time. Managed well on his current medications.Continu e current treatment plan and monitoring. 10/10/2024 Anxiety disorder, unspecified (ICD-10 - F41.9) Patient denies having any anxiety at this time. Managed well on his current medications.Continu e current treatment plan and monitoring. 10/03/2024 Bipolar disorder, unspecified (ICD-10 - F31.9) Patient denies any problems. No outburst or behaviors noted by staff. Managed well hile on current medications. Continue current treatment plan and monitoring. 10/05/2024 Bipolar disorder, unspecified (ICD-10 - F31.9) Patient denies any problems. No outburst or behaviors noted by staff. Managed well hile on current medications. Continue current treatment plan and monitoring. 10/10/2024 Bipolar disorder, unspecified (ICD-10 - F31.9) Patient denies any problems. No outburst or behaviors noted by staff. Managed well on current medications. Continue current treatment plan and monitoring. 10/12/2024 Bipolar disorder, unspecified (ICD-10 - F31.9) Patient denies any problems. No outburst or behaviors noted by staff. Managed well on current medications. Continue current treatment plan and monitoring. 10/17/2024 Bipolar disorder, unspecified (ICD-10 - F31.9) Patient denies any problems. No outburst or behaviors noted by staff. Managed well on current medications. Continue current treatment plan and monitoring. 10/24/2024 Bipolar disorder, unspecified (ICD-10 - F31.9) Patient denies any problems. No outburst or behaviors noted by staff. Managed well on current medications. Continue current treatment plan and monitoring. 10/19/2024 Bipolar disorder, unspecified (ICD-10 - F31.9) Patient denies any problems. No outburst or behaviors noted by staff. Managed well on current medications. Continue current treatment plan and monitoring. 01/23/2025 Hyperlipidemia, unspecified (ICD-10 - E78.5) No labs on file. Currently on a statin. Order given to draw lipid panel on next lab day. 11/14/2024 Closed wedge compression fracture of L2 vertebra with routine healing, subsequent encounter (ICD-10 - S32.020D) Patient was found on the floor in the bathroom at 3:30 AM on 10/25/2024. Patient was transferring himself when he fell backwards and landed on his spine. He reports he did not hit his head. He was sent to the emergency room and was found to have an L2 fracture along with T11 and T12 fracture. Patient is to wear TLSO brace while out of bed. 11/14/2024 Compression fracture of T11 vertebra with routine healing, subsequent encounter (ICD-10 - S22.080D) Patient was found on the floor in the bathroom at 3:30 AM on 10/25/2024. Patient was transferring himself when he fell backwards and landed on his spine. He reports he did not hit his head. He was sent to the emergency room and was found to have an L2 fracture along with T11 and T12 fracture. Patient is to wear TLSO brace while out of bed. 01/23/2025 Depression, unspecified (ICD-10 - F32.A) Patient reports he is feeling very down and depressed since not being able to go home yet. Spoke with patient about starting a medication and he was okay with starting something. Order given for Zoloft 50 mg daily and to refer to the psych doctor. 10/03/2024 Other Continue curren t treatment plan.Staff to continue to monitor and report any changes.Patient education provided and questions/concerns addressed.Follow up in one week unless necessary sooner. 10/05/2024 Other Continue curren t treatment plan.Staff to continue to monitor and report any changes.Patient education provided and questions/concerns addressed.Follow up in one week unless necessary sooner. 10/10/2024 Other Continue curren t treatment plan.Staff to continue to monitor and report any changes.Patient education provided and questions/concerns addressed.Follow up in one week unless necessary sooner. 10/12/2024 Other Continue curren t treatment plan.Staff to continue to monitor and report any changes.Patient education provided and questions/concerns addressed.Follow up in one week unless necessary sooner. 10/17/2024 Other Continue curren t treatment plan.Staff to continue to monitor and report any changes.Patient education provided and questions/concerns addressed.Follow up in one week unless necessary sooner. 10/19/2024 Other Continue curren t treatment plan.Staff to continue to monitor and report any changes.Patient education provided and questions/concerns addressed.Follow up in one week unless necessary sooner. 10/24/2024 Other Continue curren t treatment plan.Staff to continue to monitor and report any changes.Patient education provided and questions/concerns addressed.Follow up in one week unless necessary sooner. 10/26/2024 Other Continue current treatment plan. Staff to continue to monitor and report any changes. Patient education provided and questions/concerns addressed. Follow up in 1 week unless necessary sooner. 11/03/2024 Other Continue current treatment plan. Staff to continue to monitor and report any changes. Patient education provided and questions/concerns addressed. Follow up in 1 week unless necessary sooner. 11/14/2024 Other Continue current treatment plan. Staff to continue to monitor and report any changes. Patient education provided and questions/concerns addressed. Follow up in 2-4 weeks unless necessary sooner. 01/23/2025 Other Continue current treatment plan. Staff to continue to monitor and report any changes. Patient education provided and questions/concerns addressed. Follow up in 2-4 weeks unless necessary sooner. Draw CBC and CMP on next lab day. Plan Of Treatment Pending Test Test Name Order Date Vitamin D, 25-Hydroxy 04/30/2025 Insurance Providers Payer Name Payer Address Payer Phone Subscriber Number Group Number Insured Name Patient Relationship to Insured Coverage Start Date Coverage End Date [facility] [id number] [place] [id number] [phone] [id number] Juan Daugherty Self - patient is the insured Medical (General) History Medical History History ICD Code Fracture of unspecified part of neck of left femur, subsequent encounter for closed fracture with routine healing S72.002D Constipation, unspecified K59.00 Encounter for other orthopedic aftercare Z47.89 Insomnia, unspecified G47.00 Pruritus, unspecified L29.9 Hyperlipidemia, unspecified E78.5 Depression, unspecified F32.A Unspecified convulsions R56.9 Bipolar disorder, unspecified F31.9 Gastro-esophageal reflux disease without esophagitis K21.9 Unspecified fall, subsequent encounter W 19.XXXD Anxiety disorder, unspecified F41.9 Unspecified osteoarthritis, unspecified site M19.90 Benign prostatic hyperplasia without low er urinary tract symptoms N40.0 Pain, unspecified R52 Vitamin deficiency, unspecified E56.9 Anemia, unspecified D64.9 Other lack of coordination R27.8 Surgical History Surgery Date(Month/Year) AAA repair wisdom tooth extraction appendectomy tonsillectomy
--- OUTSIDE RECORDS SUMMARY | 2025-02-16 13:50 | XMS_ITS | Clinical Summary ---
Author Organization [facility] Address [address] [place] [address] Care Team Providers Care Beef Cattle Farm Manager Name Role Phone None, Provider MD Primary [...] Noted Date Diagnosed Date Bipolar disorder, most recent episode manic 0 07/2023 Dementia 09/20/2023 Benign prostatic hyperplasia 09/16/2023 Hyperlipidemia 09/16/2023 Tobacco use disorder 09/16/2023 Closed compression fracture of L2 lumbar vertebr a, sequela 03/26/2023 Moderate malnutrition 11/23/2022 Hemorrhagic stroke 10/28/2022 Closed wedge compression fracture of second lumb ar vertebra 10/07/2022 Closed fracture of left orbital floor, [...] Comments Blood Pressure 127/79 04/07/2024 12:52 PM OCEAN FREIGHT AGENT Pulse 80 04/07/2024 12:52 PM OCEAN FREIGHT AGENT Temperature 36.3 C (97.4 F) 04/07/2024 12:52 PM OCEAN FREIGHT AGENT Respiratory Rate - - Oxygen Saturation 96% 04/07/2024 12: 52 PM OCEAN FREIGHT AGENT Inhaled Oxygen Concentration - - Weight 109.5 kg (241 lb 6.4 oz) 025 12:52 PM OCEAN FREIGHT AGENT Height 190.5 cm (6' 3) 04/07/2024 12:5 2 PM OCEAN FREIGHT AGENT Body Mass Index 30.17 04/07/2024 12:52 PM OCEAN FREIGHT AGENT Plan of Treatment Health Maintenance Due Date Last Done Comments Colorectal Cancer Screening Colonoscopy (10 Years) 1955 Hepatitis C 1971 Annual Medicare Wellness Visit 2018 DTaP, Tdap and Td Vaccines (1 - Tdap) 08/27/2021 08/26/2021 COVID-19 Vaccine (4 - season) 2024 01/20/2021, 05/29/2020, 05/08/2020 Influenza Adult (#1) 2024 03/10/2023, 12/08/2021, 12/16/2020, Additional history exists Pneumococcal Vaccine: 50+ Years Completed 03/09/2019, 01/28/2018 Zoster Vaccines Completed 06/20/2021, 12/16/2020 RSV Immunization or 60+ Years Completed 03/10/2023 PHQ-2 (Physician [place]) Completed 04/07/2024 Hepatitis A Vaccines Aged Out No long er eligible based on patient's age to complete this topic Meningococcal B Vaccine Aged Out No l onger eligible based on patient's age to complete this topic Meningococcal Vaccine Aged Out No ashley raheel eligible based on patient's age to complete this topic RSV Immunizations Under 20 Months Aged Out No longer eligible based on patient's age to complete this topic Insurance [employer] Care Teams Beef Cattle Farm Manager Relationship Specialty Start Date End Date None, Provider, MD PCP - General UNKNOWN PHYSICIAN SPECIALTY 01/05/24
--- OUTSIDE RECORDS SUMMARY | 2025-02-16 13:50 | XMS_ITS | Clinical Summary ---
Author Organization [facility] Address [address] [place] [address] Care Team Providers Care Survival Equipment Repairer Name Role Phone Poncho Vital MD Unavailable Mello Lau MD Unavailable [phone] Brett Flores DO Primary Care Provider [phone] Iam June MD Unavailable [phone] Nadine Kennedy MD Unavailable Allergies Active Allergy [...] - Refer to [facility] at [facility] at discharge Assessment & Plan (10/29/2023 [...] - Refer to [facility] diagnostic center at [facility] at discharge Bipolar disorder, most recent [...] hour hold. Olanzapine serum dose still pending. Golden Gate level and BMP ordered for Wednesday evening before night time dose. Will continue to evaluate patient for clinical response and side effects - Olanzapine serum level ordered (drawn on 10/26 at 20:15 before nighttime dose) -- does not appear to have returned yet - Golden Gate 300mg BID - Cardiology confirmed no contraindication to starting Golden Gate with this patient in the setting of their EKG findings from 10/24 - Need a serum level and BMP after sufficient number of half lives (roughly 4 days from today, Wednesday evening before night time dose) - Zydis 20mg QHS - File 96 hour hold today 10/30 -- only change is consolidating Golden Gate in HS Dementia 09/20/2023 Assessment & Plan [...] scheduled tylenol) - Secondary to having begun Golden Gate therapy, added diclofenac PRN q6H as it [...] 05/11/2018 Assessment & Plan (02/03/2023 1:59 PM CENTRAL CONTROL ROOM OPERATOR): juxtarenal abdominal aortic aneurism status post open [...] to discuss surgical repair options with Dr. Alfnozo Lau. Patient reports that he has low back pain and asked if this visit could wait until he has undergone his surgery for his back that is not scheduled yet. Advised patient his risk of rupture of his aneurysm and do not recommend waiting until his back surgery. Patient voices understanding and will follow up tomorrow. 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 Never 10/06/2023 Do you belong to any clubs o r organizations such as orthodox groups, unions, fraternal or athletic groups, [...] Date Recorded PHQ-2 Total Score 0 09/15/2023 [facility] - Occupational [...] place to sleep or slept in a skilled nursing (including now)? No 11/17/2022 PHQ-9 Answer Date [...] any time in the past 12 m [facility], were you homeless or living in a skilled nursing (including now)? No 10/06/2023 Personal Safety Answer [...] on file Legal Sex Male 3:07 PM CENTRAL CONTROL ROOM OPERATOR Gender Identity Male 02/17/2021 4:16 PM CENTRAL CONTROL ROOM OPERATOR Sexual Orientation Straight 02/17/2021 4: 16 PM CENTRAL CONTROL ROOM OPERATOR Occupation Industry Job Start Date Job End Date Retired - used to work for the [employer] Not on fi le Not on file [...] 108.9 kg (240 lb) 02/16/2024 1:51 PM CENTRAL CONTROL ROOM OPERATOR Height 184.9 cm (6' 0.8) 02/16/2024 1:51 PM CENTRAL CONTROL ROOM OPERATOR Body Mass Index 31.84 02/16/2024 1:51 PM CENTRAL CONTROL ROOM OPERATOR Plan of Treatment Health Maintenance Due Date [...] history exists Medical Devices Implanted Type Area Betting Agency Counter Clerk Device Identifier Shelf Expiration Date Model / Serial / Lot [employer] [id number] Hemjamison Gold 24mm 30cm 2 Velour Straight Tube Knit Thorax - [id number] - [id number] Implanted:Qty: 1 on 11/16/2022 by Mello Lau MD at [facility] Graft N/A: Aorta [employer] 02/28/2027 [id number] / [id number] Procedures Procedure Name Priority Date/Time Associated Diagnosis Comments CTA ABDOMEN PELVIS W WO CONTRAST Schedule Routine, Read Routine (OP Routine) 01/11/2023 1:33 PM CENTRAL CONTROL ROOM OPERATOR Abdominal aortic aneurysm (AAA) without rupture, unspecified part Aftercare following surgery of the circulatory system from Last 3 Months or Most Recently Relevant to Health Maintenance Results * CTA Abdomen Pelvis (01/11/2023 1:33 PM CENTRAL CONTROL ROOM OPERATOR) Anatomical Region Laterality Modality Body N/A Computed Tomogra phy 01/11/2023 1:55 PM CENTRAL CONTROL ROOM OPERATOR Narrative 01/11/2023 2:08 PM CENTRAL CONTROL ROOM OPERATOR EXAM DESCRIPTION: CTA ABDOMEN PELVIS REASON FOR STUDY: AAA, post repair AAA, s/p repair Oct 2022, now reassessing Surg Hx of app TECHNIQUE: CTA scan of the abdomen and [...] Findings Committee. J Am Yissel Radiol. 2017 Sep;14(8):7675-2194. FINDINGS: VASCULATURE: On the noncontrast sequence, there [...] signed by Angel BOSTON T: Report ID: [id number] Reading Location: [id number] Procedure Note Angel Matt, DO - 01/11/2023 [...] Findings Committee. J Am Yissel Radiol. 2017 Sep;14(8):7616-8678. FINDINGS: VASCULATURE: On the noncontrast sequence, there [...] previously measured up to 4.1 cm (axial [id number], coronal image 45, sagittal image 68). There [...] Angel Matt D.O. PS T: Report ID: [id number] Reading Location: [place] [address] us Mello Lau MD IMG CT PROCEDURES Final Re sult from Last 3 Months or Most Recently Relevant to Health Maintenance Insurance [facility] Member Subscriber Plan / Payer (Ef fective 2017-Present) Name:Juan Daugherty Relation to Subscriber:Self Name:Juan Daugherty Payer ID:[id number] (NAIC) Type:MEDICARE RISK OTHER Address: [address] [facility] Advance Directives For more information, please contact: [phone] * Full Code (Latest Code Status on File) Date Activated Date Inactivated Comments 11/15/2023 5:06 AM 11/15/2023 8:50 PM * Full Code Date Activated Date Inactivated Comments 10/05/2023 6:22 PM 11/05/2023 8:48 PM * Full Code Date Activated Date Inactivated Comments 09/15/2023 10:16 PM 09/20/2023 9:01 PM * Full Code Date Activated Date Inactivated Comments 11/16/2022 3:11 PM 11/24/2022 6:26 PM Care Teams Survival Equipment Repairer Relationship Specialty Start Date End Date Brett Flores DO [address] [place] [address] PCP - General Family Medicine 04/09/22 Poncho Vital MD [address] [facility] [address] [facility] [address] [place] [address] Internal Medicine 08/02/18 Mello Lau MD [address] [facility] [address] [facility] [address] [place] [address] Surgeon Vascular Surgery 03/13/22 Iam June MD [address] [facility] [address] [place] [address] Consulting Physician Cardiology 11/06/22 Nadine Kennedy MD [address] [facility], [facility] [address] [place] [address] Consulting Physician Pain Management 08/23/23
--- OUTSIDE RECORDS SUMMARY | 2025-02-16 13:50 | XMS_ITS | Clinical Summary ---
Author Organization [facility] Address [address] [place] [address] Care Team Providers Care Abrasive Sawyer Name Role Phone Brett Flores Primary Care Provider [phone] Source Comments [facility],non-owned Affiliates and Associated Physician Practices is amultiple site organization consisting of ambulatory clinics and hospital sitesin [place], [place], [place] and [place]. This disclosure is being madepursuant to the Care Everywhere program and may not contain all information available regarding this patient. Last updated 17.[facility] Allergies Active Allergy Reactions Criticality Noted Date [...] by mouth 2 times daily 2 Active onvcj-4-awma ethyl esters (Lovaza) 1 g capsule Take [...] on file Legal Sex Male 4:47 PM HOSPITAL ADMITTING CLERK Gender Identity Not on file Sexual Orientation Not on file Last Filed Vital Signs Vital Sign Reading Time Taken Comments Blood Pressure 122/71 05/06/2022 8:25 AM HOSPITAL ADMITTING CLERK Pulse 93 05/06/2022 8:25 AM HOSPITAL ADMITTING CLERK Temperature 36.7 C (98.1 F) 05/06/2022 8:25 AM HOSPITAL ADMITTING CLERK Respiratory Rate 20 01/14/2022 4:38 PM HOSPITAL ADMITTING CLERK Oxygen Saturation 96% 05/06/2022 8:25 AM HOSPITAL ADMITTING CLERK Inhaled Oxygen Concentration - - Weight 105.7 kg (233 lb) 05/06/2022 8:25 AM HOSPITAL ADMITTING CLERK Height 190.5 cm (6' 3) 05/06/2022 8:25 AM HOSPITAL ADMITTING CLERK Body Mass Index 29.12 05/06/2022 8:25 AM HOSPITAL ADMITTING CLERK Plan of Treatment Health Maintenance Due Date [...] 50+ (1 of 1 - PCV) 2003 Respiratory Syncytial Virus (RSV) Vaccine Pt: or over 60 yrs (1 - Risk 50-74 years 1-dose series) 2003 ZOSTER VACCINE (1 of 2) 2003 DEPRESSION SCREENING 03/01/2024 COVID-19 VACCINE ( - season) 2024 01/20/2021, 05/29/2020, 05/08/2020 INFLUENZA VACCINE [...] PANEL (CALCIUM TOTAL) STAT 01/14/2022 5:38 AM HOSPITAL ADMITTING CLERK from Last 3 Months or Most Recently Relevant to Health Maintenance Results * (ABNORMAL) BASIC METABOLIC PANEL (CALCIUM TOTAL) (01/14/2022 5:38 AM HOSPITAL ADMITTING CLERK) Pathologist [facility] 11 mg/dL 01/14/2022 6:11 AM [facility] Creatinine 0.97 0.71 - 1.16 mg/dL 01/14/2022 6:11 AM [facility] Sodium 140 136 - 145 mmol/L 01/14/2022 6:11 AM [facility] Potassium 3.7 3.5 - 4.5 mmol/L 01/14/2022 6:11 AM [facility] Chloride 107 98 - 107 mmol/L 01/14/2022 6:11 AM [facility] CO2 23 22 - 29 mmol/L 01/14/2022 6:11 AM [facility] Glucose 101 70 - 115 mg/dL 01/14/2022 6:11 AM [facility] Calcium 9.2 8.4 - 10.2 mg/dL 01/14/2022 6:11 AM [facility] Anion Gap 14 8 - 18 01/14/2022 6:11 AM [facility] BUN/Creatinine Ratio 11 7 - 23 01/14/2022 6:11 AM [facility] Osmolality Calculated 290 270 - 300 mOsm/kg 01/14/2022 6:11 AM [facility] eGFR by CKD-EPI 85(L) >=90 mL/min/1.7 3 m2 01/14/2022 6:11 AM [facility] Blood BLOOD SPECIMEN / Unknown Venipuncture / Unknown 01/14/2022 5:38 AM HOSPITAL ADMITTING CLERK 01/14/2022 5:43 AM [facility] us Shahbaz Dumont MD LAB - CHEMISTRY ORDERABLES Fin al Result [facility] [address] [place] [address], [facility] [phone] from Last 3 Months or Most Recently Relevant to Health Maintenance Insurance [facility] MEDICARE [facility] MEDICARE [employer] [facility] Care Address: [address] [place] [address] Advance Directives * Full Code (Latest Code Status on File) Date Activated Date Inactivated Comments 01/13/2022 10:08 PM 01/14/2022 8:59 PM Care Teams Abrasive Sawyer Relationship Specialty Start Date End Date Brett Flores DO [address] [place] [id number] PCP - General 04/23/22
--- OUTSIDE RECORDS SUMMARY | 2025-02-16 13:50 | XMS_ITS | Encounter Summary ---
Author Organization [facility] Address [address] [facility] [place] [address] Care Team Providers Care Cake Knocker Name Role Phone Dutch Deluca DO Primary Care Provider [phone] Natalee Paris MD Primary Care Provider [phone] Brett Flores DO Primary Care Provider [phone] Encounter Details Date Type Department Care Team (Late st Contact Info) Description 01/13/2022 Ophth Exam [facility] [address] [place] [address] Abdias Mccarthy MD [address] [facility] [place] [id number] Social History Tobacco Use Types Packs/Day Years Used Date Smoking Tobacco: Never Assessed Sex and Gender Information Value Date Recorded Sex Assigned at Not on file Legal Sex Male 4:47 PM SHIP PAINTER HELPER Gender Identity Not on file Sexual Orientation Not on file documented as of this encounter Plan of Treatment Not on file documented as of this encounter Visit Diagnoses Not on filedocumented in this encounter Care Teams Cake Knocker Relationship Specialty Start Date End Date Dutch Deluca DO [address] [place] [address] PCP - General 11/29/22 1/4/23 Natalee Paris MD [address] [place] [phone] PCP - General 03/05/22 04/22/22 Brett Flores DO [address] [place] [id number] PCP - General 04/23/22 documented as of this encounter
--- OUTSIDE RECORDS SUMMARY | 2025-02-16 13:50 | XMS_ITS | Clinical Summary ---
Author Organization [facility] Address [address], [address] [address] Phone Care Team Providers Care Ornamental Iron Erector Name Role Phone Jc Cazares MD Primary Care Provider [phone] Allergies No known active allergies Medications polyethylene [...] on file Legal Sex Male 1:28 PM SOLAR RESOURCE ASSESSOR Gender Identity Not on file Sexual Orientation Not on file Plan of Treatment Health Maintenance Due Date Last Done Comments Hepatitis C Virus (HCV) Screening 1955 TdaP Immunization 1955 Varicella Immunization (1 of 2 - 13+ 2-dose series) 1966 Cologuard 1998 Immunochemical Fecal Occult Blood 1998 [...] to Health Maintenance Results * COLONOSCOPY (07/22/2017) us Braulio Leander Barrios DO PROCEDURE/MINOR SURGICAL ORDERA BLES Final Result from Last 3 Months or Most Recently Relevant to Health Maintenance Care Teams Ornamental Iron Erector Relationship Specialty Start Date End Date Jc Cazares MD [address] [place] [address] PCP - General Family Medicine 04/12/17
== END 2025-02-16 13:46 | disposition home or self-care (01) ==
PROVIDERS: PCP Internal Medicine; Visit Provider Nurse Practitioner Adult Health
DX: S32.029A Unspecified fracture of second lumbar vertebra, initial encounter for closed fracture (principal); X58.XXXA Exposure to other specified factors, initial encounter
CPT/HCPCS: 72100